=== PATIENT | female | born 1970 | race Caucasian/White ===

== ENCOUNTER 2024-12-18 00:50 | Emergency (ER) | payer OTHER, SELFPAY ==
[2024-12-18 00:52] VITALS: BP 160/82; PULSE 92; RESP 19; TEMP 36.8; O2SAT 99; BMI 41.1
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
[2024-12-18 02:13] VITALS: BP 142/74; PULSE 93; RESP 20; TEMP 36.8; O2SAT 98
== END 2024-12-18 02:17 | disposition home or self-care (01) ==
PROVIDERS: Emergency Provider Emergency Medicine; PCP Internal Medicine; Visit Provider Emergency Medicine
DX: S20.211A Contusion of right front wall of thorax, initial encounter (principal); V47.5XXA Car driver injured in collision with fixed or stationary object in traffic accident, initial encounter
CPT/HCPCS: 71250; 93005; 99282

== ENCOUNTER → 2025-04-24 | Outpatient (CLI) | payer OTHER, SELFPAY ==
--- NOTE | 2025-04-24 | CYSPIN_PTH ---
PATIENT: GARY MELCHOR [facility] U#:[id number] AGE/SX: 54/F ROOM: RE04/24/[address]: Dr. Amy Moscoso MD : 1970 BED: DIS: 04/24/2025 SPEC #: [id number] RECD: 04/24/25 16:22 STATUS: KATHLEEN REQ #: [id number] PEDRO: 04/24/25 00:[address]: Amy Moscoso DEPT: CYTOLOGY RECD BY: Juanito Vila ENTERED: 04/25/25 08:34 SP TYPE: CYSPIN FL OTHR DR: Dr. Keyana Esposito MD Tissues: A - Urine Procedures: Pap Stain (control) Special Stain Group II Cytospin Fluid HEADER OPERATION: Not noted PRE-OP DIAGNOSIS: Gross hematuria TISSUE SUBMITTED: A- Urine for cytology - voided DIAGNOSIS CYTOLOGY A. Urine, voided (cytospin): - No malignant cells identified. - Predominantly squamous cells present. CYTOLOGY STUDY Slides are reviewed. CYTOLOGY GROSS A. Received is 50 ml of itodus-fgnazm-dxusup fluid labeled with the patient's name and and designated per the requisition as urine. Submitted for cytology preparation. 04/25/2025 CPT: 09585
[2025-04-24 18:13] LABS: Cytology, Body Fluid / CSF SEE PATHOLOGY REPORT
== END | disposition home or self-care (01) ==
LOC: LABSPEC 18:11
PROVIDERS: PCP Internal Medicine; Referring Provider Urology; Visit Provider Urology
DX: R31.0 Gross hematuria (principal)
CPT/HCPCS: 88108; 88313

== ENCOUNTER → 2025-05-11 | Outpatient (CLI) | payer OTHER, SELFPAY ==
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
[2025-05-11 14:09] LABS: CREATININE FINGERSTICK < 1.0 mg/dL (0.55-1.02); EGFR FINGERSTICK > 60.0000 mL/min (>60)
--- OUTSIDE RECORDS SUMMARY | 2025-05-11 18:29 | XMS RPT_ITS | CCD ---
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 Negative [facility] Comment on above: Order Comment: Speci men Type: BLOOD SPECIMEN Ordering Facility: [facility] Address: [address] [place] [address] Result Comment: No e vidence of current or past infection with Hepatitis B virus. Should recent infection be suspected, repeat testing may be considered 3-4 weeks after this draw. Performed By: #### A CRISTOPHER, ANCA #### [facility] CLIA [id number] [address] [place] [address] STATES OF [facility] HBV surface Ab Ql (S)on 01-28 HBV surface Ab Qn (S) <8.00 Normal [facility] Comment on above: Order Comment: Speci men Type: BLOOD SPECIMEN Ordering Facility: [facility] Address: [address] [place] [address] Result Comment: <8 m IU/mL: No serological evidence of immunity to Hepatitis B Virus. >/= 8 to <12 mIU/mL: No serological evidence of immunity to Hepatitis B Virus. >/= 12 mIU/mL: Consistent with serological evidence of immunity to Hepatitis B Virus. Performed By: #### A CRISTOPHER, ANCA #### [facility] CLIA [id number] [address] [place] [address] HBV surface Ab Ser Qlon 01-28 HBV surface Ab Ql (S) Negative Normal [facility] Comment on above: Order Comment: Speci men Type: BLOOD SPECIMEN [facility]ing Facility: [facility] Address: [address] [place] [address] Result Comment: No s erological evidence of immunity to Hepatitis B Virus. Performed By: #### A CRISTOPHER, ANCA #### [facility] CLIA [id number] [address] [place] [address] OF [facility] HBV surface Ag Ser Qlon 01-28 HBV surface Ag Ql (S) Negative Normal Negative [facility] Comment on above: Order Comment: Speci men Type: BLOOD SPECIMEN [facility]ing Facility: [facility] Address: [address] [place] [address] Performed By: #### A CRISTOPHER, ANCA #### [facility] CLIA [id number] [address] [place] [address] OF [place] HCV Ab Ser Qlon 02-22-2025 HCV Ab Ql (S) Negative Normal Negative [facility] Comment on above: Order Comment: Speci men Type: BLOOD SPECIMEN [facility]ing Facility: [facility] Address: [address] [place] [address] Result Comment: The result suggests no evidence of infection with Hepatitis C virus. Should recent infection be suspected, repeat testing may be considered 4-6 weeks after this draw. Performed By: #### A CRISTOPHER, ANCA #### [facility] CLIA [id number] [address] [place] [address] OF [place] HIV 1+2 Ab IA Qlon HIV 1 and 2 Ab IA.rapid Nom (S/P/Bld) [facility] Comment on above: Test not indicated. HIV 1+2 Ab+HIV1 p24 Ag IA Ql Non-Reactive Nonreactive [facility] HIV immunoassay testing algorithm interpretation (S/P/Bld) [Interp] [facility] Comment on above: No evidence of HIV-1 or HIV-2 infection. Should recent infection be suspected, repeat testing may be considered 2-3 weeks after this draw. [place] Rev. Code 3701.243(E): This information has been disclosed to you from confidential records protected from disclosure by state law. You shall make no further disclosure of this information without the specific, written, and informed release of the individual to whom it pertains or as otherwise permitted by state law. A general authorization for the release of medical or other information is not sufficient for the purpose of the release of HIV test results or diagnoses. [facility] HIV 1 and 2 Ab IA.rapid Nom (S/P/Bld) [facility] Comment on above: Order Comment: Speci men Type: BLOOD SPECIMEN [facility]ing Facility: [facility] Address: [address] [place] [address] Result Comment: Test not indicated. Performed By: #### A NAIFR, ANCA #### [facility] CLIA [id number] [address] [place] [address] [place] HIV 1+2 Ab+HIV1 p24 Ag IA Ql Non-Reactive Normal Nonreactive [facility] Comment on above: Order Comment: Speci men Type: BLOOD SPECIMEN [facility]ing Facility: [facility] Address: [address] [place] [address] Performed By: #### A NAIFR, ANCA #### [facility] CLIA [id number] [address] [place] [address] [place] HIV immunoassay testing algorithm interpretation (S/P/Bld) [Interp] Normal [facility] Comment on above: Order Comment: Speci men Type: BLOOD SPECIMEN [facility]ing Facility: [facility] Address: [address] [place] [address] Result Comment: No e vidence of HIV-1 or HIV-2 infection. Should recent infection be suspected, repeat testing may be considered 2-3 weeks after this draw. [place] Rev. Code 3701.243(E): This information has been disclosed to you from confidential records protected from disclosure by state law. You shall make no further disclosure of this information without the specific, written, and informed release of the individual to whom it pertains or as otherwise permitted by state law. A general authorization for the release of medical or other information is not sufficient for the purpose of the release of HIV test results or diagnoses. Performed By: #### A NAIFR, ANCA #### [facility] CLIA [id number] [address] [place] [address] [place] IMMUNOFIXATION SCREEN, SERUM on 02-22-2025 MPA RESULT No M protein is identified. Normal No M protein is identified. [facility] Comment on above: Order Comment: Speci men Type: BLOOD SPECIMEN [facility]ing Facility: [facility] Address: [address] [place] [address] Performed By: #### I FESC #### [facility] CLIA [id number] [address] [place] [address] [place] STAFF REVIEW (MPA) Reviewed by Bev Cheema MD [facility] Comment on above: Order Comment: Speci men Type: BLOOD SPECIMEN [facility]ing Facility: [facility] Address: [address] [place] [address] Performed By: #### I FESC #### [facility] CLIA [id number] [address] [place] [address] [place] IMMUNOGLOBULINS,IGG,IGA,IGMo n 02-22-2025 IgA [Mass/Vol] 245 mg/dL Normal 70-400 [facility] Comment on above: Order Comment: Speci men Type: BLOOD SPECIMEN Ordering Facility: [facility] Address: [address] [place] [address] Performed By: #### A NAIFR, ANCA #### [facility] CLIA [id number] [address] [place] [address] [place] IgG [Mass/Vol] 1051 mg/dL Normal 700-1600 [facility] Comment on above: Order Comment: Speci men Type: BLOOD SPECIMEN Ordering Facility: [facility] Address: [address] [place] [address] Performed By: #### A NAIFR, ANCA #### [facility] CLIA [id number] [address] [place] [address] [place] IgM [Mass/Vol] 173 mg/dL Normal 40-230 [facility] Comment on above: Order Comment: Speci men Type: BLOOD SPECIMEN Ordering Facility: [facility] Address: [address] [place] [address] Performed By: #### A NAIFR, ANCA #### [facility] CLIA [id number] [address] [place] [address] [place] Gill-1 extractable nuclear Ab Qn (S)on 02-22-2025 GILL 1 ANTIBODY QUAL Negative Normal Negative [facility] Comment on above: Order Comment: Speci men Type: BLOOD SPECIMEN Ordering Facility: [facility] Address: [address] [place] [address] Result Comment: Anti -GILL-1 antibody is used as an aid in diagnosis of polymyositis and dermatomyositis especially with pulmonary involvement. A negative result cannot rule out polymyositis or dermatomyositis. Clinical correlation is required. Test Methodology: Multiplex flow immunoassay. Performed By: #### A NAIFR, ANCA #### [facility] CLIA [id number] [address] [place] [address] [place] KAPPA/OLIVARES,FREE,SERon 2024 Immunoglobulin light chains.kappa.free (S) [Mass/Vol] 17.6 mg/L Normal 3.3-19.4 [facility] Comment on above: Order Comment: Speci men Type: BLOOD SPECIMEN [facility]ing Facility: [facility] Address: [address] [place] [address] Result Comment: Rare ly, increased serum free light chains levels may not be detected or accurately quantified due to prozone phenomenon or in high viscosity samples using this immunoturbidimetric assay. Correlation with other laboratory results and clinical findings is recommended. The [place] Free Light Chain was performed using the Binding Site Optilite immunoturbidimetric method. Result obtained with different assay methods or kits cannot be used interchangeably. Performed By: #### A NAIFR, ANCA #### [facility] CLIA [id number] [address] [place] [address] [place] Immunoglobulin light chains.kappa/Immunogl obulin light chains.lambda (S) [Mass ratio] 1.25 Normal 0.26-1.65 [facility] Comment on above: Order Comment: Speci men Type: BLOOD SPECIMEN [facility]ing Facility: [facility] Address: [address] [place] [address] Performed By: #### A NAIFR, ANCA #### [facility] CLIA [id number] [address] [place] [address] [place] Immunoglobulin light chains.lambda.free [Mass/Vol] 14.1 mg/L Normal 5.7-26.3 [facility] Comment on above: Order Comment: Speci men Type: BLOOD SPECIMEN [facility]ing Facility: [facility] Address: [address] [place] [address] Result Comment: Rare ly, increased serum free light chains levels may not be detected or accurately quantified due to prozone phenomenon or in high viscosity samples using this immunoturbidimetric assay. Correlation with other laboratory results and clinical findings is recommended. The [place] Free Light Chain was performed using the Binding Site Optilite immunoturbidimetric method. Result obtained with different assay methods or kits cannot be used interchangeably. Performed By: #### A NAIFR, ANCA #### [facility] CLIA [id number] [address] [place] [address] [place] No Panel Informationon 02-22 Interpretation and review of laboratory results Normal [facility] RHEUMATOID FACTORon 02-23-20 Rheumatoid factor Qn 11 [IU]/mL NINF [facility] Renal function 2000 panelon 02-22-2025 Albumin [Mass/Vol] 4.5 g/dL 3.9 - 4.9 g/dL [facility] Anion gap [Moles/Vol] 10 mmol/L 8 - 15 mmol/L [facility] Calcium [Mass/Vol] 10.1 mg/dL 8.5 - 10. 2 mg/dL [facility] Chloride [Moles/Vol] 100 mmol/L 98 - 10 7 mmol/L [facility] CO2 [Moles/Vol] 28 mmol/L 22 - 30 mmol/L [facility] Creatinine [Mass/Vol] 0.75 mg/dL 0.58 - 0.96 mg/dL [facility] GFR/1.73 sq M.predicted among non-blacks MDRD (S/P/Bld) [Vol rate/Area] 94 mL/min/{1.73_m2} - PINF [facility] Comment on above: Estimated Glomerular Filtration Rate (eGFR) is calculated using the 202 CKD-EPI creatinine equation. This equation utilizes serum creatinine, sex, and age as parameters. The creatinine assay has traceable calibration to isotope dilution-mass spectrometry. Refer to KDIGO guidelines for clinical interpretation. In patients with unstable renal function, e.g. those with acute kidney injury, the eGFR may not accurately reflect actual GFR. Glucose [Mass/Vol] 95 mg/dL 74 - 99 mg/dL [facility] Comment on above: The [place] Diabete s Association (ADA) provides guidance for cutoff values for fasting glucose and random glucose. The ADA defines fasting as no caloric intake for at least 8 hours. Fasting plasma glucose results between 100 to 125 mg/dL indicate increased risk for diabetes (prediabetes). Fasting plasma glucose results greater than or equal to 126 mg/dL meet the criteria for diagnosis of diabetes. In the absence of unequivocal hyperglycemia, results should be confirmed by repeat testing. In a patient with classic symptoms of hyperglycemia or hyperglycemic crisis, random plasma glucose results greater than or equal to 200 mg/dL meet the criteria for diagnosis of diabetes. Reference: Standards of Medical Care in Diabetes 2016, [place] Diabetes Association. Diabetes Care. 2016.39(Suppl 1). Interpretation and review of laboratory results Normal [facility] Phosphate [Mass/Vol] 4.0 mg/dL 2.7 - 4 .8 mg/dL [facility] Potassium [Moles/Vol] 4.0 mmol/L 3.7 - 5.1 mmol/L [facility] Sodium [Moles/Vol] 138 mmol/L 136 - 144 mmol/L [facility] Urea nitrogen [Mass/Vol] 15 mg/dL 7 - 21 mg/dL [facility] Albumin [Mass/Vol] 4.5 g/dL Normal 3.9-4.9 [facility] Comment on above: Order Comment: Speci men Type: BLOOD SPECIMEN [facility]ing Facility: [facility] Address: [address] [place] [address] Performed By: #### A NAIFR, ANCA #### [facility] CLIA [id number] [address] [place] [address] [place] Anion gap [Moles/Vol] 10 mmol/L Normal 8-15 [facility] Comment on above: Order Comment: Speci men Type: BLOOD SPECIMEN [facility]ing Facility: [facility] Address: [address] [place] [address] Performed By: #### A NAIFR, ANCA #### [facility] CLIA [id number] [address] [place] [address] [place] Calcium [Mass/Vol] 10.1 mg/dL Normal 8.5-10.2 [facility] Comment on above: Order Comment: Speci men Type: BLOOD SPECIMEN [facility]ing Facility: [facility] Address: [address] [place] [address] Performed By: #### A NAIFR, ANCA #### [facility] CLIA [id number] [address] [place] [address] [place] Chloride [Moles/Vol] 100 mmol/L Normal 98-107 [facility] Comment on above: Order Comment: Speci men Type: BLOOD SPECIMEN [facility] Facility[facility] Address: [address] [place] [address] Performed By: #### A NAIFR, ANCA #### [facility] CLIA [id number] [address] [place] [address] [place] CO2 [Moles/Vol] 28 mmol/L Normal 22-30 [facility] Comment on above: Order Comment: Speci men Type: BLOOD SPECIMEN [facility]ing Facility: [facility] Address: [address] [place] [address] Performed By: #### A NAIFR, ANCA #### [facility] CLIA [id number] [address] [place] [address] [place] Creatinine [Mass/Vol] 0.75 mg/dL Normal 0.58-0.96 [facility] Comment on above: Order Comment: Speci men Type: BLOOD SPECIMEN [facility]ing Facility: [facility] Address: [address] [place] [address] Performed By: #### A NAIFR, ANCA #### [facility] CLIA [id number] [address] [place] [address] [place] eGFRcr SerPlBld CKD-EPI 2020 94 mL/min/1.73m??? Normal >=60 [facility] Comment on above: Order Comment: Speci men Type: BLOOD SPECIMEN [facility]ing Facility: [facility] Address: [address] [place] [address] Result Comment: Susie mated Glomerular Filtration Rate (eGFR) is calculated using the 2020 CKD-EPI creatinine equation. This equation utilizes serum creatinine, sex, and age as parameters. The creatinine assay has traceable calibration to isotope dilution-mass spectrometry. Refer to KDIGO guidelines for clinical interpretation. In patients with unstable renal function, e.g. those with acute kidney injury, the eGFR may not accurately reflect actual GFR. Performed By: #### A CRISTOPHER, ANCA #### [facility] CLIA [id number] [address] [place] [address] [place] Glucose [Mass/Vol] 95 mg/dL Normal 74-99 [facility] Comment on above: Order Comment: Trav stafford Type: BLOOD SPECIMEN [facility]ing Facility: [facility] Address: [address] [place] [address] Result Comment: The [place] Diabetes Association (ADA) provides guidance for cutoff values for fasting glucose and random glucose. The ADA defines fasting as no caloric intake for at least 8 hours. Fasting plasma glucose results between 100 to 125 mg/dL indicate increased risk for diabetes (prediabetes). Fasting plasma glucose results greater than or equal to 126 mg/dL meet the criteria for diagnosis of diabetes. In the absence of unequivocal hyperglycemia, results should be confirmed by repeat testing. In a patient with classic symptoms of hyperglycemia or hyperglycemic crisis, random plasma glucose results greater than or equal to 200 mg/dL meet the criteria for diagnosis of diabetes. Reference: Standards of Medical Care in Diabetes 2016, [place] Diabetes Association. Diabetes Care. 2016.39(Suppl 1). Performed By: #### A CRISTOPHER ANCA #### [facility] CLIA [id number] [address] [place] [address] [place] Phosphate [Mass/Vol] 4.0 mg/dL Normal 2.7-4.8 [facility] Comment on above: Order Comment: Trav stafford Type: BLOOD SPECIMEN [facility]ing Facility: [facility] Address: [address] [place] [address] Performed By: #### A CRISTOPHER, ANCA #### [facility] CLIA [id number] [address] [place] [address] [place] Potassium [Moles/Vol] 4.0 mmol/L Normal 3.7-5.1 [facility] Comment on above: Order Comment: Speci men Type: BLOOD SPECIMEN [facility]ing Facility: [facility] Address: [address] [place] [address] Performed By: #### A NAIFR, ANCA #### [facility] CLIA [id number] [address] [place] [address] [place] Sodium [Moles/Vol] 138 mmol/L Normal 136-144 [facility] Comment on above: Order Comment: Speci men Type: BLOOD SPECIMEN [facility] Facility[facility] Address: [address] [place] [address] Performed By: #### A NAIFR, ANCA #### [facility] CLIA [id number] [address] [place] [address] [place] Urea nitrogen [Mass/Vol] 15 mg/dL Normal 7-21 [facility] Comment on above: Order Comment: Speci men Type: BLOOD SPECIMEN [facility] Facility[facility] Address: [address] [place] [address] Performed By: #### A NAIFR, ANCA #### [facility] [facility] CLIA [id number] [address] [place] [address] [place] Rheumatoid fact SerPl-aCncon 02-22-2025 Rheumatoid factor Qn 11 [IU]/mL Normal <16 [facility] Comment on above: Order Comment: Speci men Type: BLOOD SPECIMEN Ordering Facility: [facility] Address: [address] [place] [address] Performed By: #### 1 1572-5, 4498-2, 4485-9 #### [facility] CLIA [id number] [address] [place] [address] [place] Ribonucleoprotein extractabl e nuclear Ab Qn (S)on 08-27-2025 ANTI-SHIPPING AND RECEIVING CLERK QUAL Negative Normal [facility] Comment on above: Order Comment: Specclaudia stafford Type: BLOOD SPECIMEN [facility] Facility: [facility] Address: [address] [place] [address] Performed By: #### A NAIFR, ANCA #### [facility] CLIA [id number] [address] [place] [address] [place] RIBOSOMAL SHIPPING AND RECEIVING CLERK QUAL Negative Normal Negative [facility] Comment on above: Order Comment: Dannii men Type: BLOOD SPECIMEN [facility] Facility: [facility] Address: [address] [place] [address] Result Comment: Anti -Ribosomal RNA (Ribosomal P) antibody is used as an aid in diagnosis of systemic autoimmune diseases especially systemic lupus erythematosus and mixed connective tissue disease. Cross-reactivity with Anti-benavides antibody is not uncommon. Clinical correlation is required. Test Methodology: Multiplex flow immunoassay. Performed By: #### A NAIFR, ANCA #### [facility] CLIA [id number] [address] [place] [address] [place] SCL-70 extractable nuclear I gG IA Qn (S)on 02-22-2025 SCLERODERMA AB QUAL Negative Normal Negative [facility] Comment on above: Order Comment: Trav nydia Type: BLOOD SPECIMEN [facility] Facility[facility] Address: [address] [place] [address] Performed By: #### A NAIFR, ANCA #### [facility] CLIA [id number] [address] [place] [address] [place] SCLERODERMA IGG AB <0.2 Normal <1.0 [facility] Comment on above: Order Comment: [facility] Type: BLOOD SPECIMEN [facility]ing Facility: [facility] Address: [address] [place] [address] Result Comment: Scl- 70/Scleroderma antibody test is used as an aid in diagnosis of systemic sclerosis especially the diffuse cutaneous form. A negative result cannot rule out systemic sclerosis. The final interpretation should consider clinical picture and other test results such as anti-centromere antibody. Test Methodology: Multiplex flow immunoassay. Performed By: #### A NAIFR, ANCA #### [facility] CLIA [id number] [address] [place] [address] [place] Sjogrens syndrome-A extracta ble nuclear Ab Qn (S)on 02-22-2025 SSA ANTIBODY QUAL Negative Normal Negative [facility] Comment on above: Order Comment: Speci men Type: BLOOD SPECIMEN [facility] Facility[facility] Address: [address] [place] [address] Performed By: #### A NAIFR, ANCA #### [facility] CLIA [id number] [address] [place] [address] [place] Sjogrens syndrome-B extracta ble nuclear Ab Qn (S)on 02-22-2025 SSB ANTIBODY QUAL Negative Normal Negative [facility] Comment on above: Order Comment: Speci men Type: BLOOD SPECIMEN [facility] Facility: [facility] Address: [address] [place] [address] Performed By: #### 5 1775-5, 21373-2, 35378-5, 00228-0, 23510-9, 16128-0, 53103-8, 28462-5 #### [facility] CLIA [id number] [address] [place] [address] [place] Benavides extractable nuclear Ig G Qn (S)on 02-22-2025 SM ANTIBODY QUAL Negative Normal Negative [facility] Comment on above: Order Comment: Speci men Type: BLOOD SPECIMEN [facility] Facility: [facility] Address: [address] [place] [address] Result Comment: Anti -Sm (Benavides) antibody is used as an aid in diagnosis of systemic lupus erythematosus and its presence is associated with renal disease. A negative result cannot rule out systemic lupus erythematosus. Clinical correlation is required. Test Methodology: Multiplex flow immunoassay. Performed By: #### A NAIFR, ANCA #### [facility] CLIA [id number] [address] [place] [address] [place] UA DIP, URINE (POC)on 2024 BILIRUBIN UA (POCT) Negative Negative [facility] CLARITY UA (POCT) Clear [facility] COLOR UA (POCT) Green [facility] GLUCOSE UA (POCT) Negative Negative mg/dL [facility] Hemoglobin Ql (U) Small Abnormal Negative [facility] Interpretation and review of laboratory results Abnormal [facility] KETONE UA (POCT) Negative Negative mg/dL [facility] LEUKOCYTES UA (POCT) Negative Negative [facility] NITRITE UA (POCT) Negative Negative [facility] PH UA (POCT) 5.5 4.5 - 8.0 [facility] Protein Ql (U) Negative Negative mg/dL [facility] SPECIFIC GRAVITY UA (POCT) <=1.005 Abnormal 1.005 - 1.030 [facility] UROBILINOGEN UA (POCT) 0.2 Normal E.U./dL [facility] Location:[facility], [address] [facility], [place], [place], [id number] [place] [address] POINT OF CARE [facility] Urinalysis complete panel (U )on 02-22-2025 Bilirubin Ql (U) Negative Negative [facility] Clarity (Unsp spec) Clear Clear [facility] Color (U) Light Yellow yellow [facility] Glucose Test strip (U) [Mass/Vol] Negative Trace, Negative [facility] Hemoglobin Ql (U) Trace Negative, Trace [facility] Interpretation and review of laboratory results Normal [facility] Ketones Ql (U) Negative Negative, Trace [facility] Leukocyte esterase Test strip Ql (U) Negative Negative, 25 Vincent/uL [facility] Nitrite Ql (U) Negative Negative [facility] pH (U) 6.0 [pH] 5.0 - 8.0 [facility] Protein (U) [Mass/Vol] Negative Trace, Negative [facility] RBC LM.HPF (Urine sed) [#/Area] 0-3 /HPF 0-3 /HPF [facility] Specific gravity (U) [Rel density] 1.005 1.005 - 1.030 [facility] Urobilinogen Ql (U) Normal Normal [facility] WBC LM.HPF (Urine sed) [#/Area] 0-5 /HPF 0-5 /HPF [facility] Bilirubin Ql (U) Negative Normal Negative [facility] Comment on above: Order Comment: Speci men Type: URINE SPECIMENOrdering Facility: [facility] Address: [address] [place] [address] Performed By: #### 2 4356-8 ####[facility] [id number] [place] [address] [place] Clarity (Unsp spec) Clear Normal Clear [facility] Comment on above: Order Comment: Speci men Type: URINE SPECIMENOrdering Facility: [facility] Address: [address] [place] [address] Performed By: #### 2 4356-8 ####[facility] [id number] [place] [address] [place] Color (U) Light Yellow Normal yellow [facility] Comment on above: Order Comment: Speci men Type: URINE SPECIMENOrdering Facility: [facility] Address: [address] [place] [address] Performed By: #### 2 4356-8 ####[facility] [id number] [place] [address] [place] Glucose Test strip (U) [Mass/Vol] Negative Normal Trace, Negative [facility] Comment on above: Order Comment: Speci men Type: URINE SPECIMENOrdering Facility: [facility] Address: [address] [place] [address] Performed By: #### 2 4356-8 ####[facility] [id number] [place] [address] [place] Hemoglobin Ql (U) Trace Normal Negative, Trace [facility] Comment on above: Order Comment: Speci men Type: URINE SPECIMENOrdering Facility: [facility] Address: [address] [place] [address] Performed By: #### 2 4356-8 ####[facility] [id number] [place] [address] [place] Ketones Ql (U) Negative Normal Negative, Trace [facility] Comment on above: Order Comment: Speci men Type: URINE SPECIMENOrdering Facility: [facility] Address: [address] [place] [address] Performed By: #### 2 4356-8 ####[facility] [id number] [place] [address] [place] Leukocyte esterase Test strip Ql (U) Negative Normal Negative, 25 Vincent/uL [facility] Comment on above: Order Comment: Speci men Type: URINE SPECIMENOrdering Facility: [facility] Address: [address] [place] [address] Performed By: #### 2 4356-8 ####[facility] [id number] [place] [id number] [place] Nitrite Ql (U) Negative Normal Negative [facility] Comment on above: Order Comment: Speci men Type: URINE SPECIMENOrdering Facility: [facility] Address: [address] [place] [address] Performed By: #### 2 4356-8 ####[facility] [id number] [place] [address] [place] pH (U) 6.0 [pH] Normal 5.0-8.0 [facility] Comment on above: Order Comment: Speci men Type: URINE SPECIMENOrdering Facility: [facility] Address: [address] [place] [address] Performed By: #### 2 4356-8 ####[facility] [id number] [place] [address] [place] Protein (U) [Mass/Vol] Negative Normal Trace, Negative [facility] Comment on above: Order Comment: Speci men Type: URINE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 As Of Date 10/19/2024 Noted Resolved Lung nodule [R91.1] 10/10/2024 KRISTIN (obstructive sleep apnea) [G47.33] 10/10/2024 Encounter Status:Closed by JOSE PERRY on 11/07/24 [facility] 10-11-2024 SRIRAMN Telephone (PULN) GARY MELCHOR ([id number]) 1970 F Date Time Provider Department 10/11/24 JAIMIE COOK During your visit today, we recorded the following information about you: Jaimie Cook MD 10/11/2024 8:51 AM Signed Called pt to update her that her PFT's and FENO were normal.No answer. No option to leave voicemail. Thank you, Jaimie Cook MD Staff, Pulmonary AND Critical Care Medicine [facility] Cell phone and Pager : [phone] Allergies As of Date: 10/11/2024 Noted Allergy Reaction CODEINE 07/15/2016 8 - GI Upset 11 - Vomiting Date Reviewed: 10/10/2024 Reviewed by: Medina Pickens, PNP - Fully Assessed Reason for Visit: Results [95] Prescriptions as of 10/11/2024 - ezetimibe (ZETIA) 10 mg tablet - oxyCODONE-acetaminophe n (PERCOCET) 7.5-325 mg tablet as needed. - topiramate (TOPAMAX) 100 mg tablet - albuterol HFA (PROVENTIL HFA, VENTOLIN HFA) 90 mcg/actuation inhaler as needed. - lisinopril (ZESTRIL, PRINIVIL) 10 mg tablet 40 mg. - metFORMIN ER (GLUCOPHAGE XR) 500 mg 24 hr tablet Take 500 mg by mouth once daily. Problem List As Of Date 10/11/2024 Noted Resolved Lung nodule [R91.1] 10/10/2024 KRISTIN (obstructive sleep apnea) [G47.33] 10/10/2024 Encounter Status:Closed by JAIMIE COOK on 10/11/24 Normal [facility] CNOVon 10-10-2024 CNOV Office Visit (PULMMN ) GARY MELCHOR ([id number]) 1970 F Date Time Provider Department 10/10/24 1:00 PM JAIMIE COOK During your visit today, we recorded the following information about you: Temperature Pulse Respiration Blood pressure 98.2 degrees 66/minute 18/minute 143/67 Weight 110.4 kg Jaimie Cook MD 10/10/2024 1:42 PM Signed . Respiratory [place] Note Ms. Melchor is a 54 year old female who presents to the [facility] [place]. Consultation requested by Dr. Posadas for an opinion regarding lung nodule. My final recommendations/evalua tion will be communicated back to the requesting physician by way of shared medical record or letter via [place] mail. The patient consented to the use of [employer] software for draft documentation of the visit consistent with [facility]?s Notice of Privacy Practices. HPI: Gary is a 54-year-old female, with a history of a pulmonary nodule and sleep apnea, presenting for evaluation of a pulmonary nodule. Gary reports a pulmonary nodule first identified in 2021, with a recent chest X-ray indicating an increase in size to 2.8 cm. She has been under the care of a orthopaedic physician assistant at [facility], who has recommended a biopsy. A PET scan was performed, which was negative for malignancy. She also underwent a pulmonary function test recently, but results are not available at this time. She reports a history of intermittent dyspnea, but denies current symptoms. She also reports a dry, non-productive cough and occasional chest pain, which she attributes to the pulmonary nodule. She denies orthopnea. Gary expresses concern about potential heavy metal poisoning, specifically arsenic, which she believes may be related to her pulmonary nodule. She reports a history of arsenic exposure, allegedly from her , and has a pending hair test for arsenic. She also reports finding "weird green stuff" in her CPAP machine, which she suspects may be related to her 's actions. She has discontinued use of her CPAP machine due to these concerns and is interested in a new sleep study. Gary has a history of smoking, but quit at age 23. She reports no significant weight changes, but is actively trying to lose 40 lbs due to a foot and ankle issue. She uses an inhaler intermittently, which she reports provides relief, and has an aerosol machine for use when she is ill. She is currently under the care of a new primary care physician and an planning specialist, Dr. Santana. She denies having a paratransit operator. Review of Systems: GEN: No fevers/chills, night sweats, or weight changes HENT: No rhinorrhea, pharyngitis, sinus drainage, congestion, or oral ulcers EYES: No sudden vision changes CV: No chest pain, palpitations RESP: As above GI: No nausea/vomiting/consti pation/diarrhea, no acid reflux : No dysuria, no hematuria MSK: No joint swelling NEURO: No sudden weakness or numbness SKIN: No rash PSYCH: No hallucinations Past Medical History: PAST MEDICAL HISTORY Diagnosis Date Arthritis Back pain Diabetes (HCC) Hypertension Migraines Past Surgical History: PAST SURGICAL HISTORY Procedure Laterality Date SECTION HX COLONOSCOPY SCREENING 03/08/2020 External hemorrhoids Work and Social Histories: Social History Tobacco Use Smoking status: Former Types: Cigarettes Smokeless tobacco: Never Substance Use Topics Alcohol use: Yes Drug use: Never Occupation/Exposures: Occupation: Asbestos: No significant exposure. Silica: No significant exposure. Banks: No significant exposure. Organic HP antigen: No significant exposure. Inorganic HP antigen: No significant exposure. Mold: No significant exposure. Tree pollen: No significant exposure. Radiation: No significant exposure. Fumes: No significant exposure. Metal dust: No significant exposure. Beryllium: No significant exposure. Dust: No significant exposure. No pets causing allergies Family History: No family history on file. Allergies: Codeine Outpatient Medications: ezetimibe (ZETIA) 10 mg tablet topiramate (TOPAMAX) 100 mg tablet lisinopril (ZESTRIL, PRINIVIL) 10 mg tablet 40 mg. metFORMIN ER (GLUCOPHAGE XR) 500 mg 24 hr tablet Take 500 mg by mouth once daily. oxyCODONE-acetaminophe n (PERCOCET) 7.5-325 mg tablet as needed. albuterol HFA (PROVENTIL HFA, VENTOLIN HFA) 90 mcg/actuation inhaler as needed. PHYSICAL EXAM: BP 143/67 Pulse 66 Temp (Src) 98.2 (Temporal) Resp 18 Wt 243 lb 4.8 oz (110.4kg) SpO2 98% GEN: Alert, comfortable, sitting up in chair, no distress EYES: Anicteric sclera, no conjunctival injection HENT: Normocephalic. no temporal wasting NECK: FROM CV: RRR no m/r/g, no peripheral edema PULM: clear to auscultation bilaterally ABD: Protuberant, NABS, S/NT/ND NEURO: AANDOx, No asterix (more content not included)... Normal [facility] CNPNon 10-10-2024 CNPN Telephone (PULMMN) GARY MELCHOR ([id number]) 1970 F Date Time Provider Department 10/10/24 JAIMIE COOK During your visit today, we recorded the following information about you: Sussy Agosto 10/10/2024 2:45 PM Signed Imported outside medical records There may be a delay before report appears in epic Allergies As of Date: 10/10/2024 Noted Allergy Reaction CODEINE 07/15/2016 8 - GI Upset 11 - Vomiting Date Reviewed: 10/10/2024 Reviewed by: Medina Pickens, PNP - Fully Assessed Reason for Visit: Received Outside Medical Records [[id number]] Prescriptions as of 10/11/2024 - ezetimibe (ZETIA) 10 mg tablet - oxyCODONE-acetaminophe n (PERCOCET) 7.5-325 mg tablet as needed. - topiramate (TOPAMAX) 100 mg tablet - albuterol HFA (PROVENTIL HFA, VENTOLIN HFA) 90 mcg/actuation inhaler as needed. - lisinopril (ZESTRIL, PRINIVIL) 10 mg tablet 40 mg. - metFORMIN ER (GLUCOPHAGE XR) 500 mg 24 hr tablet Take 500 mg by mouth once daily. 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 Start of test and EOFE criteria met. POST: The two largest FVCs and FEV1s were repeatable. Best effort reported. Lung volumes were repeatable. Current ATS/ERS acceptability and repeatability standards for DLCO met with 2 acceptable maneuvers. Medications and Allergies were reviewed for possible drug interactions per policy. No contraindications or sensitivities were noted. No respiratory meds taken before testing. 2 puffs Albuterol (180 mcg) delivered by MDI via holding chamber. HR pre = 71/min, HR post = 73/min. //KP IMPRESSION: Spirometry is normal. There is no significant bronchodilator response. Lung volumes are normal. The diffusing capacity is normal. Electronically Signed On 10-18-2024 16:42:46 EDT by Toro Montes MD ID: [id number] Name: GARY MELCHOR Race: White Ht: 64.76 in Wt: 238.10 lbs Age: 54 Gender: Female : 1970 Dx: Idiopathic interstitial pulmonary disease_ Smoking Hx: Non-smoker Doctor: JAIMIE COOK Test Date: 10/10/2024 Site: Tech: Medina Pickens PRE-BRONCH POST-BRONCH Lucinda LLN Pred ULN %Pred ZScore Lucinda %Pred %Chg ZScore SPIROMETRY FVC 3.42 2.36 3.20 4.07 106 0.41 3.52 110 3 0.62 FEV1 2.52 1.88 2.58 3.24 97 -0.13 2.60 100 2 0.05 FEV1/FVC 0.74 0.69 0.80 0.90 92 -0.95 0.74 91 0 -0.98 FEFMax 4.78 4.90 6.65 8.40 71 -1.76 5.10 76 6 -1.46 FEF50 2.64 1.91 3.52 5.13 74 -0.90 2.79 79 5 -0.75 FIF50 4.34 3.77 -13 FEF50/FIF50 0.61 90-100 0.74 21 FIVC 3.25 3.41 4 PQS15-43 1.98 1.36 2.53 4.07 77 -0.72 2.20 86 11 -0.42 ExpiredTime 7.91 7.72 -2 TimeToFEFMax 0.15 0.10 -37 JOANN 0.12 0.14 12 VolExtrap% 4 4 8 LUNG VOLUMES FRC(Pleth) 2.23 2.05 2.91 3.77 76 -1.30 ERV 0.46 1.07 43 RV(Pleth) 1.77 1.30 1.93 2.55 91 -0.43 SVC 3.17 2.36 3.20 4.07 98 -0.06 IC 2.58 2.13 120 TLC(Pleth) 4.81 4.29 5.17 6.05 93 -0.67 RV/TLC(Pleth) 37 28 37 46 98 -0.11 LUNG DIFFUSION DLCOunc 26.59 16.31 22.48 28.65 118 1.10 DLCOStdPB 26.11 16.31 22.48 28.65 116 0.97 VA 5.13 4.09 5.19 6.29 98 -0.09 Kco 5.09 3.29 4.23 5.30 120 1.35 Comments: PRE: Current ATS/ERS acceptability and repeatability standards for spirometry met. Start of test and EOFE criteria met. POST: The two largest FVCs and FEV1s were repeatable. Best effort reported. Lung volumes were repeatable. Current ATS/ERS acceptability and repeatability standards for DLCO met with 2 acceptable maneuvers. Medications and Allergies were reviewed for possible drug interactions per policy. No contraindications or sensitivities were noted. No respiratory meds taken before testing. 2 puffs Albuterol (180 mcg) delivered by MDI via holding chamber. HR pre = 71/min, HR post = 73/min. 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 Start of test and EOFE criteria met. POST: The two largest FVCs and FEV1s were repeatable. Best effort reported. Lung volumes were repeatable. Current ATS/ERS acceptability and repeatability standards for DLCO met with 2 acceptable maneuvers. Medications and Allergies were reviewed for possible drug interactions per policy. No contraindications or sensitivities were noted. No respiratory meds taken before testing. 2 puffs Albuterol (180 mcg) delivered by MDI via holding chamber. HR pre = 71/min, HR post = 73/min. //KP IMPRESSION: Spirometry is normal. There is no significant bronchodilator response. Lung volumes are normal. The diffusing capacity is normal. Electronically Signed On 10-18-2024 16:42:46 EDT by Toro Montes MD ID: [id number] Name: GARY MELCHOR Race: White Ht: 64.76 in Wt: 238.10 lbs Age: 54 Gender: Female : 1970 Dx: Idiopathic interstitial pulmonary disease_ Smoking Hx: Non-smoker Doctor: JAIMEI COOK Test Date: 10/10/2024 Site: Tech: Medina Pickens PRE-BRONCH POST-BRONCH Lucinda LLN Pred ULN %Pred ZScore Lucinda %Pred %Chg ZScore SPIROMETRY FVC 3.42 2.36 3.20 4.07 106 0.41 3.52 110 3 0.62 FEV1 2.52 1.88 2.58 3.24 97 -0.13 2.60 100 2 0.05 FEV1/FVC 0.74 0.69 0.80 0.90 92 -0.95 0.74 91 0 -0.98 FEFMax 4.78 4.90 6.65 8.40 71 -1.76 5.10 76 6 -1.46 FEF50 2.64 1.91 3.52 5.13 74 -0.90 2.79 79 5 -0.75 FIF50 4.34 3.77 -13 FEF50/FIF50 0.61 90-100 0.74 21 FIVC 3.25 3.41 4 ZVU59-21 1.98 1.36 2.53 4.07 77 -0.72 2.20 86 11 -0.42 ExpiredTime 7.91 7.72 -2 TimeToFEFMax 0.15 0.10 -37 JOANN 0.12 0.14 12 VolExtrap% 4 4 8 LUNG VOLUMES FRC(Pleth) 2.23 2.05 2.91 3.77 76 -1.30 ERV 0.46 1.07 43 RV(Pleth) 1.77 1.30 1.93 2.55 91 -0.43 SVC 3.17 2.36 3.20 4.07 98 -0.06 IC 2.58 2.13 120 TLC(Pleth) 4.81 4.29 5.17 6.05 93 -0.67 RV/TLC(Pleth) 37 28 37 46 98 -0.11 LUNG DIFFUSION DLCOunc 26.59 16.31 22.48 28.65 118 1.10 DLCOStdPB 26.11 16.31 22.48 28.65 116 0.97 VA 5.13 4.09 5.19 6.29 98 -0.09 Kco 5.09 3.29 4.23 5.30 120 1.35 Comments: PRE: Current ATS/ERS acceptability and repeatability standards for spirometry met. Start of test and EOFE criteria met. POST: The two largest FVCs and FEV1s were repeatable. Best effort reported. Lung volumes were repeatable. Current ATS/ERS acceptability and repeatability standards for DLCO met with 2 acceptable maneuvers. Medications and Allergies were reviewed for possible drug interactions per policy. No contraindications or sensitivities were noted. No respiratory meds taken before testing. 2 puffs Albuterol (180 mcg) delivered by MDI via holding chamber. HR pre = 71/min, HR post = 73/min. //KP Normal [facility] No Panel Informationon 10-10 Medina Pickens RRT 10/10/2024 3:20 PM RESPIRATORY THERAPY ORAL EXHALED NITRIC OXIDE SERVICE DATE: 10/10/2024 SERVICE TIME: 3:20 PM Oral Exhaled Nitric Oxide measurement: 5.0 (ppb) Normal: Adult <25 ppb, pediatric (<12 years) <20 ppb High Normal / Increased: Adult 25-50 ppb, pediatric (<12 years) 20-35 ppb Moderately raised exhaled Nitric Oxide may indicate underlying inflammation, but note that: Cold and influenza can raise exhaled Nitric Oxide and some patients have higher baseline exhaled Nitric Oxide levels than others. High: Adult >50 ppb, pediatric (<12 years) >35 ppb Indicative of ongoing eosinophilic inflammation. Symptomatic patient likely to respond to steroids. Possible causes (if already on steroids): Poor compliance, recent allergen exposure, steroid dose inadequate, and steroid resistance. Note that not all patients with high exhaled nitric oxide levels display symptoms. 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 Start of test and EOFE criteria met. POST: The two largest FVCs and FEV1s were repeatable. Best effort reported. Lung volumes were repeatable. Current ATS/ERS acceptability and repeatability standards for DLCO met with 2 acceptable maneuvers. Medications and Allergies were reviewed for possible drug interactions per policy. No contraindications or sensitivities were noted. No respiratory meds taken before testing. 2 puffs Albuterol (180 mcg) delivered by MDI via holding chamber. HR pre = 71/min, HR post = 73/min. //KP IMPRESSION: Spirometry is normal. There is no significant bronchodilator response. Lung volumes are normal. The diffusing capacity is normal. Electronically Signed On 10-18-2024 16:42:46 EDT by Toro Montes MD ID: [id number] Name: GARY MELCHOR Race: White Ht: 64.76 in Wt: 238.10 lbs Age: 54 Gender: Female : 1970 Dx: Idiopathic interstitial pulmonary disease_ Smoking Hx: Non-smoker Doctor: JAIMIE COOK Test Date: 10/10/2024 Site: Tech: Medina Pickens PRE-BRONCH POST-BRONCH Lucinda LLN Pred ULN %Pred ZScore Lucinda %Pred %Chg ZScore SPIROMETRY FVC 3.42 2.36 3.20 4.07 106 0.41 3.52 110 3 0.62 FEV1 2.52 1.88 2.58 3.24 97 -0.13 2.60 100 2 0.05 FEV1/FVC 0.74 0.69 0.80 0.90 92 -0.95 0.74 91 0 -0.98 FEFMax 4.78 4.90 6.65 8.40 71 -1.76 5.10 76 6 -1.46 FEF50 2.64 1.91 3.52 5.13 74 -0.90 2.79 79 5 -0.75 FIF50 4.34 3.77 -13 FEF50/FIF50 0.61 90-100 0.74 21 FIVC 3.25 3.41 4 ROX61-35 1.98 1.36 2.53 4.07 77 -0.72 2.20 86 11 -0.42 ExpiredTime 7.91 7.72 -2 TimeToFEFMax 0.15 0.10 -37 JOANN 0.12 0.14 12 VolExtrap% 4 4 8 LUNG VOLUMES FRC(Pleth) 2.23 2.05 2.91 3.77 76 -1.30 ERV 0.46 1.07 43 RV(Pleth) 1.77 1.30 1.93 2.55 91 -0.43 SVC 3.17 2.36 3.20 4.07 98 -0.06 IC 2.58 2.13 120 TLC(Pleth) 4.81 4.29 5.17 6.05 93 -0.67 RV/TLC(Pleth) 37 28 37 46 98 -0.11 LUNG DIFFUSION DLCOunc 26.59 16.31 22.48 28.65 118 1.10 DLCOStdPB 26.11 16.31 22.48 28.65 116 0.97 VA 5.13 4.09 5.19 6.29 98 -0.09 Kco 5.09 3.29 4.23 5.30 120 1.35 Comments: PRE: Current ATS/ERS acceptability and repeatability standards for spirometry met. Start of test and EOFE criteria met. POST: The two largest FVCs and FEV1s were repeatable. Best effort reported. Lung volumes were repeatable. Current ATS/ERS acceptability and repeatability standards for DLCO met with 2 acceptable maneuvers. Medications and Allergies were reviewed for possible drug interactions per policy. No contraindications or sensitivities were noted. No respiratory meds taken before testing. 2 puffs Albuterol (180 mcg) delivered by MDI via holding chamber. HR pre = 71/min, HR post = 73/min. //KP FVC_PRE (L) : 3.42 L FVC_POST (L) : 3.52 L FVC_PRED (L) : 3.20 L FVC_LLN (L) : 2.36 L FVC_ULN (L) : 4.07 L FEV1_PRE (L) : 2.52 L FEV1_POST (L) : 2.60 L FEV1_PRED (L) : 2.58 L FEV1_LLN (L) : 1.88 L FEV1_ULN (L) : 3.24 L FEV1/FVC_PRE (%) : 74 % FEV1/FVC_POST (%) : 74 % FEV1/FVC_PRED (%) : 80 % FEV1/FVC_LLN (%) : 69 % GRG82_QDZ (L/S) : 4.42 L/S RDU94_LFZG (L/S) : 4.23 L/S JEP06_DNZ (L/S) : 0.74 L/S QDF02_SJKD (L/S) : 0.90 L/S MRX10_OOZH (L/S) : 0.79 L/S DNM11_OEL (L/S) : 0.33 L/S SKB60_JDH (L/S) : 1.74 L/S RZJ88-24%_PRE (L/S) : 1.98 L/S MRI18-94%_POST (L/S) : 2.20 L/S TOV58-39%_PRED (L/S) : 2.53 L/S MRB12-07%_LLN (L/S) : 1.36 L/S PEF_PRE (L/S) : 4.78 L/S PEF_POST (L/S) : 5.10 L/S PEFMAX_LLN (L/S) : 4.90 L/S PEFMAX_ULN (L/S) : 8.40 L/S VC BOX (L) : 3.17 L SVC_PRED (L) : 3.20 L/S SVC_LLN (L) : 2.36 L/S SVC_ULN (L/S) : 4.07 L/S IC BOX (L) : 2.58 L IC_PRED (L) : 2.13 L/S ERV BOX (L) : 0.46 L ERV_PREDICTED (L) : 1.07 L/S DLCO (ML/MIN/MMHG) : 26.59 ml/min/mmHg DLCO_PRED (ML/MIN/MMHG) : 22.48 ml/min/mmHg DLCO_LLN(ML/MIN/MMHG) : 16.31 ml/min/mmHg DLCO_ULN (ML/MIN/MMHG) : 28.65 ml/min/mmHg FET_PRE (S) : 7.91 S FET_POST (S) : 7.72 S FRC BOX (L) : 2.23 L RV BOX (L) : 1.77 L RV_PLETH_PRED (L) : 1.93 L TLC BOX (L) : 4.81 L TLC_PLETH_PRED (L) : 5.17 L RV/TLC BOX (%) : 37 % RV_TLC_PLETH_PRED (%) : 37 % VA (L) : 5.13 L VA_PRD (L) : 5.19 L DLCO/VA (ML/MIN/MMHG/L) : 0.05 ml/min/mmHg/L DLCO_VA_PRED (L) : 0.04 ml/min/mmHg/L DLCOCOR (ML/MIN/MMHG) : 26.11 ml/min/mmHg DLCOCOR_PRED (ML/MIN/MMHG) : 22.48 ml/min/mmHg DLCO/VACOR (ML/MIN/MMHG/L) : 0.05 ml/min/mmHg/L Normal [facility] TRVAMPon 09-26-2024 Trich vag TOM Negative Normal Negative [facility] Comment on above: Result Comment: Perf ormed At: =[facility] [address] [place], [place] [id number] Segundo Vegas MD Ph:[phone] Performed By: #### L IPID, A1C, CBC, ADIFF, ANEU, B12, CMP, VIDH, GFR #### [address] [address] CTPCRon 09-22-2024 C. trachomatis Interp Normal See CT Interp N [facility] Comment on above: Result Comment: C. t rachomatis DNA not detected. Specimen is presumptive negative for C. trachomatis. A negative result does not preclude C. trachomatis infection because results depend on adequate specimen collection, absence of inhibitors, and sufficient DNA to be detected. See CT Interp N Performed By: #### L IPID, A1C, CBC, ADIFF, ANEU, B12, CMP, VIDH, GFR #### [address] [address] C.trachomatis PCR Negative Normal Negative [facility] Comment on above: Result Comment: Mole cular (PCR) assay performed on the [employer] [id number] system. Performed By: #### L IPID, A1C, CBC, ADIFF, ANEU, B12, CMP, VIDH, GFR #### [address] [address] Chlam Source Urine Normal [facility] Comment on above: Performed By: #### L IPID, A1C, CBC, ADIFF, ANEU, B12, CMP, VIDH, GFR #### [facility] [address] [place] [address] [id number] 09-22-2024 GC PCR Source Urine Normal [facility] Comment on above: Performed By: #### L IPID, A1C, CBC, ADIFF, ANEU, B12, CMP, VIDH, GFR #### [facility] [address] [place], [place] [id number] N. gonorrhoeae (PCR) Negative Normal Negative [facility] Comment on above: Result Comment: Mole cular (PCR) assay performed on the [employer] 4800 System. Performed By: #### L IPID, A1C, CBC, ADIFF, ANEU, B12, CMP, VIDH, GFR #### [facility] [address] [place] [address] N. gonorrhoeae Interp Normal See NG Interp N [facility] Comment on above: Result Comment: N. g onorrhoeae DNA not detected. Specimen is presumptive negative for N. gonorrhoeae. A negative result does not preclude Neisseria gonorrhoeae infection because results depend on adequate specimen collection, absence of inhibitors, and sufficient DNA to be detected. See Interp N Performed By: #### L IPID, A1C, CBC, ADIFF, ANEU, B12, CMP, VIDH, GFR #### [facility] [address] [place] [address] RPRon 09-21-2024 Reagin Ab RPR Ql (S) Non-Reactive Normal Non-Reactive [facility] Comment on above: Result Comment: The RPR test is a non-treponemal assay useful as an aid in the diagnosis of primary and secondary syphilis. It converts to positive generally within 2 weeks after the appearance of a lesion. This test is also useful for monitoring response to antibiotic therapy. A positive RPR screening test will be followed by the FTA ABS test. False positive RPR tests may occur in 1) patients with underlying autoimmune disorders, 2) elderly patients, 3) , and 4) other conditions with abnormal serum globulins. Performed By: #### L IPID, A1C, CBC, ADIFF, ANEU, B12, CMP, VIDH, GFR #### [place] [address] HBSAGon 09-20-2024 Hep B Surf Ag Non-Reactive Normal Non-Reactive [facility] Comment on above: Performed By: #### L IPID, A1C, CBC, ADIFF, ANEU, B12, CMP, VIDH, GFR #### [place] [address] HCVon 09-20-2024 Hep C Ab Non-Reactive Normal Non-Reactive [facility] Comment on above: Performed By: #### L IPID, A1C, CBC, ADIFF, ANEU, B12, CMP, VIDH, GFR #### [place] [address] Hep C Ab Int Normal [facility] Comment on above: Result Comment: Nonr eactive: Samples with a value < 0.80 are considered nonreactive (negative) for antibodies to HCV. A negative test result does not exclude the possibility of exposure to or infection with HCV. HCV antibodies may be undetectable in some stages of the infection and in some clinical conditions. See Interp Performed By: #### L IPID, A1C, CBC, ADIFF, ANEU, B12, CMP, VIDH, GFR #### [place] [address] HIVon 09-20-2024 HIV 1/2 Ab Non-Reactive Normal Non-Reactive [facility] Comment on above: Result Comment: Spec imen is negative for anti-HIV-1 and anti-HIV-2. Performed By: #### L IPID, A1C, CBC, ADIFF, ANEU, B12, CMP, VIDH, GFR #### [place] [address] TRVAMPon 09-20-2024 Trich Vag Source Urine Normal [facility] Comment on above: Performed By: #### L IPID, A1C, CBC, ADIFF, ANEU, B12, CMP, VIDH, GFR #### [place] [address] HMETBon 09-12-2024 Blood Lead Purpose Initial Normal [facility] Comment on above: Performed By: #### U WILLIAM RALPH #### [place] [id number] [place], [place] [address] Blood Lead Type Venous Normal [facility] Comment on above: Performed By: #### U WILLIAM RALPH #### [place] [id number] [place], [place] [address] HMETBon 09-11-2024 Arsenic Bld Lvl 14 UG/L High 0-9 [facility] Comment on above: Result Comment: This test was developed and its performance characteristics determined by [employer]. It has not been cleared or approved by the Food and Drug Administration. Detection Limit = 1 Physiologic arsenic concentrations in unexposed individuals are usually less than 10 ug/L; however, the total arsenic concentrations may be markedly increased after dietary consumption of seafood. It may be appropriate to follow up on elevated values with an arsenic test in urine, the preferred specimen type, in order to determine if the arsenic is a toxic inorganic species. Performed By: #### WILLIAM FOSTER #### [address] [address] Cadmium Bld Lvl 0.6 UG/L Normal 0.0-1.2 [facility] Comment on above: Result Comment: This test was developed and its performance characteristics determined by [employer] It has not been cleared or approved by the Food and Drug Administration. Environmental Exposure: Nonsmokers 0.3 - 1.2 Smokers 0.6 - 3.9 Occupational Exposure: OSHA Cadmium Std 5.0 YELITZA 5.0 Detection Limit = 0.5 Performed At: [address] [id number] Tomás Bailey MD Ph:[phone] Performed By: #### Lis RALPH UA #### [address] [address] Lead Bld Lvl <1.0 Normal 0.0-3.4 [facility] Comment on above: Result Comment: Test ing performed by Inductively coupled plasma/Mass Spectrometry. This test was developed and its performance characteristics determined by [employer]. It has not been cleared or approved by the Food and Drug Administration. Environmental Exposure: WHO Recommendation <5.0 Occupational Exposure: OSHA Lead Std 40.0 YELITZA 30.0 Detection Limit = 1.0 Performed By: #### Lis BERMANFredy WILLIAM #### [address] [place], [place] [address] Mercury Bld Lvl 1.9 UG/L Normal 0.0-14.9 [facility] Comment on above: Result Comment: This test was developed and its performance characteristics determined by [employer]. It has not been cleared or approved by the Food and Drug Administration. Detection Limit = 1.0 Performed By: #### Lis ENNISTHOMAS WILLIAM #### [address] [place], [place] [address] US PELVIS NON-OB W/TRANSVAGI NALon 09-08-2024 US PELVIS NON-OB W/TRANSVAGINAL ORIGINAL EXAMINATION: Ultrasound pelvis, 09/08/2024 9:26 am transabdominal and transvaginal COMPARISON: None TECHNIQUE: This report is based on interpretation of permanently recorded ultrasound images. HISTORY: ORDERING SYSTEM PROVIDED HISTORY: Reason for Exam: POST MENAPAUSUAL VAGINAL BLEEDING, FINDINGS: The suprapubic images are completely nondiagnostic due to empty bladder. The transvaginal images are also moderately compromised due to artifacts from body habitus and bowel gas. The uterine fundus is partially obscured and suboptimally visualized. The uterus is 8.4 x 4.9 x 4.6 cm. There is some heterogeneity of myometrium in the fundal region. 82.1 cm intramural hypoechoic lesion is suspected in the fundus that is statistically likely to be a fibroid but ultrasound cannot be histologically specific. There is suboptimal visualization of the endometrial stripe also. On some images this is measured 4 mm double wall thickness.. Both ovaries are not visualized due to limitations of this study and obscuration by bowel. No pelvic free fluid is seen. IMPRESSION: Moderately compromised suboptimal evaluation due to patient factors. The ovaries are not seen. Suboptimal visualization of the endometrium, measured thickness is within normal limits. Intramural fundal mass is statistically likely to be fibroid. Interpreted by: Afshin Petty MD Preliminary Report By: Afshin Petty MD Electronically signed By Afshin Petty MD Dictated Date: 09/08/2024 10:58:32 AM Prelim Date: 09/08/2024 11:01:14 AM Sign Date: 09/08/2024 11:01:14 AM Ordering Provider: KEYANA Christianson [place] CHRISTINA ArguelloAuto Diffon 09-06-2024 Basophil, Absolute 0.0 10 3/mcL Normal 0.0-0.2 [facility] Comment on above: Performed By: #### A DIFF, GFR, ANEU, MDW, CMP, CBC, [id number] #### [address] [address] Basophils/100 WBC (Bld) 0.4 % Normal 0.0-2.5 [facility] Comment on above: Performed By: #### A DIFF, GFR, ANEU, MDW, CMP, CBC, [id number] #### [address] [address] Eosinophil, Absolute 0.0 10 3/mcL Normal 0.0-0.7 [facility] Comment on above: Performed By: #### A DIFF, GFR, ANEU, MDW, CMP, CBC, [id number] #### [address] [address] Eosinophils/100 WBC (Bld) 0.4 % Normal 0.0-7.0 [facility] Comment on above: Performed By: #### A DIFF, GFR, ANEU, MDW, CMP, CBC, [id number] #### [address] [address] Lymphocyte, Absolute 2.3 10 3/mcL Normal 0.9-4.3 [facility] Comment on above: Performed By: #### A DIFF, GFR, ANEU, MDW, CMP, CBC, [id number] #### [address] [address] Lymphocytes/100 WBC (Bld) 27.7 % Normal 20.0-40.0 [facility] Comment on above: Performed By: #### A DIFF, GFR, ANEU, MDW, CMP, CBC, [id number] #### [address] [address] Monocyte, Absolute 0.5 10 3/mcL Normal 0.1-1.4 [facility] Comment on above: Performed By: #### A DIFF, GFR, ANEU, MDW, CMP, CBC, [id number] #### [address] [address] Monocytes/100 WBC (Bld) 6.4 % Normal 2.0-13.0 [facility] Comment on above: Performed By: #### A DIFF, GFR, ANEU, MDW, CMP, CBC, [id number] #### [address] [address] Neutrophils/100 WBC (Bld) 65.1 % Normal 50.0-75.0 [facility] Comment on above: Performed By: #### A DIFF, GFR, ANEU, MDW, CMP, CBC, [id number] #### [address] [address] .GFRon 09-06-2024 Estimated Glomerular Filtration Rate 67 ml/min/1.73sqm Normal [facility] Comment on above: Result Comment: Stages of Chronic Kidney Disease (CKD) Stage Description eGFR(ml/min/1.73 sq.m.) CKD 1 Normal kidney function or >=90 normal kindney function with possible kidney damage (ex. Proteinuria) CKD 2 Kidney damage with mild loss 60-89 of kidney function CKD 3a Mild to moderate loss of kidney 45-59 function CKD 3b Moderate to severe loss of 30-44 of kindey function CKD 4 Severe loss of kidney function 15-29 CKD 5 Kidney failure <15 Note: (go live 2024) the eGFR calculation was updated to the 2020 CKD-EPI creatinine equation without a race factor to calculate the eGFR results. Performed By: #### U RAMO UA #### [place] [address] [place], [place] [address] .MDWon 09-06-2024 Monocyte Distribution Width 14.45 Normal 0.00-20.00 [facility] Comment on above: Result Comment: For ED adult patients suspected of sepsis, MDW<=20.0 does not rule out sepsis or risk of sepsis Performed By: #### U RMAO UA #### [address] [address] .NEUABSon 09-06-2024 Neutrophil, Absolute 5.5 10 3/mcL Normal 2.3-8.1 [facility] Comment on above: Performed By: #### A DIFF, GFR, ANEU, MDW, CMP, CBC, [id number] #### [place] [address] .Urinalysis Microscopic (AO) on 09-06-2024 UA RBC 0-5 Abnormal None Seen [facility] Comment on above: Performed By: #### U AMICAO, UA #### [place] [address] UA Squam Epithelial 0-5 Abnormal None Seen [facility] Comment on above: Performed By: #### U AMICAO, UA #### [place] [address] UA WBC 5-10 Abnormal None Seen [facility] Comment on above: Performed By: #### U AMICAO, UA #### [place] [address] CBCon 09-06-2024 Erythrocyte distribution width (RBC) [Ratio] 15.7 % High 11.5-15.5 [facility] Comment on above: Performed By: #### A DIFF, GFR, ANEU, MDW, CMP, CBC, [id number] #### [place] [address] Hematocrit (Bld) [Volume fraction] 47.1 % High 34.0-46.0 [facility] Comment on above: Performed By: #### A DIFF, GFR, ANEU, MDW, CMP, CBC, [id number] #### [place] [address] Hgb 15.6 G/dL Normal 12.0-16.0 [facility] Comment on above: Performed By: #### A DIFF, GFR, ANEU, MDW, CMP, CBC, [id number] #### [place] [address] MCH (RBC) [Entitic mass] 29.4 pg Normal 27.0-33.0 [facility] Comment on above: Performed By: #### A DIFF, GFR, ANEU, MDW, CMP, CBC, [id number] #### [address] [address] MCHC 33.1 G/dL Normal 32.0-36.0 [facility] Comment on above: Performed By: #### A DIFF, GFR, ANEU, MDW, CMP, CBC, [id number] #### [address] [address] MCV (RBC) [Entitic vol] 88.7 fL Normal 80.0-99.0 [facility] Comment on above: Performed By: #### A DIFF, GFR, ANEU, MDW, CMP, CBC, [id number] #### [address] [address] Platelet 328 10 3/mcL Normal 150-450 [facility] Comment on above: Performed By: #### A DIFF, GFR, ANEU, MDW, CMP, CBC, [id number] #### [address] [address] Platelet mean volume (Bld) [Entitic vol] 7.1 fL Normal 6.6-10.5 [facility] Comment on above: Performed By: #### A DIFF, GFR, ANEU, MDW, CMP, CBC, [id number] #### [address] [address] RBC 5.31 10 6/mcL High 4.10-5.30 [facility] Comment on above: Performed By: #### A DIFF, GFR, ANEU, MDW, CMP, CBC, [id number] #### [address] [address] WBC 8.4 10 3/mcL Normal 4.5-10.8 [facility] Comment on above: Performed By: #### A DIFF, GFR, ANEU, MDW, CMP, CBC, [id number] #### [address] [address] CMPon 09-06-2024 Albumin Level 3.9 G/dL Normal 3.5-5.0 [facility] Comment on above: Performed By: #### Lis RALPH UA #### [address] [address] Albumin/Globulin [Mass ratio] 0.9 {ratio} Low 1.1-2.5 [facility] Comment on above: Performed By: #### Lis RALPH UA #### [address] [address] ALP [Catalytic activity/Vol] 109 U/L Normal 40-135 [facility] Comment on above: Performed By: #### Lis RALPH UA #### [address] [address] ALT [Catalytic activity/Vol] 29 U/L Normal 14-59 [facility] Comment on above: Performed By: #### Lis RALPH UA #### [address] [address] AST [Catalytic activity/Vol] 24 U/L Normal 10-40 [facility] Comment on above: Performed By: #### Lis RALPH UA #### [address] [address] Bili Total 0.3 mg/dL Normal 0.2-1.0 [facility] Comment on above: Result Comment: Use of this assay is not recommended for patients undergoing treatment with eltrombopag due to the potential for falsely elevated results. Performed By: #### Lis RALPH UA #### [address] [address] BUN/Creatinine Ratio 15 ratio Normal 7-27 [facility] Comment on above: Performed By: #### Lis RALPH UA #### [address] [address] Calcium [Mass/Vol] 10.1 mg/dL Normal 8.4-10.2 [facility] Comment on above: Performed By: #### U AMICAO, UA #### [address] [address] Chloride [Moles/Vol] 103 mmol/L Normal 98-107 [facility] Comment on above: Performed By: #### U AMICAO, UA #### [address] [address] CO2 [Moles/Vol] 22 mmol/L Normal 22-29 [facility] Comment on above: Performed By: #### U AMICAO, UA #### [address] [address] Creatinine [Mass/Vol] 0.99 mg/dL Normal 0.55-1.02 [facility] Comment on above: Result Comment: Test ing performed on Siemens Dimension EXL analyzer using a modified kinetic Meme technique. Performed By: #### U AMICAO UA #### [address] [address] Electrolyte Balance 13.0 mEq/L Normal 4.0-15.0 [facility] Comment on above: Performed By: #### U AMICAO UA #### [address] [address] Globulin 4.3 G/dL High 1.5-3.8 [facility] Comment on above: Performed By: #### U AMICAO, UA #### [address] [address] Glucose [Mass/Vol] 102 mg/dL Normal 70-105 [facility] Comment on above: Performed By: #### U AMICAO, UA #### [address] [address] Potassium [Moles/Vol] 3.5 mmol/L Normal 3.5-5.1 [facility] Comment on above: Performed By: #### U AMICAO, UA #### [address] [address] Sodium [Moles/Vol] 138 mmol/L Normal 136-145 [facility] Comment on above: Performed By: #### U AMICAO, UA #### [address] [address] Total Protein 8.2 G/dL Normal 6.4-8.2 [facility] Comment on above: Performed By: #### U AMICAO, UA #### [address] [address] Urea nitrogen [Mass/Vol] 15 mg/dL Normal 7-18 [facility] Comment on above: Performed By: #### U AMICAO, UA #### [address] [address] UAon 09-06-2024 Color (U) Yellow Normal [facility] Comment on above: Performed By: #### U AMICAO, UA #### [place] [id number] Glucose (U) [Mass/Vol] 500 mg/dL Abnormal Negative [facility] Comment on above: Performed By: #### U AMICAO, UA #### [address] [address] Ketones Ql (U) Negative Normal Negative [facility] Comment on above: Performed By: #### U AMICAO, UA #### [address] [address] UA Appear Clear Normal Clear [facility] Comment on above: Performed By: #### U AMICAO, UA #### [address] [address] UA Blood Moderate Abnormal Negative [facility] Comment on above: Performed By: #### U AMICAO, UA #### [address] [address] UA Leuk Est Negative Normal Negative [facility] Comment on above: Performed By: #### U AMICAO, UA #### [address] [address] UA Nitrite Negative Normal Negative [facility] Comment on above: Performed By: #### U AMICAO, UA #### [place] [address] UA pH 5.5 Normal 5.0 - 8.0 [facility] Comment on above: Performed By: #### U AMICAO, UA #### [place] [address] UA Protein 100 mg/dL Abnormal Negative [facility] Comment on above: Performed By: #### U AMICAO, UA #### [place] [address] UA Spec Grav 1.015 Normal 1.015-1.025 [facility] Comment on above: Performed By: #### U AMICAFredy UA #### [place] [address] UA Specimen Type Clean Catch Normal [facility] Comment on above: Performed By: #### U AMITHOMAS UA #### [place] [address] UA Urobilinogen 0.2 E.U./dL Normal 0.2-1.0 [facility] Comment on above: Performed By: #### U AMITHOMAS UA #### [place] [address] Urobilinogen (U) [Mass/Vol] Negative Normal Negative [facility] Comment on above: Performed By: #### U AMICAFreyd UA #### [place] [address] UDRUGon 09-06-2024 Amphetamine (u) Negative Normal Negative [facility] Comment on above: Performed By: #### U DRUG #### [place] [address] Barbiturate (u) Negative Normal Negative [facility] Comment on above: Performed By: #### U DRUG #### [place] [address] Benzodiazepine (u) Negative Normal Negative [facility] Comment on above: Performed By: #### U DRUG #### [address] [address] Cannabinoid (u) Negative Normal Negative [facility] Comment on above: Performed By: #### U DRUG #### [address] [address] Cocaine Ql (U) Negative Normal Negative [facility] Comment on above: Performed By: #### U DRUG #### [place] [id number] Methadone Ql (U) Negative Normal Negative [facility] Comment on above: Performed By: #### U DRUG #### [place] [address] Opiate (u) Negative Normal Negative [facility] Comment on above: Performed By: #### U DRUG #### [place] [id number] PCP (u) Negative Normal Negative [facility] Comment on above: Performed By: #### U DRUG #### [place] [id number] Urine Drugs screened: See Below Normal [facility] Comment on above: Result Comment: This drug screen is a presumptive screening only. No confirmation will be performed unless requested. Drugs screened include: Threshold Amphetamines/Methamphetamines 1,000 ng/mL Barbiturates 200 ng/mL Benzodiazepine metabolites 200 ng/mL Cannabinoids (THC metabolites) 50 ng/mL Cocaine 300 ng/mL Opiates 300 ng/mL Methadone 300 ng/mL Phencyclidine (PCP) 25 ng/mL Testing has been performed FOR MEDICAL PURPOSES ONLY. Performed By: #### U DRUG #### [address] [address] XR CHEST 2 VIEWSon XR CHEST 2 VIEWS ORIGINAL EXAMINATION: TWO XRAY VIEWS OF THE CHEST 09/05/2024 10:44 am COMPARISON: Chest x-ray on 02/09/2024. CT chest on 03/10/2024 HISTORY: ORDERING SYSTEM PROVIDED HISTORY: Reason for Exam: COUGH, SHORTNESS OF BREATH FINDINGS: The heart size and mediastinal contours are normal. There is no acute lung infiltrate or pulmonary edema. No pleural fluid or pneumothorax is present. 1.8 cm calcified nodule in the left upper lobe is stable. There is mild thoracic spondylosis with no fracture or subluxation. IMPRESSION: 1. No acute cardiopulmonary process. 2. Stable left upper lobe calcified granuloma or hamartoma. Interpreted by: Nadeem Chaudhari MD Preliminary Report By: Nadeem Chaudhari MD Electronically signed By Nadeem Chaudhari MD Dictated Date: 09/06/2024 3:25:38 AM Prelim Date: 09/06/2024 3:28:10 AM Sign Date: 09/06/2024 3:28:10 AM Ordering Provider: ALISON DAVIDSON Normal MOLLY MASSILLON XR HUMERUS MINIMUM [address] [facility] 08-18-2024 XR HUMERUS MINIMUM 2 VIEWS LEFT ORIGINAL EXAMINATION: TWO XRAY VIEWS OF THE LEFT HUMERUS08/17/2024 10:05 am COMPARISON: None HISTORY: ORDERING SYSTEM PROVIDED HISTORY: Reason for Exam: FALL FINDINGS: No acute fracture or dislocation is identified. There is no radiopaque foreign body. IMPRESSION: No acute fracture or dislocation. I have personally reviewed the images of this examination and agree with the resident's findings and interpretation. Interpreted by: Abiel Hillman MD Preliminary Report By: Vi Bedolla Electronically signed By Abiel Hillman MD Dictated Date: 08/18/2024 10:42:06 AM Prelim Date: 08/18/2024 10:47:10 AM Sign Date: 08/18/2024 10:47:10 AM Ordering Provider: KEYANA ESPOSITO Normal MOLLY MASSILLON MRI SPINE LUMBAR W/O CONTRAS Ton 07-18-2024 MRI SPINE LUMBAR W/O CONTRAST ORIGINAL HISTORY: Radiculopathy COMPARISON: No TECHNIQUE: 1. Sagittal T1-weighted images. 2. Sagittal T2-weighted images with and without fat saturation. 3. Axial T1-weighted images. 4. Axial T2-weighted images. FINDINGS: There are 5 lumbar type vertebral bodies for the purpose of this dictation. There is grade 1 anterolisthesis at L4-L5. The individual vertebral bodies are intact. There is disc desiccation and disc space narrowing in the lower lumbar spine, most prominently at L4-L5. The tip of the conus is at the L1-L2 level. There is no abnormal signal within the visualized spinal cord. There is no significant stenosis. Specific findings by level: L2-L3: Unremarkable. L3-L4: There is a mild posterior disc bulge. There is mild facet and ligamentum flavum hypertrophy. L4-L5: There is a mild posterior disc bulge/pseudo bulge. There is mild to moderate facet and ligamentum flavum hypertrophy. L5-S1: There is a mild posterior disc bulge. There is mild left facet hypertrophy. IMPRESSION: Mild lower lumbar degenerative changes; no stenosis. Interpreted by: Abiel Hillman MD Preliminary Report By: Abiel Hillman MD Electronically signed By Abiel Hillman MD Dictated Date: 07/18/2024 2:08:08 PM Prelim Date: 07/18/2024 2:10:32 PM Sign Date: 07/18/2024 2:10:32 PM Ordering Provider: [facility] [id number] 06-28-2024 HLA-B27 Negative Normal [facility] Comment on above: Result Comment: HLA- B*27 Negative B27 allele interpretation for all loci based on IMGT/HLA database version 3.51.0 This test was developed and its performance characteristics determined by [employer]. It has not been cleared or approved by the Food and Drug Administration. The FDA has determined that such clearance or approval is not necessary. [facility] CLIA ID Number [id number] This test was performed using Polymerase Chain Reaction (PCR) and Sequence Specific Oligonucleotide Probes (SSOP) technique. Sequence Based Typing (SBT) may be used as a supplemental method when necessary. If you have questions, please call [facility] customer service at or email at [email or web address]. Performed At: [facility] [id number] Abhi Limon PhD Ph:[phone] Performed By: #### 0 [id number] #### [address] [address] .Auto Diffon 05-10-2024 Basophil, Absolute 0.0 10 3/mcL Normal 0.0-0.3 [facility] Comment on above: Performed By: #### L IPID, A1C, CBC, ADIFF, ANEU, B12, CMP, VIDH, GFR #### [address] [address] Basophils/100 WBC (Bld) 0.4 % Normal 0.0-2.5 [facility] Comment on above: Performed By: #### L IPID, A1C, CBC, ADIFF, ANEU, B12, CMP, VIDH, GFR #### [address] [address] Eosinophil, Absolute 0.2 10 3/mcL Normal 0.0-0.7 [facility] Comment on above: Performed By: #### L IPID, A1C, CBC, ADIFF, ANEU, B12, CMP, VIDH, GFR #### [address] [address] Eosinophils/100 WBC (Bld) 2.4 % Normal 0.0-6.0 [facility] Comment on above: Performed By: #### L IPID, A1C, CBC, ADIFF, ANEU, B12, CMP, VIDH, GFR #### [address] [address] Lymphocyte, Absolute 1.8 10 3/mcL Normal 0.9-4.3 [facility] Comment on above: Performed By: #### L IPID, A1C, CBC, ADIFF, ANEU, B12, CMP, VIDH, GFR #### [address] [address] Lymphocytes/100 WBC (Bld) 27.6 % Normal 20.0-40.0 [facility] Comment on above: Performed By: #### L IPID, A1C, CBC, ADIFF, ANEU, B12, CMP, VIDH, GFR #### [address] [address] Monocyte, Absolute 0.6 10 3/mcL Normal 0.1-1.4 [facility] Comment on above: Performed By: #### L IPID, A1C, CBC, ADIFF, ANEU, B12, CMP, VIDH, GFR #### [address] [address] Monocytes/100 WBC (Bld) 8.9 % Normal 2.0-13.0 [facility] Comment on above: Performed By: #### L IPID, A1C, CBC, ADIFF, ANEU, B12, CMP, VIDH, GFR #### [address] [address] Neutrophils/100 WBC (Bld) 60.7 % Normal 50.0-75.0 [facility] Comment on above: Performed By: #### L IPID, A1C, CBC, ADIFF, ANEU, B12, CMP, VIDH, GFR #### [address] [address] .GFRon 05-10-2024 GFR Non- >60 Normal [facility] Comment on above: Result Comment: GFR Population mean for , Non- Americans Ages 20-29 = 116 mL/min/1.73 sq.m. Ages 30-39 = 107 mL/min/1.73 sq.m. Ages 40-49 = 99 mL/min/1.73 sq.m. Ages 50-59 = 93 mL/min/1.73 sq.m. Ages 60-69 = 85 mL/min/1.73 sq.m. Ages 70+ = 75 mL/min/1.73 sq.m. Chronic Kidney Disease: Less than 60 mL/min/1.73 square meters End Stage Renal Disease: Less than 15 mL/min/1.73 square meters Performed By: #### L IPID, A1C, CBC, ADIFF, ANEU, B12, CMP, VIDH, GFR #### [address] [address] GFR >60 Normal [facility] Comment on above: Result Comment: GFR Population mean for , Non- Americans Ages 20-29 = 116 mL/min/1.73 sq.m. Ages 30-39 = 107 mL/min/1.73 sq.m. Ages 40-49 = 99 mL/min/1.73 sq.m. Ages 50-59 = 93 mL/min/1.73 sq.m. Ages 60-69 = 85 mL/min/1.73 sq.m. Ages 70+ = 75 mL/min/1.73 sq.m. Chronic Kidney Disease: Less than 60 mL/min/1.73 square meters End Stage Renal Disease: Less than 15 mL/min/1.73 square meters Performed By: #### L IPID, A1C, CBC, ADIFF, ANEU, B12, CMP, VIDH, GFR #### [address] [address] .NEUABSon 05-10-2024 Neutrophil, Absolute 3.9 10 3/mcL Normal 2.3-8.1 [facility] Comment on above: Performed By: #### L IPID, A1C, CBC, ADIFF, ANEU, B12, CMP, VIDH, GFR #### [address] [address] A1Con 05-10-2024 Glucose [Mass/Vol] 117 mg/dL Normal [facility] Comment on above: Order Comment: - 6 m onth Result Comment: Susie mated Average Glucose calculated by equation ((28.7xA1C)-46.7) Estimated average glucose (eAG) is a calculated value from Hemoglobin A1C and is parts representative of the average blood glucose level in the last 2-3 month period. Normal range: less than 114 mg/dL Performed By: #### L IPID, A1C, CBC, ADIFF, ANEU, B12, CMP, VIDH, GFR #### [address] [address] HbA1c (Bld) [Mass fraction] 5.7 % Normal 4.0-6.0 [facility] Comment on above: Order Comment: - 6 m onth Performed By: #### L IPID, A1C, CBC, ADIFF, ANEU, B12, CMP, VIDH, GFR #### [address] [address] B12on 05-10-2024 Cobalamin (Vitamin B12) [Mass/Vol] 513 pg/mL Normal 211-911 [facility] Comment on above: Order Comment: - 6 m onth Performed By: #### L IPID, A1C, CBC, ADIFF, ANEU, B12, CMP, VIDH, GFR #### [address] [address] CBCon 05-10-2024 Erythrocyte distribution width (RBC) [Ratio] 16.5 % High 11.5-15.5 [facility] Comment on above: Order Comment: - 6 m onth Performed By: #### L IPID, A1C, CBC, ADIFF, ANEU, B12, CMP, VIDH, GFR #### [place] [id number] Hematocrit (Bld) [Volume fraction] 36.5 % Normal 34.0-46.0 [facility] Comment on above: Order Comment: - 6 m onth Performed By: #### L IPID, A1C, CBC, ADIFF, ANEU, B12, CMP, VIDH, GFR #### [address] [address] Hgb 12.0 G/dL Normal 12.0-16.0 [facility] Comment on above: Order Comment: - 6 m onth Performed By: #### L IPID, A1C, CBC, ADIFF, ANEU, B12, CMP, VIDH, GFR #### [place] [id number] MCH (RBC) [Entitic mass] 27.2 pg Normal 27.0-33.0 [facility] Comment on above: Order Comment: - 6 m onth Performed By: #### L IPID, A1C, CBC, ADIFF, ANEU, B12, CMP, VIDH, GFR #### [place] [id number] MCHC 32.9 G/dL Normal 32.0-36.0 [facility] Comment on above: Order Comment: - 6 m onth Performed By: #### L IPID, A1C, CBC, ADIFF, ANEU, B12, CMP, VIDH, GFR #### [place] [id number] MCV (RBC) [Entitic vol] 82.7 fL Normal 80.0-99.0 [facility] Comment on above: Order Comment: - 6 m onth Performed By: #### L IPID, A1C, CBC, ADIFF, ANEU, B12, CMP, VIDH, GFR #### [place] [id number] Platelet 289 10 3/mcL Normal 150-450 [facility] Comment on above: Order Comment: - 6 m onth Performed By: #### L IPID, A1C, CBC, ADIFF, ANEU, B12, CMP, VIDH, GFR #### [address] [address] Platelet mean volume (Bld) [Entitic vol] 8.0 fL Normal 6.6-10.5 [facility] Comment on above: Order Comment: - 6 m onth Performed By: #### L IPID, A1C, CBC, ADIFF, ANEU, B12, CMP, VIDH, GFR #### [place] [address] RBC 4.42 10 6/mcL Normal 4.10-5.30 [facility] Comment on above: Order Comment: - 6 m onth Performed By: #### L IPID, A1C, CBC, ADIFF, ANEU, B12, CMP, VIDH, GFR #### [place] [address] WBC 6.4 10 3/mcL Normal 4.5-10.8 [facility] Comment on above: Order Comment: - 6 m onth Performed By: #### L IPID, A1C, CBC, ADIFF, ANEU, B12, CMP, VIDH, GFR #### [place] [address] CMPon 05-10-2024 Albumin Level 3.6 G/dL Normal 3.2-4.8 [facility] Comment on above: Order Comment: - 6 m onth Performed By: #### L IPID, A1C, CBC, ADIFF, ANEU, B12, CMP, VIDH, GFR #### [place] [id number] Albumin/Globulin [Mass ratio] 1.1 {ratio} Normal 0.9-1.6 [facility] Comment on above: Order Comment: - 6 m onth Performed By: #### L IPID, A1C, CBC, ADIFF, ANEU, B12, CMP, VIDH, GFR #### [place] [id number] ALP [Catalytic activity/Vol] 96 U/L Normal 38-126 [facility] Comment on above: Order Comment: - 6 m onth Performed By: #### L IPID, A1C, CBC, ADIFF, ANEU, B12, CMP, VIDH, GFR #### [address] [address] ALT [Catalytic activity/Vol] 31 U/L Normal 10-49 [facility] Comment on above: Order Comment: - 6 m onth Performed By: #### L IPID, A1C, CBC, ADIFF, ANEU, B12, CMP, VIDH, GFR #### [address] [address] AST [Catalytic activity/Vol] 26 U/L Normal 8-34 [facility] Comment on above: Order Comment: - 6 m onth Performed By: #### L IPID, A1C, CBC, ADIFF, ANEU, B12, CMP, VIDH, GFR #### [address] [address] Bili Total 0.30 mg/dL Normal 0.20-1.20 [facility] Comment on above: Order Comment: - 6 m onth Result Comment: Use of this assay is not recommended for patients undergoing treatment with eltrombopag due to the potential for falsely elevated results. Performed By: #### L IPID, A1C, CBC, ADIFF, ANEU, B12, CMP, VIDH, GFR #### [address] [address] BUN/Creatinine Ratio 24.7 ratio High 10.0-22.0 [facility] Comment on above: Order Comment: - 6 m onth Performed By: #### L IPID, A1C, CBC, ADIFF, ANEU, B12, CMP, VIDH, GFR #### [address] [address] Calcium [Mass/Vol] 9.8 mg/dL Normal 8.7-10.4 [facility] Comment on above: Order Comment: - 6 m onth Performed By: #### L IPID, A1C, CBC, ADIFF, ANEU, B12, CMP, VIDH, GFR #### [address] [address] Chloride [Moles/Vol] 106 mmol/L Normal 98-110 [facility] Comment on above: Order Comment: - 6 m onth Performed By: #### L IPID, A1C, CBC, ADIFF, ANEU, B12, CMP, VIDH, GFR #### [address] [address] CO2 [Moles/Vol] 31 mmol/L Normal 22-32 [facility] Comment on above: Order Comment: - 6 m onth Performed By: #### L IPID, A1C, CBC, ADIFF, ANEU, B12, CMP, VIDH, GFR #### [address] [address] Creatinine [Mass/Vol] 0.77 mg/dL Normal 0.50-1.20 [facility] Comment on above: Order Comment: - 6 m onth Result Comment: Test ing performed on [employer] analyzer using enzymatic creatinine methodology. Performed By: #### L IPID, A1C, CBC, ADIFF, ANEU, B12, CMP, VIDH, GFR #### [address] [address] Electrolyte Balance 6.0 mEq/L Normal 4.0-15.0 [facility] Comment on above: Order Comment: - 6 m onth Performed By: #### L IPID, A1C, CBC, ADIFF, ANEU, B12, CMP, VIDH, GFR #### [address] [address] Globulin 3.4 G/dL Normal 1.5-3.8 [facility] Comment on above: Order Comment: - 6 m onth Performed By: #### L IPID, A1C, CBC, ADIFF, ANEU, B12, CMP, VIDH, GFR #### [address] [address] Glucose [Mass/Vol] 102 mg/dL Normal 70-110 [facility] Comment on above: Order Comment: - 6 m onth Performed By: #### L IPID, A1C, CBC, ADIFF, ANEU, B12, CMP, VIDH, GFR #### [address] [address] Potassium [Moles/Vol] 4.4 mmol/L Normal 3.5-5.0 [facility] Comment on above: Order Comment: - 6 m onth Performed By: #### L IPID, A1C, CBC, ADIFF, ANEU, B12, CMP, VIDH, GFR #### [address] [address] Sodium [Moles/Vol] 143 mmol/L Normal 136-145 [facility] Comment on above: Order Comment: - 6 m onth Performed By: #### L IPID, A1C, CBC, ADIFF, ANEU, B12, CMP, VIDH, GFR #### [address] [address] Total Protein 7.0 G/dL Normal 5.7-8.2 [facility] Comment on above: Order Comment: - 6 m onth Performed By: #### L IPID, A1C, CBC, ADIFF, ANEU, B12, CMP, VIDH, GFR #### [address] [address] Urea nitrogen [Mass/Vol] 19.0 mg/dL Normal 8.0-22.0 [facility] Comment on above: Order Comment: - 6 m onth Performed By: #### L IPID, A1C, CBC, ADIFF, ANEU, B12, CMP, VIDH, GFR #### [address] [address] LIPIDon 05-10-2024 Cholesterol [Mass/Vol] 203 mg/dL High 50-199 [facility] Comment on above: Order Comment: - 6 m onth Result Comment: Chol esterol Reference Interval: Less than 200 Desirable 200-239 Borderline high risk 240 and above High risk Performed By: #### L IPID, A1C, CBC, ADIFF, ANEU, B12, CMP, VIDH, GFR #### [address] [address] Cholesterol in HDL [Mass/Vol] 55 mg/dL Normal 40-59 [facility] Comment on above: Order Comment: - 6 m onth Performed By: #### L IPID, A1C, CBC, ADIFF, ANEU, B12, CMP, VIDH, GFR #### [address] [address] Cholesterol in LDL [Mass/Vol] 116 mg/dL Normal 0-129 [facility] Comment on above: Order Comment: - 6 m onth Performed By: #### L IPID, A1C, CBC, ADIFF, ANEU, B12, CMP, VIDH, GFR #### [place] [id number] [address] [place] [address] Triglyceride [Mass/Vol] 162 mg/dL High 3-149 [facility] Comment on above: Order Comment: - 6 m onth Performed By: #### L IPID, A1C, CBC, ADIFF, ANEU, B12, CMP, VIDH, GFR #### [facility] [address] [place] [address] VIDHon 05-10-2024 Vit. D 25-Hydroxy 31.6 ng/mL Normal [facility] Comment on above: Order Comment: - 6 m onth Result Comment: Inte rpretive Values Based on Total 25(OH)D: Severe Deficiency <20 ng/mL Mild to Moderate Deficiency 20-30 ng/mL Optimum Levels 30-100 ng/mL Toxicity Possible >100 ng/mL Performed By: #### L IPID, A1C, CBC, ADIFF, ANEU, B12, CMP, VIDH, GFR #### [address] [address] XR CHEST 2 VIEWSon 4 XR CHEST 2 VIEWS ORIGINAL EXAMINATION: TWO XRAY VIEWS OF THE CHEST 02/09/2024 3:15 pm COMPARISON: 10/02/2021 in 09/02/2019 HISTORY: ORDERING SYSTEM PROVIDED HISTORY: Reason for Exam: cough, shortness of breath FINDINGS: Normal cardiomediastinal silhouette. 2.8 cm left upper lobe nodular opacity appears slightly increased from prior measuring 2.1 cm on comparison 2019 exam. No other focal consolidation. No pleural effusion or pneumothorax. Eventration of the right hemidiaphragm. Degenerative changes of the spine. IMPRESSION: A left upper lobe nodular mass also seen previously measures larger than on the comparison study. This remains concerning for neoplasm. Suggest CT chest to better characterize and for more reliable comparison of interval change in size. The findings were sent to the Radiology Results Communication Center at 12:17 pm on 02/10/2024to be communicated to a licensed caregiver. I have personally reviewed the images of this examination and agree with the resident's findings and interpretations. Interpreted by: Afshin Petty MD Preliminary Report By: Agatha Rust Electronically signed By Afshin Petty MD Dictated Date: 02/10/2024 11:17:33 AM Prelim Date: 02/10/2024 12:18:07 PM Sign Date: 02/10/2024 12:18:07 PM Ordering Provider: NOLA WILSON [facility] ([place]) .GFRon 11-03-2023 GFR >60 [facility] ([place]) Comment on above: Result Comment: GFR Population mean for , Non- Americans Ages 20-29 = 116 mL/min/1.73 sq.m. Ages 30-39 = 107 mL/min/1.73 sq.m. Ages 40-49 = 99 mL/min/1.73 sq.m. Ages 50-59 = 93 mL/min/1.73 sq.m. Ages 60-69 = 85 mL/min/1.73 sq.m. Ages 70+ = 75 mL/min/1.73 sq.m. Chronic Kidney Disease: Less than 60 mL/min/1.73 square meters End Stage Renal Disease: Less than 15 mL/min/1.73 square meters Performed By: #### V IDH, LIPID, GFR, TSH, ANEU, ADIFF, FT4, CBC, CMP, HCV1, A1C #### [place] [address] GFR Non- >60 Normal [facility] ([place]) Comment on above: Result Comment: GFR Population mean for , Non- Americans Ages 20-29 = 116 mL/min/1.73 sq.m. Ages 30-39 = 107 mL/min/1.73 sq.m. Ages 40-49 = 99 mL/min/1.73 sq.m. Ages 50-59 = 93 mL/min/1.73 sq.m. Ages 60-69 = 85 mL/min/1.73 sq.m. Ages 70+ = 75 mL/min/1.73 sq.m. Chronic Kidney Disease: Less than 60 mL/min/1.73 square meters End Stage Renal Disease: Less than 15 mL/min/1.73 square meters Performed By: #### V IDH, LIPID, GFR, TSH, ANEU, ADIFF, FT4, CBC, CMP, HCV1, A1C #### [place] [id number] [place] [id number] A1Con 11-03-2023 HbA1c (Bld) [Mass fraction] 5.8 % Normal 4.0-6.0 [facility] ([place]) Comment on above: Order Comment: 4 mon ths Performed By: #### V IDH, LIPID, GFR, TSH, ANEU, ADIFF, FT4, CBC, CMP, HCV1, A1C #### [address] [address] BMPon 11-03-2023 BUN/Creatinine Ratio 23.5 ratio High 10.0-22.0 [facility] ([place]) Comment on above: Order Comment: 4 mon ths Performed By: #### V IDH, LIPID, GFR, TSH, ANEU, ADIFF, FT4, CBC, CMP, HCV1, A1C #### [address] [address] Calcium [Mass/Vol] 9.7 mg/dL Normal 8.7-10.4 [facility] ([place]) Comment on above: Order Comment: 4 mon ths Performed By: #### V IDH, LIPID, GFR, TSH, ANEU, ADIFF, FT4, CBC, CMP, HCV1, A1C #### [address] [address] Chloride [Moles/Vol] 106 mmol/L Normal 98-110 [facility] ([place]) Comment on above: Order Comment: 4 mon ths Performed By: #### V IDH, LIPID, GFR, TSH, ANEU, ADIFF, FT4, CBC, CMP, HCV1, A1C #### [address] [address] CO2 [Moles/Vol] 30 mmol/L Normal 22-32 [facility] ([place]) Comment on above: Order Comment: 4 mon ths Performed By: #### V IDH, LIPID, GFR, TSH, ANEU, ADIFF, FT4, CBC, CMP, HCV1, A1C #### [address] [address] Creatinine [Mass/Vol] 0.85 mg/dL Normal 0.50-1.20 [facility] ([place]) Comment on above: Order Comment: 4 mon ths Performed By: #### V IDH, LIPID, GFR, TSH, ANEU, ADIFF, FT4, CBC, CMP, HCV1, A1C #### [address] [address] Electrolyte Balance 7.0 mEq/L Normal 4.0-15.0 [facility] ([place]) Comment on above: Order Comment: 4 mon ths Performed By: #### V IDH, LIPID, GFR, TSH, ANEU, ADIFF, FT4, CBC, CMP, HCV1, A1C #### [address] [address] Glucose [Mass/Vol] 95 mg/dL Normal 70-110 [facility] ([place]) Comment on above: Order Comment: 4 mon ths Performed By: #### V IDH, LIPID, GFR, TSH, ANEU, ADIFF, FT4, CBC, CMP, HCV1, A1C #### [address] [address] Potassium [Moles/Vol] 4.2 mmol/L Normal 3.5-5.0 [facility] ([place]) Comment on above: Order Comment: 4 mon ths Performed By: #### V IDH, LIPID, GFR, TSH, ANEU, ADIFF, FT4, CBC, CMP, HCV1, A1C #### [address] [address] Sodium [Moles/Vol] 143 mmol/L Normal 136-145 [facility] ([place]) Comment on above: Order Comment: 4 mon ths Performed By: #### V IDH, LIPID, GFR, TSH, ANEU, ADIFF, FT4, CBC, CMP, HCV1, A1C #### [address] [address] Urea nitrogen [Mass/Vol] 20.0 mg/dL Normal 8.0-22.0 [facility] ([place]) Comment on above: Order Comment: 4 mon ths Performed By: #### V IDH, LIPID, GFR, TSH, ANEU, ADIFF, FT4, CBC, CMP, HCV1, A1C #### [address] [address] LIPIDon 11-03-2023 Cholesterol [Mass/Vol] 230 mg/dL High 50-199 [facility] ([place]) Comment on above: Order Comment: 4 mon ths Result Comment: Chol esterol Reference Interval: Less than 200 Desirable 200-239 Borderline high risk 240 and above High risk Performed By: #### V IDH, LIPID, GFR, TSH, ANEU, ADIFF, FT4, CBC, CMP, HCV1, A1C #### [address] [address] Cholesterol in HDL [Mass/Vol] 73 mg/dL High 40-59 [facility] ([place]) Comment on above: Order Comment: 4 mon ths Performed By: #### V IDH, LIPID, GFR, TSH, ANEU, ADIFF, FT4, CBC, CMP, HCV1, A1C #### [address] [address] Cholesterol in LDL [Mass/Vol] 134 mg/dL High 0-129 [facility] ([place]) Comment on above: Order Comment: 4 mon ths Performed By: #### V IDH, LIPID, GFR, TSH, ANEU, ADIFF, FT4, CBC, CMP, HCV1, A1C #### [address] [address] Triglyceride [Mass/Vol] 117 mg/dL Normal 3-149 [facility] ([place]) Comment on above: Order Comment: 4 mon ths Performed By: #### V IDH, LIPID, GFR, TSH, ANEU, ADIFF, FT4, CBC, CMP, HCV1, A1C #### [address] [address] TSHon 11-03-2023 TSH 0.666 mIU/mL Normal 0.550-4.780 [facility] ([place]) Comment on above: Order Comment: 4 mon ths Result Comment: No te - New Reference Range in effect 20 Performed By: #### V IDH, LIPID, GFR, TSH, ANEU, ADIFF, FT4, CBC, CMP, HCV1, A1C #### [address] [address] MA MAMMOGRAM DIAGNOSTIC RIGH T W/TOMOon 10-09-2023 MA MAMMOGRAM DIAGNOSTIC RIGHT W/TREE ORIGINAL FROM: [facility] [address] [place] [address] PROCEDURE FOR: GARY CruzSaundra MELCHOR [address] [place] [address] Home: PID#: [id number] Exam#: [id number] : 1970 Age: 53 TO: NOLA WILSON APRN-SRIRAM [facility] [address], [place] EXAMINATION: DIAGNOSTIC DIGITAL RIGHT BREAST MAMMOGRAM WITH TOMOSYNTHESIS, 10/07/2023 7:21 am TECHNIQUE: Diagnostic mammography of the right breast was performed with tomosynthesis. 2D standard and 3D tomosynthesis combination imaging performed through the right breast. Computer aided detection was utilized in the interpretation of this exam. Current study was also evaluated with a Computer Aided Detection (CAD) system. COMPARISON: 04/07/2023, 02/25/2023 HISTORY: ORDERING SYSTEM PROVIDED HISTORY: Reason for Exam: 6 month follow up per right breast US recommendations Six-month follow-up focal asymmetry with associated calcifications right breast 9 o'clock FINDINGS: BREAST DENSITY: Scattered fibroglandular tissue The 5 cm focal asymmetry with associated punctate calcifications in the right breast at 9 o'clock middle depth described on the previous mammogram has not significantly changed. This is confirmed on additional views. No other significant masses, calcifications, or other findings. No significant interval change. IMPRESSION: The 5 cm focal asymmetry with associated punctate calcifications in the right breast at 9 o'clock appears probably benign. A 6 month follow up diagnostic bilateral mammogram is recommended to demonstrate stability. Janie Saenz risk calculations, generated with the history provided, report this patient's 10 year risk and lifetime risk for developing breast cancer at 2.5% and 8.8%, respectively. Based on this assessment tool, if the patient's calculated lifetime risk is below 20%, then the patient is considered at average risk for developing breast cancer. If the patient's calculated lifetime risk is at or above 20%, then the patient is considered high risk for developing breast cancer and may be a candidate for supplemental breast MRI screening in addition to annual mammographic screening per the [place] [employer]. BIRADS: MAMMOGRAM BI-RADS: 3: Probably benign RECALL: 6 month follow-up RECALL TYPE: mammo LETTER SENT: Probably Benign BI-RADS 3 Interpreted by: Ronald Butcher MD Preliminary Report By: Ronald Butcher MD Electronically signed By Ronald Butcher MD Dictated Date: 10/09/2023 12:39:43 PM Prelim Date: 10/09/2023 12:42:41 PM Sign Date: 10/09/2023 12:42:41 PM Ordering Provider: NOLA WILSON CLINICAL: RIGHT BREAST ASYMMETRY WITH CALCIFICATIONS 9 OCLOCK/ 6 MONTHS FOLLOW-UP. Horse Show Judge: MISTI CHAPIN RT(R)(M) letter sent: Probably Benign BI-RADS 3 Mammogram BI-RADS: 3 Probably benign Normal [facility] ([place]) NM MYOCARDIAL SPECT STRESS/R ESTon 07-13-2023 NM MYOCARDIAL SPECT STRESS/REST ORIGINAL NM MYOCARDIAL SPECT STRESS/REST CLINICAL STATEMENT: chest pain at rest and with exertion TECHNIQUE: Lexiscan dose:0.4 mg Radiopharmaceutical (stress): Tc-99m Sestamibi Dose:27 mCi Radiopharmaceutical (rest): Tc-99m Sestamibi Dose:8.4 mCi SPECT acquisition and processing Reconstruction and reorientation of SPECT images into short axis, vertical and horizontal long axis planes Quantitative LVEF assessment COMPARISON:None REPORT:Low-dose CT images there is no coronary calcium noted. Stress images there is a decrease in the uptake of activity in the mid to distal anteroseptal wall extending to the apex. There is no improvement in this region on rest images. There otherwise is relatively homogenous uptake of activity in other areas of the myocardium. On gated imaging the ejection fraction is normal at 61% with normal wall motion. IMPRESSION: 1. No evidence of significant inducible ischemia or prior myocardial infarction. 2. Normal ejection fraction of 61% with normal wall motion. 3. Breast tissue attenuation artifact. Interpreted By: Fernando Crews MD Preliminary Report By: Fernando Crews MD Electronically Signed By: Fernando Crews MD Dictated Date: 07/13/2023 3:14:44 PM Prelim Date: 07/13/2023 3:14:44 PM Sign Date: 07/13/2023 3:21:24 PM Ordering Provider:Nola Christianson [facility] ([place]) .Auto Diffon 06-24-2023 Basophil, Absolute 0.0 10 3/mcL Normal 0.0-0.3 [facility] ([place]) Comment on above: Performed By: #### V IDH, LIPID, GFR, TSH, ANEU, ADIFF, FT4, CBC, CMP, HCV1, A1C #### [address] [address] Basophils/100 WBC (Bld) 0.5 % Normal 0.0-2.5 [facility] ([place]) Comment on above: Performed By: #### V IDH, LIPID, GFR, TSH, ANEU, ADIFF, FT4, CBC, CMP, HCV1, A1C #### [address] [address] Eosinophil, Absolute 0.2 10 3/mcL Normal 0.0-0.7 [facility] ([place]) Comment on above: Performed By: #### V IDH, LIPID, GFR, TSH, ANEU, ADIFF, FT4, CBC, CMP, HCV1, A1C #### [address] [address] Eosinophils/100 WBC (Bld) 3.2 % Normal 0.0-6.0 [facility] ([place]) Comment on above: Performed By: #### V IDH, LIPID, GFR, TSH, ANEU, ADIFF, FT4, CBC, CMP, HCV1, A1C #### [address] [address] Lymphocyte, Absolute 1.8 10 3/mcL Normal 0.9-4.3 [facility] ([place]) Comment on above: Performed By: #### V IDH, LIPID, GFR, TSH, ANEU, ADIFF, FT4, CBC, CMP, HCV1, A1C #### [address] [address] Lymphocytes/100 WBC (Bld) 37.6 % Normal 20.0-40.0 [facility] ([place]) Comment on above: Performed By: #### V IDH, LIPID, GFR, TSH, ANEU, ADIFF, FT4, CBC, CMP, HCV1, A1C #### [address] [address] Monocyte, Absolute 0.4 10 3/mcL Normal 0.1-1.4 [facility] ([place]) Comment on above: Performed By: #### V IDH, LIPID, GFR, TSH, ANEU, ADIFF, FT4, CBC, CMP, HCV1, A1C #### [address] [address] Monocytes/100 WBC (Bld) 8.0 % Normal 2.0-13.0 [facility] ([place]) Comment on above: Performed By: #### V IDH, LIPID, GFR, TSH, ANEU, ADIFF, FT4, CBC, CMP, HCV1, A1C #### [address] [address] Neutrophils/100 WBC (Bld) 50.7 % Normal 50.0-75.0 [facility] ([place]) Comment on above: Performed By: #### V IDH, LIPID, GFR, TSH, ANEU, ADIFF, FT4, CBC, CMP, HCV1, A1C #### [address] [address] .GFRon 06-24-2023 GFR >60 Normal [facility] ([place]) Comment on above: Result Comment: GFR Population mean for , Non- Americans Ages 20-29 = 116 mL/min/1.73 sq.m. Ages 30-39 = 107 mL/min/1.73 sq.m. Ages 40-49 = 99 mL/min/1.73 sq.m. Ages 50-59 = 93 mL/min/1.73 sq.m. Ages 60-69 = 85 mL/min/1.73 sq.m. Ages 70+ = 75 mL/min/1.73 sq.m. Chronic Kidney Disease: Less than 60 mL/min/1.73 square meters End Stage Renal Disease: Less than 15 mL/min/1.73 square meters Performed By: #### V IDH, LIPID, GFR, TSH, ANEU, ADIFF, FT4, CBC, CMP, HCV1, A1C #### [address] [address] GFR Non- >60 Normal [facility] ([place]) Comment on above: Result Comment: GFR Population mean for , Non- Americans Ages 20-29 = 116 mL/min/1.73 sq.m. Ages 30-39 = 107 mL/min/1.73 sq.m. Ages 40-49 = 99 mL/min/1.73 sq.m. Ages 50-59 = 93 mL/min/1.73 sq.m. Ages 60-69 = 85 mL/min/1.73 sq.m. Ages 70+ = 75 mL/min/1.73 sq.m. Chronic Kidney Disease: Less than 60 mL/min/1.73 square meters End Stage Renal Disease: Less than 15 mL/min/1.73 square meters Performed By: #### V IDH, LIPID, GFR, TSH, ANEU, ADIFF, FT4, CBC, CMP, HCV1, A1C #### [address] [address] .NEUABSon 06-24-2023 Neutrophil, Absolute 2.4 10 3/mcL Normal 2.3-8.1 [facility] ([place]) Comment on above: Performed By: #### V IDH, LIPID, GFR, TSH, ANEU, ADIFF, FT4, CBC, CMP, HCV1, A1C #### [address] [address] A1Con 06-24-2023 HbA1c (Bld) [Mass fraction] 5.5 % Normal 4.0-6.0 [facility] ([place]) Comment on above: Performed By: #### V IDH, LIPID, GFR, TSH, ANEU, ADIFF, FT4, CBC, CMP, HCV1, A1C #### [address] [address] CBCon 06-24-2023 Erythrocyte distribution width (RBC) [Ratio] 12.6 % Normal 11.5-15.5 [facility] ([place]) Comment on above: Performed By: #### V IDH, LIPID, GFR, TSH, ANEU, ADIFF, FT4, CBC, CMP, HCV1, A1C #### [address] [address] Hematocrit (Bld) [Volume fraction] 37.3 % Normal 34.0-46.0 [facility] ([place]) Comment on above: Performed By: #### V IDH, LIPID, GFR, TSH, ANEU, ADIFF, FT4, CBC, CMP, HCV1, A1C #### [address] [address] Hgb 12.6 G/dL Normal 12.0-16.0 [facility] ([place]) Comment on above: Performed By: #### V IDH, LIPID, GFR, TSH, ANEU, ADIFF, FT4, CBC, CMP, HCV1, A1C #### [place] [id number] MCH (RBC) [Entitic mass] 30.2 pg Normal 27.0-33.0 [facility] ([place]) Comment on above: Performed By: #### V IDH, LIPID, GFR, TSH, ANEU, ADIFF, FT4, CBC, CMP, HCV1, A1C #### [place] [id number] MCHC 33.9 G/dL Normal 32.0-36.0 [facility] ([place]) Comment on above: Performed By: #### V IDH, LIPID, GFR, TSH, ANEU, ADIFF, FT4, CBC, CMP, HCV1, A1C #### [place] [id number] MCV (RBC) [Entitic vol] 89.0 fL Normal 80.0-99.0 [facility] ([place]) Comment on above: Performed By: #### V IDH, LIPID, GFR, TSH, ANEU, ADIFF, FT4, CBC, CMP, HCV1, A1C #### [place] [id number] Platelet 300 10 3/mcL Normal 150-450 [facility] ([place]) Comment on above: Performed By: #### V IDH, LIPID, GFR, TSH, ANEU, ADIFF, FT4, CBC, CMP, HCV1, A1C #### [place] [id number] Platelet mean volume (Bld) [Entitic vol] 8.2 fL Normal 6.6-10.5 [facility] ([place]) Comment on above: Performed By: #### V IDH, LIPID, GFR, TSH, ANEU, ADIFF, FT4, CBC, CMP, HCV1, A1C #### [address] [address] RBC 4.19 10 6/mcL Normal 4.10-5.30 [facility] ([place]) Comment on above: Performed By: #### V IDH, LIPID, GFR, TSH, ANEU, ADIFF, FT4, CBC, CMP, HCV1, A1C #### [address] [address] WBC 4.8 10 3/mcL Normal 4.5-10.8 [facility] ([place]) Comment on above: Performed By: #### V IDH, LIPID, GFR, TSH, ANEU, ADIFF, FT4, CBC, CMP, HCV1, A1C #### [place] [id number] CMPon 06-24-2023 Albumin Level 3.8 G/dL Normal 3.2-4.8 [facility] ([place]) Comment on above: Performed By: #### V IDH, LIPID, GFR, TSH, ANEU, ADIFF, FT4, CBC, CMP, HCV1, A1C #### [place] [address] Albumin/Globulin [Mass ratio] 1.1 {ratio} Normal 0.9-1.6 [facility] ([place]) Comment on above: Performed By: #### V IDH, LIPID, GFR, TSH, ANEU, ADIFF, FT4, CBC, CMP, HCV1, A1C #### [address] [address] ALP [Catalytic activity/Vol] 95 U/L Normal 38-126 [facility] ([place]) Comment on above: Performed By: #### V IDH, LIPID, GFR, TSH, ANEU, ADIFF, FT4, CBC, CMP, HCV1, A1C #### [address] [address] ALT [Catalytic activity/Vol] 34 U/L Normal 10-49 [facility] ([place]) Comment on above: Performed By: #### V IDH, LIPID, GFR, TSH, ANEU, ADIFF, FT4, CBC, CMP, HCV1, A1C #### [address] [address] AST [Catalytic activity/Vol] 29 U/L Normal 8-34 [facility] ([place]) Comment on above: Performed By: #### V IDH, LIPID, GFR, TSH, ANEU, ADIFF, FT4, CBC, CMP, HCV1, A1C #### [address] [address] Bili Total 0.50 mg/dL Normal 0.20-1.20 [facility] ([place]) Comment on above: Result Comment: Use of this assay is not recommended for patients undergoing treatment with eltrombopag due to the potential for falsely elevated results. Performed By: #### V IDH, LIPID, GFR, TSH, ANEU, ADIFF, FT4, CBC, CMP, HCV1, A1C #### [place] [id number] BUN/Creatinine Ratio 21.8 ratio Normal 10.0-22.0 [facility] ([place]) Comment on above: Performed By: #### V IDH, LIPID, GFR, TSH, ANEU, ADIFF, FT4, CBC, CMP, HCV1, A1C #### [address] [address] Calcium [Mass/Vol] 9.7 mg/dL Normal 8.7-10.4 [facility] ([place]) Comment on above: Performed By: #### V IDH, LIPID, GFR, TSH, ANEU, ADIFF, FT4, CBC, CMP, HCV1, A1C #### [address] [address] Chloride [Moles/Vol] 108 mmol/L Normal 98-110 [facility] ([place]) Comment on above: Performed By: #### V IDH, LIPID, GFR, TSH, ANEU, ADIFF, FT4, CBC, CMP, HCV1, A1C #### [address] [address] CO2 [Moles/Vol] 30 mmol/L Normal 22-32 [facility] ([place]) Comment on above: Performed By: #### V IDH, LIPID, GFR, TSH, ANEU, ADIFF, FT4, CBC, CMP, HCV1, A1C #### [address] [address] Creatinine [Mass/Vol] 0.78 mg/dL Normal 0.50-1.20 [facility] ([place]) Comment on above: Performed By: #### V IDH, LIPID, GFR, TSH, ANEU, ADIFF, FT4, CBC, CMP, HCV1, A1C #### [address] [address] Electrolyte Balance 4.0 mEq/L Normal 4.0-15.0 [facility] ([place]) Comment on above: Performed By: #### V IDH, LIPID, GFR, TSH, ANEU, ADIFF, FT4, CBC, CMP, HCV1, A1C #### [place] [id number] Globulin 3.4 G/dL Normal 1.5-3.8 [facility] ([place]) Comment on above: Performed By: #### V IDH, LIPID, GFR, TSH, ANEU, ADIFF, FT4, CBC, CMP, HCV1, A1C #### [address] [address] Glucose [Mass/Vol] 100 mg/dL Normal 70-110 [facility] ([place]) Comment on above: Performed By: #### V IDH, LIPID, GFR, TSH, ANEU, ADIFF, FT4, CBC, CMP, HCV1, A1C #### [address] [address] Potassium [Moles/Vol] 4.0 mmol/L Normal 3.5-5.0 [facility] ([place]) Comment on above: Performed By: #### V IDH, LIPID, GFR, TSH, ANEU, ADIFF, FT4, CBC, CMP, HCV1, A1C #### [address] [address] Sodium [Moles/Vol] 142 mmol/L Normal 136-145 [facility] ([place]) Comment on above: Performed By: #### V IDH, LIPID, GFR, TSH, ANEU, ADIFF, FT4, CBC, CMP, HCV1, A1C #### [place] [address] Total Protein 7.2 G/dL Normal 5.7-8.2 [facility] ([place]) Comment on above: Result Comment: No te - New Reference Range in effect 20 Performed By: #### V IDH, LIPID, GFR, TSH, ANEU, ADIFF, FT4, CBC, CMP, HCV1, A1C #### [place] [address] Urea nitrogen [Mass/Vol] 17.0 mg/dL Normal 8.0-22.0 [facility] ([place]) Comment on above: Performed By: #### V IDH, LIPID, GFR, TSH, ANEU, ADIFF, FT4, CBC, CMP, HCV1, A1C #### [place] [address] FT4on 06-24-2023 Free T4 [Mass/Vol] 0.95 ng/dL Normal 0.89-1.76 [facility] ([place]) Comment on above: Result Comment: No te - New Reference Range in effect 20 Performed By: #### V IDH, LIPID, GFR, TSH, ANEU, ADIFF, FT4, CBC, CMP, HCV1, A1C #### [place] [address] HCVon 06-24-2023 Hep C Ab Non-Reactive Normal Non-Reactive [facility] ([place]) Comment on above: Performed By: #### V IDH, LIPID, GFR, TSH, ANEU, ADIFF, FT4, CBC, CMP, HCV1, A1C #### [place] [address] Hep C Ab Int Normal [facility] ([place]) Comment on above: Result Comment: Nonr eactive: Samples with a value < 0.80 are considered nonreactive (negative) for antibodies to HCV. A negative test result does not exclude the possibility of exposure to or infection with HCV. HCV antibodies may be undetectable in some stages of the infection and in some clinical conditions. See Interp Performed By: #### V IDH, LIPID, GFR, TSH, ANEU, ADIFF, FT4, CBC, CMP, HCV1, A1C #### [address] [address] LIPIDon 06-24-2023 Cholesterol [Mass/Vol] 250 mg/dL High 50-199 [facility] ([place]) Comment on above: Result Comment: Chol esterol Reference Interval: Less than 200 Desirable 200-239 Borderline high risk 240 and above High risk Performed By: #### V IDH, LIPID, GFR, TSH, ANEU, ADIFF, FT4, CBC, CMP, HCV1, A1C #### [address] [address] Cholesterol in HDL [Mass/Vol] 51 mg/dL Normal 40-59 [facility] ([place]) Comment on above: Performed By: #### V IDH, LIPID, GFR, TSH, ANEU, ADIFF, FT4, CBC, CMP, HCV1, A1C #### [place] [address] Cholesterol in LDL [Mass/Vol] 156 mg/dL High 0-129 [facility] ([place]) Comment on above: Performed By: #### V IDH, LIPID, GFR, TSH, ANEU, ADIFF, FT4, CBC, CMP, HCV1, A1C #### [address] [address] Triglyceride [Mass/Vol] 215 mg/dL High 3-149 [facility] ([place]) Comment on above: Performed By: #### V IDH, LIPID, GFR, TSH, ANEU, ADIFF, FT4, CBC, CMP, HCV1, A1C #### [address] [address] MALBRon 06-24-2023 U Creatinine 139.3 mg/dL Normal [facility] ([place]) Comment on above: Performed By: #### V IDH, LIPID, GFR, TSH, ANEU, ADIFF, FT4, CBC, CMP, HCV1, A1C #### [place] [id number] U Microalb 5097 mcg/dL Normal [facility] ([place]) Comment on above: Performed By: #### V IDH, LIPID, GFR, TSH, ANEU, ADIFF, FT4, CBC, CMP, HCV1, A1C #### [place] [id number] U Ratio Alb/Cre 36.6 mcg/mg High 0.0-24.9 [facility] ([place]) Comment on above: Performed By: #### V IDH, LIPID, GFR, TSH, ANEU, ADIFF, FT4, CBC, CMP, HCV1, A1C #### [place] [id number] TSHon 06-24-2023 TSH 0.525 mIU/mL Low 0.550-4.780 [facility] ([place]) Comment on above: Result Comment: No te - New Reference Range in effect 20 Performed By: #### V IDH, LIPID, GFR, TSH, ANEU, ADIFF, FT4, CBC, CMP, HCV1, A1C #### [place] [id number] VIDHon 06-24-2023 Vit. D 25-Hydroxy 32.9 ng/mL Normal [facility] ([place]) Comment on above: Result Comment: Inte rpretive Values Based on Total 25(OH)D: Severe Deficiency <20 ng/mL Mild to Moderate Deficiency 20-30 ng/mL Optimum Levels 30-100 ng/mL Toxicity Possible >100 ng/mL Performed By: #### V IDH, LIPID, GFR, TSH, ANEU, ADIFF, FT4, CBC, CMP, HCV1, A1C #### [place] [id number] MA MAMMOGRAM PROLONGED RIGHT on 04-07-2023 MA MAMMOGRAM PROLONGED RIGHT ORIGINAL FROM: [address] [address] PROCEDURE FOR: GARY MELCHOR [address] [place] [address] Home: PID#: [id number] Exam#: [id number] : 1970 Age: 52 TO: BEV POSADAS DO [address] [place], [place] [address] EXAMINATION: DIAGNOSTIC DIGITAL RIGHT BREAST MAMMOGRAM, 04/07/2023 8:19 am TECHNIQUE: Diagnostic mammography of the right breast was performed. Computer aided detection was utilized in the interpretation of this exam. Current study was also evaluated with a Computer Aided Detection (CAD) system. COMPARISON: 02/25/2023 HISTORY: ORDERING SYSTEM PROVIDED HISTORY: Reason for Exam: RT BREAST ASYMMETRY WITH CALCIFICATIONS Right breast asymmetry with associated calcifications at 9 o'clock FINDINGS: BREAST DENSITY: Scattered fibroglandular tissue There is a 4.5 cm region of punctate calcifications in the right breast at 9 o'clock middle depth. This is confirmed on additional views. There is also an associated 5.4 cm focal asymmetry, which is redemonstrated. No other significant masses, calcifications, or other findings. IMPRESSION: The 4.5 cm region of punctate calcifications in the right breast at 9 o'clock appear probably benign. A six-month follow-up diagnostic right mammogram is recommended to demonstrate stability. An ultrasound will be performed and reported separately for the associated focal asymmetry in the right breast at 9 o'clock. BIRADS: MAMMOGRAM BI-RADS: 0: Needs addl evaluation RECALL: immediate RECALL TYPE: Right US LETTER SENT: Abnormal-Needs additional work up BI-RADS 0 Interpreted by: Ronald Butcher MD Preliminary Report By: Ronald Butcher MD Electronically signed By Ronald Butcher MD Dictated Date: 04/07/2023 8:56:08 AM Prelim Date: 04/07/2023 9:00:17 AM Sign Date: 04/07/2023 9:00:17 AM Ordering Provider: BEV POSADAS CLINICAL: CALCIFICATIONS RIGHT BREAST. Horse Show Judge: CAM CAMPBELL RT(R)(M) letter sent: Abnormal-Needs additional work up BI-RADS 0 Mammogram BI-RADS: 0 Indeterminate Normal [facility] ([place]) US BREAST RIGHT LIMITEDon US BREAST RIGHT LIMITED ORIGINAL FROM: [facility] [address] [place] [address] PROCEDURE FOR: GARY MELCHOR [address] [place] [address] Home: PID#: [id number] Exam#: [id number] : 1970 Age: 52 TO: BEV POSADAS DO [address] [place], [place] [address] EXAMINATION: ULTRASOUND OF THE RIGHT BREAST 04/07/2023 8:19 am TECHNIQUE: Color flow and real-time targeted ultrasound of the right breast upper outer quadrant were performed. COMPARISON: 02/25/2023 HISTORY: ORDERING SYSTEM PROVIDED HISTORY: Reason for Exam: RT BREAST ASYMMETRY WITH CALCIFICATIONS Right breast focal asymmetry 9 o'clock FINDINGS: There are no significant sonographic findings to correlate with the mammographic findings. IMPRESSION: There are no significant sonographic findings to correlate with the mammographic findings. Since the mammographic lesion is probably benign, a 6 month follow up diagnostic right mammogram is recommended to demonstrate stability. There is no sonographic evidence of malignancy. BIRADS: MAMMOGRAM BI-RADS: 3: Probably benign RECALL: 6 month follow-up RECALL TYPE: mammo LETTER SENT: Probably Benign BI-RADS 3 Interpreted by: Ronald Butcher MD Preliminary Report By: Ronald Butcher MD Electronically signed By Ronald Butcher MD Dictated Date: 04/07/2023 8:53:06 AM Prelim Date: 04/07/2023 8:55:42 AM Sign Date: 04/07/2023 8:55:42 AM Ordering Provider: BEV POSADAS CLINICAL: ASYMMETRIC DENSITY RIGHT BREAST LATERAL 9 O'CLOCK. Horse Show Judge: PIYUSH ONEILL RT(R)(M), [facility] letter sent: Probably Benign BI-RADS 3 Ultrasound BI-RADS: 3 Probably benign Normal [facility] ([place]) LABORATORYOrdered By: Odessa Wall on 10-02-2021 FLUAV RNA TOM+probe Ql (Upper resp) Positive *ABN* (10/02/21 6:18 AM) Invalid Interpretation Code Negative AO Auto Urine SS FLUBV RNA TOM+probe Ql (Upper resp) Negative (10/02/21 6:18 AM) Invalid Interpretation Code Negative AO Auto Urine SS RSV RNA TOM+probe Ql (Upper resp) Negative (10/02/21 6:18 AM) Invalid Interpretation Code Negative AO Auto Urine SS CT THORAX WITH CONon 022 CT THORAX WITH CON CT THORAX WITH CON Ordering Physician: Bev Posadas DO 08/05/2021 COMPUTED TOMOGRAPHY THORAX WITH CONTRAST Clinical Statement: Pulmonary nodule TECHNIQUE: 2.5 mm thick axial images of the thorax were obtained following the administration of 100 cc of Isovue-300 intravenous contrast. The study was compared to previous examinations from an outside institution, the latest dated 07/27/2020. FINDINGS: The images of the upper abdomen show no acute abnormalities. There is fatty infiltration of the liver. There are no pleural or pericardial effusions. The heart is normal in size. The aorta shows no acute abnormalities. The airways are patent. There are no acute infiltrates. No hilar or mediastinal lymphadenopathy is identified. There are small unchanged lymph nodes most likely reactive. An oval nodule with internal increased attenuation most likely due to calcification is again identified in the left upper lobe posteriorly and laterally. This measures 16 x 22 cm similar to the previous study of 16 x 23 cm there are small adjacent nodular densities more prominent inferiorly which are also unchanged. There is associated mild nodularity along the adjacent major fissure. The findings are most likely related to a remote infectious/inflammator y process. Small unchanged nodule in the left upper lobe posteriorly on image #46 measuring approximately 3 mm in diameter. There is an unchanged 3 mm nodule in the left upper lobe posteriorly adjacent to the major fissure on image #50. There is a linear density along the left major fissure laterally on image #45 compatible with scarring or perhaps a small lymph node. No other pulmonary nodules or lesions are identified. The thyroid gland is unremarkable. There are no acute osseous abnormalities. There are degenerative changes in the spine. IMPRESSION: 1. Unchanged oval nodule in the left upper lobe with internal increased attenuation compatible with calcification. There are adjacent nodular densities in the left upper lobe and along the major fissure which are unchanged. The findings are most likely related to a remote infectious/inflammator y process. 2. Small left upper lobe nodules and nodularity along the left major fissure showing no change. 3. Small mediastinal lymph nodes which are unchanged and most likely reactive. This report was electronically signed by Lenny Lund MD 08/08/2021 10:19 AM Reported By: LENNY LUND M.D. Signed By: LENNY LUND M.D. [facility] CT Chest w/o Contraston 06-30 CT Chest w/o Contrast [facility]: [id number] Tomography ACCESSION EXAM DATE/TIME PROCEDURE ORDERING PROVIDER [id number] 07/27/2020 11:[address] Thorax w/o Contrast SAUNDRA ARAUJODEJUAN CPT code 62313 Reason For Exam (CT Thorax w/o Contrast) f/u Report CT CHEST WITHOUT CONTRAST CLINICAL INDICATION: Follow-up for mass/nodule left upper lobe. Serial axial CT images of the chest were acquired without administration of intravenous contrast. Coronal and sagittal reformatted images were also made available for interpretation. COMPARISON: CT chest 03/14/2020. FINDINGS: Examination slightly limited without intravenous contrast. Heart size is within normal limits. Thoracic aorta and pulmonary trunk are normal in caliber. Several prominent borderline enlarged mediastinal and perihilar lymph nodes are without significant change. At least one of these lymph nodes demonstrates some hyperattenuation likely reflecting calcification. 2.3 x 1.6 cm fairly circumscribed ovoid nodule involving the subpleural left upper lobe is again demonstrated on axial series 8 image 126 on prior study this is remeasured by myself at 2.4 x 1.7 cm. This again demonstrates areas of internal hyperattenuation. A few tiny branching nodular opacities are again seen in close vicinity. 3 mm fissural nodule in the left major fissure on image 142 is unchanged. No consolidation, pleural effusions, or pneumothorax. Central tracheobronchial tree is patent. Tiny hiatal hernia. There is likely some degree of hepatic steatosis. Status post cholecystectomy. No adrenal mass or nodules. Pancreas and spleen appear within normal limits. Mild degenerative spondylosis in the visualized spine a few prominent axillary lymph nodes are nonspecific. IMPRESSION: 1. Unchanged circumscribed 2.3 cm nodule, subpleural left upper lobe, likely with internal calcification. Additional surrounding tiny nodules/nodular opacities are unchanged as well. These findings are favored to reflect infectious/inflammator y etiology. Recommend follow-up CT chest in 6-12 months. 2. Additional findings as above. 3. 2. Computed Tomography Report Report Dictated on Final Dictating Physician: MD OLIVO VLADIMIR Signed Date and Time: 07/27/2020 11:52 am Signed by: MD OLIVO VLADIMIR Transcribed Date and Time: 07/27/2020 11:53 Normal [facility] NM Myocardial Perf Imaging M ulti Specton 07-27-2020 NM Myocardial Perf Imaging Multi Spect Patient Name: GARY MELCHOR Nuclear Medicine ACCESSION EXAM DATE/TIME PROCEDURE ORDERING PROVIDER [id number] 07/27/2020 09:15 EST NM Myocardial Perf DO POSADAS LISA Imaging Multi Spect CPT code 84155 46730 A9500 Reason For Exam (NM Myocardial Perf Imaging Multi Spect) cp Report Nuclear Stress Myocardial Perfusion Study Regadenoson Protocol Gated SPECT Patient: Gary Melchor Height: Weight: : 1970 Age: 49 Gender: F Study Date: 07/27/2020 Accession#: Patient Room #: *ORDERING PHYSICIAN: * Bev Posadas *FELLOW: * Courtney Watkins *SUPERVISING PHYSICIAN: * Leigh Tanner *RN: * Ciera Foster RN *RADIOLOGIST: * Maximus Bajwa DO *NUCLEAR TECH: * Nataly Cabrales *READING PHYSICIAN: * Yannick Marcelo MD ----- Indications: Chest pain. ----- Summary: 1. No evidence of ischemia. 2. Normal LVEF of 59%. Radiologist Confirmation: This is a combined report. The ECG portion of the study was interpreted and reported by the paratransit operator and the perfusion imaging portion of the study was interpreted and reported by Maximus Bajwa DO on 07/27/2020 09:59 AM. ----- History: Intermittent cp at rest Hypertension treated. Tobacco use former. Insulin resistant. Medications: Lisinopril (Zestril). Metformin (Glucophage). Albuterol. Allergies: Codeine allergy. Family history of cardiovascular disease. Patient is NPO per policy. No caffeine per policy. Medication list reviewed with patient and no contraindicated medications have been taken. ----- Nuclear Medicine Report Study data: Bra or chest circumference is 42 in. The patient states she is not . The patient's lungs are clear to auscultation. Heart auscultation by RN revealed a regular rate and rhythm. Pre pain assessment is 0 out of 10. Post pain assessment is 0 out of 10. Patient status: Outpatient. Gated SPECT; rest/stress. One-day Sestamibi. Consent: The procedure was reviewed with the patient and the patient voices understanding. Study completion: The patient tolerated the procedure well. There were no complications. Administered medications: Regadenoson. Discharge: Discharge instruction given. The patient was discharged to home while ambulatory. ----- Procedure data: Initial setup. The patient was brought to the laboratory. A baseline ECG was recorded. Surface ECG leads and blood pressure measurements were monitored. IV patent, site benign. IV discontinued, site benign. Regadenoson stress test. Stress testing was performed, with regadenoson by intravenous bolus at one minute into the protocol, for a total dose of 0.4mgover 10.00 sec, followed by a 5 ml saline flush. Exercise for 4 minutes completed by hand logistics and planning manager. The infusion was terminated due to end of protocol. A pharmacologic approach was used because the patient was physically unable to exercise. ----- Baseline ECG: Normal sinus rhythm. Stress protocol: + +--+---- --------+ + +Stage +HR+BP +Symptoms + + +--+---- --------+ + +Rest +60+140/92 (108)+No symptoms.+ + +--+---- --------+ + +Peak stress +79+122/90 (101)+No symptoms.+ + +--+---- --------+ + +Recovery +69+122/94 (103)+ + + +--+---- --------+ + +Late recovery+69+138/94 (109)+No symptoms.+ + +--+---- --------+ + Stress results: Peak heart rate during stress was 79 bpm. (46% of maximal predicted heart rate). The maximal predicted heart rate was 170 bpm.The heart rate response to stress is normal. There is resting hypertension with an appropriate response to stress. Peak blood pressure achieved during test: 122/90 The rate-pressure product for the peak heart rate and blood pressure was 9638 mm Hg/min. Stress testing did not produce any symptoms suggestive of coronary artery disease. Stress ECG: No stress induced ECG changes suggestive of ischemia. Isotope administration: + +------ + + +Stage +Rest +Stress + + +------ + + +Agent +Tc-99m sestamibi+Tc-99m sestamibi + + +------ + + +Injected dose +10.3 mCi +34.5 mCi + + +------ + + +Date +07/27/2020 +07/27/2020 + + +------ + + +Injection time+07:30 AM +08:20 AM + + +------ + + +Injection at + +Peak pharmacologic stress+ + +------ + + +Injected by +J CABRALES SCIENTIFIC DIVER +J CABRALES SCIENTIFIC DIVER + + +------ + + Nuclear Medicine Report Image properties: Imaging information: The study was gated. The patient was imaged in the supine position.The image quality was fair. Myocardial perfusion imaging: No significant perfusion abnormalities. Gated SPECT: The calculated left ventricular ejection fraction post stress is 59%. Electronically signed by Yannick Marcelo MD 07/27/2020 10:44 Final Dictated: 07/27/2020 10:44 am Dictating Physician: YANNICK MARCELO Signed Date and Time: 07/27/2020 10:44 am Signed by: YANNICK MARCELO [facility] NM Rad Signatureon NM Rad Signature Patient Name: GARY MELCHOR Nuclear Medicine ACCESSION EXAM DATE/TIME PROCEDURE ORDERING PROVIDER [id number] 07/27/2020 09:48 EST NM Rad Signature SIGNATURE, RAD NM Reason For Exam (NM Rad Signature) rad signature Report _ Indications: Chest pain. ----- Summary: 1. No evidence of ischemia. 2. Normal LVEF of 59%. Radiologist Confirmation: This is a combined report. The ECG portion of the study was interpreted and reported by the paratransit operator and the perfusion imaging portion of the study was interpreted and reported by Maximus Bajwa DO on 07/27/2020 09:59 AM. ----- History: Intermittent cp at rest Hypertension treated. Tobacco use former. Insulin resistant. Medications: Lisinopril (Zestril). Metformin (Glucophage). Albuterol. Allergies: Codeine allergy. Family history of cardiovascular disease. Patient is NPO per policy. No caffeine per policy. Medication list reviewed with patient and no contraindicated medications have been taken. ----- Study data: Bra or chest circumference is 42 in. The patient states she is not . The patient's lungs are clear to auscultation. Heart auscultation by RN revealed a regular rate and rhythm. Pre pain assessment is 0 out of 10. Post pain assessment is 0 out of 10. Patient status: Outpatient. Gated SPECT; rest/stress. One-day Sestamibi. Consent: The procedure was reviewed with the patient and the patient voices understanding. Study completion: The patient tolerated the procedure well. There were no complications. Administered medications: Regadenoson. Discharge: Discharge instruction given. The patient was discharged to home while ambulatory. ----- Procedure data: Initial setup. The patient was brought to the laboratory. A baseline ECG was recorded. Surface ECG leads and blood pressure measurements were monitored. IV patent, site benign. IV discontinued, site benign. Regadenoson stress test. Stress testing was performed, with regadenoson by intravenous bolus at one minute into the protocol, for a total dose of 0.4mgover 10.00 sec, followed by a 5 ml saline flush. Exercise for 4 minutes completed by hand logistics and planning manager. The infusion was terminated due to end of protocol. A pharmacologic approach was used because the patient was physically unable to exercise. ----- Baseline ECG: Normal sinus rhythm. Stress protocol: Nuclear Medicine Report + +--+---- --------+ + +Stage +HR+BP +Symptoms + + +--+---- --------+ + +Rest +60+140/92 (108)+No symptoms.+ + +--+---- --------+ + +Peak stress +79+122/90 (101)+No symptoms.+ + +--+---- --------+ + +Recovery +69+122/94 (103)+ + + +--+---- --------+ + +Late recovery+69+138/94 (109)+No symptoms.+ + +--+---- --------+ + Stress results: Peak heart rate during stress was 79 bpm. (46% of maximal predicted heart rate). The maximal predicted heart rate was 170 bpm.The heart rate response to stress is normal. There is resting hypertension with an appropriate response to stress. Peak blood pressure achieved during test: 122/90 The rate-pressure product for the peak heart rate and blood pressure was 9638 mm Hg/min. Stress testing did not produce any symptoms suggestive of coronary artery disease. Stress ECG: No stress induced ECG changes suggestive of ischemia. Isotope administration: + +------ + + +Stage +Rest +Stress + + +------ + + +Agent +Tc-99m sestamibi+Tc-99m sestamibi + + +------ + + +Injected dose +10.3 mCi +34.5 mCi + + +------ + + +Date +07/27/2020 +07/27/2020 + + +------ + + +Injection time+07:30 AM +08:20 AM + + +------ + + +Injection at + +Peak pharmacologic stress+ + +------ + + +Injected by +J CABRALES SCIENTIFIC DIVER +J CABRALES SCIENTIFIC DIVER + + +------ + + Image properties: Imaging information: The study was gated. The patient was imaged in the supine position.The image quality was fair. Myocardial perfusion imaging: No significant perfusion abnormalities. Gated SPECT: The calculated left ventricular ejection fraction post stress is 59%. Final Signed Date and Time: 08/08/2020 1:21 pm Signed by: DO BAJWA ANTHONY Transcribed Date and Time: 08/08/2020 12:38 Transcribed By: Sammy [facility] COVID-19on 06-01-2020 SARS-CoV-2 Not Detected Not Detected Tatiana Person - [place] Comment on above: Not Detected Expected Result: Not Detected _ Real-time, RT-PCR performed on the Netrounds System by the [facility] Negative results do not preclude SARS-CoV-2 infection and should not be used as the sole basis for treatment or other patient management decisions. This assay was developed and its performance characteristics determined by the [facility]. This test has been developed under an Emergency Use Authorization (EUA) granted by the FDA for the qualitative detection of SARS-CoV-2 nucleic acid (validation review pending). [facility], [address] [place] [id number] 06-01-2020 SARS-CoV-2 SARS-CoV-2 --> Statu s: F Not Detected Expected Result: Not Detected _ Real-time, RT-PCR performed on the Qiagen QIAquant System by the [facility] Altimet Service Negative results do not preclude SARS-CoV-2 infection and should not be used as the sole basis for treatment or other patient management decisions. This assay was developed and its performance characteristics determined by the [facility] UEIS Service. This test has been developed under an Emergency Use Authorization (EUA) granted by the FDA for the qualitative detection of SARS-CoV-2 nucleic acid (validation review pending). Expected Result: Not Detected _ Real-time, RT-PCR performed on the Qiagen QIAquant System by the [facility] Negative results do not preclude SARS-CoV-2 infection and should not be used as the sole basis for treatment or other patient management decisions. This assay was developed and its performance characteristics determined by the [facility] UEIS Service. This test has been developed under an Emergency Use Authorization (EUA) granted by the FDA for the qualitative detection of SARS-CoV-2 nucleic acid (validation review pending). Normal [facility] Comment on above: Performed By: #### C OVID #### [address] [address] [address] Chest w/o Contraston 02-27 CT Chest w/o Contrast Patient Name: GARY MELCHOR CT Exam Date/Time 03/14/2020 10:52:[address] Chest w/o Contrast Ordering Physician LUZ ARAUJO Accession Number [id number] CPT4 Codes 41143 (CT Chest w/o Contrast) Reason For Exam f/u Report CLINICAL HISTORY: Pulmonary mass COMPARISON: PET/CT dated 12/01/2019 Technique: [address] images were obtained of the chest without the use of intravenous contrast. Images were reformatted in coronal and sagittal projections. FINDINGS: Lungs: There is a round mass within the right upper lobe. This measures 2.1 x 1.6 x 1.7 cm in size remeasured on the prior 12/01/2019 examination at 2.4 x 1.5 x 1.3 cm. On the bone windows, this nodule shows areas of internal calcification. 3 mm nodule along the left major fissure (7:188) is UNCHANGED. There is additional mild nodularity along the left major fissure which is also unchanged. No new areas of consolidation. The tracheobronchial tree remains patent. Pleura: No pleural effusion Heart/Great vessels: Normal heart size with no pericardial effusion. The aorta and pulmonary arteries are normal in caliber. Mediastinum/Yaz: There are multiple prominent but nonenlarged mediastinal lymph nodes. No hilar or axillary lymphadenopathy is present. Thyroid and Esophagus: Normal Visualized Upper Abdomen: Normal Chest wall/Lower neck: Normal Bones: Normal IMPRESSION: Round mass within the right upper lobe. This mass is not statistically changed in size compared to the prior 12/01/2019 examination. Prior PET showed minimal FDG uptake. On bone windows, this nodule shows areas of internal calcification suggestive of a granuloma. Nodularity along the left major fissure is also unchanged. No new pulmonary nodules or masses. Report Dictated on Final Dictating Physician: MD RAMESH YUN ROBERT Signed Date and Time: 03/15/2020 10:33 am Signed by: MD RAMESH YUN ROBERT Transcribed Date and Time: 03/15/2020 10:34 Normal [facility] Full PFT Study With Bronchod ilatoron 12-12-2019 Name: GARY MELCHOR PatientID: [id number] Gender: Female Birthdate: 1970 Study Date: 12/12/2019 7:32:40 A Age: 49 Race: White or Height: 66.0 in, 167.6 cm Weight: 270.0 lbs, 122.7 kg Smoke Status: Quit Pack Years: 10 Tbco Prod: Cigarettes Ordering Physician: [id number] Interpreting Physician: [id number] Polishing Wheel Repairer: JESSICA [place] Location: [facility] Diagnosis: SOB Spirometry Units Pred PreDrug Pre%Pred Post Post%Pred %Change FVC L,btps 3.79 3.39 90. 3.57 94. 5. FEV1 L,btps 3.00 2.60 87. 2.71 90. 4. FEV1/FVC (%) % 80. 76. 95. 76. 95. -1. DFR67-85% L/s 2.88 2.21 77. 2.29 80. 4. FEFmax L/s 7.05 4.68 66. 4.64 66. -1. MVV in,btps 102.02 83.69 82. Lung Volumes (Body Box) Units Pred PreDrug Pre%Pred TLC L,btps 5.62 VC L,btps 3.79 IC L,btps 2.82 FRC L,btps 2.81 ERV L,btps 0.97 RV L,btps 1.83 RV/TLC (%) % 33. VTG L,btps RAW H2O/L/s 1.36 SGaw cmH2O/L 0.26 Diffusion (DLCO) Units Pred PreDrug Pre%Pred DLCO ml/min/mmHg,stpd 25.50 22.33 88. DLCOHb ml/min/mmHg,stpd 25.50 22.33 88. VAsb L,btps 5.49 4.79 87. D/VAsb ml/min/mmHg/L,stpd 4.65 4.66 100. D/VAsbHb ml/min/mmHg/L,stpd 4.65 4.66 100. VInsp L 3.47 Hgb g/dl 13.40 COHb % Nitrogen Washout Units Pred PreDrug Pre%Pred TLC L,btps 5.62 6.30 112. VC L,btps 3.79 4.01 106. FRC L,btps 2.81 2.68 96. IC L,btps 2.82 3.62 128. ERV L,btps 0.97 0.39 41. RV L,btps 1.83 2.29 125. RV/TLC (%) % 33. 36. 111. Lung Mechanics Units Pred PreDrug Pre%Pred PImax /MIP cmH2O -76.02 PEmax /MEP cmH2O 95.70 CERAMIC ARTIST NOTES Tests to perform: [id number] - FULL PFT STUDY WITH BRONCHODILATOR. HOME MEDS: ALBUTEROL--PRN. RETESTED AFTER 4PUFFS ALBUTEROL; SPACER AND INSTRUCTIONS GIVEN. DRY COUGH NOTED. 55613- PRE/[place] [address]- DLCO 03097- FRC GAS PHYSICIAN INTERPRETATION No apparent airway obstruction or restriction was observed. The FEV1, FVC, and FEV1/FVC did not change with administration of a bronchodilator. The patient's obstruction does not appear to be Asthma related. The diffusion capacity of the patient is normal, with and without adjustment for alveolar volume. Lung volumes were demonstrated to be normal by the Nitrogen Washout test. An Severe degree of air trapping was demonstrated with the Nitrogen Washout test, which corroborates the obstructive pattern observed with spirometry. TLC, RV, and the RV/TLC levels were all significantly elevated. Forced expiratory spirograms are normal. Spirograms are good quality and plateau normally. The respiratory flow volume loop is normal. Spirometry testing is within normal limits. Objective evidence of bronchodilator response is not noted. Diffusion capacity for single breath carbon monoxide is normal. Lung volumes were measured by determining the Functional Residual Capacity (FRC) and determining the lung divisions by a Vital Capacity (VC) manuever. The Total Lung Capacity (TLC) is normal. The Residual Volume (RV) and RV/TLC ratio is normal. Lung volumes were measured by determining the Functional Residual Capacity (FRC) and determining the lung divisions by a Vital Capacity (VC) maneuver. The Total Lung Capacity (TLC) is normal. The Residual Volume (RV) and RV/TLC ratio are elevated suggesting early airway closure and gas trapping. [facility] Incoming Cardiology Results From [facility] - 12/12/2019 9:43 AM EDT Name: GARY MELCHOR PatientID: [id number] Gender: Female Birthdate: 1970 Study Date: 12/12/2019 7:32:40 A Age: 49 Race: White or Height: 66.0 in, 167.6 cm Weight: 270.0 lbs, 122.7 kg Smoke Status: Quit Pack Years: 10 Tbco Prod: Cigarettes Ordering Physician: [id number] Interpreting Physician: [id number] Polishing Wheel Repairer: JESSICA Testing Location: [facility] Diagnosis: SOB Spirometry Units Pred PreDrug Pre%Pred Post Post%Pred %Change FVC L,btps 3.79 3.39 90. 3.57 94. 5. FEV1 L,btps 3.00 2.60 87. 2.71 90. 4. FEV1/FVC (%) % 80. 76. 95. 76. 95. -1. DXS29-16% L/s 2.88 2.21 77. 2.29 80. 4. FEFmax L/s 7.05 4.68 66. 4.64 66. -1. MVV in,btps 102.02 83.69 82. Lung Volumes (Body Box) Units Pred PreDrug Pre%Pred TLC L,btps 5.62 VC L,btps 3.79 IC L,btps 2.82 FRC L,btps 2.81 ERV L,btps 0.97 RV L,btps 1.83 RV/TLC (%) % 33. VTG L,btps RAW H2O/L/s 1.36 SGaw cmH2O/L 0.26 Diffusion (DLCO) Units Pred PreDrug Pre%Pred DLCO ml/min/mmHg,stpd 25.50 22.33 88. DLCOHb ml/min/mmHg,stpd 25.50 22.33 88. VAsb L,btps 5.49 4.79 87. D/VAsb ml/min/mmHg/L,stpd 4.65 4.66 100. D/VAsbHb ml/min/mmHg/L,stpd 4.65 4.66 100. VInsp L 3.47 Hgb g/dl 13.40 COHb % Nitrogen Washout Units Pred PreDrug Pre%Pred TLC L,btps 5.62 6.30 112. VC L,btps 3.79 4.01 106. FRC L,btps 2.81 2.68 96. IC L,btps 2.82 3.62 128. ERV L,btps 0.97 0.39 41. RV L,btps 1.83 2.29 125. RV/TLC (%) % 33. 36. 111. Lung Mechanics Units Pred PreDrug Pre%Pred PImax /MIP cmH2O -76.02 PEmax /MEP cmH2O 95.70 CERAMIC ARTIST NOTES Tests to perform: [id number] - FULL PFT STUDY WITH BRONCHODILATOR. HOME MEDS: ALBUTEROL--PRN. RETESTED AFTER 4PUFFS ALBUTEROL; SPACER AND INSTRUCTIONS GIVEN. DRY COUGH NOTED. [address]119[address]- PRE/[place] [address]- DLCO 93081- FRC GAS PHYSICIAN INTERPRETATION No apparent airway obstruction or restriction was observed. The FEV1, FVC, and FEV1/FVC did not change with administration of a bronchodilator. The patient's obstruction does not appear to be Asthma related. The diffusion capacity of the patient is normal, with and without adjustment for alveolar volume. Lung volumes were demonstrated to be normal by the Nitrogen Washout test. An Severe degree of air trapping was demonstrated with the Nitrogen Washout test, which corroborates the obstructive pattern observed with spirometry. TLC, RV, and the RV/TLC levels were all significantly elevated. Forced expiratory spirograms are normal. Spirograms are good quality and plateau normally. The respiratory flow volume loop is normal. Spirometry testing is within normal limits. Objective evidence of bronchodilator response is not noted. Diffusion capacity for single breath carbon monoxide is normal. Lung volumes were measured by determining the Functional Residual Capacity (FRC) and determining the lung divisions by a Vital Capacity (VC) manuever. The Total Lung Capacity (TLC) is normal. The Residual Volume (RV) and RV/TLC ratio is normal. Lung volumes were measured by determining the Functional Residual Capacity (FRC) and determining the lung divisions by a Vital Capacity (VC) maneuver. The Total Lung Capacity (TLC) is normal. The Residual Volume (RV) and RV/TLC ratio are elevated suggesting early airway closure and gas trapping. [place], [place] PET CT SKULL BASE TO [facility] 12-01-2019 Patient Name: GARY MELCHOR ---PET--- Exam Date/Time 12/01/2019 09:35:00 EDT Exam PT w/ CT Scan Skull Base to [facility] Ordering Physician LUZ ARAUJO Accession Number [id number] CPT4 Codes 72899 (), A9552 () Reason For Exam as above Report History: Pulmonary nodule initial staging Following the intravenous administration of 12.6 mCi of F-18 FDG a PET scan of the torso was acquired after an approximately one hour delay. Contemporaneously, noncontrast axial CT images were obtained using low dose technique. The images were reconstructed in three orthogonal planes and digitally coregistered. 3-D imaging created and reviewed on independent 3-D workstation. The CT data was used for attenuation correction as well. Comparisons available: None available. Brain: Poorly evaluated limited sections with this technique. Neck and chest: A left upper lobe mass is present. It has smooth margins. Measurement approximately 1.9 cm. Minimal associated uptake with SUV maximum 1.2. Contralateral lung tissue SUV maximum 0.6. No hypermetabolic mediastinal lymph nodes. Abdomen and pelvis: No abnormal FDG accumulation is seen in a pattern to suggest high likelihood of malignancy within the abdomen or pelvis. Cholecystectomy clips noted. Musculoskeletal: No foci of moderate or marked abnormal uptake on a pattern to suggest high likelihood of malignancy. Impression: Left upper lobe mass with minimal hypermetabolism. The etiology is uncertain. The degree of uptake is less than typically seen with untreated primary or metastatic malignancy; however, slow-growing tumor is a possibility. Consider follow-up or further evaluation with aspiration. Report Dictated on --- Final --- Dictating Physician: MD MOREAU JOHN Signed Date and Time: 12/01/2019 2:18 pm Signed by: MD MOREAU JOHN Transcribed Date and Time: 12/01/2019 2:19 [place], [place], [facility] Incoming Radiology Results From [facility] - 12/01/2019 2:20 PM EDT Patient Name: GARY MELCHOR ---PET--- Exam Date/Time 12/01/2019 09:35:00 EDT Exam PT w/ CT Scan Skull Base to [facility] Ordering Physician LUZ ARAUJO Accession Number [id number] CPT4 Codes 53980 (), A9552 () Reason For Exam as above Report History: Pulmonary nodule initial staging Following the intravenous administration of 12.6 mCi of F-18 FDG a PET scan of the torso was acquired after an approximately one hour delay. Contemporaneously, noncontrast axial CT images were obtained using low dose technique. The images were reconstructed in three orthogonal planes and digitally coregistered. 3-D imaging created and reviewed on independent 3-D workstation. The CT data was used for attenuation correction as well. Comparisons available: None available. Brain: Poorly evaluated limited sections with this technique. Neck and chest: A left upper lobe mass is present. It has smooth margins. Measurement approximately 1.9 cm. Minimal associated uptake with SUV maximum 1.2. Contralateral lung tissue SUV maximum 0.6. No hypermetabolic mediastinal lymph nodes. Abdomen and pelvis: No abnormal FDG accumulation is seen in a pattern to suggest high likelihood of malignancy within the abdomen or pelvis. Cholecystectomy clips noted. Musculoskeletal: No foci of moderate or marked abnormal uptake on a pattern to suggest high likelihood of malignancy. Impression: Left upper lobe mass with minimal hypermetabolism. The etiology is uncertain. The degree of uptake is less than typically seen with untreated primary or metastatic malignancy; however, slow-growing tumor is a possibility. Consider follow-up or further evaluation with aspiration. Report Dictated on --- Final --- Dictating Physician: MD MOREAU JOHN Signed Date and Time: 12/01/2019 2:18 pm Signed by: MD MOREAU JOHN Transcribed Date and Time: 12/01/2019 2:19 [place], [place] PT w/ CT Scan Skull Base to [facility] 12-01-2019 PT w/ CT Scan Skull Base to [place] Patient Name: GARY MELCHOR PET Exam Date/Time 12/01/2019 09:35:00 EDT Exam PT w/ CT Scan Skull Base to [place]idth[facility] Ordering Physician LUZ ARAUJO Accession Number [id number] CPT4 Codes 71003 (), A9552 () Reason For Exam as above Report History: Pulmonary nodule initial staging Following the intravenous administration of 12.6 mCi of F-18 FDG a PET scan of the torso was acquired after an approximately one hour delay. Contemporaneously, noncontrast axial CT images were obtained using low dose technique. The images were reconstructed in three orthogonal planes and digitally coregistered. 3-D imaging created and reviewed on independent 3-D workstation. The CT data was used for attenuation correction as well. Comparisons available: None available. Brain: Poorly evaluated limited sections with this technique. Neck and chest: A left upper lobe mass is present. It has smooth margins. Measurement approximately 1.9 cm. Minimal associated uptake with SUV maximum 1.2. Contralateral lung tissue SUV maximum 0.6. No hypermetabolic mediastinal lymph nodes. Abdomen and pelvis: No abnormal FDG accumulation is seen in a pattern to suggest high likelihood of malignancy within the abdomen or pelvis. Cholecystectomy clips noted. Musculoskeletal: No foci of moderate or marked abnormal uptake on a pattern to suggest high likelihood of malignancy. Impression: Left upper lobe mass with minimal hypermetabolism. The etiology is uncertain. The degree of uptake is less than typically seen with untreated primary or metastatic malignancy; however, slow-growing tumor is a possibility. Consider follow-up or further evaluation with aspiration. Report Dictated on Final Dictating Physician: MD MOREAU JOHN Signed Date and Time: 12/01/2019 2:18 pm Signed by: MD MOREAU JOHN Transcribed Date and Time: 12/01/2019 2:19 Normal [facility] COMPLETE BLOOD COUNTon 03-31 Erythrocyte distribution width Auto Ratio (RBC) 12.2 % Normal 11.5-14.5 [facility] Comment on above: Performed By: #### C BC ####[facility] PATHOLOGY [id number] [place], [place], Hematocrit Auto Volume Fraction (Bld) 35.2 % Low 36.0-46.0 [facility] Comment on above: Performed By: #### C BC ####S PATHOLOGY [id number] [place], [place], Hemoglobin mass conc (Bld) 12.1 g/dL Normal 12.0-15.0 [facility] Comment on above: Performed By: #### C BC ####S PATHOLOGY [id number] [place], [place], MCH Auto Entitic mass (RBC) 29.8 pg Normal 26.0-34.0 [facility] Comment on above: Performed By: #### C BC ####S PATHOLOGY [id number] [place], [place], MCHC Auto mass conc (RBC) 34.4 g/dL Normal 32.0-35.9 [facility] Comment on above: Performed By: #### C BC ####S PATHOLOGY [id number] [place], [place], MCV Auto Entitic volume (RBC) 87 fL Normal 80-100 The [facility] Comment on above: Performed By: #### C BC ####[facility] PATHOLOGY [id number] [place], [place], Platelet mean volume Auto Entitic volume (Bld) 9.3 fL Normal 8.5-11.5 The [facility] Comment on above: Performed By: #### C BC ####[facility] PATHOLOGY [id number] [place], [place], Platelets Auto #/vol (Bld) 237 10*3/uL Normal 150-400 The [facility] Comment on above: Performed By: #### C BC ####[facility] PATHOLOGY [id number] [place], [place], RBC Auto #/vol (Bld) 4.06 10*6/uL Normal 4.00-5.20 Th e [facility] Comment on above: Performed By: #### C BC ####[facility] PATHOLOGY [id number] [place], [place], WBC Auto #/vol (Bld) 5.5 10*3/uL Normal 4.5-11.5 The [facility] Comment on above: Performed By: #### C BC ####[facility] PATHOLOGY [id number] [place], [place], GLUCOSE, FINGERSTICK-IN OFFI CEon 03-31-2018 Glucose mass conc 114 mg/dL High 68-110 The [facility] Comment on above: Result Comment: No A ction Performed By: #### 8 [id number] ####NURSING GLUCOSE [id number] [place], [place], PARTIAL THROMBOPLASTIN TIMEo n 03-31-2018 aPTT Coag time (Bld) 24 s Normal 24-37 The [facility] Comment on above: Performed By: #### P T, APTT ####[facility]Y [id number] [place], [place], PROTHROMBIN TIME AND INRon 1 INR Coag RelTime (PPP) 1.03 {INR} Normal 0.90-1.10 The [facility] Comment on above: Performed By: #### P T, APTT ####[facility]Y [id number] [place], [place], Prothrombin time (PT) Coag time (PPP) 11.7 s Normal 10.0-12.6 [facility] Comment on above: Performed By: #### P T, APTT ####[facility] PATH[facility]Y [id number] [place], [place], CT ABDOMEN/PELVIS W/O CONTRA STon 10-23-2017 CT ABDOMEN/PELVIS W/O CONTRAST EXAMINATIONCT ABDOMEN/PELVIS W/O CLINICAL HISTORYevaluate for abdominal wal hernia Technologist Notes COMPARISONNone TECHNIQUEAxial images were obtained through the abdomen and pelvis from the diaphragmatic domes to the pubic symphysis. The patient drank oral contrast. No IV contrast was given. MPR sagittal and coronal reconstructions were obtained from the axial data. Comments: None FINDINGSLack of intravenous contrast is significantly suboptimal for evaluation of the solid viscera. Included images of the lower thorax: No focal lung consolidation or pleural effusion. Hepatobiliary: Unremarkable liver without biliary dilation evident. There are cholecystectomy clips in the gallbladder fossa. Pancreas: Unremarkable. Spleen: Unremarkable. Adrenal glands: Unremarkable. Kidneys: Unremarkable. Ureters and bladder: No calculi are noted. Abdominal aorta and proximal major branches: Unremarkable. Bowel: There is a small hiatal hernia No evidence of obstruction. The appendix is within normal limits. Peritoneum and retroperitoneum: No free fluid or free air is noted. Lymph nodes: No abdominal or pelvic lymphadenopathy is evident. Solid pelvic viscera: CT is suboptimal for evaluation without mass identified. Visualized musculoskeletal structures: There are degenerative changes of the spine, most severe at the L4-5 level. No bony destructive lesion is identified. There is remote fracture deformity of the right inferior pubic ramus. There is a 1.8 cm defect within the medial aspect of the right rectus sheath in the upper abdomen (image 40 of series 3), which contains herniation of mesenteric fat. An additional similar-appearing ventral hernia is seen on image 73 of series 3 with a defect measuring 2 cm, this is at the level of the umbilicus. Additionally, there is a small fat containing umbilical hernia. A couple of additional similar-appearing ventral defects is seen lower in the anterior abdominal wall (image 94 -97 series 3). IMPRESSION1. Multiple fat containing ventral hernias involving the medial aspect of the right rectus sheath, as detailed above. There is also a small fat containing umbilical hernia. 2. Status post cholecystectomy. 3. Small hiatal hernia. MACRONONE Normal The [employer] [facility] Vital Signs Date Time Vital Sign Value Performing Clinician Cali wilson 02-22-2025 09:34-0400 Body height 167.6 cm Abbey Jimenez MD Work Phone: [facility] 02-22-2025 09:34-0400 Body mass index (BMI) [Ratio] 40.99 kg/m2 Abbey Jimenez MD Work Phone: [facility] 02-22-2025 09:34-0400 Body weight 115.2 kg Abbey Jimenez MD Work Phone: [facility] 02-22-2025 09:34-0400 Diastolic blood pressure 79 mm[Hg] Abbey Jimenze MD Work Phone: [facility] 02-22-2025 09:34-0400 Heart rate 77 /min Abbey Jimenez MD Work Phone: [facility] 02-22-2025 09:34-0400 Systolic blood pressure 137 mm[Hg] Abbey Jimenez MD Work Phone: [facility] 12-18-2024 02:13-0400 Body temperature 98.3 [degF] Dr. Keyana Esposito MD Work Phone: [facility] 12-18-2024 02:13-0400 Diastolic blood pressure 74 mm[Hg] Dr. Keyana Esposito MD Work Phone: [facility] 12-18-2024 02:13-0400 Heart rate 93 /min Dr. Keyana Esposito MD Work Phone: [facility] 12-18-2024 02:13-0400 Respiratory rate 20 /min Dr. Keyana Esposito MD Work Phone: [facility] 12-18-2024 02:13-0400 SaO2% (BldA) [Mass fraction] 98 % Dr. Keyana Esposito MD Work Phone: [facility] 12-18-2024 02:13-0400 Systolic blood pressure 142 mm[Hg] Dr. Keyana Esposito MD Work Phone: [facility] 12-18-2024 00:52-0400 Body height 165.[address] Keyana Esposito MD Work Phone: [facility] 12-18-2024 00:52-0400 Body mass index (BMI) [Ratio] 41.1 kg/m2 Dr. Keyana Esposito MD Work Phone: [facility] 12-18-2024 00:52-0400 Body weight 112.[address] Keyana Esposito MD Work Phone: [facility] 10-28-2024 11:34-0400 Diastolic Blood Pressure Non-Invasive 70 mm[Hg] TOYA HODGES MD [facility] 10-28-2024 11:34-0400 Heart rate 73 /min TOYA HODGES MD [facility] 10-28-2024 11:34-0400 Respiratory rate 16 /min TOYA HODGES MD [facility] 10-28-2024 11:34-0400 Systolic Blood Pressure Non-Invasive 141 mm[Hg] TOYA HODGES MD [facility] 10-28-2024 11:18-0400 Diastolic Blood Pressure Non-Invasive 71 mm[Hg] TOYA HODGES MD [facility] 10-28-2024 11:18-0400 Heart rate 64 /min TOYA HODGES MD [facility] 10-28-2024 11:18-0400 Respiratory rate 15 /min TOYA HODGES MD [facility] 10-28-2024 11:18-0400 Systolic Blood Pressure Non-Invasive 156 mm[Hg] TOYA HODGES MD [facility] 10-28-2024 11:10-0400 Diastolic Blood Pressure Non-Invasive 82 mm[Hg] TOYA HODGES MD [facility] 10-28-2024 11:10-0400 Respiratory rate 16 /min TOYA HODGES MD [facility] 10-28-2024 11:10-0400 Systolic Blood Pressure Non-Invasive 159 mm[Hg] TOYA HODGES MD [facility] 10-28-2024 10:59-0400 Heart rate 67 /min TOYA HODGES MD [facility] 10-28-2024 10:52-0400 Heart rate 68 /min TOYA HODGES MD [facility] 10-28-2024 10:29-0400 Blood Pressure Cuff Size TOYA HODGES MD [facility] 10-28-2024 10:29-0400 Blood Pressure Location TOYA HODGES MD [facility] 10-28-2024 10:29-0400 Blood Pressure Method TOYA HODGES MD [facility] 10-28-2024 10:29-0400 Body height 162.6 cm TOYA HODGES MD [facility] 10-28-2024 10:29-0400 Body weight 113.2 kg TOYA HODGES MD [facility] 10-28-2024 10:29-0400 Body weight 42.82 kg/m2 TOYA HODGES MD [facility] 10-28-2024 10:29-0400 Heart rate 63 /min TOYA HODGES MD [facility] 10-10-2024 12:49-0400 Body mass index (BMI) [Ratio] 39.27 kg/m2 Jaimie Cook MD Work Phone: [facility] 10-10-2024 12:49-0400 Body temperature 98.2 [degF] Jaimie Cook MD Work Phone: [facility] 10-10-2024 12:49-0400 Body weight 110.36 kg Jaimie Cook MD Work Phone: [facility] 10-10-2024 12:49-0400 Diastolic blood pressure 67 mm[Hg] Jaimie Cook MD Work Phone: [facility] 10-10-2024 12:49-0400 Heart rate 66 /min Jaimie Cook MD Work Phone: [facility] 10-10-2024 12:49-0400 Respiratory rate 18 /min Jaimie Cook MD Work Phone: [facility] 10-10-2024 12:49-0400 SaO2% (BldA) [Mass fraction] 98 % Jaimie Cook MD Work Phone: [facility] 10-10-2024 12:49-0400 Systolic blood pressure 143 mm[Hg] Jaimie Cook MD Work Phone: [facility] 07-27-2024 12:37-0500 Diastolic Blood Pressure Non-Invasive 87 mm[Hg] TOYA HODGES MD [facility] 07-27-2024 12:37-0500 Heart rate 52 /min TOYA HODGES MD [facility] 07-27-2024 12:37-0500 Respiratory rate 15 /min TOYA HODGES MD [facility] 07-27-2024 12:37-0500 Systolic Blood Pressure Non-Invasive 140 mm[Hg] TOYA HODGES MD [facility] 07-27-2024 12:25-0500 Heart rate 66 /min TOYA HODGES MD [facility] 07-27-2024 12:25-0500 Respiratory rate 18 /min TOYA HODGES MD [facility] 07-27-2024 12:20-0500 Heart rate 64 /min TOYA HODGES MD [facility] 07-27-2024 12:20-0500 Respiratory rate 20 /min TOYA HODGES MD [facility] 07-27-2024 11:48-0500 Blood Pressure Cuff Size TOYA HODGES MD [facility] 07-27-2024 11:48-0500 Blood Pressure Location TOYA HODGES MD [facility] 07-27-2024 11:48-0500 Blood Pressure Method TOYA HODGES MD [facility] 07-27-2024 11:48-0500 Body height 162.6 cm TOYA HODGES MD [facility] 07-27-2024 11:48-0500 Body weight 120.6 kg TOYA HODGES MD [facility] 07-27-2024 11:48-0500 Body weight 45.61 kg/m2 TOYA HODGES MD [facility] 07-27-2024 11:48-0500 Diastolic Blood Pressure Non-Invasive 78 mm[Hg] TOYA HODGES MD [facility] 07-27-2024 11:48-0500 Heart rate 73 /min TOYA HODGES MD [facility] 07-27-2024 11:48-0500 Systolic Blood Pressure Non-Invasive 144 mm[Hg] TOYA HODGES MD [facility] 10-02-2021 06:28-0400 Heart rate 102 /min RENETTA REICHFIELD DO [facility] 10-02-2021 06:28-0400 Respiratory rate 20 /min RENETTA REICHFIELD DO [facility] 10-02-2021 06:02-0400 Body temperature 99.32 [degF] RENETTA REICHFIELD DO [facility] 10-02-2021 06:02-0400 Body weight 128.3 kg RENETTA REICHFIELD DO [facility] 10-02-2021 06:02-0400 Diastolic blood pressure 82 mm[Hg] RENETTA REICHFIELD DO [facility] 10-02-2021 06:02-0400 Heart rate 108 /min RENETTA REICHFIELD DO [facility] 10-02-2021 06:02-0400 Respiratory rate 22 /min RENETTA REICHFIELD DO [facility] 10-02-2021 06:02-0400 Systolic blood pressure 151 mm[Hg] RENETTA REICHFIELD DO [facility] 12-12-2019 07:32-0400 BMI (Body Mass Index) 43.58 kg/m2 [facility] [place] 12-12-2019 07:32-0400 Body weight 122.47 kg [place] 12-12-2019 07:32-0400 Height 167.6 cm [facility] [place] Encounters Encounter Date Encounter Type Care Provider Facility Start: 05-02-2025 End: 05-02-2025 ambulatory BRANDON ROSI PERSONNEL QUALITY ASSURANCE AUDITOR-VASCULAR PHYSICIAN Facility:A Start: 05-02-2025 End: 05-02-2025 Patient encounter procedure BRANDON ROSI PERSONNEL QUALITY ASSURANCE AUDITOR-VASCULAR PHYSICIAN [facility] Start: 04-24-2025 End: 04-24-2025 ambulatory Uneeza K Cate Facility:[facility] Start: 04-24-2025 End: 04-24-2025 ambulatory Uneeza K Cate Facility:[facility] Start: 04-13-2025 ambulatory ABBEY tabaresty:[facility] Start: 04-13-2025 End: 04-13-2025 ambulatory BEV M ESTERLE Facility:[facility] Start: 03-17-2025 End: 03-17-2025 Emergency department patient visit ESCOBAR TAVAREZ MD [facility] Start: 03-16-2025 End: 03-20-2025 ambulatory BRANDON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 Coronal and Sagittal reconstruction series were provided. One or more dose reduction techniques were used (e.g., Automated exposure control, adjustment of the mA and/or kV according to patient size, use of iterative reconstruction technique RADIATION DOSE SUMMARY: CTDlvol: 18.95 mGy DLP: 762 mGycm COMPARISON: None. FINDINGS: Soft tissue contusions of the right chest wall. Well-defined 1.6 cm nodule in the left upper lobe containing benign chronic calcifications, probably benign and chronic. Minimal adjacent subsegmental atelectasis, chronic. Mild diffuse spondylosis. Normal unenhanced main pulmonary artery and right and left pulmonary arteries. Normal bilateral peripheral pulmonary arteries. Normal thoracic aorta and visualized great vessels. There is no demonstrated aortic aneurysm. Normal heart and pericardium. Normal mediastinum. Normal hilar regions. Normal visualized trachea and bronchi. The lungs are well expanded. Normal remaining pulmonary parenchyma. Normal pleura. Prior cholecystectomy. Normal remaining visualized upper abdomen. CT/Chest without Contrast IMPRESSION: Coronary artery calcification (CAC) is is absent Soft tissue contusions of the right chest wall. Well-defined 1.6 cm nodule in the left upper lobe containing benign chronic calcifications, probably benign and chronic. Minimal adjacent subsegmental atelectasis, chronic. Mild diffuse spondylosis. [facility] CC: Dr. Ezequiel Manuel MD; Dr. Keyana Esposito MD ~ Movie Critic: Signed [facility] 11-18-2024 Evaluation + Plan note Future Scheduled TestsCT Thorax w/o Contrast 11/18/24 [facility] 11-01-2024 Telephone encounter Note Images from the original note were not included. CD images uploaded via [employer] . Please allow time in [employer] to import. [facility] 11-01-2024 Miscellaneous Notes Images from the original note were not included. CD images uploaded via [employer] . Please allow time in [employer] to import. documented in this encounter [facility] 10-28-2024 Summary of episode note What to do next Scheduled Follow-Up Appointments Appointment Type When With Where Contact Information StatusPM OV 01/24/2025 08:20 AM EDT TOYA HODGES MD [place] [facility] Confirmed Medications Please ask your primary doctor or pharmacist before taking any other medication not listed, including over the counter drugs, herbal medications, vitamins and or supplements as they may interact with your home medications. What How Much When Why Instructions Last Dose Unchanged acetaminophen-oxyCODONE (acetaminophen-oxycodone 325 mg-7.5 mg oral tablet) 1 tab(s) by mouth Every 8 hours as needed for as needed for pain Chronic pain Lumbar facet arthropathy Duration: 30 Days to fill 3/ 19/ 2025 Unchanged albuterol (albuterol MDI (90 mcg/ inh) CFC free inhalation aerosol) 1 puff(s) by inhalation Every 4 hours as needed for as needed for wheezing URI - Upper respiratory infection Unchanged albuterol-ipratropium (albuterol-ipratropium 2.5 mg-0.5 mg/ 3 mL inhalation solution) 3 Milliliter by inhalation Every 4 hours as needed for Shortness of breath or wheezing Bronchitis Flu-like illness Unchanged DME (DME MISCellaneous) See instructions Hypertension automatic BP cuff. Unchanged ezetimibe (ezetimibe 10 mg oral tablet) 1 tab(s) by mouth Once a day Unchanged herbal/ nutritional product (garlic oral capsule) 1 cap by mouth Every day Unchanged lisinopril (lisinopril 20 mg oral tablet) 1 tab(s) by mouth Every day Unchanged multivitamin (Multivitamin) 1 tab(s) by mouth Every day Unchanged topiramate (Topamax 100 mg oral tablet) 1 tab(s) by mouth Two (2) times a day Duration: 30 Days Please take this list to your next doctor s visit. Bring all medications you take, including over the counter medications, herbals and other supplements with you to your doctor s visit. Patients and families are reminded to discard old lists and to update any records with all medication providers or retail pharmacies. Education [facility] Dr. TRACIE GUADALUPE, Sedation After the procedure Do NOT sit in water that covers your injection site for 24 hours. Showers are ok only after complete return of normal sensation and strength. Any band aids can be removed the day after your procedure. Be careful ambulating until normal muscle strength and balance returns. Do not drive after your procedure. You may resume normal activities the next day. The effects of the injected local anesthesia may wear off in about 2-6 hours but could last for several days; pain may then return to its previous or an increased level. Transforaminal or Epidural injections may take up to 14 days to take full effect. You may experience soreness at the injection site for the next few days. Heat and/or Ice may be used as needed (20 minutes on/20 minutes off). Call your doctor immediately if you experience any signs or symptoms of infection including fevers, night sweats, chills, and/or drainage at the injection site. If you have any questions, please call our office at [phone]. Moderate Conscious Sedation, Adult, Care After These instructions provide you with information about caring for yourself after your procedure. Your health care provider may also give you more specific instructions. Your treatment has been planned according to current medical practices, but problems sometimes occur. Call your health care provider if you have any problems or questions after your procedure. What can I expect after the procedure? After your procedure, it is common: To feel sleepy for several hours. To feel clumsy and have poor balance for several hours. To have poor judgment for several hours. To vomit if you eat too soon. Follow these instructions at home: For at least 24 hours after the procedure: Do not: ? Participate in activities where you could fall or become injured. ? Drive. ? Use heavy machinery. ? Drink alcohol. ? Take sleeping pills or medicines that cause drowsiness. ? Make important decisions or sign legal documents. ? Take care of children on your own. Rest. Eating and drinking Follow the diet recommended by your health care provider. If you vomit: ? Drink water, juice, or soup when you can drink without vomiting. ? Make sure you have little or no nausea before eating solid foods. General instructions Have a responsible adult stay with you until you are awake and alert. Take hvld-yem-sovxxya and prescription medicines only as told by your health care provider. If you smoke, do not smoke without supervision. Keep all follow-up visits as told by your health care provider. This is important. Contact a health care provider if: You keep feeling nauseous or you keep vomiting. You feel light-headed. You develop a rash. You have a fever. Get help right away if: You have trouble breathing. This information is not intended to replace advice given to you by your health care provider. Make sure you discuss any questions you have with your health care provider. Document Released: 04/05/2014 Document Revised: 05/28/2018 Document Reviewed: 10/04/2016 [employer] Patient Education 2020 [employer] Additional Information VACCINATE! IT SAVES LIVES! Members of the community who have not yet received the COVID-19 vaccine and would like to receive it can visit one of [facility] vaccine clinics. There are many vaccine clinic locations within the [facility]. For locations and available times, please visit https://gettheshot.coronavirus.[place].gov/. It is important to note that some COVID mobile vaccine clinics are held outdoors and may be canceled in rainy or stormy conditions. To learn more about pediatric vaccinations (ages 5-11), we invite you to visit the [facility] [facility] webpage. [email or web address] To learn more about the COVID-19 vaccine, we invite you to visit the CDC website for a list of frequently asked questions.https://www.cdc.gov/cor onavirus/2019-ncov/vaccines/faq.h tml [employer] Patient Portal Access Instructions: Stay connected with your healthcare team and access your personal medical information anytime with the [employer] Patient Portal. Please follow the directions below to create your [employer] account: 1.Access the email account you provided upon registration to the hospital/physician office.2.Look for an invitation email from [facility].3.Open the email and access the invitation link: Accept Invitation to [facility].4.Fill in the required maki to create your account. To access your account, visit [email or web address]. Click the blue button labeled "Access Patient Portal" and then log in with the username and password that you created in the steps above. You will be able to view your test results, lab results, a summary of your visits, upcoming appointments and more. There is also a convenient messaging option where you can send secure messages to your provider. In addition, you will have the ability to download any documents or summaries to your computer and/or send the information securely to a physician. Remember that your healthcare information is confidential, so carefully consider who you will allow to register on the [facility] Patient Portal for access to your information. You can also access the [facility] Patient Portal on the [facility] saqib. Simply click on "Patient Portal" and then log into your account. If you would like to receive a full copy of your medical records, please contact the [facility] Medical Records Department by calling [phone], Thursday through Thursday between 8 a.m. and 4:30 p.m. HOW TO SAFELY DISPOSE OF PRESCRIPTION MEDICATIONS Please use one of the following methods to safely dispose of your unused medications. 1.Use a drug disposal kit: the drug disposal pouch allows you to safely discard your old and unused drugs. Ask your nurse to give you one when you are discharged.2.Visit a local take-back location: Many local pharmacies and police departments have programs that collect old and unwanted prescription drugs. Call your local pharmacy or go to http://SOAK ([employer] toolKit).Bridge/1F9Hu0n to find one close to you.3.Make use of household items: Use cat litter or old coffee grounds to dispose medications if other options are not available. Mix your drugs with these household products, seal them in an airtight container and throw it into the garbage. Call [facility]: [phone] to be sure your drugs can be disposed of in this way. Some medicines may require a different approach.4.Never flush your medications down the toilet. IF YOU HAVE BEEN PRESCRIBED AN OPIOID FOR PAIN If you have been prescribed an opioid (such as hydrocodone, oxycodone or morphine), it is critical to understand the possible side effects and risks of opioid pain medications. Even when taken as directed, opioids can have several side effects including: Tolerance, meaning you might need to take more of a medication for the same pain relief. Nausea, vomiting and/or constipation. Sleepiness, dizziness, dry mouth, confusion, depression or itching. Physical dependence, meaning you have withdrawal symptoms when a medication is stopped, can develop within a few days. KNOW YOUR RESPONSIBILITIES It is important to know exactly how much and how often to take the opioid pain medications you are prescribed. Never take opioids in higher amounts or more often than prescribed. Do not combine opioids with alcohol or other drugs that cause drowsiness, such as benzodiazepines, also known as benzos, including diazepam and alprazolam, muscle relaxants or sleep aids. Never sell or share prescription opioids. This is illegal. Store opioids in a secure place and out of reach of others (including children, family, friends and visitors). The last page of this document has been signed and retained as a CHART COPY. Signatures Patient Education Materials PM Dr. Trinidad Pre-Procedure Instructions (05/24/24)(CUSTOM) Moderate Conscious Sedation, Adult, Care After Medication Leaflets My discharge plan and instructions have been reviewed and explained to me and I,GARY MELCHOR understand my current condition and have read and understand these discharge instructions. I have received a written copy of the plan/instructions. If I have questions, I am aware that I should contact my doctor. 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 Digitally Signed by TOYA HODGES MD on 10/28/2024 10:43 AM [facility] 10-28-2024 Hospital Discharge instructions Patient Education 10/28/2024 07:25:[address] Trinidad Pre-Procedure Instructions (05/24/24)(CUSTOM) [place] [facility] Dr. HODGES RFA, Sedation After the procedure Do NOT sit in water that covers your injection site for 24 hours. Showers are ok only after complete return of normal sensation and strength. Any band aids can be removed the day after your procedure. Be careful ambulating until normal muscle strength and balance returns. Do not drive after your procedure. You may resume normal activities the next day. The effects of the injected local anesthesia may wear off in about 2-6 hours but could last for several days; pain may then return to its previous or an increased level. Transforaminal or Epidural injections may take up to 14 days to take full effect. You may experience soreness at the injection site for the next few days. Heat and/or Ice may be used as needed (20 minutes on/20 minutes off). Call your doctor immediately if you experience any signs or symptoms of infection including fevers, night sweats, chills, and/or drainage at the injection site. If you have any questions, please call our office at [phone]. 10/28/2024 07:25:09 Moderate Conscious Sedation, Adult, Care After Moderate Conscious Sedation, Adult, Care After These instructions provide you with information about caring for yourself after your procedure. Your health care provider may also give you more specific instructions. Your treatment has been planned according to current medical practices, but problems sometimes occur. Call your health care provider if you have any problems or questions after your procedure. What can I expect after the procedure? After your procedure, it is common: To feel sleepy for several hours. To feel clumsy and have poor balance for several hours. To have poor judgment for several hours. To vomit if you eat too soon. Follow these instructions at home: For at least 24 hours after the procedure: Do not: ?Participate in activities where you could fall or become injured. ?Drive. ?Use heavy machinery. ?Drink alcohol. ?Take sleeping pills or medicines that cause drowsiness. ?Make important decisions or sign legal documents. ?Take care of children on your own. Rest. Eating and drinking Follow the diet recommended by your health care provider. If you vomit: ?Drink water, juice, or soup when you can drink without vomiting. ?Make sure you have little or no nausea before eating solid foods. General instructions Have a responsible adult stay with you until you are awake and alert. Take ounw-mdq-oddtvgb and prescription medicines only as told by your health care provider. If you smoke, do not smoke without supervision. Keep all follow-up visits as told by your health care provider. This is important. Contact a health care provider if: You keep feeling nauseous or you keep vomiting. You feel light-headed. You develop a rash. You have a fever. Get help right away if: You have trouble breathing. This information is not intended to replace advice given to you by your health care provider. Make sure you discuss any questions you have with your health care provider. Document Released: 04/05/2014 Document Revised: 05/28/2018 Document Reviewed: 10/04/2016 [employer] Patient Education 2020 [employer] Follow Up Care 10/17/2024 09:28:42 With:TOYA HODGES MD Address:Unknown When: Unknown [facility] 10-27-2024 Note HNO ID: [id number] Author: GREGG XAVIER LPN Service: ? Author Type: LICENSED NURSE Type: Progress Notes Filed: 10/27/2024 13:00 Note Text: Out PT EKG preformed without problem, per order. Patient tolerated well. Patient voices no other concerns at this time. Gregg Xavier LPN [facility] 10-27-2024 History of Present illness Narrative Out PT EKG preformed without problem, per order. Patient tolerated well. Patient voices no other concerns at this time. Gregg Xavier LPN documented in this encounter [facility] 10-25-2024 Miscellaneous Notes pt called-relayed the message from the provider requested to cancel the CT scan & sleep study. will have these done at [place] CD will be send via mail- please return the CD back to the patient and all the paperwork . Called and spoke to patient. States she had imaging on 08/05/21 that showed a nodule. Having CT scan on 10/28/24. Jose Perry MA October 25, 2024 10:17 AM Images from the original note were not included. Jaimie Cook MD You19 minutes ago (11:36 AM) Can you pls ask her what she wants us to biopsy? Unless the ct chest shows a mass, theres nothing to biopsy Called and left message on voicemail to return call. Need to clarify what she is wanting biopsied. Jose Perry MA October 19, 2024 11:58 AM Called patient and notified of results. She has CT Scan on 10/28/2024 and Sleep Study 12/13/2024. Wants to get a biopsy scheduled before her sleep study. Advised I would route to provider to for review and then this would get routed to correct department to schedule for procedure. Jose Perry MA October 19, 2024 11:23 AM ----- Message from Jaimie Cook MD sent at 10/19/2024 10:51 AM EDT ----- Can you pls call her and let her know her breathing tests are all normal? jaimie Ibrahim documented in this encounter [facility] 10-25-2024 Telephone encounter Note pt called-relayed the message from the provider requested to cancel the CT scan & sleep study. will have these done at [place] CD will be send via mail- please return the CD back to the patient and all the paperwork . [facility] 10-25-2024 Telephone encounter Note Called and spoke to patient. States she had imaging on 08/05/21 that showed a nodule. Having CT scan on 10/28/24. Jose Perry MA October 25, 2024 10:17 AM [facility] 10-19-2024 Telephone encounter Note Images from the original note were not included. Jaimie Cook MD You19 minutes ago (11:36 AM) Can you pls ask her what she wants us to biopsy? Unless the ct chest shows a mass, theres nothing to biopsy Called and left message on voicemail to return call. Need to clarify what she is wanting biopsied. Jose Perry MA October 19, 2024 11:58 AM [facility] 10-19-2024 Telephone encounter Note Called patient and notified of results. She has CT Scan on 10/28/2024 and Sleep Study 12/13/2024. Wants to get a biopsy scheduled before her sleep study. Advised I would route to provider to for review and then this would get routed to correct department to schedule for procedure. Jose Perry MA October 19, 2024 11:23 AM [facility] 10-19-2024 Telephone encounter Note ----- Message from Jaimie Cook MD sent at 10/19/2024 10:51 AM EDT ----- Can you pls call her and let her know her breathing tests are all normal? jaimie Ibrahim T [facility] 10-11-2024 Telephone encounter Note Called pt to update her that her PFT's and FENO were normal.No answer. No option to leave voicemail. Thank you, Jaimie Cook MD Staff, Pulmonary & Critical Care Medicine [facility] Cell phone and Pager : [phone] [facility] 10-11-2024 Miscellaneous Notes Called pt to update her that her PFT's and FENO were normal.No answer. No option to leave voicemail. Thank you, Jaimie Cook MD Staff, Pulmonary & Critical Care Medicine [facility] Cell phone and Pager : [phone] documented in this encounter [facility] 10-10-2024 Note HNO ID: [id number] Author: MEDINA PICKENS RRT Service: ? Author Type: Registered Resp Therapist Type: Procedures Filed: 10/10/2024 15:20 Note Text: RESPIRATORY THERAPY ORAL EXHALED NITRIC OXIDE SERVICE DATE: 10/10/2024 SERVICE TIME: 3:20 PM Oral Exhaled Nitric Oxide measurement: 5.0 (ppb) Normal: Adult <25 ppb, pediatric (<12 years) <20 ppb High Normal / Increased: Adult 25-50 ppb, pediatric (<12 years) 20-35 ppb Moderately raised exhaled Nitric Oxide may indicate underlying inflammation, but note that: Cold and influenza can raise exhaled Nitric Oxide and some patients have higher baseline exhaled Nitric Oxide levels than others. High: Adult >50 ppb, pediatric (<12 years) >35 ppb Indicative of ongoing eosinophilic inflammation. Symptomatic patient likely to respond to steroids. Possible causes (if already on steroids): Poor compliance, recent allergen exposure, steroid dose inadequate, and steroid resistance. Note that not all patients with high exhaled nitric oxide levels display symptoms. Oral Exhaled Nitric Oxide measurement (Previous Encounters) Test Date Oral Exhaled Nitric Oxide (ppb) 10/10/2024 5.0 NAME: Medina Pickens RRT PATIENT NAME: Gary Melchor DATE: October 10, 2024 TIME: 3:20 PM [facility] 10-10-2024 Procedure note Associated Ord er(s): NITRIC OXIDE, EXHALED RESPIRATORY THERAPY ORAL EXHALED NITRIC OXIDE SERVICE DATE: 10/10/2024 SERVICE TIME: 3:20 PM Oral Exhaled Nitric Oxide measurement: 5.0 (ppb) Normal: Adult <25 ppb, pediatric (<12 years) <20 ppb High Normal / Increased: Adult 25-50 ppb, pediatric (<12 years) 20-35 ppb Moderately raised exhaled Nitric Oxide may indicate underlying inflammation, but note that: Cold and influenza can raise exhaled Nitric Oxide and some patients have higher baseline exhaled Nitric Oxide levels than others. High: Adult >50 ppb, pediatric (<12 years) >35 ppb Indicative of ongoing eosinophilic inflammation. Symptomatic patient likely to respond to steroids. Possible causes (if already on steroids): Poor compliance, recent allergen exposure, steroid dose inadequate, and steroid resistance. Note that not all patients with high exhaled nitric oxide levels display symptoms. Oral Exhaled Nitric Oxide measurement (Previous Encounters) Test Date Oral Exhaled Nitric Oxide (ppb) 10/10/2024 5.0 NAME: Medina Pickens RRT PATIENT NAME: Gary Melchor DATE: October 10, 2024 TIME: 3:20 PM [facility] 10-10-2024 Procedure note Associated Ord er(s): NITRIC OXIDE, EXHALED RESPIRATORY THERAPY ORAL EXHALED NITRIC OXIDE SERVICE DATE: 10/10/2024 SERVICE TIME: 3:20 PM Oral Exhaled Nitric Oxide measurement: 5.0 (ppb) Normal: Adult <25 ppb, pediatric (<12 years) <20 ppb High Normal / Increased: Adult 25-50 ppb, pediatric (<12 years) 20-35 ppb Moderately raised exhaled Nitric Oxide may indicate underlying inflammation, but note that: Cold and influenza can raise exhaled Nitric Oxide and some patients have higher baseline exhaled Nitric Oxide levels than others. High: Adult >50 ppb, pediatric (<12 years) >35 ppb Indicative of ongoing eosinophilic inflammation. Symptomatic patient likely to respond to steroids. Possible causes (if already on steroids): Poor compliance, recent allergen exposure, steroid dose inadequate, and steroid resistance. Note that not all patients with high exhaled nitric oxide levels display symptoms. Oral Exhaled Nitric Oxide measurement (Previous Encounters) Test Date Oral Exhaled Nitric Oxide (ppb) 10/10/2024 5.0 NAME: Medina Pickens RRT PATIENT NAME: Gary Melchor DATE: October 10, 2024 TIME: 3:20 PM documented in this encounter [facility] 10-10-2024 Telephone encounter Note Imported outside medical records There may be a delay before report appears in epic [facility] 10-10-2024 Miscellaneous Notes Imported outside medical records There may be a delay before report appears in epic documented in this encounter [facility] 10-10-2024 Instructions Jaimie Cook MD - 10/10/2024 1:33 PM EDT -pls schedule breathing tests -pls schedule ct chest -pls schedule sleep study -will call you with the results documented in this encounter [facility] 10-10-2024 Note HNO ID: [id number] Author: JAIMIE COOK MD Service: ? Author Type: Physician Type: Progress Notes Filed: 10/10/2024 13:42 Note Text: . [facility] [place] Note Ms. Melchor is a 54 year old female who presents to the [facility] [place]. Consultation requested by Dr. Posadas for an opinion regarding lung nodule. My final recommendations/evaluation will be communicated back to the requesting physician by way of shared medical record or letter via US mail. The patient consented to the use of [employer] software for draft documentation of the visit consistent with [facility]?s Notice of Privacy Practices. HPI: Gary is a 54-year-old female, with a history of a pulmonary nodule and sleep apnea, presenting for evaluation of a pulmonary nodule. Gary reports a pulmonary nodule first identified in 2021, with a recent chest X-ray indicating an increase in size to 2.8 cm. She has been under the care of a orthopaedic physician assistant at [facility], who has recommended a biopsy. A PET scan was performed, which was negative for malignancy. She also underwent a pulmonary function test recently, but results are not available at this time. She reports a history of intermittent dyspnea, but denies current symptoms. She also reports a dry, non-productive cough and occasional chest pain, which she attributes to the pulmonary nodule. She denies orthopnea. Gary expresses concern about potential heavy metal poisoning, specifically arsenic, which she believes may be related to her pulmonary nodule. She reports a history of arsenic exposure, allegedly from her , and has a pending hair test for arsenic. She also reports finding "weird green stuff" in her CPAP machine, which she suspects may be related to her 's actions. She has discontinued use of her CPAP machine due to these concerns and is interested in a new sleep study. Gary has a history of smoking, but quit at age 23. She reports no significant weight changes, but is actively trying to lose 40 lbs due to a foot and ankle issue. She uses an inhaler intermittently, which she reports provides relief, and has an aerosol machine for use when she is ill. She is currently under the care of a new primary care physician and an planning specialist, Dr. Santana. She denies having a paratransit operator. Review of Systems: GEN: No fevers/chills, night sweats, or weight changes HENT: No rhinorrhea, pharyngitis, sinus drainage, congestion, or oral ulcers EYES: No sudden vision changes CV: No chest pain, palpitations RESP: As above GI: No nausea/vomiting/constipation/diar yassine, no acid reflux : No dysuria, no hematuria MSK: No joint swelling NEURO: No sudden weakness or numbness SKIN: No rash PSYCH: No hallucinations Past Medical History: PAST MEDICAL HISTORY Diagnosis Date Arthritis Back pain Diabetes (HCC) Hypertension Migraines Past Surgical History: PAST SURGICAL HISTORY Procedure Laterality Date SECTION HX COLONOSCOPY SCREENING 03/08/2020 External hemorrhoids Work and Social Histories: Social History Tobacco Use Smoking status: Former Types: Cigarettes Smokeless tobacco: Never Substance Use Topics Alcohol use: Yes Drug use: Never Occupation/Exposures: Occupation: Asbestos: No significant exposure. Silica: No significant exposure. Banks: No significant exposure. Organic HP antigen: No significant exposure. Inorganic HP antigen: No significant exposure. Mold: No significant exposure. Tree pollen: No significant exposure. Radiation: No significant exposure. Fumes: No significant exposure. Metal dust: No significant exposure. Beryllium: No significant exposure. Dust: No significant exposure. No pets causing allergies Family History: No family history on file. Allergies: Codeine Outpatient Medications: ezetimibe (ZETIA) 10 mg tablet topiramate (TOPAMAX) 100 mg tablet lisinopril (ZESTRIL, PRINIVIL) 10 mg tablet 40 mg. metFORMIN ER (GLUCOPHAGE XR) 500 mg 24 hr tablet Take 500 mg by mouth once daily. oxyCODONE-acetaminophen (PERCOCET) 7.5-325 mg tablet as needed. albuterol HFA (PROVENTIL HFA, VENTOLIN HFA) 90 mcg/actuation inhaler as needed. PHYSICAL EXAM: BP 143/67 Pulse 66 Temp (Src) 98.2 (Temporal) Resp 18 Wt 243 lb 4.8 oz (110.4kg) SpO2 98% GEN: Alert, comfortable, sitting up in chair, no distress EYES: Anicteric sclera, no conjunctival injection HENT: Normocephalic. no temporal wasting NECK: FROM CV: RRR no m/r/g, no peripheral edema PULM: clear to auscultation bilaterally ABD: Protuberant, NABS, S/NT/ND NEURO: AANDOx, No asterixis SKIN: Normal turgor, No palmar plethora EXT: No cyanosis or clubbing LYMPH: No cervical, cephalic, or supraclavicular LAD Labs / Imaging / Diagnostic Studies: All radiography listed below personally reviewed by me Data Reviewed from [facility] (in addition to that noted in HPI, and Past h (more content not included)... [facility] 10-10-2024 History of Present illness Narrative Images from the original note were not included. . [facility] [place] Note Ms. Melchor is a 54 year old female who presents to the [facility] [place]. Consultation requested by Dr. Posadas for an opinion regarding lung nodule. My final recommendations/evaluation will be communicated back to the requesting physician by way of shared medical record or letter via [place] mail. The patient consented to the use of [employer] software for draft documentation of the visit consistent with [facility] s Notice of Privacy Practices. HPI: Gary is a 54-year-old female, with a history of a pulmonary nodule and sleep apnea, presenting for evaluation of a pulmonary nodule. Gary reports a pulmonary nodule first identified in 2021, with a recent chest X-ray indicating an increase in size to 2.8 cm. She has been under the care of a orthopaedic physician assistant at [facility], who has recommended a biopsy. A PET scan was performed, which was negative for malignancy. She also underwent a pulmonary function test recently, but results are not available at this time. She reports a history of intermittent dyspnea, but denies current symptoms. She also reports a dry, non-productive cough and occasional chest pain, which she attributes to the pulmonary nodule. She denies orthopnea. Gary expresses concern about potential heavy metal poisoning, specifically arsenic, which she believes may be related to her pulmonary nodule. She reports a history of arsenic exposure, allegedly from her , and has a pending hair test for arsenic. She also reports finding "weird green stuff" in her CPAP machine, which she suspects may be related to her 's actions. She has discontinued use of her CPAP machine due to these concerns and is interested in a new sleep study. Gary has a history of smoking, but quit at age 23. She reports no significant weight changes, but is actively trying to lose 40 lbs due to a foot and ankle issue. She uses an inhaler intermittently, which she reports provides relief, and has an aerosol machine for use when she is ill. She is currently under the care of a new primary care physician and an planning specialist, Dr. Santana. She denies having a paratransit operator. Review of Systems: GEN: No fevers/chills, night sweats, or weight changes HENT: No rhinorrhea, pharyngitis, sinus drainage, congestion, or oral ulcers EYES: No sudden vision changes CV: No chest pain, palpitations RESP: As above GI: No nausea/vomiting/constipation/diar yassine, no acid reflux : No dysuria, no hematuria MSK: No joint swelling NEURO: No sudden weakness or numbness SKIN: No rash PSYCH: No hallucinations Past Medical History: PAST MEDICAL HISTORY Diagnosis Date Arthritis Back pain Diabetes (HCC) Hypertension Migraines Past Surgical History: PAST SURGICAL HISTORY Procedure Laterality Date SECTION HX COLONOSCOPY SCREENING 03/08/2020 External hemorrhoids Work and Social Histories: Social History Tobacco Use Smoking status: Former Types: Cigarettes Smokeless tobacco: Never Substance Use Topics Alcohol use: Yes Drug use: Never Occupation/Exposures: Occupation: Asbestos: No significant exposure. Silica: No significant exposure. Banks: No significant exposure. Organic HP antigen: No significant exposure. Inorganic HP antigen: No significant exposure. Mold: No significant exposure. Tree pollen: No significant exposure. Radiation: No significant exposure. Fumes: No significant exposure. Metal dust: No significant exposure. Beryllium: No significant exposure. Dust: No significant exposure. No pets causing allergies Family History: No family history on file. Allergies: Codeine Outpatient Medications: ezetimibe (ZETIA) 10 mg tablet topiramate (TOPAMAX) 100 mg tablet lisinopril (ZESTRIL, PRINIVIL) 10 mg tablet 40 mg. metFORMIN ER (GLUCOPHAGE XR) 500 mg 24 hr tablet Take 500 mg by mouth once daily. oxyCODONE-acetaminophen (PERCOCET) 7.5-325 mg tablet as needed. albuterol HFA (PROVENTIL HFA, VENTOLIN HFA) 90 mcg/actuation inhaler as needed. PHYSICAL EXAM: BP 143/67 Pulse 66 Temp (Src) 98.2 (Temporal) Resp 18 Wt 243 lb 4.8 oz (110.4kg) SpO2 98% GEN: Alert, comfortable, sitting up in chair, no distress EYES: Anicteric sclera, no conjunctival injection HENT: Normocephalic. no temporal wasting NECK: FROM CV: RRR no m/r/g, no peripheral edema PULM: clear to auscultation bilaterally ABD: Protuberant, NABS, S/NT/ND NEURO: A&Ox, No asterixis SKIN: Normal turgor, No palmar plethora EXT: No cyanosis or clubbing LYMPH: No cervical, cephalic, or supraclavicular LAD Labs / Imaging / Diagnostic Studies: All radiography listed below personally reviewed by me Data Reviewed from [facility] (in addition to that noted in HPI, and Past histories above): CMP, CBC, etc Assessment: Ms. Melchor is a 54 year old female who presents to the [facility] [place] KRISTIN Lung nodule Provide history of?? Heavy metal poisoning by We discussed your lung nodule: - You have a lung nodule that has been present since at least 2021. Based on the information I have, it measured 2.3 cm in 2021. You mentioned a recent chest X-ray showing it at 2.8 cm, but chest X-rays are not very reliable for measuring nodules. A CT scan is needed for accurate assessment. - I will compare your 2021 CT scan with the most recent CT scan from 2023 (which is being sent to me) to determine if the nodule has grown. - I have ordered a new CT scan of your chest to get updated imaging. Please schedule this test. - If the breathing test results from your previous provider look abnormal, we may repeat them. Otherwise, we will rely on the results they send over. - Heavy metal poisoning is unlikely to appear in the lungs as a nodule. If the CT scan shows anything unusual, I will consult with other specialists to ensure we are thorough. We discussed your breathing and lung function: - You are not currently experiencing shortness of breath, but you have had episodes in the past. You also have a dry, non-productive cough. - I have ordered pulmonary function tests (breathing tests) to evaluate your lung function. Please schedule this test, ideally on the same day as your CT scan. We discussed your sleep apnea: - You are not currently using your CPAP machine due to concerns about contamination. You mentioned having access to another machine, but it would need recalibration, and insurance will not cover its use. - I have ordered a new sleep study to evaluate your sleep apnea and determine the appropriate settings for a new CPAP machine. This will be an overnight study at a [facility] facility. Please call the number provided to schedule this test. Next steps: - Schedule the following tests: - CT scan of your chest. - Pulmonary function tests (breathing tests). - Sleep study (call the number provided to schedule this test). - Once the tests are completed, I will call you with the results. If anything urgent arises, I will contact you sooner. - If you do not hear from me, it may mean the results are normal. However, feel free to call our office if you have any questions or concerns. Your lungs sounded normal during today s exam, and I do not see any immediate cause for concern. However, we will proceed with the above tests to ensure a thorough evaluation. Medical Decision Making: Problems: Moderate: 2+ stable chronic illnesses Risk: Moderate: Drug management Medical Decision Making Level: 4 - Moderate This note was partially created using [employer] Voice recognition software and is inherently subject to errors including those of syntax and sound-alike substitutions which may escape proofreading. In such instances, original meaning may be extrapolated by contextual derivation. Jaimie Cook MD Staff, Pulmonary & Critical Care Medicine [facility] Cell phone and Pager : [phone] documented in this encounter [facility] 07-27-2024 Hospital Discharge instructions Patient Education 07/27/2024 12:46:[address] Trinidad Pre-Procedure Instructions (05/24/24) (CUSTOM) [facility] Dr. Trinidad Epidural, RFA, SCS, MILD, and/or Sedation Procedure Instructions Sedation [facility] do not typically provide sedation, including oral or IV. If you receive oral or IV sedation, you may experience discomfort during and after your procedure. You must have a responsible adult accompany and drive you home. Uber and taxi are prohibited. Medications IMPORTANT: You must consult your prescribing physician before stopping any of the following medications: Anticoagulants (Blood Thinners) Eliquis (Apixaban)- HOLD for 5 days PRIOR your procedure. Xarelto (Rivaroxaban)- HOLD for 3 days PRIOR to your procedure. Coumadin (Warfarin)- HOLD for 5 days PRIOR to your procedure. Ticagrelor (Brilinta)- HOLD for 5 days PRIOR to your procedure. Pletal (Cilostazol)- HOLD for 7 days PRIOR to your procedure. Pradaxa (Dablgatran)- HOLD for 7 days PRIOR to your procedure. Plavix (Clopidogrel)- HOLD for 7 days PRIOR to your procedure. Effient (Prasugrel)- HOLD for 7 days PRIOR to your procedure. Ticlid (Ticlopidine)- HOLD for 10 days PRIOR to your procedure. Aspirin This includes epidural, MILD, and Spinal Cord Stimulator Trials ONLY. IMPORTANT: You must consult with your prescribing physician if you are on aspirin for any heart related conditions. Aspirin 325 mg- HOLD for 5 days PRIOR to your procedure. Other Medications Diuretics (Water Pill)- HOLD the morning for your procedure. You may resume afterwards. Vitamins/Supplements- HOLD for 7 days PRIOR to your procedure. Before the Procedure NO solid food after midnight the night before your procedure. Nothing by mouth 8 hours before your procedure. Sips of clear liquids up to 2 hours before your procedure arrival time are ok. Take your prescribed medications with a sip of water the day of your procedure (except the list provided). NO alcohol for 24 hours before your procedure. You must be healthy the day of your procedure. If you have any illness, please notify the office. If you are on antibiotics or steroids your procedure will need to be rescheduled. If you are prescribed oral Valium for sedation for your procedure, take it with a sip of water 30 minutes before your appointment time. You must have a flatbed company driver. If you are receiving an epidural injection, RFA, SCS trial, MILD, and/or sedation, you must have a responsible adult accompany you and drive you home. Bring your ID and insurance cards. Wear loose clothing. Do not wear eye contacts, wear your glasses instead. You should shower or bathe the evening before or the morning of your procedure. After the procedure Do NOT sit in water that covers your injection site for 24 hours. Showers are ok only after complete return of normal sensation and strength. Any band aids can be removed the day after your procedure. Be careful ambulating until normal muscle strength and balance returns. Do not drive after your procedure. You may resume normal activities the next day. The effects of the injected local anesthesia may wear off in about 2-6 hours but could last for several days; pain may then return to its previous or an increased level. Transforaminal or Epidural injections may take up to 14 days to take full effect. You may experience soreness at the injection site for the next few days. Heat and/or Ice may be used as needed (20 minutes on/20 minutes off). Call your doctor immediately if you experience any signs or symptoms of infection including fevers, night sweats, chills, and/or drainage at the injection site. If you have any questions, please call our office at [phone]. Follow Up Care 07/20/2024 09:12:03 With:TOYA HODGES MD Address:Unknown When: Unknown [facility] 07-27-2024 Evaluation + Plan note Extrac suad from: Title:Specialty Office Visit Note Author:Corona HODGES MD Date:07/27/24 Lumbar facet arthropathy elpidio ateral lumbar facet medial branch nerve blocks Future Appointments Appointment Date:08/09/2024 01:35:00 PM Scheduled Provider:TOYA HODGES MD Location:PM Office [facility] Summary of episode note Discharge Instructions Thank you for allowing [facility] to assist you with your healthcare needs. The following is importantdischarge information regarding your hospital visit. Your Care Team KEYANA ESPOSITO MD Your Diagnosis Lumbar facet arthropathy Chronic pain Allergies codeine Medications Please ask your primary doctor or pharmacist before taking any other medication not listed, including over the counter drugs, herbal medications, vitamins and or supplements as they may interact withyour home medications. What How Much When Why Instructions Last Dose Changed acetaminophen-oxyCODONE (acetaminophen-oxycodone 325 mg-7.5 mg oral tablet) 1 tab(s) by mouth Every 8 hours as needed for as needed for pain Chronic pain Lumbar facet arthropathy Duration: 30 Days to fill 2024 Pickup at [facility] Unchanged albuterol (albuterol MDI (90 mcg/ inh) CFC free inhalation aerosol) 1 puff(s) by inhalation Every 4 hours as needed for as needed for wheezing URI - Upper respiratory infection Unchanged albuterol-ipratropium (albuterol-ipratropium 2.5 mg-0.5 mg/ 3 mL inhalation solution) 3 Milliliter by inhalation Every 4 hours as needed for Shortness of breath or wheezing Bronchitis Flu-like illness Unchanged DME (DME MISCellaneous) See instructions Hypertension automatic BP cuff. Unchanged herbal/ nutritional product (garlic oral capsule) 1 cap by mouth Every day Unchanged topiramate (Topamax 50 mg oral tablet) 1 tab(s) by mouth Two (2) times a day Lumbar radiculopathy Lumbar facet arthropathy Duration: 30 Days Pharmacy Information [facility]: [address] [place], [place] [phone] Please take this list to your next doctor s visit. Bring all medications you take, including over the counter medications, herbals and other supplements with you to your doctor s visit. Patients and families are reminded to discard old lists and to update any records with all medication providers or retail pharmacies. Education Materials [facility]. Trinidad Epidural, RFA, SCS, MILD, and/or Sedation Procedure Instructions Sedation [place] [facility] do not typically provide sedation, including oral or IV. If you receive oral or IV sedation, you may experience discomfort during and after your procedure. You musthave a responsible adult accompany and drive you home. Uber and taxi are prohibited. Medications IMPORTANT: You must consult your prescribing physician before stopping any of the following medications: Anticoagulants (Blood Thinners) Eliquis (Apixaban)- HOLD for 5 days PRIOR your procedure. Xarelto (Rivaroxaban)- HOLD for 3 days PRIOR to your procedure. Coumadin (Warfarin)- HOLD for 5 days PRIOR to your procedure. Ticagrelor (Brilinta)- HOLD for 5 days PRIOR to your procedure. Pletal (Cilostazol)- HOLD for 7 days PRIOR to your procedure. Pradaxa (Dablgatran)- HOLD for 7 days PRIOR to your procedure. Plavix (Clopidogrel)- HOLD for 7 days PRIOR to your procedure. Effient (Prasugrel)- HOLD for 7 days PRIOR to your procedure. Ticlid (Ticlopidine)- HOLD for 10 days PRIOR to your procedure. Aspirin This includes epidural, MILD, and Spinal Cord Stimulator Trials ONLY. IMPORTANT: You must consult with your prescribing physician if you are on aspirin for any heart related conditions. Aspirin 325 mg- HOLD for 5 days PRIOR to your procedure. Other Medications Diuretics (Water Pill)- HOLD the morning for your procedure. You may resume afterwards. Vitamins/Supplements- HOLD for 7 days PRIOR to your procedure. Before the Procedure NO solid food after midnight the night before your procedure. Nothing by mouth 8 hours before your procedure. Sips of clear liquids up to 2 hours before your procedure arrival time are ok. Take your prescribed medications with a sip of water the day of your procedure (except the list provided). NO alcohol for 24 hours before your procedure. You must be healthy the day of your procedure. If you have any illness, please notify the office. If you are on antibiotics or steroids your procedure will need to be rescheduled. If you are prescribed oral Valium for sedation for your procedure, take it with a sip of water 30 minutes before your appointment time. You must have a flatbed company driver. If you are receiving an epidural injection, RFA, SCS trial, MILD, and/or sedation, you must have a responsible adult accompany you and drive you home. Bring your ID and insurance cards. Wear loose clothing. Do not wear eye contacts, wear your glasses instead. You should shower or bathe the evening before or the morning of your procedure. After the procedure Do NOT sit in water that covers your injection site for 24 hours. Showers are ok only after complete return of normal sensation and strength. Any band aids can be removed the day after your procedure. Be careful ambulating until normal muscle strength and balance returns. Do not drive after your procedure. You may resume normal activities the next day. The effects of the injected local anesthesia may wear off in about 2-6 hours but could last for several days; pain may then return to its previous or an increased level. Transforaminal or Epidural injections may take up to 14 days to take full effect. You may experience soreness at the injection site for the next few days. Heat and/or Ice may be used as needed (20 minutes on/20 minutes off). Call your doctor immediately if you experience any signs or symptoms of infection including fevers,night sweats, chills, and/or drainage at the injection site. If you have any questions, please call our office at [phone]. Additional Information VACCINATE! IT SAVES LIVES! Members of the community who have not yet received the COVID-19 vaccine and would like to receive it can visit one of [facility] vaccine clinics. There are many vaccine clinic locations within the [facility]. For locations and available times, please visit https://gettheshot.coronavirus.[place].gov/. It is important to note that some COVID mobile vaccine clinics are held outdoors and may be canceled in rainy or stormy conditions. To learn more about pediatric vaccinations (ages 5-11), we invite you to visit the [facility] webpage. [email or web address]/[email or web address] [email or web address] learn more about the COVID-19 vaccine, we invite you to visit the CDC website for a list of frequently asked questions.https://www.cdc.gov/coronavirus/2019-ncov/vaccines/faq.html [facility] Patient [facility] Access Instructions: Stay connected with your healthcare team and access your personal medical information anytime with the [facility] Patient Portal. Please follow the directions below to create your [facility] account: 1.Access the email account you provided upon registration to the hospital/physician office.2.Look for an invitation email from [facility].3.Open the email and access the invitation link: AcceptInvitation to [facility].4.Fill in the required maki to create your account. To access your account, visit [email or web address]. Click the blue button labeled "Access Patient Portal" and then log in with the username and password that you created in the steps above. You will be able to view your test results, lab results, a summary of your visits, upcoming appointments and more. There is also a convenient messaging option where you can send secure messages to your p rovider. In addition, you will have the ability to download any documents or summaries to your computer and/or send the information securely to a physician. Remember that your healthcare information is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 Other specified diabetes mellitus with other specified complication, unspecified whether mcfp insulin use (HCC) Essential hypertension, malignant Procedures ECG COMPLETE ECG ROUTINE ECG W/LEAST 12 LDS W/I&R Yannick Uriostegui Jr., MD [address] [place] [address] Phone: tel: fax: [facility] [address] [place] [id number] Referral ID Status Reason Start Date Expiration Date V isits Requested Visits Authorized [id number] Closed Auto-Generate d Referral 10/27/2024 10/27/2025 1 1 [facility] Summary Purpose Family History No Family History Records FoundNo Family History Records FoundNo Family History Records FoundNo Family History Records FoundNo Family History Records Found No data available for this section No data available for this section No Family History Records Found No data available for this section No data available for this section No data available for this section No data available for this section No data available for this section No Family History Records FoundNo Family History Records Found No data available for this section No data available for this section No Family History Records Found No data available for this section No data available for this section No Family History Records FoundNo Family History Records Found No data available for this section No Family History Records FoundNo Family History Records Found Advance Directives No Advanced Directives Records FoundDocuments on File Type Date Recorded 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 Advance Directives and Living Will Power of Tin Worker Latest Code Status on File Code Status Date Activated Date Inactivated Comments Full Code 03/16/2017 6:08 AM 03/16/2017 1:39 PM Full Code 08/07/2016 6:22 AM 08/07/2016 2:57 PM Documents on File Type Date Recorded 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 Yes December 18, 2024 12:54am Name of Medical Power of Tin Worker yoshi _--son December 18, 2024 12:54am Reason for Referral Status Reason Specialty Diagnoses / Procedures Referre d By Contact Referred To Contact [facility] Diagnoses Lung nodule Tobacco abuse Procedures PET CT SKULL BASE TO MID THIGH Luz Araujo MD [address] [place] [address] Status Reason Specialty Diagnoses / Procedures Re ferred By Contact Referred To Contact [facility] Diagnoses Tobacco abuse Shortness of breath Procedures Full PFT Study With Bronchodilator Luz Araujo MD [address] [place] [address] Status Reason Specialty Diagnoses / Procedures Referre d By Contact Referred To Contact Closed Radiology Diagnoses Lung mass Procedures CT CHEST WO CONTRAST Luz Araujo MD [address] [place] [address] Assessments Diagnosis Lung nodule Solitary pulmonary nodule Tobacco abuse Tobacco use disorder Diagnosis Tobacco abuse Tobacco use disorder Shortness of breath Diagnosis Lung mass Swelling, mass, or lump in chest Chief Complaint and Reason for Visit Chief Complaint Admit Date [facility] December 18, 2024 12:5 0am Additional Source Comments INFORMATION SOURCE (unrecogn ized section and content) DATE CREATED AUTHOR 01/22/2018 [facility] DATE CREATED AUTHOR AUTHOR'S ORGANIZ ATION 05/25/2018 [facility] [employer] DATE CREATED AUTHOR AUTHOR'S ORGANIZ ATION 06/02/2020 [facility] DATE CREATED AUTHOR AUTHOR'S ORGANIZ ATION [facility]/10[email or web address] DATE CREATED AUTHOR AUTHOR'S ORGANIZ ATION 08/09/2021 [facility] DATE CREATED AUTHOR AUTHOR'S ORGANIZ ATION 03/01/2024 [facility] DATE CREATED AUTHOR AUTHOR'S ORGANIZ ATION 09/12/2024 [facility] DATE CREATED AUTHOR AUTHOR'S ORGANIZ ATION 11/01/2024 [facility] DATE CREATED AUTHOR AUTHOR'S ORGANIZ ATION 03/01/2025 [facility] DATE CREATED AUTHOR AUTHOR'S ORGANIZ ATION 03/24/2025 [facility] DATE CREATED AUTHOR AUTHOR'S ORGANIZ ATION 04/14/2025 [facility] DATE CREATED AUTHOR AUTHOR'S ORGANIZ ATION 05/03/2025 [facility] DATE CREATED AUTHOR AUTHOR'S ORGANIZ ATION 05/06/2025 [facility] Care Team (unrecognized sect ion and content) Hand Silvering Supervisor Relationship Specialty Start Date End Date Bev Posadas MD [address] [address] [address] PCP - General Internal Medicine 02/20/20 Hand Silvering Supervisor Relationship Specialty Start Date End Date Bev Posadas MD [address] [place] [address] PCP - General Internal Medicine 02/20/20 Hand Silvering Supervisor Relationship Specialty Start Date End Date Bev Posadas MD [address] [place] [address] PCP - General Internal Medicine 02/20/20 Hand Silvering Supervisor Relationship Specialty Start Date End Date Bev Posadas MD [address] [place] [address] PCP - General Internal Medicine 02/20/20 Hand Silvering Supervisor Relationship Specialty Start Date End Date Bev Posadas MD [address] [place] [address] PCP - General Internal Medicine 02/20/20 Hand Silvering Supervisor Relationship Specialty Start Date End Date Bev Posadas MD [address] [place] [address] PCP - General Internal Medicine 02/20/20 Team Status: Active Member Role Status Dates Dr. Keyana Esposito MD Primary Care Provider Active Team Status: Inactive Member Role Status Dates Dr. Keyana Esposito MD Primary Care Provider Active Start: December 18, 2024 End: December 18, 2024 Ezequiel Manuel MD Emergency Provider Active Star t: December 18, 2024 End: December 18, 2024 Hand Silvering Supervisor Relationship Specialty Start Date End Date Bev Posadas MD [address] [place] [address] PCP - General Internal Medicine 02/20/20 Hand Silvering Supervisor Relationship Specialty Start Date End Date Bev Posadas MD [address] [place] [address] PCP - General Internal Medicine 02/20/20 Source Comments (unrecognize d section and content) In the event this informatio n is protected by the Federal Confidentiality of Alcohol and Drug Abuse Patient Records regulations: The Federal rules restrict any use of the information to criminally investigate or prosecute any alcohol or drug abuse patient.[facility] Center[facility] the event this information is protected by the Federal Confidentiality of Alcohol and Drug Abuse Patient Records regulations: The Federal rules restrict any use of the information to criminally investigate or prosecute any alcohol or drug abuse patient.[facility] CenterIn the event this information is protected by the Federal Confidentiality of Alcohol and Drug Abuse Patient Records regulations: The Federal rules restrict any use of the information to criminally investigate or prosecute any alcohol or drug abuse patient.[facility] CenterIn the event this information is protected by the Federal Confidentiality of Alcohol and Drug Abuse Patient Records regulations: The Federal rules restrict any use of the information to criminally investigate or prosecute any alcohol or drug abuse patient.[facility] CenterIn the event this information is protected by the Federal Confidentiality of Alcohol and Drug Abuse Patient Records regulations: The Federal rules restrict any use of the information to criminally investigate or prosecute any alcohol or drug abuse patient.[facility] CenterIn the event this information is protected by the Federal Confidentiality of Alcohol and Drug Abuse Patient Records regulations: The Federal rules restrict any use of the information to criminally investigate or prosecute any alcohol or drug abuse patient.[facility] CenterIn the event this information is protected by the Federal Confidentiality of Alcohol and Drug Abuse Patient Records regulations: The Federal rules restrict any use of the information to criminally investigate or prosecute any alcohol or drug abuse patient.[facility] CenterIn the event this information is protected by the Federal Confidentiality of Alcohol and Drug Abuse Patient Records regulations: The Federal rules restrict any use of the information to criminally investigate or prosecute any alcohol or drug abuse patient.[facility] Center[facility] the event this information is protected by the Federal Confidentiality of Alcohol and Drug Abuse Patient Records regulations: The Federal rules restrict any use of the information to criminally investigate or prosecute any alcohol or drug abuse patient.[facility] CenterIn the event this information is protected by the Federal Confidentiality of Alcohol and Drug Abuse Patient Records regulations: The Federal rules restrict any use of the information to criminally investigate or prosecute any alcohol or drug abuse patient.[facility] CenterIn the event this information is protected by the Federal Confidentiality of Alcohol and Drug Abuse Patient Records regulations: The Federal rules restrict any use of the information to criminally investigate or prosecute any alcohol or drug abuse patient.[facility] CenterIn the event this information is protected by the Federal Confidentiality of Alcohol and Drug Abuse Patient Records regulations: The Federal rules restrict any use of the information to criminally investigate or prosecute any alcohol or drug abuse patient.[facility] CenterIn the event this information is protected by the Federal Confidentiality of Alcohol and Drug Abuse Patient Records regulations: The Federal rules restrict any use of the information to criminally investigate or prosecute any alcohol or drug abuse patient.[facility] Reason for Visit (unrecogniz ed section and content) Reason Comments New Reason Comments Spirometry Specialty Diagnoses / Procedures Referred By Contac t Referred To Contact [facility] [place] Diagnoses Interstitial pulmonary disease (HCC) Procedures LUNG VOLUMES PLETHYSMOGRAPHY LUNG VOLUMES W/WO AIRWAY RESIST Jaimie Cook MD [address] [place] [address] Phone: tel: fax: [facility] [place] [phone] Referral ID Status Reason Start Date Expiration Date V isits Requested Visits Authorized [id number] Closed Auto-Generate d Referral 10/10/2024 06/28/2025 1 1 Specialty Diagnoses / Procedures Referred By Contac t Referred To Contact [facility] [place] Diagnoses Interstitial pulmonary disease (HCC) Procedures NITRIC OXIDE, EXHALED NITRIC OXIDE GAS DETERMINATION Jaimie Cook MD [address] [place] [address] Phone: tel: fax: [facility] [address] [address] Referral ID Status Reason Start Date Expiration Date V isits Requested Visits Authorized [id number] Closed Auto-Generate d Referral 10/10/2024 11/09/2025 1 1 Specialty Diagnoses / Procedures Referred By Contac t Referred To Contact [facility] [place] Diagnoses Interstitial pulmonary disease (HCC) Procedures SPIROMETRY - BASELINE AND POST DILATOR BRNCDILAT RSPSE SPMTRY PRE&POST-BRNCDILAT ADMN Jaimie Cook MD [address] [place] [address] Phone: tel: fax: [place] [address] Referral ID Status Reason Start Date Expiration Date V isits Requested Visits Authorized [id number] Closed Auto-Generate d Referral 10/10/2024 11/09/2025 1 1 Specialty Diagnoses / Procedures Referred By Contac t Referred To Contact [facility] [place] Diagnoses Interstitial pulmonary disease (HCC) Procedures LUNG DIFFUSION CAPACITY (DLCO) DIFFUSING CAPACITY Jaimie Cook MD [address] [place] [address] Phone: tel: fax: [place] [phone] Referral ID Status Reason Start Date Expiration Date V isits Requested Visits Authorized [id number] Closed Auto-Generate d Referral 10/10/2024 11/09/2025 1 1 Reason Comments Results Reason Comments Received Outside Medical Records Reason Comments cd images Reason Comments Patient Question Reason Comments Consult Goals (unrecognized section and content) Goals may be documented in a n alternate section FOR RECORDS PERTAINING TO PATIENTS WHO ARE OR HAVE BEEN ENROLLED IN A CHEMICAL DEPENDENCY/SUBSTANCEABUSE PROGRAM, SOME INFORMATION MAY BE OMITTED. This clinical summary was aggregated from multiple sources. Caution should be exercised in using it in the provision of clinical care. This summary normalizes information from multiple sources, and as a consequence, information in this document may materially change the coding, format and clinical context of patient data. In addition, data may be omitted in some cases. CLINICAL DECISIONS SHOULD BE BASED ON THE PRIMARY CLINICAL RECORDS. [email or web address] provides no warranty or guarantee of the accuracy or completeness of information in this document.
== END | disposition home or self-care (01) ==
PROVIDERS: PCP Internal Medicine; Referring Provider Urology; Visit Provider Urology
DX: Z01.812 Encounter for preprocedural laboratory examination (principal); R31.0 Gross hematuria
CPT/HCPCS: 74178; Q9967

== ENCOUNTER → 2025-05-31 | Outpatient (CLI) | payer OTHER, SELFPAY ==
[2025-05-31 10:17] LABS: Hematocrit 39.9 % (37-47); Hemoglobin 13.1 g/dL (12.0-15.0); Immature Granulocytes Count 0.030 X10^3/uL (0.0-0.0); Mean Corp Hgb Conc 32.8 g/dL (32-36); Mean Corpuscular Volume 90.9 fL (81-99); Mean Platelet Vol. 9.1 fl (6.2-12.0); NRBC Flagged by Analyzer 0 % (0-5); Platelet Count 307 K/mm3 (150-450); RBC Distribution Width CV 12.5 % (11.6-14.6); RBC Distribution Width SD 41.7 fl (35.1-43.9); Red Blood Count 4.39 M/mm3 (4.2-5.4); White Blood Count 7.2 K/mm3 (4.4-11.0)
[2025-05-31 10:37] LABS: Anion Gap 11 (5-15); BUN 19 mg/dL (4-19); BUN/Creat Ratio 22.8 RATIO (10-20); Calcium,Total 9.6 mg/dL (7.6-11.0); Carbon Dioxide 28.2 mmol/L (21.0-32.0); Chloride 102 mmol/L (98-108); Glucose 121 mg/dL (70-99); Potassium 5.1 mmol/L (3.3-5.1)
== END | disposition home or self-care (01) ==
LOC: MTLAB 09:24
PROVIDERS: PCP Internal Medicine; Referring Provider Urology; Visit Provider Urology
DX: R31.0 Gross hematuria (principal)
CPT/HCPCS: 36415; 80048; 85025

== ENCOUNTER 2025-06-08 06:41 | Day surgery (SDC) | payer OTHER, SELFPAY ==
[2025-06-08] VITALS (16 sets, daily range): BP systolic 132–185; BP diastolic 64–109; PULSE 65–90; RESP 16–18; TEMP 36.1–36.6; O2SAT 94–100; BMI 43.2
--- OUTSIDE RECORDS SUMMARY | 2025-06-08 06:49 | XMS RPT_ITS | CCD ---
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 CLIA [id number] [address] [place] [address] [place] Calcium [Mass/Vol] 9.8 mg/dL Normal 8.5-10.5 [facility] Comment on above: Order Comment: Speci nydia Type: BLOOD SPECIMEN Ordering Facility: [facility] [employer] [facility] Address: [address] [place] [address] Performed By: #### 2 4321-2 #### [facility] CLIA [id number] [address] [place] [address] [place] Chloride [Moles/Vol] 108 mmol/L High 98-107 [facility] Comment on above: Order Comment: Speci men Type: BLOOD SPECIMEN [facility] Address: [address] [place] [address] Performed By: #### 2 4321-2 #### [facility] CLIA [id number] [address] [place] [address] [place] CO2 [Moles/Vol] 24 mmol/L Normal 21-32 [facility] Comment on above: Order Comment: Speci men Type: BLOOD SPECIMEN Ordering Facility: [facility] Address: [address] [place] [address] Performed By: #### 2 4321-2 #### [facility] CLIA [id number] [address] [place] [address] [place] Creatinine [Mass/Vol] 0.82 mg/dL Normal 0.51-0.95 [facility] Comment on above: Order Comment: Speci men Type: BLOOD SPECIMEN Ordering Facility: [facility] Address: [address] [place] [address] Result Comment: Cathy ents receiving either N-Acetylcysteine (NAC) or Metamizole prior to venipuncture, may have falsely depressed results. Performed By: #### 2 4321-2 #### [facility] CLIA [id number] [address] [place] [address] [facility] Creatinine and Glomerular filtration rate.predicted panel (S/P/Bld) 85 mL/min/1.73m??? Normal >=60 [facility] Comment on above: Order Comment: Speci men Type: BLOOD SPECIMEN [facility] Address: [address] [place] [address] Result Comment: Susie mated Glomerular Filtration Rate [...] GFR. Performed By: #### 2 4321-2 #### [facility] CLIA [id number] [address] [place] [address] [place] Glucose [Mass/Vol] 114 mg/dL High 70-100 [facility] Comment on above: Order Comment: Trav stafford Type: BLOOD SPECIMEN Ordering Facility: [employer] [facility] [employer] Address: [address] [place] [address] Result Comment: The [place] Diabetes Association (ADA) provides guidance for cutoff [...] Standards of Medical Care in Diabetes 2016, Scottish Diabetes Association. Diabetes Care. 2016.39(Suppl 1). Results may be falsely elevated after the administration of Sulfapyridine. Results may be falsely depressed after the administration of Sulfasalazine. Performed By: #### 2 4321-2 #### [facility] CLIA [id number] [address] [place] [address] [place] Potassium [Moles/Vol] 3.6 mmol/L Normal 3.5-5.1 [facility] Comment on above: Order Comment: Trav stafford Type: BLOOD SPECIMEN Ordering Facility: [facility] Address: [address] [place] [address] Performed By: #### 2 4321-2 #### [facility] CLIA [id number] [address] [place], [place] [address] [place] Sodium [Moles/Vol] 142 mmol/L Normal 136-145 [facility] Comment on above: Order Comment: Specclaudia stafford Type: BLOOD SPECIMEN Ordering Facility: [facility] Address: [address] [place] [address] Performed By: #### 2 4321-2 #### [facility] CLIA [id number] [address] [place] [address] Urea nitrogen [Mass/Vol] 20 mg/dL Normal 7-26 [facility] Comment on above: Order Comment: Specclaudia stafford Type: BLOOD SPECIMEN Ordering Facility: [facility] Address: [address] [place] [address] Performed By: #### 2 4321-2 #### [facility] CLIA [id number] [address] [place] [address] CNOVon 10-27-2024 CNOV Office Visit (MMAS ) GARY MELCHOR ([id number]) 1970 F Date Time Provider Department 10/27/24 12:50 PM NURSE [facility] During your visit today, we recorded the following information about you: Gregg Xavier LPN 10/27/2024 1:00 PM Signed Out PT EKG preformed without problem, per order. Patient tolerated well. Patient voices no other concerns at this time. 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, sequela [S46.012S] Other Visit Diagnoses:Other specified diabetes mellitus with other specified complication, unspecified whether [facility] insulin use (HCC) [E13.69] Essential hypertension, malignant [I10] Order(s):ECG COMPLETE [ECG01] Order #: [id number] FUTURE ECG COMPLETE [ECG01] Order #: [id number] Prescriptions as of 10/27/2024 - ezetimibe (ZETIA) [...] Encounter Status:Closed by GREGG XAVIER on 10/27/24 [facility] ECG COMPLETEon 10-27-2024 ECG COMPLETE Ventricular Rate : 7 6 BPM Atrial Rate : 76 BPM P-R Interval : 126 ms QRS Duration : 90 ms Q-T Interval : 372 ms QTC Calculation(Bazett) : 418 ms Calculated P Baraga : 55 degrees Calculated R Baraga : 53 degrees Calculated T Baraga : 63 degrees Normal sinus rhythm Normal ECG No previous ECGs available Confirmed by ROXY CESPEDES MD ([id number]) on 10/27/2024 7:24:48 PM NAME : GARY MELCHOR PID : [id number] : 1970 Gender : Female Race : ORD : [id number] Procedure Date : Oct 27 2024 12:57:50 Edit Date : Oct 27 2024 19:24:52 Diagnosis: Normal sinus rhythm Normal ECG No previous ECGs available Confirmed by ROXY CESPEDES MD ([id number]) on 10/27/2024 7:24:48 PM Test Reason : Location : 152 : URGMAS Overread By : ROXY CESPEDES MD Edited By : ROXY CESPEDES MD Referred By : YANNICK URIOSTEGUI JR Acquired by : SAIRA, Normal [facility] HbA1c (Bld)on 10-27-2024 Average glucose Estimated from glycated hemoglobin (Bld) [Mass/Vol] 117 mg/dL [facility] Comment on above: Order Comment: Trav nydia Type: BLOOD SPECIMEN Ordering Facility: [facility] Address: [address] [place] [address] Result Comment: eAG: (Estimated average glucose) is a calculated value from HgbA1c and is sales representative sales manager of the average blood glucose level in the last 2-3 month period. Performed By: #### 5 5454-3 #### [facility] CLIA [id number] [address] [place] [address] [place] HbA1c (Bld) [Mass fraction] 5.7 % High 4.3-5.6 [facility] Comment on above: Order Comment: Trav stafford Type: BLOOD SPECIMEN [facility] Address: [address] [place] [address] Result Comment: Amer ican Diabetes Association guidelines indicate that patients with HgbA1c in the range 5.7-6.4% are at increased risk for development of diabetes, and intervention by lifestyle modification may be beneficial. HgbA1c greater or equal to 6.5% is considered diagnostic of diabetes. Performed By: #### 5 5454-3 #### [facility] CLIA [id number] [address] [place] [address] [place] Myra 10-19-2024 [facility] ([facility] GARY MELCHOR ([id number]) 1970 F Date Time Provider Department 10/19/24 JAIMIE COOK [facility] During your visit today, we recorded the [...] MA October 25, 2024 10:17 AM Yonny Open End Spinning Operator, Aida 10/25/2024 1:33 PM Addendum pt called-relayed the message from the provider requested to cancel the CT scan AND sleep study. will have these done at [facility] CD will be send via mail- please return the CD back to the patient and all the paperwork . Allergies As of Date: 10/19/2024 Noted Allergy Reaction CODEINE 07/15/2016 8 - GI Upset 11 - Vomiting Date Reviewed: 10/10/2024 Reviewed by: Medina Pickens, COMMISSARY STEWARD - Fully Assessed Prescriptions as of 11/07/2024 [...] Encounter Status:Closed by JOSE PERRY on 11/07/24 Normal [facility] Myra 10-11-2024 [facility] Telephone (PULMMN) GARY MELCHOR ([id number]) 1970 F Date Time Provider Department 10/11/24 JAIMIE COOK During your visit today, we recorded the following information about you: Jaimie Cook MD 10/11/2024 8:51 AM Signed Called pt to update her that her PFT's and FENO were normal.No answer. No option to leave voicemail. Thank you, Jaimie Cook MD Staff, Pulmonary AND Critical Care Medicine [facility] Cell phone and Pager : [phone] Allergies As of Date: 10/11/2024 Noted Allergy Reaction CODEINE 07/15/2016 8 - GI Upset 11 - Vomiting Date Reviewed: 10/10/2024 Reviewed by: Medina Pickens, COMMISSARY STEWARD - Fully Assessed Reason for Visit: Results [...] Status:Closed by JAIMIE COOK on 10/11/24 Normal [facility] CNOVon 10-10-2024 CNOV Office Visit (PULMMN ) GARY MELCHOR ([id number]) 1970 F Date Time Provider Department 10/10/24 1:00 PM JAIMIE COOK [facility]UL[facility] During your visit today, we recorded the following information about you: Temperature Pulse Respiration Blood pressure 98.2 degrees 66/minute 18/minute 143/67 Weight 110.4 kg Jaimie Cook MD 10/10/2024 1:42 PM Signed . [facility] [place] Note Ms. Melchor is a 54 year old female who presents to the [facility] [place]. Consultation requested by Dr. Posadas for an opinion regarding lung nodule. My final recommendations/evalua tion will be communicated back to the requesting physician by way of shared medical record or letter via [place] mail. The patient consented to the use of Q[employer]it software for draft documentation of the visit consistent with [facility]?s Notice of Privacy Practices. HPI: Gary is a 54-year-old female, with a history of a pulmonary nodule and sleep apnea, presenting for evaluation of a pulmonary nodule. Gary reports a pulmonary nodule first identified in 2021, with a recent chest X-ray indicating an increase in size to 2.8 cm. She has been under the care of a cyber security consultant at [facility], who has recommended a biopsy. A PET [...] test for arsenic. She also reports finding weird green stuff in her CPAP machine, which she suspects [...] a new primary care physician and an agriculture specialist, Dr. Santana. She denies having a mallet cutter. Review of Systems: GEN: No fevers/chills, night [...] No significant exposure. Silica: No significant exposure. Hall: No significant exposure. Organic HP antigen: No [...] No asterix (more content not included)... Normal [facility] Myra 10-10-2024 SRIRAMN Telephone (PULMMN) GARY MELCHOR ([id number]) 1970 F Date Time Provider Department 10/10/24 [...] RRT - Fully Assessed Reason for Visit: Received Outside Medical Records [3576] Prescriptions as of 10/11/2024 - ezetimibe (ZETIA) [...] apnea) [G47.33] 10/10/2024 Encounter Status:Closed by YONNY MACHINE STUFFER AUT[employer]AT[employer], SUSSY on 10/11/24 Normal [facility] LUNG DIFFUSION CAPACITY (ZAC O)on 10-10-2024 LUNG DIFFUSION CAPACITY (DLCO) [facility] [address] [place] [address] Test Date: 2024-10-10 Pat Name: GARY MELCHOR Department: Room: Gender: Female Linux Network Administrator: : 1970 Requested By: Order Number: [id number] Reading MD: Toro Montes MD Interpretive Statements [...] 16:42:46 EDT by Toro Montes MD ID: [id number] Name: GARY MELCHOR Race: White Ht: 64.76 [...] 90-100 0.74 21 FIVC 3.25 3.41 4 [id number] 1.98 1.36 2.53 4.07 77 -0.72 2.20 [...] 71/min, HR post = 73/min. //KP Normal [facility] LUNG VOLUMESon 10-10-2024 LUNG VOLUMES [facility] [address] [place] [address] Test Date: 2024-10-10 Pat Name: GARY MELCHOR Department: Room: Gender: Female Linux Network Administrator: : 1970 Requested By: Order Number: [id number] Reading MD: Toro Montes MD Interpretive Statements [...] 16:42:46 EDT by Toro Montes MD ID: [id number] Name: GARY MELCHOR Race: White Ht: 64.76 [...] 90-100 0.74 21 FIVC 3.25 3.41 4 [id number] 1.98 1.36 2.53 4.07 77 -0.72 2.20 [...] 71/min, HR post = 73/min. //KP Normal [facility] No Panel Informationon 10-10 Medina Pickens RRT [...] Nitric Oxide (ppb) 10/10/2024 5.0 NAME: Medina Pickens, GINA PATIENT NAME: Gary Melchor DATE: October 10, 2024 TIME: 3:20 PM [facility] No Panel InformationOrdered By: Medina Pickens on 10-10-2024 [facility] SPIROMETRY - BASELINE AND PO ST DILATORon 10-10-2024 SPIROMETRY - BASELINE AND POST DILATOR [facility] [address] [place] [address] Test Date: 2024-10-10 Pat Name: GARY MELCHOR Department: Room: Gender: Female Linux Network Administrator: : 1970 Requested By: Order Number: [id number] Reading MD: Toro Montes MD Interpretive Statements [...] 16:42:46 EDT by Toro Montes MD ID: [id number] Name: GARY MELCHOR Race: White Ht: 64.76 [...] 90-100 0.74 21 FIVC 3.25 3.41 4 [id number] 1.98 1.36 2.53 4.07 77 -0.72 2.20 [...] 80 % FEV1/FVC_LLN (%) : 69 % CXW24_OCN (L/S) : 4.42 L/S ZDF31_JXTT (L/S) : 4.23 L/S NXP30_XLD (L/S) : 0.74 L/S QJB70_ICHS (L/S) : 0.90 L/S BGD32_ZIDR (L/S) : 0.79 L/S OJK30_GAT (L/S) : 0.33 L/S KZM11_MNN (L/S) : 1.74 L/S FLN81-33%_PRE (L/S) : 1.98 L/S YYT39-69%_POST (L/S) : 2.20 L/S LIZ91-65%_PRED (L/S) : 2.53 L/S YLL10-30%_LLN (L/S) : 1.36 L/S PEF_PRE (L/S) : [...] ml/min/mmHg DLCO/VACOR (ML/MIN/MMHG/L) : 0.05 ml/min/mmHg/L Normal [facility] TRVAMPon 09-26-2024 Trich vag TOM Negative Normal Negative [facility] Comment on above: Result Comment: Perf ormed At: =G [facility] [address] [place] [id number] Segundo Vegas MD Ph:[phone] Performed By: #### L IPID, A1C, CBC, ADIFF, ANEU, B12, CMP, VIDH, GFR #### [place] [address] CTPCRon 09-22-2024 C. trachomatis Interp Normal See CT Interp N [facility] Comment on above: Result [...] ADIFF, ANEU, B12, CMP, VIDH, GFR #### [address] [address] C.trachomatis PCR Negative Normal Negative [facility] Comment on above: Result Comment: Mole cular (PCR) assay performed on the [employer] 4800 system. Performed By: #### L IPID, A1C, CBC, ADIFF, ANEU, B12, CMP, VIDH, GFR #### [address] [address] Chlam Source Urine Normal [facility] Comment on above: Performed By: #### L IPID, A1C, CBC, ADIFF, ANEU, B12, CMP, VIDH, GFR #### [address] [address] WUMTR7tz 09-22-2024 GC PCR Source Urine Normal [facility] Comment on above: Performed By: #### L IPID, A1C, CBC, ADIFF, ANEU, B12, CMP, VIDH, GFR #### [address] [address] N. gonorrhoeae (PCR) Negative Normal Negative [facility] Comment on above: Result Comment: Mole cular (PCR) assay performed on the [employer] Willie 4800 System. Performed By: #### L IPID, A1C, CBC, ADIFF, ANEU, B12, CMP, VIDH, GFR #### [address] [address] N. gonorrhoeae Interp Normal See NG Interp N [facility] Comment on above: Result Comment: N. g onorrhoeae DNA not detected. Specimen is presumptive negative for N. gonorrhoeae. A negative result does not preclude Neisseria gonorrhoeae infection because results depend on adequate specimen collection, absence of inhibitors, and sufficient DNA to be detected. See NG Interp N Performed By: #### L IPID, A1C, CBC, ADIFF, ANEU, B12, CMP, VIDH, GFR #### [place] [address] RPRon 09-21-2024 Reagin Ab RPR Ql (S) Non-Reactive Normal Non-Reactive [facility] Comment on above: Result [...] ADIFF, ANEU, B12, CMP, VIDH, GFR #### [place] [address] HBSAGon 09-20-2024 Hep B Surf Ag Non-Reactive Normal Non-Reactive [facility] Comment on above: Performed By: #### L IPID, A1C, CBC, ADIFF, ANEU, B12, CMP, VIDH, GFR #### [place] [address] HCVon 09-20-2024 Hep C Ab Non-Reactive Normal Non-Reactive [facility] Comment on above: Performed By: #### L IPID, A1C, CBC, ADIFF, ANEU, B12, CMP, VIDH, GFR #### [place] [address] Hep C Ab Int Normal [facility] Comment on above: Result [...] ADIFF, ANEU, B12, CMP, VIDH, GFR #### [place] [id number] [place] [address] HIVon 09-20-2024 HIV 1/2 Ab Non-Reactive Normal Non-Reactive [facility] Comment on above: Result Comment: Spec jaelyn is negative for anti-HIV-1 and anti-HIV-2. Performed By: #### L IPID, A1C, CBC, ADIFF, ANEU, B12, CMP, VIDH, GFR #### [place] [address] TRVAMPon 09-20-2024 Trich Vag Source Urine Normal [facility] Comment on above: Performed By: #### L IPID, A1C, CBC, ADIFF, ANEU, B12, CMP, VIDH, GFR #### [place] [address] HMETBon 09-12-2024 Blood Lead Purpose Initial Normal [facility] Comment on above: Performed By: #### U RAMO, UA #### [address] [address] Blood Lead Type Venous Normal [facility] Comment on above: Performed By: #### U AMICAO, UA #### [place] [address] [facility] 09-11-2024 Arsenic Bld Lvl 14 UG/L High 0-9 [facility] Comment on above: Result Comment: This test was developed and its performance characteristics determined by [facility]. It has not been cleared or approved [...] a toxic inorganic species. Performed By: #### U AMICAO, UA #### [address] [address] Cadmium Bld Lvl 0.6 UG/L Normal 0.0-1.2 [facility] Comment on above: Result Comment: This test was developed and its performance characteristics determined by [facility]. It has not been cleared or approved by the Food and Drug Administration. Environmental Exposure: Nonsmokers 0.3 - 1.2 Smokers 0.6 - 3.9 Occupational Exposure: OSHA Cadmium Std 5.0 YELITZA 5.0 Detection Limit = 0.5 Performed At: [facility] [address] [id number] Tomás Bailey MD Ph:[phone] Performed By: #### Lis RALPH, UA #### [place] [address] [place], [place] [address] Lead Bld Lvl <1.0 Normal 0.0-3.4 [facility] Comment on above: Result Comment: Test ing performed by Inductively coupled plasma/Mass Spectrometry. This test was developed and its performance characteristics determined by [facility]. It has not been cleared or approved by the Food and Drug Administration. Environmental Exposure: WHO Recommendation <5.0 Occupational Exposure: OSHA Lead Std 40.0 YELITZA 30.0 Detection Limit = 1.0 Performed By: #### Lis RALPH, UA #### [address] [address] Mercury Bld Lvl 1.9 UG/L Normal 0.0-14.9 [facility] Comment on above: Result Comment: This test was developed and its performance characteristics determined by [employer]. It has not been cleared or approved by the Food and Drug Administration. Detection Limit = 1.0 Performed By: #### Lis RALPH UA #### [address] [address] [place] PELVIS NON-OB W/TRANSVAGI NALon 09-08-2024 US [...] 09/08/2024 11:01:14 AM Ordering Provider: [facility] Diffon 09-06-2024 Basophil, Absolute 0.0 10 3/mcL Normal 0.0-0.2 [facility] Comment on above: Performed By: #### A DIFF, GFR, ANEU, MDW, CMP, CBC, [id number] #### [place] [address] [place], [place] [address] Basophils/100 WBC (Bld) 0.4 % Normal 0.0-2.5 [facility] Comment on above: Performed By: #### A DIFF, GFR, ANEU, MDW, CMP, CBC, 766351 #### [facility] [address] [place], [place] [address] Eosinophil, Absolute 0.0 10 3/mcL Normal 0.0-0.7 [facility] Comment on above: Performed By: #### A DIFF, GFR, ANEU, MDW, CMP, CBC, 837588 #### [place] [address] [place], [place] [address] Eosinophils/100 WBC (Bld) 0.4 % Normal 0.0-7.0 [facility] Comment on above: Performed By: #### A DIFF, GFR, ANEU, MDW, CMP, CBC, 376602 #### [address] [address] Lymphocyte, Absolute 2.3 10 3/mcL Normal 0.9-4.3 [facility] Comment on above: Performed By: #### A DIFF, GFR, ANEU, MDW, CMP, CBC, 266067 #### [address] [address] Lymphocytes/100 WBC (Bld) 27.7 % Normal 20.0-40.0 [facility] Comment on above: Performed By: #### A DIFF, GFR, ANEU, MDW, CMP, CBC, 661792 #### [address] [address] Monocyte, Absolute 0.5 10 3/mcL Normal 0.1-1.4 [facility] Comment on above: Performed By: #### A DIFF, GFR, ANEU, MDW, CMP, CBC, 757768 #### [address] [address] Monocytes/100 WBC (Bld) 6.4 % Normal 2.0-13.0 [facility] Comment on above: Performed By: #### A DIFF, GFR, ANEU, MDW, CMP, CBC, 766315 #### [address] [address] Neutrophils/100 WBC (Bld) 65.1 % Normal 50.0-75.0 [facility] Comment on above: Performed By: #### A DIFF, GFR, ANEU, MDW, CMP, CBC, 261059 #### [address] [address] .GFRon 09-06-2024 Estimated Glomerular Filtration Rate 67 ml/min/1.73sqm Normal [facility] Comment on above: Result Comment: Stages of [...] the eGFR results. Performed By: #### U AMICAO UA #### [place] [address] .MDWon 09-06-2024 Monocyte Distribution Width 14.45 Normal 0.00-20.00 [facility] Comment on above: Result Comment: For ED adult patients suspected of sepsis, MDW<=20.0 does not rule out sepsis or risk of sepsis Performed By: #### U AMITHOMAS UA #### [place] [address] .NEUABSon 09-06-2024 Neutrophil, Absolute 5.5 10 3/mcL Normal 2.3-8.1 [facility] Comment on above: Performed By: #### A DIFF, GFR, ANEU, MDW, CMP, CBC, 692189 #### [place] [address] .Urinalysis Microscopic (AO) on 09-06-2024 UA RBC 0-5 Abnormal None Seen [facility] Comment on above: Performed By: #### U AMICAO UA #### [place] [address] UA Squam Epithelial 0-5 Abnormal None Seen [facility] Comment on above: Performed By: #### U AMICAO UA #### [place] [address] UA WBC 5-10 Abnormal None Seen [facility] Comment on above: Performed By: #### U AMICAO UA #### [place] [id number] CBCon 09-06-2024 Erythrocyte distribution width (RBC) [Ratio] 15.7 % High 11.5-15.5 [facility] Comment on above: Performed By: #### A DIFF, GFR, ANEU, MDW, CMP, CBC, 186265 #### [address] [address] Hematocrit (Bld) [Volume fraction] 47.1 % High 34.0-46.0 [facility] Comment on above: Performed By: #### A DIFF, GFR, ANEU, MDW, CMP, CBC, 397825 #### [address] [address] Hgb 15.6 G/dL Normal 12.0-16.0 [facility] Comment on above: Performed By: #### A DIFF, GFR, ANEU, MDW, CMP, CBC, 149817 #### [address] [address] MCH (RBC) [Entitic mass] 29.4 pg Normal 27.0-33.0 [facility] Comment on above: Performed By: #### A DIFF, GFR, ANEU, MDW, CMP, CBC, 004548 #### [address] [address] MCHC 33.1 G/dL Normal 32.0-36.0 [facility] Comment on above: Performed By: #### A DIFF, GFR, ANEU, MDW, CMP, CBC, 103334 #### [address] [address] MCV (RBC) [Entitic vol] 88.7 fL Normal 80.0-99.0 [facility] Comment on above: Performed By: #### A DIFF, GFR, ANEU, MDW, CMP, CBC, 884142 #### [address] [address] Platelet 328 10 3/mcL Normal 150-450 [facility] Comment on above: Performed By: #### A DIFF, GFR, ANEU, MDW, CMP, CBC, 793413 #### [address] [address] Platelet mean volume (Bld) [Entitic vol] 7.1 fL Normal 6.6-10.5 [facility] Comment on above: Performed By: #### A DIFF, GFR, ANEU, MDW, CMP, CBC, 164678 #### [place] [address] [place], [place] [address] RBC 5.31 10 6/mcL High 4.10-5.30 [facility] Comment on above: Performed By: #### A DIFF, GFR, ANEU, MDW, CMP, CBC, 581443 #### [address] [address] WBC 8.4 10 3/mcL Normal 4.5-10.8 [facility] Comment on above: Performed By: #### A DIFF, GFR, ANEU, MDW, CMP, CBC, 843844 #### [address] [address] CMPon 09-06-2024 Albumin Level 3.9 G/dL Normal 3.5-5.0 [facility] Comment on above: Performed By: #### U AMICAFredy UA #### [address] [address] Albumin/Globulin [Mass ratio] 0.9 {ratio} Low 1.1-2.5 [facility] Comment on above: Performed By: #### U AMICAO UA #### [address] [address] ALP [Catalytic activity/Vol] 109 U/L Normal 40-135 [facility] Comment on above: Performed By: #### U AMICAO UA #### [address] [address] ALT [Catalytic activity/Vol] 29 U/L Normal 14-59 [facility] Comment on above: Performed By: #### U AMICAO UA #### [address] [address] AST [Catalytic activity/Vol] 24 U/L Normal 10-40 [facility] Comment on above: Performed By: #### U AMICAO, UA #### [address] [address] Bili Total 0.3 mg/dL Normal 0.2-1.0 [facility] Comment on above: Result Comment: Use of this assay is not recommended for patients undergoing treatment with eltrombopag due to the potential for falsely elevated results. Performed By: #### Lis RALPH UA #### [place] [address]77 BUN/Creatinine Ratio 15 ratio Normal 7-27 [facility] Comment on above: Performed By: #### Lis RALPH UA #### [place] [address]77 Calcium [Mass/Vol] 10.1 mg/dL Normal 8.4-10.2 [facility] Comment on above: Performed By: #### Lis RALPH UA #### [place] [address] Chloride [Moles/Vol] 103 mmol/L Normal 98-107 [facility] Comment on above: Performed By: #### Lis RALPH UA #### [place] [address] CO2 [Moles/Vol] 22 mmol/L Normal 22-29 [facility] Comment on above: Performed By: #### Lis RALPH UA #### [place] [address] Creatinine [Mass/Vol] 0.99 mg/dL Normal 0.55-1.02 [facility] Comment on above: Result Comment: Test ing performed on Siemens Dimension EXL analyzer using a modified kinetic Meme technique. Performed By: #### Lis RALPH UA #### [place] [address] Electrolyte Balance 13.0 mEq/L Normal 4.0-15.0 [facility] Comment on above: Performed By: #### Lis RALPH UA #### [place] [address] Globulin 4.3 G/dL High 1.5-3.8 [facility] Comment on above: Performed By: #### U AMICAFredy UA #### [address] [address] Glucose [Mass/Vol] 102 mg/dL Normal 70-105 [facility] Comment on above: Performed By: #### U AMICAFredy UA #### [address] [address] Potassium [Moles/Vol] 3.5 mmol/L Normal 3.5-5.1 [facility] Comment on above: Performed By: #### U RAMO UA #### [address] [address] Sodium [Moles/Vol] 138 mmol/L Normal 136-145 [facility] Comment on above: Performed By: #### Lis AMICAFredy UA #### [address] [address] Total Protein 8.2 G/dL Normal 6.4-8.2 [facility] Comment on above: Performed By: #### Lis RALPH UA #### [address] [address] Urea nitrogen [Mass/Vol] 15 mg/dL Normal 7-18 [facility] Comment on above: Performed By: #### U AMICAFredy UA #### [address] [address] UAon 09-06-2024 Color (U) Yellow Normal [facility] Comment on above: Performed By: #### U AMICAO, UA #### [address] [address] Glucose (U) [Mass/Vol] 500 mg/dL Abnormal Negative [facility] Comment on above: Performed By: #### U AMICAO, UA #### [address] [address] Ketones Ql (U) Negative Normal Negative [facility] Comment on above: Performed By: #### U AMICAO, UA #### [address] [address] UA Appear Clear Normal Clear [facility] Comment on above: Performed By: #### U AMICAO, UA #### [address] [address] UA Blood Moderate Abnormal Negative [facility] Comment on above: Performed By: #### U AMICAO, UA #### [address] [address] UA Leuk Est Negative Normal Negative [facility] Comment on above: Performed By: #### U AMICAO, UA #### [place] [address] UA Nitrite Negative Normal Negative [facility] Comment on above: Performed By: #### U AMICAO, UA #### [place] [address] UA pH 5.5 Normal 5.0 - 8.0 [facility] Comment on above: Performed By: #### U AMICAO, UA #### [place] [address] UA Protein 100 mg/dL Abnormal Negative [facility] Comment on above: Performed By: #### U AMICAO, UA #### [address] [address] UA Spec Grav 1.015 Normal 1.015-1.025 [facility] Comment on above: Performed By: #### U AMICAO, UA #### [address] [address] UA Specimen Type Clean Catch Normal [facility] Comment on above: Performed By: #### U AMICAO, UA #### [place] [address] UA Urobilinogen 0.2 E.U./dL Normal 0.2-1.0 [facility] Comment on above: Performed By: #### U AMICAO, UA #### [address] [address] Urobilinogen (U) [Mass/Vol] Negative Normal Negative [facility] Comment on above: Performed By: #### U AMICAO, UA #### [address] [address] UDRUGon 09-06-2024 Amphetamine (u) Negative Normal Negative [facility] Comment on above: Performed By: #### U DRUG #### [address] [address] Barbiturate (u) Negative Normal Negative [facility] Comment on above: Performed By: #### U DRUG #### [address] [address] Benzodiazepine (u) Negative Normal Negative [facility] Comment on above: Performed By: #### U DRUG #### [address] [address] Cannabinoid (u) Negative Normal Negative [facility] Comment on above: Performed By: #### U DRUG #### [address] [address] Cocaine Ql (U) Negative Normal Negative [facility] Comment on above: Performed By: #### U DRUG #### [address] [address] Methadone Ql (U) Negative Normal Negative [facility] Comment on above: Performed By: #### U DRUG #### [address] [address] Opiate (u) Negative Normal Negative [facility] Comment on above: Performed By: #### U DRUG #### [address] [address] PCP (u) Negative Normal Negative [facility] Comment on above: Performed By: #### U DRUG #### [address] [address] Urine Drugs screened: See Below Normal L [facility] Comment on above: Result Comment: This [...] ONLY. Performed By: #### U DRUG #### [place] [address] [place], [place] [address] XR CHEST 2 VIEWSon XR CHEST 2 [...] Date: 09/06/2024 3:28:10 AM Ordering Provider: ALISON VASQUEZ XR HUMERUS MINIMUM 2 VIEWS L [facility] 08-18-2024 XR HUMERUS MINIMUM 2 VIEWS LEFT [...] the resident's findings and interpretation. Interpreted by: Pedro Hillman MD Preliminary Report By: Vi Bedolla Electronically signed By Pedro Hillman MD Dictated Date: 08/18/2024 10:42:06 AM Prelim Date: 08/18/2024 10:47:10 AM Sign Date: 08/18/2024 10:47:10 AM Ordering Provider: KEYANA ESPOSITO Normal [facility] MRI SPINE LUMBAR W/O DAYNA Almanza 07-18-2024 MRI SPINE LUMBAR W/O CONTRAST ORIGINAL [...] lumbar degenerative changes; no stenosis. Interpreted by: Pedro Hillman MD Preliminary Report By: Pedro Hillman MD Electronically signed By Pedro Hillman MD Dictated Date: 07/18/2024 2:08:08 PM Prelim Date: 07/18/2024 2:10:32 PM Sign Date: 07/18/2024 2:10:32 PM Ordering Provider: TOYA HODGES Normal [facility] [id number] 06-28-2024 HLA-B27 Negative Normal [facility] Comment on above: Result Comment: HLA- B*27 Negative B27 allele interpretation for all loci based on IMGT/HLA database version 3.51.0 This test was developed and its performance characteristics determined by [facility]. It has not been cleared or approved by the Food and Drug Administration. The FDA has determined that such clearance or approval is not necessary. [facility] CLIA ID Number [id number] This test was performed using Polymerase Chain Reaction (PCR) and Sequence Specific Oligonucleotide Probes (SSOP) technique. Sequence Based Typing (SBT) may be used as a supplemental method when necessary. If you have questions, please call [facility] customer service at or email at [email or web address]. Performed At: [facility] [address] [place], [place] [id number] Abhi Limon PhD Ph:[phone] Performed By: #### 0 [id number] #### [address] [address] .Auto Diffon 05-10-2024 Basophil, Absolute 0.0 10 3/mcL Normal 0.0-0.3 [facility] Comment on above: Performed By: #### L IPID, A1C, CBC, ADIFF, ANEU, B12, CMP, VIDH, GFR #### [address] [address] Basophils/100 WBC (Bld) 0.4 % Normal 0.0-2.5 [facility] Comment on above: Performed By: #### L IPID, A1C, CBC, ADIFF, ANEU, B12, CMP, VIDH, GFR #### [address] [address] Eosinophil, Absolute 0.2 10 3/mcL Normal 0.0-0.7 [facility] Comment on above: Performed By: #### L IPID, A1C, CBC, ADIFF, ANEU, B12, CMP, VIDH, GFR #### [address] [address] Eosinophils/100 WBC (Bld) 2.4 % Normal 0.0-6.0 [facility] Comment on above: Performed By: #### L IPID, A1C, CBC, ADIFF, ANEU, B12, CMP, VIDH, GFR #### [address] [address] Lymphocyte, Absolute 1.8 10 3/mcL Normal 0.9-4.3 [facility] Comment on above: Performed By: #### L IPID, A1C, CBC, ADIFF, ANEU, B12, CMP, VIDH, GFR #### [address] [address] Lymphocytes/100 WBC (Bld) 27.6 % Normal 20.0-40.0 [facility] Comment on above: Performed By: #### L IPID, A1C, CBC, ADIFF, ANEU, B12, CMP, VIDH, GFR #### [facility] [address] [place] [address] Monocyte, Absolute 0.6 10 3/mcL Normal 0.1-1.4 [facility] Comment on above: Performed By: #### L IPID, A1C, CBC, ADIFF, ANEU, B12, CMP, VIDH, GFR #### [address] [address] Monocytes/100 WBC (Bld) 8.9 % Normal 2.0-13.0 [facility] Comment on above: Performed By: #### L IPID, A1C, CBC, ADIFF, ANEU, B12, CMP, VIDH, GFR #### [address] [address] Neutrophils/100 WBC (Bld) 60.7 % Normal 50.0-75.0 [facility] Comment on above: Performed By: #### L IPID, A1C, CBC, ADIFF, ANEU, B12, CMP, VIDH, GFR #### [address] [address] .GFRon 05-10-2024 GFR Non- >60 Normal [facility] Comment on above: Result [...] ADIFF, ANEU, B12, CMP, VIDH, GFR #### [address] [address] GFR >60 Normal [facility] Comment on above: Result Comment: GFR [...] ADIFF, ANEU, B12, CMP, VIDH, GFR #### [address] [address] .NEUABSon 05-10-2024 Neutrophil, Absolute 3.9 10 3/mcL Normal 2.3-8.1 [facility] Comment on above: Performed By: #### L IPID, A1C, CBC, ADIFF, ANEU, B12, CMP, VIDH, GFR #### [address] [address] A1Con 05-10-2024 Glucose [Mass/Vol] 117 mg/dL Normal [facility] Comment on above: Order Comment: - 6 m onth Result Comment: Susie mated Average Glucose calculated by equation ((28.7xA1C)-46.7) Estimated average glucose (eAG) is a calculated value from Hemoglobin A1C and is sales representative sales manager of the average blood glucose level in the last 2-3 month period. Normal range: less than 114 mg/dL Performed By: #### L IPID, A1C, CBC, ADIFF, ANEU, B12, CMP, VIDH, GFR #### [address] [address] HbA1c (Bld) [Mass fraction] 5.7 % Normal 4.0-6.0 [facility] Comment on above: Order Comment: - 6 m onth Performed By: #### L IPID, A1C, CBC, ADIFF, ANEU, B12, CMP, VIDH, GFR #### [address] [address] B12on 05-10-2024 Cobalamin (Vitamin B12) [Mass/Vol] 513 pg/mL Normal 211-911 [facility] Comment on above: Order Comment: - 6 m onth Performed By: #### L IPID, A1C, CBC, ADIFF, ANEU, B12, CMP, VIDH, GFR #### [address] [address] CBCon 05-10-2024 Erythrocyte distribution width (RBC) [Ratio] 16.5 % High 11.5-15.5 [facility] Comment on above: Order Comment: - 6 m onth Performed By: #### L IPID, A1C, CBC, ADIFF, ANEU, B12, CMP, VIDH, GFR #### [place] [address] Hematocrit (Bld) [Volume fraction] 36.5 % Normal 34.0-46.0 [facility] Comment on above: Order Comment: - 6 m onth Performed By: #### L IPID, A1C, CBC, ADIFF, ANEU, B12, CMP, VIDH, GFR #### [address] [address] Hgb 12.0 G/dL Normal 12.0-16.0 [facility] Comment on above: Order Comment: - 6 m onth Performed By: #### L IPID, A1C, CBC, ADIFF, ANEU, B12, CMP, VIDH, GFR #### [address] [address] MCH (RBC) [Entitic mass] 27.2 pg Normal 27.0-33.0 [facility] Comment on above: Order Comment: - 6 m onth Performed By: #### L IPID, A1C, CBC, ADIFF, ANEU, B12, CMP, VIDH, GFR #### [place] [id number] MCHC 32.9 G/dL Normal 32.0-36.0 [facility] Comment on above: Order Comment: - 6 m onth Performed By: #### L IPID, A1C, CBC, ADIFF, ANEU, B12, CMP, VIDH, GFR #### [place] [id number] MCV (RBC) [Entitic vol] 82.7 fL Normal 80.0-99.0 [facility] Comment on above: Order Comment: - 6 m onth Performed By: #### L IPID, A1C, CBC, ADIFF, ANEU, B12, CMP, VIDH, GFR #### [place] [id number] Platelet 289 10 3/mcL Normal 150-450 [facility] Comment on above: Order Comment: - 6 m onth Performed By: #### L IPID, A1C, CBC, ADIFF, ANEU, B12, CMP, VIDH, GFR #### [place] [id number] Platelet mean volume (Bld) [Entitic vol] 8.0 fL Normal 6.6-10.5 [facility] Comment on above: Order Comment: - 6 m onth Performed By: #### L IPID, A1C, CBC, ADIFF, ANEU, B12, CMP, VIDH, GFR #### [address] [address] RBC 4.42 10 6/mcL Normal 4.10-5.30 [facility] Comment on above: Order Comment: - 6 m onth Performed By: #### L IPID, A1C, CBC, ADIFF, ANEU, B12, CMP, VIDH, GFR #### [address] [address] WBC 6.4 10 3/mcL Normal 4.5-10.8 [facility] Comment on above: Order Comment: - 6 m onth Performed By: #### L IPID, A1C, CBC, ADIFF, ANEU, B12, CMP, VIDH, GFR #### [address] [address] CMPon 05-10-2024 Albumin Level 3.6 G/dL Normal 3.2-4.8 [facility] Comment on above: Order Comment: - 6 m onth Performed By: #### L IPID, A1C, CBC, ADIFF, ANEU, B12, CMP, VIDH, GFR #### [address] [address] Albumin/Globulin [Mass ratio] 1.1 {ratio} Normal 0.9-1.6 [facility] Comment on above: Order Comment: - 6 m onth Performed By: #### L IPID, A1C, CBC, ADIFF, ANEU, B12, CMP, VIDH, GFR #### [address] [address] ALP [Catalytic activity/Vol] 96 U/L Normal 38-126 [facility] Comment on above: Order Comment: - 6 m onth Performed By: #### L IPID, A1C, CBC, ADIFF, ANEU, B12, CMP, VIDH, GFR #### [address] [address] ALT [Catalytic activity/Vol] 31 U/L Normal 10-49 [facility] Comment on above: Order Comment: - 6 m onth Performed By: #### L IPID, A1C, CBC, ADIFF, ANEU, B12, CMP, VIDH, GFR #### [address] [address] AST [Catalytic activity/Vol] 26 U/L Normal 8-34 [facility] Comment on above: Order Comment: - 6 m onth Performed By: #### L IPID, A1C, CBC, ADIFF, ANEU, B12, CMP, VIDH, GFR #### [address] [address] Bili Total 0.30 mg/dL Normal 0.20-1.20 [facility] Comment on above: Order Comment: - 6 m onth Result Comment: Use of this assay is not recommended for patients undergoing treatment with eltrombopag due to the potential for falsely elevated results. Performed By: #### L IPID, A1C, CBC, ADIFF, ANEU, B12, CMP, VIDH, GFR #### [address] [address] BUN/Creatinine Ratio 24.7 ratio High 10.0-22.0 [facility] Comment on above: Order Comment: - 6 m onth Performed By: #### L IPID, A1C, CBC, ADIFF, ANEU, B12, CMP, VIDH, GFR #### [address] [address] Calcium [Mass/Vol] 9.8 mg/dL Normal 8.7-10.4 [facility] Comment on above: Order Comment: - 6 m onth Performed By: #### L IPID, A1C, CBC, ADIFF, ANEU, B12, CMP, VIDH, GFR #### [address] [address] Chloride [Moles/Vol] 106 mmol/L Normal 98-110 [facility] Comment on above: Order Comment: - 6 m onth Performed By: #### L IPID, A1C, CBC, ADIFF, ANEU, B12, CMP, VIDH, GFR #### [address] [address] CO2 [Moles/Vol] 31 mmol/L Normal 22-32 [facility] Comment on above: Order Comment: - 6 m onth Performed By: #### L IPID, A1C, CBC, ADIFF, ANEU, B12, CMP, VIDH, GFR #### [place] [address] Creatinine [Mass/Vol] 0.77 mg/dL Normal 0.50-1.20 [facility] Comment on above: Order Comment: - 6 m onth Result Comment: Test ing performed on MitoProd analyzer using enzymatic creatinine methodology. Performed By: #### L IPID, A1C, CBC, ADIFF, ANEU, B12, CMP, VIDH, GFR #### [place] [id number] Electrolyte Balance 6.0 mEq/L Normal 4.0-15.0 [facility] Comment on above: Order Comment: - 6 m onth Performed By: #### L IPID, A1C, CBC, ADIFF, ANEU, B12, CMP, VIDH, GFR #### [address] [address] Globulin 3.4 G/dL Normal 1.5-3.8 [facility] Comment on above: Order Comment: - 6 m onth Performed By: #### L IPID, A1C, CBC, ADIFF, ANEU, B12, CMP, VIDH, GFR #### [address] [address] Glucose [Mass/Vol] 102 mg/dL Normal 70-110 [facility] Comment on above: Order Comment: - 6 m onth Performed By: #### L IPID, A1C, CBC, ADIFF, ANEU, B12, CMP, VIDH, GFR #### [address] [address] Potassium [Moles/Vol] 4.4 mmol/L Normal 3.5-5.0 [facility] Comment on above: Order Comment: - 6 m onth Performed By: #### L IPID, A1C, CBC, ADIFF, ANEU, B12, CMP, VIDH, GFR #### [address] [address] Sodium [Moles/Vol] 143 mmol/L Normal 136-145 [facility] Comment on above: Order Comment: - 6 m onth Performed By: #### L IPID, A1C, CBC, ADIFF, ANEU, B12, CMP, VIDH, GFR #### [address] [address] Total Protein 7.0 G/dL Normal 5.7-8.2 [facility] Comment on above: Order Comment: - 6 m onth Performed By: #### L IPID, A1C, CBC, ADIFF, ANEU, B12, CMP, VIDH, GFR #### [address] [address] Urea nitrogen [Mass/Vol] 19.0 mg/dL Normal 8.0-22.0 [facility] Comment on above: Order Comment: - 6 m onth Performed By: #### L IPID, A1C, CBC, ADIFF, ANEU, B12, CMP, VIDH, GFR #### [address] [address] LIPIDon 05-10-2024 Cholesterol [Mass/Vol] 203 mg/dL High 50-199 [facility] Comment on above: Order Comment: - 6 m onth Result Comment: Chol esterol Reference Interval: Less than 200 Desirable 200-239 Borderline high risk 240 and above High risk Performed By: #### L IPID, A1C, CBC, ADIFF, ANEU, B12, CMP, VIDH, GFR #### [address] [address] Cholesterol in HDL [Mass/Vol] 55 mg/dL Normal 40-59 [facility] Comment on above: Order Comment: - 6 m onth Performed By: #### L IPID, A1C, CBC, ADIFF, ANEU, B12, CMP, VIDH, GFR #### [address] [address] Cholesterol in LDL [Mass/Vol] 116 mg/dL Normal 0-129 [facility] Comment on above: Order Comment: - 6 m onth Performed By: #### L IPID, A1C, CBC, ADIFF, ANEU, B12, CMP, VIDH, GFR #### [address] [address] Triglyceride [Mass/Vol] 162 mg/dL High 3-149 [facility] Comment on above: Order Comment: - 6 m onth Performed By: #### L IPID, A1C, CBC, ADIFF, ANEU, B12, CMP, VIDH, GFR #### [address] [address] VIDHon 05-10-2024 Vit. D 25-Hydroxy 31.6 ng/mL Normal [facility] Comment on above: Order Comment: - 6 m onth Result Comment: Inte rpretive Values Based on Total 25(OH)D: Severe Deficiency <20 ng/mL Mild to Moderate Deficiency 20-30 ng/mL Optimum Levels 30-100 ng/mL Toxicity Possible >100 ng/mL Performed By: #### L IPID, A1C, CBC, ADIFF, ANEU, B12, CMP, VIDH, GFR #### [address] [address] XR CHEST 2 VIEWSon 4 XR CHEST [...] 02/10/2024 12:18:07 PM Ordering Provider: NOLA WILSON Normal [facility] ([place]) .GFRon 11-03-2023 GFR >60 Normal [facility] ([place]) Comment on above: Result Comment: GFR Population [...] ADIFF, FT4, CBC, CMP, HCV1, A1C #### [address] [address] GFR Non- >60 Normal [facility] ([place]) Comment on above: Result Comment: GFR Population [...] ADIFF, FT4, CBC, CMP, HCV1, A1C #### [place] [id number] [facility] 11-03-2023 HbA1c (Bld) [Mass fraction] 5.8 % Normal 4.0-6.0 [facility] ([place]) Comment on above: Order Comment: 4 mon ths Performed By: #### V IDH, LIPID, GFR, TSH, ANEU, ADIFF, FT4, CBC, CMP, HCV1, A1C #### [address] [address] BMPon 11-03-2023 BUN/Creatinine Ratio 23.5 ratio High 10.0-22.0 [facility] ([place]) Comment on above: Order Comment: 4 mon ths Performed By: #### V IDH, LIPID, GFR, TSH, ANEU, ADIFF, FT4, CBC, CMP, HCV1, A1C #### [address] [address] Calcium [Mass/Vol] 9.7 mg/dL Normal 8.7-10.4 [facility] ([place]) Comment on above: Order Comment: 4 mon ths Performed By: #### V IDH, LIPID, GFR, TSH, ANEU, ADIFF, FT4, CBC, CMP, HCV1, A1C #### [address] [address] Chloride [Moles/Vol] 106 mmol/L Normal 98-110 [facility] ([place]) Comment on above: Order Comment: 4 mon ths Performed By: #### V IDH, LIPID, GFR, TSH, ANEU, ADIFF, FT4, CBC, CMP, HCV1, A1C #### [address] [address] CO2 [Moles/Vol] 30 mmol/L Normal 22-32 [facility] ([place]) Comment on above: Order Comment: 4 mon ths Performed By: #### V IDH, LIPID, GFR, TSH, ANEU, ADIFF, FT4, CBC, CMP, HCV1, A1C #### [address] [address] Creatinine [Mass/Vol] 0.85 mg/dL Normal 0.50-1.20 [facility] ([place]) Comment on above: Order Comment: 4 mon ths Performed By: #### V IDH, LIPID, GFR, TSH, ANEU, ADIFF, FT4, CBC, CMP, HCV1, A1C #### [address] [address] Electrolyte Balance 7.0 mEq/L Normal 4.0-15.0 [facility] ([place]) Comment on above: Order Comment: 4 mon ths Performed By: #### V IDH, LIPID, GFR, TSH, ANEU, ADIFF, FT4, CBC, CMP, HCV1, A1C #### [address] [address] Glucose [Mass/Vol] 95 mg/dL Normal 70-110 [facility] ([place]) Comment on above: Order Comment: 4 mon ths Performed By: #### V IDH, LIPID, GFR, TSH, ANEU, ADIFF, FT4, CBC, CMP, HCV1, A1C #### [address] [address] Potassium [Moles/Vol] 4.2 mmol/L Normal 3.5-5.0 [facility] ([place]) Comment on above: Order Comment: 4 mon ths Performed By: #### V IDH, LIPID, GFR, TSH, ANEU, ADIFF, FT4, CBC, CMP, HCV1, A1C #### [address] [address] Sodium [Moles/Vol] 143 mmol/L Normal 136-145 [facility] ([place]) Comment on above: Order Comment: 4 mon ths Performed By: #### V IDH, LIPID, GFR, TSH, ANEU, ADIFF, FT4, CBC, CMP, HCV1, A1C #### [address] [address] Urea nitrogen [Mass/Vol] 20.0 mg/dL Normal 8.0-22.0 [facility] ([place]) Comment on above: Order Comment: 4 mon ths Performed By: #### V IDH, LIPID, GFR, TSH, ANEU, ADIFF, FT4, CBC, CMP, HCV1, A1C #### [address] [address] LIPIDon 11-03-2023 Cholesterol [Mass/Vol] 230 mg/dL High 50-199 [facility] ([place]) Comment on above: Order Comment: 4 mon ths Result Comment: Chol esterol Reference Interval: Less than 200 Desirable 200-239 Borderline high risk 240 and above High risk Performed By: #### V IDH, LIPID, GFR, TSH, ANEU, ADIFF, FT4, CBC, CMP, HCV1, A1C #### [address] [address] Cholesterol in HDL [Mass/Vol] 73 mg/dL High 40-59 [facility] ([place]) Comment on above: Order Comment: 4 mon ths Performed By: #### V IDH, LIPID, GFR, TSH, ANEU, ADIFF, FT4, CBC, CMP, HCV1, A1C #### [address] [address] Cholesterol in LDL [Mass/Vol] 134 mg/dL High 0-129 [facility] ([place]) Comment on above: Order Comment: 4 mon ths Performed By: #### V IDH, LIPID, GFR, TSH, ANEU, ADIFF, FT4, CBC, CMP, HCV1, A1C #### [address] [address] Triglyceride [Mass/Vol] 117 mg/dL Normal 3-149 [facility] ([place]) Comment on above: Order Comment: 4 mon ths Performed By: #### V IDH, LIPID, GFR, TSH, ANEU, ADIFF, FT4, CBC, CMP, HCV1, A1C #### [address] [address] TSHon 11-03-2023 TSH 0.666 mIU/mL Normal 0.550-4.780 [facility] ([place]) Comment on above: Order Comment: 4 mon ths Result Comment: No te - New Reference Range in effect 20 Performed By: #### V IDH, LIPID, GFR, TSH, ANEU, ADIFF, FT4, CBC, CMP, HCV1, A1C #### [address] [address] [place] MAMMOGRAM DIAGNOSTIC RIGH T W/TOMOon 10-09-2023 [place] MAMMOGRAM DIAGNOSTIC RIGHT W/TREE ORIGINAL FROM: [address] [address] PROCEDURE FOR: GARY MELCHOR [address] [place] [address] Home: PID#: [id number] Exam#: [id number] : 1970 Age: 53 TO: NOLA RINALDI [address] EXAMINATION: DIAGNOSTIC DIGITAL RIGHT BREAST MAMMOGRAM WITH [...] bilateral mammogram is recommended to demonstrate stability. [facility] risk calculations, generated with the history provided, [...] addition to annual mammographic screening per the [employer]. BIRADS: MAMMOGRAM BI-RADS: 3: Probably benign RECALL: 6 month follow-up RECALL TYPE: mammo LETTER SENT: Probably Benign BI-RADS 3 Interpreted by: oRnald Butcher MD Preliminary Report By: Ronald Butcher MD Electronically signed By Ronald Butcher MD Dictated Date: 10/09/2023 12:39:43 PM Prelim Date: 10/09/2023 12:42:41 PM Sign Date: 10/09/2023 12:42:41 PM Ordering Provider: NOLA WILSON CLINICAL: RIGHT BREAST ASYMMETRY WITH CALCIFICATIONS 9 OCLOCK/ 6 MONTHS FOLLOW-UP. 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 Interpreted By: Fernando Crwes MD Preliminary Report By: Fernando Crews MD Electronically Signed By: Fernando Crews MD Dictated Date: 07/13/2023 3:14:44 PM Prelim Date: 07/13/2023 3:14:44 PM Sign Date: 07/13/2023 3:21:24 PM Ordering Provider:Nola Christianson [facility] ([place]) .Auto Diffon 06-24-2023 Basophil, Absolute 0.0 10 3/mcL Normal 0.0-0.3 [facility] ([place]) Comment on above: Performed By: #### V IDH, LIPID, GFR, TSH, ANEU, ADIFF, FT4, CBC, CMP, HCV1, A1C #### [address] [address] Basophils/100 WBC (Bld) 0.5 % Normal 0.0-2.5 [facility] ([place]) Comment on above: Performed By: #### V IDH, LIPID, GFR, TSH, ANEU, ADIFF, FT4, CBC, CMP, HCV1, A1C #### [address] [address] Eosinophil, Absolute 0.2 10 3/mcL Normal 0.0-0.7 [facility] ([place]) Comment on above: Performed By: #### V IDH, LIPID, GFR, TSH, ANEU, ADIFF, FT4, CBC, CMP, HCV1, A1C #### [address] [address] Eosinophils/100 WBC (Bld) 3.2 % Normal 0.0-6.0 [facility] ([place]) Comment on above: Performed By: #### V IDH, LIPID, GFR, TSH, ANEU, ADIFF, FT4, CBC, CMP, HCV1, A1C #### [address] [address] Lymphocyte, Absolute 1.8 10 3/mcL Normal 0.9-4.3 [facility] ([place]) Comment on above: Performed By: #### V IDH, LIPID, GFR, TSH, ANEU, ADIFF, FT4, CBC, CMP, HCV1, A1C #### [address] [address] Lymphocytes/100 WBC (Bld) 37.6 % Normal 20.0-40.0 [facility] ([place]) Comment on above: Performed By: #### V IDH, LIPID, GFR, TSH, ANEU, ADIFF, FT4, CBC, CMP, HCV1, A1C #### [address] [address] Monocyte, Absolute 0.4 10 3/mcL Normal 0.1-1.4 [facility] ([place]) Comment on above: Performed By: #### V IDH, LIPID, GFR, TSH, ANEU, ADIFF, FT4, CBC, CMP, HCV1, A1C #### [address] [address] Monocytes/100 WBC (Bld) 8.0 % Normal 2.0-13.0 [facility] ([place]) Comment on above: Performed By: #### V IDH, LIPID, GFR, TSH, ANEU, ADIFF, FT4, CBC, CMP, HCV1, A1C #### [address] [address] Neutrophils/100 WBC (Bld) 50.7 % Normal 50.0-75.0 [facility] ([place]) Comment on above: Performed By: #### V IDH, LIPID, GFR, TSH, ANEU, ADIFF, FT4, CBC, CMP, HCV1, A1C #### [address] [address] .GFRon 06-24-2023 GFR >60 Normal [facility] ([place]) Comment on above: Result Comment: GFR Population [...] ADIFF, FT4, CBC, CMP, HCV1, A1C #### [address] [address] GFR Non- >60 Normal [facility] ([place]) Comment on above: Result Comment: GFR Population [...] ADIFF, FT4, CBC, CMP, HCV1, A1C #### [address] [address] .NEUABSon 06-24-2023 Neutrophil, Absolute 2.4 10 3/mcL Normal 2.3-8.1 [facility] ([place]) Comment on above: Performed By: #### V IDH, LIPID, GFR, TSH, ANEU, ADIFF, FT4, CBC, CMP, HCV1, A1C #### [address] [address] A1Con 06-24-2023 HbA1c (Bld) [Mass fraction] 5.5 % Normal 4.0-6.0 [facility] ([place]) Comment on above: Performed By: #### V IDH, LIPID, GFR, TSH, ANEU, ADIFF, FT4, CBC, CMP, HCV1, A1C #### [address] [address] CBCon 06-24-2023 Erythrocyte distribution width (RBC) [Ratio] 12.6 % Normal 11.5-15.5 [facility] ([place]) Comment on above: Performed By: #### V IDH, LIPID, GFR, TSH, ANEU, ADIFF, FT4, CBC, CMP, HCV1, A1C #### [place] [address] Hematocrit (Bld) [Volume fraction] 37.3 % Normal 34.0-46.0 [facility] ([place]) Comment on above: Performed By: #### V IDH, LIPID, GFR, TSH, ANEU, ADIFF, FT4, CBC, CMP, HCV1, A1C #### [place] [address] Hgb 12.6 G/dL Normal 12.0-16.0 [facility] ([place]) Comment on above: Performed By: #### V IDH, LIPID, GFR, TSH, ANEU, ADIFF, FT4, CBC, CMP, HCV1, A1C #### [place] [address] MCH (RBC) [Entitic mass] 30.2 pg Normal 27.0-33.0 [facility] ([place]) Comment on above: Performed By: #### V IDH, LIPID, GFR, TSH, ANEU, ADIFF, FT4, CBC, CMP, HCV1, A1C #### [place] [id number] MCHC 33.9 G/dL Normal 32.0-36.0 [facility] ([place]) Comment on above: Performed By: #### V IDH, LIPID, GFR, TSH, ANEU, ADIFF, FT4, CBC, CMP, HCV1, A1C #### [place] [id number] MCV (RBC) [Entitic vol] 89.0 fL Normal 80.0-99.0 [facility] ([place]) Comment on above: Performed By: #### V IDH, LIPID, GFR, TSH, ANEU, ADIFF, FT4, CBC, CMP, HCV1, A1C #### [place] [id number] Platelet 300 10 3/mcL Normal 150-450 [facility] ([place]) Comment on above: Performed By: #### V IDH, LIPID, GFR, TSH, ANEU, ADIFF, FT4, CBC, CMP, HCV1, A1C #### [place] [address] Platelet mean volume (Bld) [Entitic vol] 8.2 fL Normal 6.6-10.5 [facility] ([place]) Comment on above: Performed By: #### V IDH, LIPID, GFR, TSH, ANEU, ADIFF, FT4, CBC, CMP, HCV1, A1C #### [place] [address] RBC 4.19 10 6/mcL Normal 4.10-5.30 [facility] ([place]) Comment on above: Performed By: #### V IDH, LIPID, GFR, TSH, ANEU, ADIFF, FT4, CBC, CMP, HCV1, A1C #### [place] [id number] WBC 4.8 10 3/mcL Normal 4.5-10.8 [facility] ([place]) Comment on above: Performed By: #### V IDH, LIPID, GFR, TSH, ANEU, ADIFF, FT4, CBC, CMP, HCV1, A1C #### [place] [id number] CMPon 06-24-2023 Albumin Level 3.8 G/dL Normal 3.2-4.8 [facility] ([place]) Comment on above: Performed By: #### V IDH, LIPID, GFR, TSH, ANEU, ADIFF, FT4, CBC, CMP, HCV1, A1C #### [address] [address] Albumin/Globulin [Mass ratio] 1.1 {ratio} Normal 0.9-1.6 [facility] ([place]) Comment on above: Performed By: #### V IDH, LIPID, GFR, TSH, ANEU, ADIFF, FT4, CBC, CMP, HCV1, A1C #### [address] [address] ALP [Catalytic activity/Vol] 95 U/L Normal 38-126 [facility] ([place]) Comment on above: Performed By: #### V IDH, LIPID, GFR, TSH, ANEU, ADIFF, FT4, CBC, CMP, HCV1, A1C #### [address] [address] ALT [Catalytic activity/Vol] 34 U/L Normal 10-49 [facility] ([place]) Comment on above: Performed By: #### V IDH, LIPID, GFR, TSH, ANEU, ADIFF, FT4, CBC, CMP, HCV1, A1C #### [address] [address] AST [Catalytic activity/Vol] 29 U/L Normal 8-34 [facility] ([place]) Comment on above: Performed By: #### V IDH, LIPID, GFR, TSH, ANEU, ADIFF, FT4, CBC, CMP, HCV1, A1C #### [address] [address] Bili Total 0.50 mg/dL Normal 0.20-1.20 [facility] ([place]) Comment on above: Result Comment: Use of this assay is not recommended for patients undergoing treatment with eltrombopag due to the potential for falsely elevated results. Performed By: #### V IDH, LIPID, GFR, TSH, ANEU, ADIFF, FT4, CBC, CMP, HCV1, A1C #### [address] [address] BUN/Creatinine Ratio 21.8 ratio Normal 10.0-22.0 [facility] ([place]) Comment on above: Performed By: #### V IDH, LIPID, GFR, TSH, ANEU, ADIFF, FT4, CBC, CMP, HCV1, A1C #### [address] [address] Calcium [Mass/Vol] 9.7 mg/dL Normal 8.7-10.4 [facility] ([place]) Comment on above: Performed By: #### V IDH, LIPID, GFR, TSH, ANEU, ADIFF, FT4, CBC, CMP, HCV1, A1C #### [address] [address] Chloride [Moles/Vol] 108 mmol/L Normal 98-110 [facility] ([place]) Comment on above: Performed By: #### V IDH, LIPID, GFR, TSH, ANEU, ADIFF, FT4, CBC, CMP, HCV1, A1C #### [place] [id number] CO2 [Moles/Vol] 30 mmol/L Normal 22-32 [facility] ([place]) Comment on above: Performed By: #### V IDH, LIPID, GFR, TSH, ANEU, ADIFF, FT4, CBC, CMP, HCV1, A1C #### [place] [id number] Creatinine [Mass/Vol] 0.78 mg/dL Normal 0.50-1.20 [facility] ([place]) Comment on above: Performed By: #### V IDH, LIPID, GFR, TSH, ANEU, ADIFF, FT4, CBC, CMP, HCV1, A1C #### [place] [address] Electrolyte Balance 4.0 mEq/L Normal 4.0-15.0 [facility] ([place]) Comment on above: Performed By: #### V IDH, LIPID, GFR, TSH, ANEU, ADIFF, FT4, CBC, CMP, HCV1, A1C #### [address] [id number] Globulin 3.4 G/dL Normal 1.5-3.8 [facility] ([place]) Comment on above: Performed By: #### V IDH, LIPID, GFR, TSH, ANEU, ADIFF, FT4, CBC, CMP, HCV1, A1C #### [address] [address] Glucose [Mass/Vol] 100 mg/dL Normal 70-110 [facility] ([place]) Comment on above: Performed By: #### V IDH, LIPID, GFR, TSH, ANEU, ADIFF, FT4, CBC, CMP, HCV1, A1C #### [address] [address] Potassium [Moles/Vol] 4.0 mmol/L Normal 3.5-5.0 [facility] ([place]) Comment on above: Performed By: #### V IDH, LIPID, GFR, TSH, ANEU, ADIFF, FT4, CBC, CMP, HCV1, A1C #### [address] [address] Sodium [Moles/Vol] 142 mmol/L Normal 136-145 [facility] ([place]) Comment on above: Performed By: #### V IDH, LIPID, GFR, TSH, ANEU, ADIFF, FT4, CBC, CMP, HCV1, A1C #### [address] [address] Total Protein 7.2 G/dL Normal 5.7-8.2 [facility] ([place]) Comment on above: Result Comment: No te - New Reference Range in effect 20 Performed By: #### V IDH, LIPID, GFR, TSH, ANEU, ADIFF, FT4, CBC, CMP, HCV1, A1C #### [address] [address] Urea nitrogen [Mass/Vol] 17.0 mg/dL Normal 8.0-22.0 [facility] ([place]) Comment on above: Performed By: #### V IDH, LIPID, GFR, TSH, ANEU, ADIFF, FT4, CBC, CMP, HCV1, A1C #### [address] [address] FT4on 06-24-2023 Free T4 [Mass/Vol] 0.95 ng/dL Normal 0.89-1.76 [facility] ([place]) Comment on above: Result Comment: No te - New Reference Range in effect 20 Performed By: #### V IDH, LIPID, GFR, TSH, ANEU, ADIFF, FT4, CBC, CMP, HCV1, A1C #### [address] [address] HCVon 06-24-2023 Hep C Ab Non-Reactive Normal Non-Reactive [facility] ([place]) Comment on above: Performed By: #### V IDH, LIPID, GFR, TSH, ANEU, ADIFF, FT4, CBC, CMP, HCV1, A1C #### [address] [address] Hep C Ab Int Normal [facility] ([place]) Comment on above: Result Comment: Nonr eactive: [...] ADIFF, FT4, CBC, CMP, HCV1, A1C #### [address] [address] LIPIDon 06-24-2023 Cholesterol [Mass/Vol] 250 mg/dL High 50-199 [facility] ([place]) Comment on above: Result Comment: Chol esterol Reference Interval: Less than 200 Desirable 200-239 Borderline high risk 240 and above High risk Performed By: #### V IDH, LIPID, GFR, TSH, ANEU, ADIFF, FT4, CBC, CMP, HCV1, A1C #### [address] [address] Cholesterol in HDL [Mass/Vol] 51 mg/dL Normal 40-59 [facility] ([place]) Comment on above: Performed By: #### V IDH, LIPID, GFR, TSH, ANEU, ADIFF, FT4, CBC, CMP, HCV1, A1C #### [address] [address] Cholesterol in LDL [Mass/Vol] 156 mg/dL High 0-129 [facility] ([place]) Comment on above: Performed By: #### V IDH, LIPID, GFR, TSH, ANEU, ADIFF, FT4, CBC, CMP, HCV1, A1C #### [address] [address] Triglyceride [Mass/Vol] 215 mg/dL High 3-149 [facility] ([place]) Comment on above: Performed By: #### V IDH, LIPID, GFR, TSH, ANEU, ADIFF, FT4, CBC, CMP, HCV1, A1C #### [place] [id number] MALBRon 06-24-2023 U Creatinine 139.3 mg/dL Normal [facility] ([place]) Comment on above: Performed By: #### V IDH, LIPID, GFR, TSH, ANEU, ADIFF, FT4, CBC, CMP, HCV1, A1C #### [place] [address] U Microalb 5097 mcg/dL Normal [facility] ([place]) Comment on above: Performed By: #### V IDH, LIPID, GFR, TSH, ANEU, ADIFF, FT4, CBC, CMP, HCV1, A1C #### [place] [address] U Ratio Alb/Cre 36.6 mcg/mg High 0.0-24.9 [facility] ([place]) Comment on above: Performed By: #### V IDH, LIPID, GFR, TSH, ANEU, ADIFF, FT4, CBC, CMP, HCV1, A1C #### [place] [address] TSHon 06-24-2023 TSH 0.525 mIU/mL Low 0.550-4.780 [facility] ([place]) Comment on above: Result Comment: No te - New Reference Range in effect 20 Performed By: #### V IDH, LIPID, GFR, TSH, ANEU, ADIFF, FT4, CBC, CMP, HCV1, A1C #### [place] [address] VIDHon 06-24-2023 Vit. D 25-Hydroxy 32.9 ng/mL Normal [facility] ([place]) Comment on above: Result Comment: Inte rpretive Values Based on Total 25(OH)D: Severe Deficiency <20 ng/mL Mild to Moderate Deficiency 20-30 ng/mL Optimum Levels 30-100 ng/mL Toxicity Possible >100 ng/mL Performed By: #### V IDH, LIPID, GFR, TSH, ANEU, ADIFF, FT4, CBC, CMP, HCV1, A1C #### [address] [address] [place] MAMMOGRAM PROLONGED RIGHT on 04-07-2023 [place] MAMMOGRAM PROLONGED RIGHT ORIGINAL FROM: [address] [address] PROCEDURE FOR: GARY MELCHOR [address] [place] [address] Home: PID#: [id number] Exam#: [id number] : 1970 Age: 52 TO: BEV POSADAS DO [address] [address] EXAMINATION: DIAGNOSTIC DIGITAL RIGHT BREAST MAMMOGRAM, 04/07/2023 [...] Provider: BEV POSADAS CLINICAL: CALCIFICATIONS RIGHT BREAST. 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 Pipe Coverer Helper: PIYUSH ONEILL RT(R)(M), RDMS letter sent: Probably Benign BI-RADS 3 Ultrasound BI-RADS: 3 Probably benign Normal [facility] ([place]) LABORATORYOrdered By: Odessa Wall on 10-02-2021 FLUAV [...] CT THORAX WITH CON Ordering Physician: Bev Posadas, 08/05/2021 COMPUTED TOMOGRAPHY THORAX WITH CONTRAST Clinical [...] LUND M.D. Signed By: LENNY LUND M.D. [facility] CT Chest w/o Contraston - CT Chest w/o Contrast Patient Name: GARY MELCHOR Computed Tomography ACCESSION EXAM DATE/TIME PROCEDURE ORDERING PROVIDER [id number] 07/27/2020 11:[address] Thorax w/o Contrast LUZ ARAUJO CPT code 98342 Reason For Exam (CT Thorax w/o Contrast) [...] 2. Computed Tomography Report Report Dictated on Workstation: Evo[employer] Final Dictating Physician: MD OLIVO VLADIMIR Signed Date and Time: 07/27/2020 11:52 am Signed by: MD OLIVO VLADIMIR Transcribed Date and Time: 07/27/2020 11:53 Normal [facility] [place] Myocardial Perf Imaging [facility] Specton 07-27-2020 NM Myocardial Perf Imaging Multi Spect Patient Name: GARY MELCHOR Nuclear Medicine ACCESSION EXAM DATE/TIME PROCEDURE ORDERING PROVIDER [id number] 07/27/2020 09:15 EST NM Myocardial Perf DO POSADAS LISA Imaging Multi Spect CPT code 93154 56637 A9500 Reason For Exam (NM Myocardial Perf Imaging Multi Spect) cp Report Nuclear Stress Myocardial Perfusion Study Regadenoson Protocol Gated SPECT Patient: Gary Melchor Height: Weight: : 1970 Age: 49 Gender: F Study Date: 07/27/2020 Accession#: Patient Room #: *ORDERING PHYSICIAN: * Bev Posadas *FELLOW: * Courtney Watkins *SUPERVISING PHYSICIAN: * Leigh Tanner *RN: * Gmerek, Ciera E.,RN *RADIOLOGIST: * Maximus Bajwa DO *NUCLEAR TECH: * Nataly Cabrales *READING PHYSICIAN: * Yannick Marcelo MD ----- Indications: Chest pain. ----- Summary: 1. No evidence of ischemia. 2. Normal LVEF of 59%. Radiologist Confirmation: This is a combined report. The ECG portion of the study was interpreted and reported by the mallet cutter and the perfusion imaging portion of the [...] Exercise for 4 minutes completed by hand surgery technician. The infusion was terminated due to end [...] stress+ + +------ + + +Injected by +Reanna CABRALES DEAN OF BOYS +Reanna CABRALES DEAN OF BOYS + + +------ + + Nuclear Medicine [...] 07/27/2020 10:44 am Signed by: YANNICK MARCELO [facility] NM Rad Signatureon NM Rad Signature Patient Name: GARY MELCHOR Nuclear Medicine ACCESSION EXAM DATE/TIME PROCEDURE ORDERING PROVIDER [id number] 07/27/2020 09:48 EST NM Rad Signature SIGNATURE, RAD NM Reason For Exam (NM Rad Signature) rad signature Report _ Indications: Chest pain. ----- Summary: 1. No evidence of ischemia. 2. Normal LVEF of 59%. Radiologist Confirmation: This is a combined report. The ECG portion of the study was interpreted and reported by the mallet cutter and the perfusion imaging portion of the [...] Exercise for 4 minutes completed by hand surgery technician. The infusion was terminated due to end [...] stress+ + +------ + + +Injected by +Reanna BARILLAS +Reanna BARILLAS + + +------ + + Image properties: [...] Transcribed Date and Time: 08/08/2020 12:38 Transcribed By:LOLITA Normal [facility] COVID-19on 06-01-2020 SARS-CoV-2 Not Detected Not Detected Tatiana Person - [place], [place] Comment on above: Not Detected Expected Result: Not Detected _ Real-time, RT-PCR performed on the Qiagen QIAquant System by the [facility] Negative results do not preclude SARS-CoV-2 infection and should not be used as the sole basis for treatment or other patient management decisions. This assay was developed and its performance characteristics determined by the [facility]. This test has been developed under an Emergency Use Authorization (EUA) granted by the FDA for the qualitative detection of SARS-CoV-2 nucleic acid (validation review pending). Test [facility] by [facility] [address] [id number] 06-01-2020 SARS-CoV-2 SARS-CoV-2 --> Statu s: F Not Detected Expected Result: Not Detected _ Real-time, RT-PCR performed on the Qiagen QIAquant System by the [facility] Negative results do not preclude SARS-CoV-2 infection and should not be used as the sole basis for treatment or other patient management decisions. This assay was developed and its performance characteristics determined by the [facility]. This test has been developed under an Emergency Use Authorization (EUA) granted by the FDA for the qualitative detection of SARS-CoV-2 nucleic acid (validation review pending). Expected Result: Not Detected _ Real-time, RT-PCR performed on the Qiagen QIAquant System by the [facility] Service Negative results do not preclude SARS-CoV-2 infection and should not be used as the sole basis for treatment or other patient management decisions. This assay was developed and its performance characteristics determined by the [facility]. This test has been developed under an Emergency Use Authorization (EUA) granted by the FDA for the qualitative detection of SARS-CoV-2 nucleic acid (validation review pending). Normal [facility] Comment on above: Performed By: #### C OVID #### [facility] [address] [place] [id number] [address] Chest w/o Contraston 02-27 CT Chest w/o Contrast Patient Name: GARY MELCHOR CT Exam Date/Time 03/14/2020 10:52:[address] Chest w/o Contrast Ordering Physician LUZ ARAUJO Accession Number [id number] CPT4 Codes 12764 (CT Chest w/o Contrast) Reason For Exam [...] masses. Report Dictated on Final Dictating Physician: SHEU, BABAK JHAVERI Signed Date and Time: 03/15/2020 10:33 am Signed by: MD RAMESH YUN ROBERT Transcribed Date and Time: 03/15/2020 10:34 Normal [facility] Full PFT Study With Bronchod ilatoron 12-12-2019 Name: GARY MELCHOR PatientID: [id number] Gender: Female Birthdate: 1970 Study Date: 12/12/2019 7:32:40 A Age: 49 Race: White or Height: 66.0 in, 167.6 cm Weight: 270.0 lbs, 122.7 kg Smoke Status: Quit Pack Years: 10 Tbco Prod: Cigarettes Ordering Physician: [id number] Interpreting Physician: [id number] Linux Network Administrator: JESSICA [place] Location: [facility] Diagnosis: SOB Spirometry Units Pred PreDrug Pre%Pred Post Post%Pred %Change FVC L,btps 3.79 3.39 90. 3.57 94. 5. FEV1 L,btps 3.00 2.60 87. 2.71 90. 4. FEV1/FVC (%) % 80. 76. 95. 76. 95. -1. JGQ52-27% L/s 2.88 2.21 77. 2.29 80. 4. 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 HOME MEDS: ALBUTEROL--PRN. RETESTED AFTER 4PUFFS ALBUTEROL; SPACER AND INSTRUCTIONS GIVEN. DRY COUGH NOTED. [address]- PRE/[place] [address]- DLCO 37727- FRC GAS PHYSICIAN INTERPRETATION No apparent airway [...] suggesting early airway closure and gas trapping. [facility], [place], [facility] Incoming Cardiology Results From [facility] - 12/12/2019 9:43 AM EDT Name: GARY MELCHOR PatientID: [id number] Gender: Female Birthdate: 1970 Study Date: 12/12/2019 7:32:40 A Age: 49 Race: White or Height: 66.0 in, 167.6 cm Weight: 270.0 lbs, 122.7 kg Smoke Status: Quit Pack Years: 10 Tbco Prod: Cigarettes Ordering Physician: [id number] Interpreting Physician: [id number] Linux Network Administrator: JESSICA Testing Location: [facility] Diagnosis: SOB Spirometry Units Pred PreDrug Pre%Pred Post Post%Pred %Change FVC L,btps 3.79 3.39 90. 3.57 94. 5. FEV1 L,btps 3.00 2.60 87. 2.71 90. 4. FEV1/FVC (%) % 80. 76. 95. 76. 95. -1. BIC84-49% L/s 2.88 2.21 77. 2.29 80. 4. 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 HOME MEDS: ALBUTEROL--PRN. RETESTED AFTER 4PUFFS ALBUTEROL; SPACER AND INSTRUCTIONS GIVEN. DRY COUGH NOTED. [address]- PRE/[place] [address]- DLCO 01314- FRC GAS PHYSICIAN INTERPRETATION No apparent airway [...] suggesting early airway closure and gas trapping. [facility], [place] PET CT SKULL BASE TO MID [facility] 12-01-2019 Patient Name: GARY MELCHOR ---PET--- Exam Date/Time 12/01/2019 09:35:00 EDT Exam PT w/ [facility] LUZ ARAUJO Accession Number [id number] CPT4 Codes 42969 (), A9552 () Reason For Exam as [...] JOHN Transcribed Date and Time: 12/01/2019 2:19 [facility] [place] [facility], [facility] Incoming Radiology Results From [facility] - 12/01/2019 2:20 PM EDT Patient Name: GARY MELCHOR ---PET--- Exam Date/Time 12/01/2019 09:35:00 EDT Exam PT w/ CT Scan Skull Base to Midthigh Ordering Physician LUZ ARAUJO Accession Number [id number] CPT4 Codes 45336 (), A9552 () Reason For Exam as [...] JOHN Transcribed Date and Time: 12/01/2019 2:19 [facility] [place] PT w/ CT Scan Skull Base to Midthighon 12-01-2019 PT w/ CT Scan Skull Base to Midthigh Patient Name: GARY MELCHOR PET Exam Date/Time 12/01/2019 09:35:00 EDT Exam PT w/ CT Scan Skull Base to Midthigh Ordering Physician LUZ ARAUJO Accession Number [id number] CPT4 Codes 77414 (), A9552 () Reason For Exam as [...] Transcribed Date and Time: 12/01/2019 2:19 Normal [facility] COMPLETE BLOOD COUNTon 03-31 Erythrocyte distribution width Auto Ratio (RBC) 12.2 % Normal 11.5-14.5 [facility] Comment on above: Performed By: #### C BC ####[facility] [id number] [place], [id number] Hematocrit Auto Volume Fraction (Bld) 35.2 % Low 36.0-46.0 [facility] Comment on above: Performed By: #### C BC ####[facility] [id number] [place], [place], Hemoglobin mass conc (Bld) 12.1 g/dL Normal 12.0-15.0 [facility] Comment on above: Performed By: #### C BC ####[facility] PATHOLOGY [id number] [place] [address], MCH Auto Entitic mass (RBC) 29.8 pg Normal 26.0-34.0 [facility] Comment on above: Performed By: #### C BC ####[facility] PATHOLOGY [id number] [place] [address], MCHC Auto mass conc (RBC) 34.4 g/dL Normal 32.0-35.9 [facility] Comment on above: Performed By: #### C BC ####[facility] PATHOLOGY [id number] [place] [address], MCV Auto Entitic volume (RBC) 87 fL Normal 80-100 [facility] Comment on above: Performed By: #### C BC ####[facility] PATHOLOGY [id number] [place] [address], Platelet mean volume Auto Entitic volume (Bld) 9.3 fL Normal 8.5-11.5 [facility] Comment on above: Performed By: #### C BC ####[facility] PATHOLOGY [id number] [place] [address], Platelets Auto #/vol (Bld) 237 10*3/uL Normal 150-400 [facility] Comment on above: Performed By: #### C BC ####[facility] PATHOLOGY [id number] [place] [address], RBC Auto #/vol (Bld) 4.06 10*6/uL Normal 4.00-5.20 Th e [facility] Comment on above: Performed By: #### C BC ####[facility] PATHOLOGY [id number] [place] [address], WBC Auto #/vol (Bld) 5.5 10*3/uL Normal 4.5-11.5 [facility] Comment on above: Performed By: #### C BC ####[facility] PATHOLOGY [id number] [place] [address], GLUCOSE, FINGERSTICK-IN OFFI CEon 03-31-2018 Glucose mass conc 114 mg/dL High 68-110 [facility] Comment on above: Result Comment: No A ction Performed By: #### 8 2948 ####NURSING GLUCOSE [id number] [place], [place], PARTIAL THROMBOPLASTIN TIMEo n 03-31-2018 aPTT Coag time (Bld) 24 s Normal 24-37 [facility] Comment on above: Performed By: #### P T, APTT ####[facility] [id number] [place], [place], PROTHROMBIN TIME AND INRon 1 INR Coag RelTime (PPP) 1.03 {INR} Normal 0.90-1.10 [facility] Comment on above: Performed By: #### P T, APTT ####[facility] [id number] [place], [place], Prothrombin time (PT) Coag time (PPP) 11.7 s Normal 10.0-12.6 [facility] Comment on above: Performed By: #### P T, APTT ####S PATHOLOGY [id number] [place], [place], CT ABDOMEN/PELVIS W/O CONTRA STon 10-23-2017 [...] 3. Small hiatal hernia. MACRONONE Normal [facility] [employer] [facility] Vital Signs Date Time Vital Sign Value Performing Clinician Cali wilson 02-22-2025 09:34-0400 Body height 167.6 cm Abbey Jimenez MD Work Phone: [facility] 02-22-2025 09:34-0400 Body mass index (BMI) [Ratio] 40.99 kg/m2 Abbey Jimenez MD Work Phone: [facility] 02-22-2025 09:34-0400 Body weight 115.2 kg Abbey Jimenez MD Work Phone: [facility] 02-22-2025 09:34-0400 Diastolic blood pressure 79 mm[Hg] Abbey Jimenez MD Work Phone: [facility] 02-22-2025 09:34-0400 Heart rate 77 /min Abbey Jimenez MD Work Phone: [facility] 02-22-2025 09:34-0400 Systolic blood pressure 137 mm[Hg] Abbey Jimenez MD Work Phone: [facility] 12-18-2024 02:13-0400 Body temperature 98.3 [degF] Dr. Keyana Esposito MD Work Phone: [facility] 12-18-2024 02:13-0400 Diastolic blood pressure 74 mm[Hg] Dr. Keyana Esposito MD Work Phone: [phone] [place] [address] 12-18-2024 02:13-0400 Heart rate 93 /min Dr. Keyana Esposito MD Work Phone: [facility] 12-18-2024 02:13-0400 Respiratory rate 20 /min Dr. Keyana Esposito MD Work Phone: [phone])[phone] [place] [address] 12-18-2024 02:13-0400 SaO2% (BldA) [Mass fraction] 98 % Dr. Keyana Esposito MD Work Phone: [phone] [place] [address] 12-18-2024 02:13-0400 Systolic blood pressure 142 mm[Hg] Dr. Keyana Esposito MD Work Phone: [facility] 12-18-2024 00:52-0400 Body height 165.[address] Keyana Esposito MD Work Phone: [facility] 12-18-2024 00:52-0400 Body mass index (BMI) [Ratio] 41.1 kg/m2 Dr. Keyana Esposito MD Work Phone: [facility] 12-18-2024 00:52-0400 Body weight 112.[address] Keyana Esposito MD Work Phone: [facility] 10-28-2024 11:34-0400 Diastolic Blood Pressure Non-Invasive 70 mm[Hg] TOYA HODGES MD [facility] 10-28-2024 11:34-0400 Heart rate 73 /min TOYA HODGES MD [facility] 10-28-2024 11:34-0400 Respiratory rate 16 /min TOYA HODGES MD [facility] 10-28-2024 11:34-0400 Systolic Blood Pressure Non-Invasive 141 mm[Hg] TOYA HODGES MD [facility] 10-28-2024 11:18-0400 Diastolic Blood Pressure Non-Invasive 71 mm[Hg] TOYA HODGES MD [facility] 10-28-2024 11:18-0400 Heart rate 64 /min TOYA HODGES MD [facility] 10-28-2024 11:18-0400 Respiratory rate 15 /min TOYA HODGES MD [facility] 10-28-2024 11:18-0400 Systolic Blood Pressure Non-Invasive 156 mm[Hg] TOYA HODGES MD [facility] 10-28-2024 11:10-0400 Diastolic Blood Pressure Non-Invasive 82 mm[Hg] TOYA HODGES MD [facility] 10-28-2024 11:10-0400 Respiratory rate 16 /min TOYA HODGES MD [facility] 10-28-2024 11:10-0400 Systolic Blood Pressure Non-Invasive 159 mm[Hg] TOYA HODGES MD [facility] 10-28-2024 10:59-0400 Heart rate 67 /min TOYA HODGES MD [facility] 10-28-2024 10:52-0400 Heart rate 68 /min TOYA HODGES MD [facility] 10-28-2024 10:29-0400 Blood Pressure Cuff Size TOYA HODGES MD [facility] 10-28-2024 10:29-0400 Blood Pressure Location TOYA HODGES MD [facility] 10-28-2024 10:29-0400 Blood Pressure Method TOYA HODGES MD [facility] 10-28-2024 10:29-0400 Body height 162.6 cm TOYA HODGES MD [facility] 10-28-2024 10:29-0400 Body weight 113.2 kg TOYA HODGES MD [facility] 10-28-2024 10:29-0400 Body weight 42.82 kg/m2 TOYA HODGES MD [facility] 10-28-2024 10:29-0400 Heart rate 63 /min TOYA HODGES MD [facility] 10-10-2024 12:49-0400 Body mass index (BMI) [Ratio] 39.27 kg/m2 Jaimie Cook MD Work Phone: [facility] 10-10-2024 12:49-0400 Body temperature 98.2 [degF] Jaimie Cook MD Work Phone: [facility] 10-10-2024 12:49-0400 Body weight 110.36 kg Jaimie Cook MD Work Phone: [facility] 10-10-2024 12:49-0400 Diastolic blood pressure 67 mm[Hg] Jaimie Cook MD Work Phone: [facility] 10-10-2024 12:49-0400 Heart rate 66 /min Jaimie Cook MD Work Phone: [facility] 10-10-2024 12:49-0400 Respiratory rate 18 /min Jaimie Cook MD Work Phone: [facility] 10-10-2024 12:49-0400 SaO2% (BldA) [Mass fraction] 98 % Jaimie Cook MD Work Phone: [facility] 10-10-2024 12:49-0400 Systolic blood pressure 143 mm[Hg] Jaimie Cook MD Work Phone: [facility] 07-27-2024 12:37-0500 Diastolic Blood Pressure Non-Invasive 87 mm[Hg] TOYA HODGES MD [facility] 07-27-2024 12:37-0500 Heart rate 52 /min TOYA HODGES MD [facility] 07-27-2024 12:37-0500 Respiratory rate 15 /min TOYA HODGES MD [facility] 07-27-2024 12:37-0500 Systolic Blood Pressure Non-Invasive 140 mm[Hg] TOYA HODGES MD [facility] 07-27-2024 12:25-0500 Heart rate 66 /min TOYA HODGES MD [facility] 07-27-2024 12:25-0500 Respiratory rate 18 /min TOYA HODGES MD [facility] 07-27-2024 12:20-0500 Heart rate 64 /min TOYA HODGES MD [facility] 07-27-2024 12:20-0500 Respiratory rate 20 /min TOYA HODGES MD [facility] 07-27-2024 11:48-0500 Blood Pressure Cuff Size TOYA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 Date:05/17/2024 10:00:00 AM Scheduled Provider:NOLA WILSON Location:[facility] Appointment Type:PC Wellness Annual w/Labs Future Scheduled Tests Laboratory* Vitamin B12 Level 05/12/24 * A1C Hemoglobin 05/12/24 * Complete Blood Count 05/12/24 * Lipid Profile 05/12/24 * Vitamin D Level 05/12/24 * Complete Metabolic Panel 05/12/24 Radiology* MA Mammo Diagnostic Bilateral w/Tree 04/15/24 * MA Mammo Screening Bilateral w/ Tree 03/29/24 [facility] Evaluation + Plan note Future Appointments Appointment Date:01/24/2025 08:20:00 AM Scheduled Provider:TOYA HODGES MD Location:PM Office Appointment Type:PM OV [facility] Evaluation + Plan note Future Appointments Appointment Date:01/26/2025 08:15:00 AM Scheduled Provider: Location:[facility] Appointment Type:OT Treatment Appointment Date:01/31/2025 09:00:00 AM Scheduled Provider: Location:[facility] Appointment Type:OT Treatment Appointment Date:02/02/2025 09:00:00 AM Scheduled Provider: Location:[facility] Appointment Type:OT Treatment Appointment Date:02/07/2025 09:00:00 AM Scheduled Provider: Location:[facility] Appointment Type:OT Treatment Appointment Date:02/09/2025 09:00:00 AM Scheduled Provider: Location:[facility] Appointment Type:OT Treatment Appointment Date:04/20/2025 07:20:00 AM Scheduled Provider:NYA SHARP Location:PM Office Appointment Type:PM OV SR Future Scheduled Tests Radiology* CT Thorax w/o Contrast 11/18/24 [facility] Evaluation + Plan note Future Appointments Appointment Date:03/23/2025 09:00:00 AM Scheduled Provider: Location:[facility] Appointment Type:OT Treatment Appointment Date:03/28/2025 09:00:00 AM Scheduled Provider: Location:[facility] Appointment Type:OT Treatment Appointment Date:04/04/2025 09:00:00 AM Scheduled Provider: Location:[facility] Appointment Type:OT Treatment Appointment Date:05/02/2025 08:20:00 AM Scheduled Provider:BRANDON ARANDA Location:PM Office Appointment Type:PM OV SR Future Scheduled Tests Radiology* CT Thorax w/o Contrast 11/18/24 [facility] Evaluation note* Diagnosis KRISTIN (obstructive sleep apnea)- Primary Obstructive sleep apnea (adult) (pediatric) Interstitial pulmonary disease (HCC) Postinflammatory pulmonary fibrosis Lung nodule Solitary pulmonary nodule Interstitial pulmonary disease (HCC)- Primary Postinflammatory pulmonary fibrosis [facility] Diagnosis Interstitial pulmonary disease (HCC)- Primary Postinflammatory pulmonary fibrosis documented in this encounter [facility] note* Diagnosis Interstitial pulmonary disease (HCC)- Primary Postinflammatory pulmonary fibrosis documented in this encounter [facility] note* Diagnosis Traumatic complete tear of left rotator cuff, sequela- Primary Other specified diabetes mellitus with other specified complication, unspecified whether [facility] insulin use (HCC) Essential hypertension, malignant documented in this encounter [facility] noteNo assessment information availableWMount St. 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 Use the incentive spirometer that you have at home 10 times hourly while awake. Return to the emergency department with fever, increased difficulty breathing, new or worsening symptoms.[facility] Work Phone: Progress note No data available for this section [facility] Reason for referral (narrative)No reason for referral information availableWMount St. 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) Essential hypertension, malignant Procedures ECG COMPLETE ECG ROUTINE ECG W/LEAST 12 LDS W/I&R Yannick Uriostegui Jr., MD [address] [place] [address] Phone: tel: fax: [facility] [place] [place] [address] [place] [id number] Referral ID Status Reason Start Date Expiration Date V isits Requested Visits Authorized [id number] Closed Auto-Generate d Referral 10/27/2024 10/27/2025 1 1 [facility] Summary Purpose Family History No Family History [...] FoundDocuments on File Type Date Recorded Patient Priming Powder Premix Blender Expl anation Advance Directives and Living Will Power of Dog And Cat Food Cook Latest Code Status on File Code Status Date Activated Date Inactivated Comments Full Code 03/16/2017 6:08 AM 03/16/2017 1:39 PM Full Code 08/07/2016 6:22 AM 08/07/2016 2:57 PM Documents on File Type Date Recorded Patient Priming Powder Premix Blender Expl anation ACP-Advance Directive ACP-Power of Dog And Cat Food Cook Documents on File Type Date Recorded Patient Priming Powder Premix Blender Expl anation ACP-Advance Directive ACP-Power of Dog And Cat Food Cook Latest Code Status on File Code Status Date Activated Date Inactivated Comments Full Code 03/16/2017 6:08 AM 03/16/2017 1:39 PM Full Code 08/07/2016 6:22 AM 08/07/2016 2:57 PM Advance Directive Response Recorded Date/ Time Do you have a Healthcare Power of Dog And Cat Food Cook? Yes December 18, 2024 12:54am Name of Medical Power of Dog And Cat Food Cook yoshi _--son December 18, 2024 12:54am Reason for Referral Status Reason Specialty Diagnoses / Procedures Referre d By Contact Referred To Contact [facility] Diagnoses Lung nodule Tobacco abuse Procedures PET CT SKULL BASE TO MID THIGH Luz Araujo MD [address] [place] [address] Status Reason Specialty Diagnoses / Procedures Re ferred By Contact Referred To Contact [facility] Diagnoses Tobacco abuse Shortness of breath Procedures Full PFT Study With Bronchodilator Luz Araujo MD [address] [place] [address] Status Reason Specialty Diagnoses / Procedures Referre d By Contact Referred To Contact Closed Radiology Diagnoses Lung mass Procedures CT CHEST WO CONTRAST Luz Araujo MD [address] [place] [address] Assessments Diagnosis Lung nodule Solitary pulmonary nodule Tobacco abuse Tobacco use disorder Diagnosis Tobacco abuse Tobacco use disorder Shortness of breath Diagnosis Lung mass Swelling, mass, or lump in chest Chief Complaint and Reason for Visit Chief Complaint Admit Date [facility] December 18, 2024 12:5 0am Additional Source Comments INFORMATION SOURCE (unrecogn ized section and content) DATE CREATED AUTHOR 01/22/2018 [facility] DATE CREATED AUTHOR AUTHOR'S ORGANIZ ATION 05/25/2018 [employer] DATE CREATED AUTHOR AUTHOR'S ORGANIZ ATION 06/02/2020 [facility] DATE CREATED AUTHOR AUTHOR'S ORGANIZ ATION 08/10/2020 [employer] [facility] DATE CREATED AUTHOR AUTHOR'S ORGANIZ ATION 08/09/2021 [facility] parvin Vargas DATE CREATED AUTHOR AUTHOR'S ORGANIZ ATION 03/01/2024 [facility] ([place] DATE CREATED AUTHOR AUTHOR'S ORGANIZ ATION 09/12/2024 MOLLY MASSILLO N DATE CREATED AUTHOR AUTHOR'S ORGANIZ ATION 11/01/2024 [facility] nt DATE CREATED AUTHOR AUTHOR'S ORGANIZ ATION 03/01/2025 [facility] DATE CREATED AUTHOR AUTHOR'S ORGANIZ ATION 03/24/2025 [facility] DATE CREATED AUTHOR AUTHOR'S ORGANIZ ATION 04/14/2025 [facility] DATE CREATED AUTHOR AUTHOR'S ORGANIZ ATION 05/03/2025 [facility] DATE CREATED AUTHOR AUTHOR'S ORGANIZ ATION 05/11/2025 [facility] Care Team (unrecognized sect ion and content) 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 Relationship Specialty Start Date End Date Bev Posadas MD [address] [place] [address] PCP - General Internal Medicine 02/20/20 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 Relationship Specialty Start Date End Date Bev Posadas MD [address] [place] [address] PCP - General Internal Medicine 02/20/20 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 Relationship Specialty Start Date End Date Bev Posadas MD [address] [place] [address] PCP - General Internal Medicine 02/20/20 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 Relationship Specialty Start Date End Date Bev Posadas MD [address] [place] [address] PCP - General Internal Medicine 02/20/20 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 Relationship Specialty Start Date End Date Bev Posadas MD [address] [place] [address] PCP - General Internal Medicine 02/20/20 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 Relationship Specialty Start Date End Date Bev Posadas MD [address] [facility] [address] [place] [address] PCP - General Internal Medicine 02/20/20 Team Status: Active Member Role Status Dates Dr. Keyana Esposito MD Primary Care Provider Active Team Status: Inactive Member Role Status Dates Dr. 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 Relationship Specialty Start Date End Date Bev Posadas MD [address] [facility] [address] [place], [place] [address] PCP - General Internal Medicine 02/20/20 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 Relationship Specialty Start Date End Date Bev Posadas MD [address] [facility] [address] [place], [place] [address] PCP - General Internal Medicine 02/20/20 Source Comments (unrecognize d section and content) In the event this informatio n is protected by the Federal Confidentiality of Alcohol and Drug Abuse Patient Records regulations: The Federal rules restrict any use of the information to criminally investigate or prosecute any alcohol or drug abuse patient.[facility] the event this information is protected by the Federal Confidentiality of Alcohol and Drug Abuse Patient Records regulations: The Federal rules restrict any use of the information to criminally investigate or prosecute any alcohol or drug abuse patient.[facility] Hospital[facility] the event this information is protected by the Federal Confidentiality of Alcohol and Drug Abuse Patient Records regulations: The Federal rules restrict any use of the information to criminally investigate or prosecute any alcohol or drug abuse patient.[facility] Hospital[facility] the event this information is protected by the Federal Confidentiality of Alcohol and Drug Abuse Patient Records regulations: The Federal rules restrict any use of the information to criminally investigate or prosecute any alcohol or drug abuse patient.[facility] Hospital[facility] the event this information is protected by the Federal Confidentiality of Alcohol and Drug Abuse Patient Records regulations: The Federal rules restrict any use of the information to criminally investigate or prosecute any alcohol or drug abuse patient.[facility] Hospital[facility] the event this information is protected by the Federal Confidentiality of Alcohol and Drug Abuse Patient Records regulations: The Federal rules restrict any use of the information to criminally investigate or prosecute any alcohol or drug abuse patient.[facility] Hospital[facility] the event this information is protected by the Federal Confidentiality of Alcohol and Drug Abuse Patient Records regulations: The Federal rules restrict any use of the information to criminally investigate or prosecute any alcohol or drug abuse patient.[facility] Hospital[facility] the event this information is protected by the Federal Confidentiality of Alcohol and Drug Abuse Patient Records regulations: The Federal rules restrict any use of the information to criminally investigate or prosecute any alcohol or drug abuse patient.[facility] Hospital[facility] the event this information is protected by the Federal Confidentiality of Alcohol and Drug Abuse Patient Records regulations: The Federal rules restrict any use of the information to criminally investigate or prosecute any alcohol or drug abuse patient.[facility] Hospital[facility] the event this information is protected by the Federal Confidentiality of Alcohol and Drug Abuse Patient Records regulations: The Federal rules restrict any use of the information to criminally investigate or prosecute any alcohol or drug abuse patient.[facility] HospitalIn the event this information is protected by the Federal Confidentiality of Alcohol and Drug Abuse Patient Records regulations: The Federal rules restrict any use of the information to criminally investigate or prosecute any alcohol or drug abuse patient.[facility] Hospital[facility] the event this information is protected by the Federal Confidentiality of Alcohol and Drug Abuse Patient Records regulations: The Federal rules restrict any use of the information to criminally investigate or prosecute any alcohol or drug abuse patient.[facility] Hospital[facility] the event this information is protected by the Federal Confidentiality of Alcohol and Drug Abuse Patient Records regulations: The Federal rules restrict any use of the information to criminally investigate or prosecute any alcohol or drug abuse patient.[facility] Reason for Visit (unrecogniz ed section and content) Reason Comments New Reason Comments Spirometry Specialty Diagnoses / Procedures Referred By Contac t Referred To Contact [facility] Diagnoses Interstitial pulmonary disease (HCC) Procedures LUNG VOLUMES PLETHYSMOGRAPHY LUNG VOLUMES W/WO AIRWAY RESIST Jaimie Cook MD [address] [place] [address] Phone: tel: fax: [place] [address] Referral ID Status Reason Start Date Expiration Date V isits Requested Visits Authorized [id number] Closed Auto-Generate d Referral 10/10/2024 06/28/2025 1 1 Specialty Diagnoses / Procedures Referred By Contac t Referred To [facility] Diagnoses Interstitial pulmonary disease (HCC) Procedures NITRIC OXIDE, EXHALED NITRIC OXIDE GAS DETERMINATION Jaimie Cook MD [address] [place] [address] Phone: tel: fax: [place] [address] Referral ID Status Reason Start Date Expiration Date V isits Requested Visits Authorized [id number] Closed Auto-Generate d Referral 10/10/2024 11/09/2025 1 1 Specialty Diagnoses / Procedures Referred By Contac t Referred To [facility] Diagnoses Interstitial pulmonary disease (HCC) Procedures SPIROMETRY - BASELINE AND POST DILATOR BRNCDILAT RSPSE SPMTRY PRE&POST-BRNCDILAT ADMN Jaimie Cook MD [address] [place] [address] Phone: tel: fax: [place] [address] Referral ID Status Reason Start Date Expiration Date V isits Requested Visits Authorized [id number] Closed Auto-Generate d Referral 10/10/2024 11/09/2025 1 1 Specialty Diagnoses / Procedures Referred By Contac t Referred To [facility] Diagnoses Interstitial pulmonary disease (HCC) Procedures LUNG DIFFUSION CAPACITY (DLCO) DIFFUSING CAPACITY Jaimie Cook MD [address] [place] [address] Phone: tel: fax: [address] [address] Referral ID Status Reason Start Date Expiration Date V isits Requested Visits Authorized [id number] Closed Auto-Generate d Referral 10/10/2024 11/09/2025 1 [...] BE BASED ON THE PRIMARY CLINICAL RECORDS. [employer] provides no warranty or guarantee of the accuracy or completeness of information in this document.
[2025-06-08] MEDS: Lactated Ringers 1,000 ML 15 ML IV ×2 (07:20→10:15)
--- NOTE | 2025-06-08 07:44 | PCM.HP.BLA ---
History and Physical Date of Admission: 06/08/25 Date of Service: 05/31/25 MR#: [id number] Acct: [id number] Name: GARY MELCHOR Rep #: [id number] : 1970 Provider: Dr. Amy Moscoso MD Age/Sex: 54/F [place] [facility] [place]: Signed Intake Vital Signs 05/10/2509:58 05/31/2508:35 Height 5 ft 5 in 5 ft 5 in Weight: 247 lb BMI 41.1 BP 119/74 Pulse 80 Intake Visit Reasons: ureterscopy pre-op Chief Complaint: urererscopy pre-op Pharmacy Affairs Assistant Required: No Accompanied by: Self Is patient in pain?: Yes Allergies acetaminophen (From Tylenol-Codeine #3) Adverse Reaction (Mild, Verified 05/31/25 08:39) vomits codeine (From Tylenol-Codeine #3) Adverse Reaction (Mild, Verified 05/31/25 08:39) vomits Medications ?Medication ?Instructions ?Recorded ?Confirmed ?Type ezetimibe 10 mg tablet (Zetia) 10 mg PO QDAY 04/24/25 05/31/25 History garlic 500 mg capsule 500 mg PO QDAY 04/24/25 05/31/25 History lisinopril 40 mg tablet 40 mg PO QDAY 04/24/25 05/31/25 History metformin 500 mg tablet,extended 500 mg PO QDAY 04/24/25 05/31/25 History release 24 hr multivitamin 1 tab PO QAM 04/24/25 05/31/25 History oxycodone-acetaminophen 7.5 mg-325 1 tab PO Q8H PRN 04/24/25 05/31/25 History mg tablet (Percocet) Have you fallen in the past year?: No Nurse's Note: patient having vagina pain and abdominal pain, about 10 days ago patient seen blood in pee and feeling dizzy and having nausea PFSH Medical History Ganglion cyst of hand tendon excised Deviated septum Diabetes Surgical History H/O toe surgery H/O foot surgery History of ankle surgery History of carpal tunnel release History of shoulder surgery Family History Other Diabetes Lung cancer Myocardial infarction Social History Smoking Status: Never smoker substance use type: does not use what type of physical activity do you participate in: none do you feel safe at home: Yes Questionnaire Social Determinants of Health* SDOH Screening Social determinants of health last assessed in clinic: 05/31/25 Will the patient participate in the screening?: Yes Do you worry about having a steady place to live?: No Problems where you live: no known problems In the past 12 months, have you had to go without electric, gas, oil or water in your home?: No Have you or anyone in your house had to go without enough food to eat?: No Has lack of reliable transportaion kept you from medical appts or from doing things needed for daily living?: No Has anyone in your support network made you feel unsafe for any reason?: No HPI HPI Urology Chief Complaint: urererscopy pre-op Details: GARY MELCHOR, is a 54 F. The patient is here for preoperative history and physical prior to cystoscopy with bilateral ureteroscopy, bilateral selective cytology, possible ureteral stent insertions. There are no new symptoms since the last visit. The procedure, recovery and expectations were explained. The risks, benefits and alternatives were discussed, including but not limited to, the risks of anesthesia, bleeding, infection, injury, pain and the need for further intervention. We have discussed the risk of exposure to and/or potential harm posed by the COVID-19 virus with having a surgery/procedure at this time. A joint decision was made at this time to proceed with the scheduled surgery/procedure as indicated on the consent form. She has been experiencing waves of nausea and mild dizziness. Her blood pressure medication has been increased and she thinks this is the source. She did have versed for a nerve ablation last month. We discussed the adipose tissue biopsy, this is a personal request of the patient, no protocol for this and we will not proceed at this time. ROS Const Constitutional: No chills, fatigue, fever(s), headache(s), night sweats, weakness, weight change, abnormal sleep pattern or change in appetite Eyes Eyes: No change in vision ENT ENT: No headache(s) or dry mouth Resp Respiratory: No cough, chest congestion, shortness of breath or wheezing Cardio Cardiology: Positive for other (No chest pain.); No shortness of breath, irregular heart rhythm or lightheadedness Gastro GI: Positive for nausea/dyspepsia; No abdominal pain, change in bowel habits, constipation, diarrhea or vomiting Musc Musculoskeletal: No abnormal gait Skin Skin: No yellowing of the eye, lesions, itchy eyes, rash or skin ulcer Neuro Neurology: Positive for dizziness; No abnormal gait, confusion, weakness, headache(s) or memory loss Psych Psychiatric: No abnormal sleep pattern, No change in appetite, No confusion and No memory loss Endo Endocrine: No fatigue, increased thirst/drinking or weight change Aller/Imm Allergy/Immunologic: No itchy eyes or wheezing Kevin/Lymp Hematologic/Lymphatic: No easy bleeding, easy bruising or enlarged lymph nodes Exam Const General: cooperative, healthy appearing, comfortable and no acute distress [facility] Head: normocephalic and atraumatic Ears: hearing grossly normal bilaterally and external ears normal Nose: external nose normal Eyes General: appearance normal, both eyes and all related structures Neck Neck: normal visual inspection and trachea midline Chest Chest palpation & inspection: normal inspection of the chest Resp Effort & Inspection: normal respiratory effort, able to speak in complete sentences and symmetric chest movement Cardio Rate: regular rate GI Inspection: normal to inspection Palpation: soft and nontender General: No CVA tenderness External Female Exam: normal external appearance Speculum Exam - Vagina: vagina atrophic (mild) and no masses Bimanual Exam- Adnexa, other: cystocele (stage 1) Recto-Vaginal: other (no stool palpable in rectal vault) Pelvic Support: no rectocele and cystocele (stage 1) mild Skin General: no rashes or lesions noted Neuro General: patient alert, patient awake, patient oriented x3 and CN's II-XI intact bilaterally Extrem General: normal to inspection Psych Appearance: grossly normal and well kempt Mental Status: mental status grossly normal Results POC Urinalysis w/Micro Office Urine Color ? Last Edit by Kaley Coffey on 05/31/25 08:50 Office Urine Clarity ? Last Edit by Kaley Coffey on 05/31/25 08:50 Office Urine Glucose Negative Last Edit by Kaley Coffey on 05/31/25 08:50 Office Urine Ketones Negative Last Edit by Kaley Alexx on 05/31/25 08:50 Office Urine Bilirubin Negative Last Edit by Avereyna Alexx on 05/31/25 08:50 Office Urine Urobilinogen 0.2 mg/dL Last Edit by Avereyna Alexx on 05/31/25 08:50 Off Ur Spec Niles 1.005 Last Edit by Avereyna Alexx on 05/31/25 08:50 Office Urine pH 6 Last Edit by Avereyna Alexx on 05/31/25 08:50 Office Urine Protein Negative Last Edit by Nathanielereyna Alexx on 05/31/25 08:50 Office Urine Blood Moderate Last Edit by Kaley Alexx on 05/31/25 08:50 Office Urine Blood Hemolyzed Negative Last Edit by Kaley Alexx on 05/31/25 08:50 Office Urine Nitrate Negative Last Edit by Kaley Alexx on 05/31/25 08:50 Off Ur Leukocytes Negatve Last Edit by Kaley Coffey on 05/31/25 08:50 Off Ur WBC Microscopic Small Last Edit by Amy Moscoso MD on 05/31/25 21:37 Off Ur RBC Microscopic None Seen Last Edit by Amy Moscoso MD on 05/31/25 21:37 Off Ur Bacteria Microscopic None Seen Last Edit by Amy Moscoso MD on 05/31/25 21:37 Coding Level of Care Code Off vis,est,level 4 Diagnoses Gross hematuria R31.0 Overactive bladder N32.81 Mixed incontinence N39.46 Vaginal atrophy N95.2 Additional Codes Intake - Is patient in pain?: Yes (1125F) Assessment and Plan Assessment and Plan (1) Gross hematuria: Status: Acute (2) Overactive bladder: Status: Acute (3) Mixed incontinence: Status: Acute (4) Vaginal atrophy: Status: Acute Orders: Orders POC UA Automated w/Microscopy Today R82.90 - Unspecified abnormal findings in urine CBC W/Diff, Automated Today R31.0 - Gross hematuria Plan urine culture today proceed with intervention as scheduled Clinical Quality Measures Falls Risk Screening/Assistive Devices Have you fallen in the past year?: No 05/31/25 2147 <Electronically signed by Amy Moscoso MD> Date Amy Moscoso MD
--- NOTE | 2025-06-08 07:46 | PCM.PRE.AN2 ---
ASA Classification* ASA Classification ASA Classification: 3 Assessment & Plan Anesthesia* Anesthesia Assessment Anesthesia Assessment: Discussed sedation and/or anesthesia options, risks, benefits, and alternatives with patient/parents/legal guardian/POA. Questions invited. The patient/parents/legal guardian/POA seems to understand and agrees to proceed with anesthesia plan. Reviewed the physical assessment, medical history, allergy history and patient home medications list prior to surgery/procedure/anesthetic and documented any changes. Performed airway and anesthesia risk assessments. Anesthesia Type Anesthesia Type: General History Source History Obtained from:: Patient and Chart Anesthesia Focused Assessment* Temperature: 97.0 F Pulse Rate: 65 Blood Pressure: 132/64 Respiratory Rate: 18 Pulse Ox: 98 Oxygen Delivery Method: Room Air Airway Assessment Mouth opens: >3 cm Mallampati Score: I Teeth Condition: Caps/Crowns (Patient has a couple crowns. They are tight.) Neck Range of motion (ROM): Limited ROM (Slight Decrease) Labs Anesthesia Preop lab: CBC WBC, (4.4-11.0) 7.2 K/mm3 05/31/25, : RBC, (4.2-5.4) 4.39 M/mm3 05/31/25, : Hgb, (12.0-15.0) 13.1 g/dL 05/31/25, : Hct, (37-47) 39.9 % 05/31/25, : Plt Count, (150-450) 307 K/mm3 05/31/25, : CHEMISTRY Potassium, (3.3-5.1) 5.1 mmol/L 05/31/25, : Sodium, (133-145) 141 mmol/L 05/31/25, : BUN, (4-19) 19 mg/dL 05/31/25, : Creatinine, (0.70-1.20) 0.84 mg/dL 05/31/25, : Glucose, (70-99) 121 mg/dL H 05/31/25, : POC Glucose, (74-106) 106 mg/dL Today, 07:15 COAG Pre-Assessment Diagnosis/Proposed Procedure Planned Operative Procedure(s): (B) CYSTOSCOPY, BILATERAL URETEROSCOPY DIAGNOSTIC, POSSIBLE BILATERAL URETERAL STENT INSERTION Anesthesia History 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 When Was Last Pacemaker Check QUESTION #4 FULL TEXT: You/Your Family Experience fever (hyperthermia) with Anesthesia Last Oral Intake Last Oral intake: Last Oral Intake NPO since 00:00 06/08/25 06:58 Meds taken in AM with sips of No 06/08/25 06:58 water? 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 Female Yes 06/01/25 11:37 HX of Motion Sickness No 06/01/25 11:37 HX of N/V After Surgery No 06/01/25 11:37 Non-Smoker Yes 06/01/25 11:37 Duration of Surgery greater No 06/01/25 11:37 than 60 minutes Number of Risk Factors 2 06/01/25 11:37 PONV Score Moderate Risk 06/01/25 11:37 Height & Weight Height & Weight: Anesthesia: Height & Weight Height 5 ft 5 in 06/08/25 06:58 Weight: 118 kg 06/08/25 06:58 Body Mass Index (BMI) 43.2 06/08/25 06:58 Respiratory Assessment Respiratory Assessment - tucking machine operator: Respiratory Tract Infection Hx - tucking machine operator Hx Respiratory Tract Infection No 06/01/25 11:37 Any additional information?: Yes Hx Respiratory Tract Infection: No History of Anesthesia Respiratory Infection details: Patient states her lungs have a patch of atelectasis. There is also a mass on the left lung. It has been shrinking on latest exam. STOP Sleep Apnea STOP Sleep Apnea - tucking machine operator: STOP Sleep Apnea - tucking machine operator Hx Hypertension Yes: ON MEDS 06/01/25 11:37 Hx Sleep Apnea Yes: USES AUTOPAP 06/01/25 11:37 CPAP No 06/01/25 11:37 BIPAP No 06/01/25 11:37 Do you snore loudly (louder than talking or can be heard Do you often feel tired/ fatigued/ sleepy during daytime? Has anyone observed you stop breathing during sleep? STOP Results Positive 06/01/25 11:37 QUESTION #5 FULL TEXT : Do you snore loudly (louder than talking or can be heard through closed doors)? 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 Specify any problems Hx of Preganancy in last 3 No 06/01/25 11:37 Months Nurse Filling Out Transfusion JZOLLINGE 06/01/25 11:37 & Questions: Date: 06/01/25 06/01/25 11:37 Time: 11:39 06/01/25 11:37 Patient unable to answer at this time (ie. confused, unrespo /Reproduction History /Reproductive History - tucking machine operator: /Reproductive Hx- tucking machine operator Hx Now No 06/01/25 11:37 Gestational Age (in weeks): EDC: Hx Hx Para Hx Section SAB No 06/01/25 11:37 Does the father of the baby or his family experience fever w Father of the baby Malignant Hypertension history comment Active Medications Active Medications: Current Medications Generic Name Dose Route Start Last Admin Trade Name Freq PRN Reason Stop Dose Admin Lactated Ringer's 1,000 mls @ 15 mls/hr 06/08/25 07:00 06/08/25 07:20 IV 15 mls/hr .Q48H MARTELL Administration PFSH Medical History Arthritis Bladder disease Dietary restriction Non-smoker Sleep apnea Anxiety Ganglion cyst of hand tendon excised Deviated septum Diabetes Home Medications ?Medication ?Instructions ?Recorded ?Last Taken ?Type ezetimibe 10 mg tablet (Zetia) 10 mg PO QDAY 04/24/25 Unknown History garlic 500 mg capsule 500 mg PO .3X A WEEK 04/24/25 Unknown History lisinopril 40 mg tablet 40 mg PO QDAY 04/24/25 Unknown History metformin 500 mg tablet,extended 500 mg PO QDAY 04/24/25 Unknown History release 24 hr multivitamin 1 tab PO QAM 04/24/25 Unknown History oxycodone-acetaminophen 7.5 mg-325 1 tab PO Q8H PRN pain 04/24/25 Unknown History mg tablet (Percocet) Allergy/AdvReac Type Severity Reaction Status Date / Time acetaminophen (From AdvReac Mild vomits Verified 06/08/25 06:57 Tylenol-Codeine #3) codeine (From AdvReac Mild vomits Verified 06/08/25 06:57 Tylenol-Codeine #3) Family History Other Diabetes Lung cancer Myocardial infarction Surgical History Hx of colonoscopy H/O toe surgery H/O foot surgery History of ankle surgery History of carpal tunnel release History of shoulder surgery Social History Smoking Status: Never smoker substance use type: does not use what type of physical activity do you participate in: none do you feel safe at home: Yes Review of Systems (Anesthesia) ROS Narrative System reviewed and no additional complaints, except as documented.
--- NOTE | 2025-06-08 08:15 | FLU_PTH ---
PATIENT: GARY MELCHOR [place] [facility] [place][id number] AGE/SX: 54/F ROOM: RE06/08/[address]: Dr. Amy Moscoso MD : 1970 BED: DIS: 06/08/2025 SPEC #: [id number] RECD: 06/08/25 09:40 STATUS: KATHLEEN REQ #: [id number] PEDRO: 06/08/25 08:[address]: Amy Moscoso DEPT: CYTOLOGY RECD BY: Juanito Vila ENTERED: 06/08/25 10:56 SP TYPE: Fluid OTHR DR: Dr. Keyana Esposito MD Tissues: A - Pelvis, NOS B - Pelvis, NOS Procedures: Special Stain Group II Surgery Specimen Level IV Cytospin Fluid HEADER OPERATION: Cystoscopy, bilateral ureteroscopy diagnostic PRE-OP DIAGNOSIS: Gross hematuria, overactive bladder, mixed incontinence, vaginal atrophy TISSUE SUBMITTED: A- Renal pelvic washings - left, B- Renal pelvic washings - right DIAGNOSIS CYTOLOGY A. Left renal pelvis, washings (cytospin, cellblock): - Negative for high grade urothelial carcinoma. B. Right renal pelvis, washings (cytospin, cellblock): - Negative for high grade urothelial carcinoma. CYTOLOGY STUDY Slides are reviewed. CYTOLOGY GROSS A. Received is 7 ml of hazy-colorless fluid labeled with the patient's name and and designated per the requisition as Renal pelvic washings - left. Submitted for cytology and cell block preparation. B. Received is 7 ml of hazy-colorless fluid labeled with the patient's name and and designated per the requisition as Renal pelvic washings - right. Submitted for cytology and cell block preparation. 06/08/2025 CPT: 19937h5,72670p4
[2025-06-08] MEDS: Lactated Ringers 500 ML IV (08:40)
[2025-06-08] MEDS: Lidocaine 1% (5 ml sdv) 5 ML Vial IV (08:48)
[2025-06-08] MEDS: fentaNYL 100 MCG/2 ML Ampul IV (08:48)
[2025-06-08] MEDS: Cefazolin 1 GM/5 ML Vial 2 GM IV (08:53)
--- NOTE | 2025-06-08 09:52 | DCINST_ITS ---
Discharge Instructions Diet Discharge Diet: No restrictions Activity Discharge Activity: Return to Normal Activity Dressing / Incision Call your doctor if you observe: Fever of 101 or Higher, Inability to urinate and Inability to have a bowel movement Follow Up Care Please Follow Up With: Amy Moscoso MD Test Results: Test results from this visit will be discussed in further detail at your follow- up appointment, if applicable. Discharge Plan Admission Attending Provider: Amy Moscoso Primary Care Provider: Keyana Esposito Instructions Print Language: Panamanian Discharge Orders/Prescriptions Prescriptions: New phenazopyridine 200 mg tablet 200 mg PO TID PRN (Reason: pain) Qty: 30 3RF ondansetron 8 mg tablet,disintegrating 8 mg PO Q8H PRN (Reason: nausea and vomiting) Qty: 10 0RF cephalexin 500 mg capsule 500 mg PO Q12 3 Days Qty: 6 0RF Continued oxycodone-acetaminophen [Percocet] 7.5-325 mg tablet 1 tab PO Q8H PRN (Reason: pain) lisinopril 40 mg tablet 40 mg PO QDAY metformin 500 mg tablet extended release 24 hr 500 mg PO QDAY ezetimibe [Zetia] 10 mg tablet 10 mg PO QDAY multivitamin Tablet 1 tab PO QAM garlic 500 mg capsule 500 mg PO .3X A WEEK Referrals / Follow Up: Keyana Esposito MD [Primary Care Provider, Internal Medicine] Disposition Disposition (needs filled in before D/C Order can be placed): Home, Self Care
--- NOTE | 2025-06-08 09:56 | PCM.OPRPT ---
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 Operative Report (Standard) Operative Information Date of Procedure: 06/08/25 Pre-Operative Diagnosis: Gross hematuria Post-Operative Diagnosis: Same Surgery/Procedure Performed: Cystoscopy, bilateral selective cytology, bilateral ureteroscopy left ureteral stent insertion tentering machine off bearer: No Type of Anesthesia: General RN Documented Start/Stop Times: Operation Date: 06/08/25 08:15 Case Time Into Pre-Op 06/08/25 06:51 Out of Pre-Op 06/08/25 08:36 Anesthesia Start 06/08/25 08:40 Into Room 06/08/25 08:40 Procedure Start 06/08/25 08:57 Procedure End 06/08/25 09:25 Anesthesia End 06/08/25 09:34 Out of Room 06/08/25 09:34 Into Recovery 06/08/25 09:35 Into Phase II Recovery Out of Recovery Procedure Start Time: 08:57 Procedure Stop Time: 09:25 Select all DRAINS/GRAFTS/IMPLANTS that apply: Drains Drain details: 6 [place] by 26 cm JJ stent Estimated Blood Loss: 5cc Specimen collected: Yes Description of specimen(s) removed: Bilateral renal pelvic washings for cytologic evaluation Description of surgery: The patient is a 54-year-old female with gross hematuria who presents for bilateral renal pelvic washings for cytology and bilateral ureteroscopy for further evaluation. Informed consent has been obtained. The patient was taken to the operating room and placed on the operating room table. Anesthesia monitored the head, neck, airway, IV access and vital signs throughout the case. Once anesthesia was appropriately ministered, the patient was placed into dorsolithotomy position was prepped and draped in usual sterile fashion. The cystoscope was inserted through the urethra under direct vision. The bladder mucosa was visualized and no abnormalities were identified. The left ureteral orifice was gently cannulated with a Pollick catheter. It was advanced to 22 cm and using sterile saline washings were obtained and sent for cytologic evaluation. This process was done on the patient's right side with a brand-new Pollick catheter. At this time a 0.035 Glidewire was inserted through the left ureteral orifice into the renal pelvis is seen on fluoroscopy. Several attempts were made at passage of the flexible ureteroscope over the Glidewire and also with a semirigid ureteroscope alongside the Glidewire. None of these attempts were successful at passage beyond the distal ureter. There was no evidence of stone, the ureter was narrow. Using the Glidewire, and the cystoscope, a 6 [place] 26 cm JJ stent was placed over the wire with good positioning in the renal pelvis and urinary bladder. The Glidewire was promptly inserted through the right ureteral orifice and seen in the renal pelvis on fluoroscopy. The flexible ureteroscope was placed over the wire and advanced with minimal maneuvering in the distal ureter maneuvering in the distal ureter. Access was obtained to the renal pelvis. All the calyces were directly visualized and there is no evidence of mass, stone, foreign body or other abnormality. The entire length of the ureter was visualized with no findings. At this time the bladder was emptied and the cystoscope was removed. The patient was awakened and taken to the recovery room in good condition. There were no complications during this procedure. Surgical Findings: Unable to pass the left distal ureter with a flexible or semirigid ureteroscope. Left ureteral stent was inserted. Complications Complications: No Admit VTE Documentation VTE Present on Admission: Yes VTE Mechan Device Prophylaxis: SCD's VTE Pharm Prophylaxis ordered?: No Reason prophylaxis not ordered: Treatment Not Indicated
--- NOTE | 2025-06-08 10:03 | PCM.POST.ANE ---
Anesthesia: Postop Eval I Current Vital Signs Temperature: 98 F Pulse Rate: 85 Blood Pressure: 169/79 Respiratory Rate: 16 Pulse Ox: 94 Oxygen Delivery Method: Room Air Assessment Airway patent: Yes Spontaneous unlabored respirations: Yes Mental status: Awake and Calm nausea: No Vomiting: No Anesthesia Complication: No Fluid Hydration Crystalloid volume administer (ml): 900 Total IV fluid infused: 900 Progress Note Anesthesia document: Postop Eval 1 completed: Yes
--- NOTE | 2025-06-08 11:17 | SUR.PHASEI ---
1115 pt sitting up on the side of bed. Patient's po meds oxycodone and lisinopril given to patient .
--- NOTE | 2025-06-08 12:51 | POSTOPAN2_ITS ---
Anesthesia Postop Eval I Sum Postop Eval Completion status Anesthesia document: Postop Eval 1 completed: Yes Anesthesia Postop Eval I Summary Anesthesia Postop Eval I Summary: Anesthesia Postop Eval I: Assessment Summary Airway patent Yes 06/08/25 10:04 PHARMACY TECH.MDOT Spontaneous unlabored Yes 06/08/25 10:04 PHARMACY TECH.MDOT respirations Mental status Awake,Calm 06/08/25 10:04 PHARMACY TECH.MDOT nausea No 06/08/25 10:04 PHARMACY TECH.MDOT Vomiting No 06/08/25 10:04 PHARMACY TECH.MDOT Anesthesia Postop Eval I: Fluid Summary Crystalloid volume administer 900 06/08/25 10:04 PHARMACY TECH.MDOT (ml) Colloids volume administered ( ml) Blood Product volume administered (ml) Total IV fluid infused 900 06/08/25 10:04 PHARMACY TECH.OT Anesthesia Postop Eval I: Summary Notes Anesthesia Complication No 06/08/25 10:04 PHARMACY TECH.MDOT Anesthesia Complication Comment: Post-operative progress note Anesthesia: Postop Eval II Evaluation Mental status: Awake Pain Level: 2 nausea: No Vomiting: No
--- NOTE | 2025-06-08 12:51 | PCM.POSTANE2 ---
Anesthesia Postop Eval I Sum Postop Eval Completion status Anesthesia document: Postop Eval 1 completed: Yes Anesthesia Postop Eval I Summary Anesthesia Postop Eval I Summary: Anesthesia Postop Eval I: Assessment Summary Airway patent Yes 06/08/25 10:04 EDGER [email or web address] Spontaneous unlabored Yes 06/08/25 10:04 EDGER [email or web address].MDOT respirations Mental status Awake,Calm 06/08/25 10:04 EDGER [email or web address].MDOT nausea No 06/08/25 10:04 EDGER [email or web address].MDOT Vomiting No 06/08/25 10:04 EDGER [email or web address].MDOT Anesthesia Postop Eval I: Fluid Summary Crystalloid volume administer 900 06/08/25 10:04 EDGER AUTOMATIC.MDOT (ml) Colloids volume administered ( ml) Blood Product volume administered (ml) Total IV fluid infused 900 06/08/25 10:04 EDGER [email or web address].OT Anesthesia Postop Eval I: Summary Notes Anesthesia Complication No 06/08/25 10:04 EDGER [email or web address].MDOT Anesthesia Complication Comment: Post-operative progress note Anesthesia: Postop Eval II Evaluation Mental status: Awake Pain Level: 2 nausea: No Vomiting: No
== END 2025-06-08 12:54 | disposition home or self-care (01) ==
LOC: SDC 06:44 → AC 06:48
PROVIDERS: PCP Internal Medicine; Referring Provider Urology; Visit Provider Urology
PROC: 0TJ98ZZ Inspection of Ureter, Via Natural or Artificial Opening Endoscopic (ICD-10-PCS; CPT 52352; principal; 2025-06-08 08:00)
DX: R31.0 Gross hematuria (principal); E11.9 Type 2 diabetes mellitus without complications; Z79.84 Long term (current) use of oral hypoglycemic drugs; R42 Dizziness and giddiness; R11.0 Nausea; N39.46 Mixed incontinence; N32.81 Overactive bladder; N95.2 Postmenopausal atrophic vaginitis
CPT/HCPCS: 52351; 52332; 00910; 76000; 82962; 88108; 88305; 88313; C1769; C2617; J2405

== ENCOUNTER 2025-06-09 02:37 | Inpatient (IN) | payer OTHER, SELFPAY ==
[2025-06-09] VITALS (22 sets, daily range): BP systolic 92–180; BP diastolic 59–111; PULSE 93–110; RESP 15–24; TEMP 36.6–37.1; O2SAT 93–100; BMI 43.1; BMI 43.4
--- NOTE | 2025-06-09 02:44 | CT_ITS ---
PROCEDURE: CTA CHEST W/WO CONTRAST 06/09/2025 REASON FOR EXAM: LUNG MASS HYPOXIA TECHNIQUE: Procedure Code: [id number] Modality: CT Procedure: CTA CHEST W/WO CONTRAST Multiplanar Sagittal and Coronal images were obtained. CONTRAST: isovue [id number] VOLUME: 100 mL One or more dose reduction techniques were used (e.g., Automated exposure control, adjustment of the mA and/or kV according to patient size, use of iterative reconstruction technique). RADIATION DOSE SUMMARY: CTDI Vol 8.61 mGy DLP :291.94 mGycm COMPARISON: 18-Dec-2024 FINDINGS: No evidence of any filling defect in the main pulmonary trunk, bilateral main pulmonary arteries, segmental arteries and subsegmental arteries to suggest acute or chronic pulmonary embolism. Patent thoracic aorta showing mild intimal irregularities and calcified atheromatous plaques. No intraluminal hypodense thrombi, dissecting intimal flaps or significant aneurysmal dilatation. Cardiomegaly. Minimal pericardial thickening/effusion. Bilateral lower lobes, lingula and right middle lobes atelectatic changes and with smooth interlobular septae thickening. Stable left upper lung lobe large calcified nodule with surrounding atelectatic changes. Newly developed mild bilateral pleural effusion, right more evident than left with underlying basal atelectatic changes. No pathologically enlarged lymph nodes are noted. Scanned osseous structures show no osseous destruction. Thoracic spondylosis. CT/CTA Chest W/WO Contrast IMPRESSION: No evidence of pulmonary arterial thromboembolism. Bilateral pulmonary atelectatic changes and with smooth interlobular septae thi ckening, possibly post infectious versus mild pulmonary edema. Advise clinical correlation. Stable left upper lung lobe large calcified nodule with surrounding atelectatic changes. Newly developed mild bilateral pleural effusion, right more evident than left w ith underlying basal atelectatic changes. Reading Location: [facility]
--- NOTE | 2025-06-09 02:44 | EKG12_ITS ---
Test Reason : CP Blood Pressure : */* mmHG Vent. Rate : 104 BPM Atrial Rate : 104 BPM P-R Int : 136 ms QRS Dur : 88 ms QT Int : 342 ms P-R-T Axes : 51 38 60 degrees QTcB Int : 449 ms Sinus tachycardia Low voltage QRS Septal infarct , age undetermined Abnormal ECG Confirmed by MIRELLA JHAVERI, TRACI ([id number]), editor map MAEVE GREEN ([id number]) on 06/12/2025 6:51:12 AM Referred By: BRYCE Confirmed By: TRACI VU MD
[2025-06-09] MEDS: 0.9% Normal Saline (1000mL) 1,000 ML 999 ML IV (02:53)
--- OUTSIDE RECORDS SUMMARY | 2025-06-09 03:05 | XMS RPT_ITS | CCD ---
Author Organization [facility] Care Team Providers Care Facility Administrator Name Role Phone Bev Posadas Unavailable Unavailable [...] DR BEV POSADAS DO Primary Care Physician AKTIE GRAYN-NOLA BHATIA Primary Care Physici an KATIE GRAYN-NOLA BHATIA Primary Care Unaeduarda GODFREY MD, JODY Consulting Unavailable KATIE STACK YIELD ENGINEER-PYROMETER TEMPERATURE REGULATOR, NOLA Gallardo Attending Unav ailable KATIE STACK YIELD ENGINEER-SRIRAM, NOLA Gallardo Primary Care Unav ailable KATIE STACK YIELD ENGINEER-PYROMETER TEMPERATURE REGULATORNOLA Attending Unav ailable KATIE STACK YIELD ENGINEER-PYROMETER TEMPERATURE REGULATOR, NOLA Gallardo Primary Care Unav ailable WILSON STACK YIELD ENGINEER-PYROMETER TEMPERATURE REGULATOR, NOLA D Attending Unav ailable WILSON STACK YIELD ENGINEER-PYROMETER TEMPERATURE REGULATOR, NOLA D Primary Care Unav ailable WILSON STACK YIELD ENGINEER-PYROMETER TEMPERATURE REGULATOR, NOLA D Attending Unav ailable WILSON STACK YIELD ENGINEER-PYROMETER TEMPERATURE REGULATOR, NOLA D Attending Unav ailable WILSON STACK YIELD ENGINEER-PYROMETER TEMPERATURE REGULATOR, NOLA D Primary Care Unav ailable ESTERLE DO, DR BEV Poole Primary Care Unavailabl e ESTERLE DO, DR BEV Poole Attending Unavailabl e WILSON STACK YIELD ENGINEER-PYROMETER TEMPERATURE REGULATOR, NOLA D Attending Unav ailable WILSON STACK YIELD ENGINEER-PYROMETER TEMPERATURE REGULATOR, NOLA D Primary Care Unav ailable WILSON STACK YIELD ENGINEER-PYROMETER TEMPERATURE REGULATOR, NOLA D Primary Care Unav ailable WILSON STACK YIELD ENGINEER-PYROMETER TEMPERATURE REGULATOR, NOLA D Attending Unav ailable CATE JHAVERI, KEYANA Wilkinson Primary Care Physician [phone] TRACEI JHAVERI, TOYA Baker Attending Unavailable WILSON STACK YIELD ENGINEER-PYROMETER TEMPERATURE REGULATOR, NOLA Paulina Primary Care Unav TOYA Bradford MD Attending Unavailable KEYANA ESPOSITO MD Primary Care Unavailable CATE JHAVERI, KEYANA Wilkinson Primary Care Unavailable CATE JHAVERI, KEYANA Wilkinson Attending Unavailable CATE JHAVERI, KEYANA Wilkinson Primary Care Unavailable KEYANA ESPOSITO MD Attending Unavailable CATE JHAVERI, KEYANA Wilkinson Primary Care Unavailable DAVIDSON PYROMETER TEMPERATURE REGULATOR, ALISON L Attending Unavailable Katharina JHAVERI, Bev Poole Primary Care Provider YANNICK URIOSTEGUI JR Referring Unav ailable ESTERLE, BEV M Primary Care Unavailable YANNICK URIOSTEGUI JR Referring Unav ailable ESTERLE, BEV M Primary Care Unavailable Dr. Keyana Esposito MD Primary Care Provider [phone] Ezequiel Manuel MD Emergency Provider ESTERLE, BEV [...] Unavailable ESTERLE, BEV M Primary Care Unavailable RANDOLPH HEALTHYANANDHAN, ABBEY Attending Unavailabl e ESTERLE, BEV M Primary Care Unavailable DHAYANANDHAN, ABBEY Attending Unavailabl e ESTERLE, BEV M Primary Care Unavailable SEN, JAIMIE Referring Unavailable ROSI STACK YIELD ENGINEER-PYROMETER TEMPERATURE REGULATOR, BRANDON Attending Unavailab ned ESPOSITO MD, LASHONA K Primary Care Unavailable WILSON STACK YIELD ENGINEER-PYROMETER TEMPERATURE REGULATOR, NOLA Gallardo Primary Care Unav ailable ARTURO JHAVERI, SANDOVAL Daniel Attending Unavailable CATE JHAVERI, KEYANA Wilkinson Primary Care Unavailable TOYA HODGES MD Attending Unavailable TOYA HODGES MD Attending Unavailable CATE JHAVERI, KEYANA Wilkinson Primary Care Unavailable ROSI STACK YIELD ENGINEER-PYROMETER TEMPERATURE REGULATOR, BRANDON Attending Unavailab ned ESPOSITO MD, KEYANA Wilkinson Primary Care Unavailable CATE JHAVERI, KEYANA Wilkinson Primary Care Unavailable TOYA HODGES MD Attending Unavailable TOYA HODGES MD Attending Unavailable CATE JHAVERI, KEYANA Wilkinson Primary Care Unavailable CATE JHAVERI, KEYANA Wilkinson Primary Care Unavailable TOYA HODGES MD Attending Unavailable ROSI STACK YIELD ENGINEER-PYROMETER TEMPERATURE REGULATOR, BRANDON Attending Unavailab ned ESPOSITO MD, KEYANA Wilkinson Primary Care Unavailable CATE JHAVERI, LASHONA K Primary Care Unavailable YANNICK URIOSTEGUI JR, MD Attending Unavailab ned ESPOSITO MD, KEYANA Wilkinson Primary Care Unavailable ALLEY PACK MD Attending Unavailable KRIS CUSTOMER SERVICE DRIVER, [place] Attending Unavail able CATE JHAVERI, KEYANA Wilkinson Primary Care Unavailable CATE JHAVERI, LASHONA K Primary Care Unavailable TOYA HODGES MD Attending Unavailable TOYA HODGES MD Attending Unavailable CATE JHAVERI, KEYANA Wilkinson Primary Care Unavailable CATE JHAVERI, LASHONA K Primary Care Unavailable YANNICK URIOSETGUI JR, MD Attending Unavailab Keyana Aguilar Primary [...] Nausea And Vomiting, GI Upset, Vomiting [facility] (1 source) Acetaminophen Drug Allergy 5 vomits [facility] (1 source) Acetaminophen Drug Allergy 5 [facility] Repository Medications Current Medications Medication Drug Class(es) [...] (PERCOCET) 7.5-325 mg tablet as needed. Active [id number] 200 actuat albuterol 0.09 mg/actuat metered dose inhaler (20 sources) beta2-Adrenergic Agonist Start: 02-02-2024 take 1 puff(s) by inhalation every six hours as needed for wheezing ProAir HFA MDI (90 mcg/inh) inhalation aerosol 1 puff(s), Inhalation, q6hr, PRN Shortness of breath or wheezing, # 8.5 gram(s), 0 Refill(s), Pharmacy: [place] [address], Bronchitis, 167, cm, 02/02/24 10:52:00 EDT, Height, [...] qDay, # 90 tab(s), 1 Refill(s), [facility] , Hyperlipidemia, 167.7, cm, 11/10/23 7:48:00 EDT, [...] cuff., # 1 EA, 0 Refill(s), [facility], Hypertension, 167, cm, 05/17/24 9:35:00 EST, Height, 122.5, kg, 05/17/24 9:35:00 EST, Dosing Weight Start Date: 05/17/24 Status: Ordered Medication Dispense Status: Completed Quantity: 1.0 Unit: EA Total Allowed Fills: 1 Fills Dispensed: 0 Indications: Essential (primary) hypertension; Start: 05-17-2024 DME MISCellane ous See Instructions, automatic BP cuff., # 1 EA, 0 Refill(s), [facility], Hypertension, 167, cm, 05/17/24 9:35:00 EST, Height, [...] qDay, # 90 tab(s), 3 Refill(s), [facility] , Hyperlipidemia, 167.7, cm, 11/10/23 7:48:00 EDT, [...] 0 Start: 11-10-2023 [facility] lisinopril 20 mg oral tablet Dose : 20 mg =, Oral, qDay, # 90 tab(s), 3 Refill(s), Pharmacy: [facility], 167.7, cm, 11/10/23 7:48:00 EDT, Height, kg, 11/10/23 7:48:00 EDT, Dosing Weight Start Date: 11/10/23 Status: Ordered Start: 11-16-2019 lisinopril (ZE STRIL, PRINIVIL) 10 mg tablet 40 mg. 11/16/2019 Active Start: 11-16-2019 lisinopril (CT INIVIL;ZESTRIL) 10 MG tablet Start: 09-02-2019 take [...] food/meal, # 30 tab(s), 0 Refill(s), [facility]: [facility], 167, cm, 02/02/24 10:52:00 EDT, Height, [...] 06-24-2023 Episodic Other aftercare (1 source) Other intermission coordinator (current) drug therapy; Translations: [Other nursing home (current) drug therapy] Onset: 09-27-2024 Episodic Other [...] FINGERSTICKon CREATININE WB < 1.0 Normal 0.55-1.02 [facility] Comment on above: Performed By: #### L 9100.0200 #### [facility] [address] [place], [place], [address] EGFR WB > 60.0000 Normal >60 [facility] Comment on above: Performed By: #### L 9100.0200 #### [facility] [address] [place], [place], [address] /Veena 05-10-2025 MR/[facility] [address], [address] [place], [place] [address] OFFICE VISIT Date of Service: 05/10/25 MR#: [id number] Acct: [id number] Name: GARY MELCHOR Rep #: [id number] : 1970 Provider: Dr. Amy Velasquez i, MD Age/Sex: 54/F [place] [facility] [place]: Signed Intake Vital Signs 04/24/25 10:27 05/10/25 09:58 Height 5 ft 5 in 5 ft 5 in Weight: 247 lb BMI 41.1 BP 130/78 H Pulse 68 Temp 98.1 F Intake Visit Reasons: CYSTO PEVLIC EXAM Chief Complaint: cystoscopy Territory Sales Manager Required: No Is patient in pain?: Yes [...] healthy appearing, comfortable and no acute distress [facility] Head: normocephalic and atraumatic Ears: hearing grossly [...] no mass (more content not included)... Normal [facility] Cytology, Body Fluid / CSFon 04-24-2025 CYTOLOGY,BF/CSF SEE PATHOLOGY REPORT Normal [facility] Comment on above: Order Comment: URINE Result Comment: Spec imen submitted to Anatomical Pathology Department for testing. Performed By: #### L 350.1000 #### [facility] [place], [address] /Veena 04-24-2025 /[facility] [address], [address] [place] [address] OFFICE VISIT Date of Service: 04/24/25 MR#: [id number] Acct: [id number] Name: GARY MELCHOR Rep #: [id number] : 1970 Provider: Dr. Amy Velasquez i, MD Age/Sex: 54/F Location[place] [facility] [place] Status: Signed Intake Vital Signs 12/18/24 00:52 04/24/25 10:27 Height 5 ft 5 in 5 ft 5 in Weight: 247 lb BMI 41.1 BP 115/87 H Pulse 72 Intake Visit Reasons: blood in urine Chief Complaint: new patient- hematuria Territory Sales Manager Required: No Accompanied by: self Is patient [...] surgery Social History Smoking Status: Never smoker [facility] Urology Chief Complaint: new patient- hematuria [...] issues as well. 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 She has had chills, nausea, [...] movement Car (more content not included)... Normal [facility] Pap Stain (control)on 2024 Pap Stain (control) -- ---- Patient Age/Sex Location Account Attending Physician ---- GARY MELCHOR 54/F LABSPEC [id number] Dr. Amy Moscoso MD ---- Specimen: [id number] Received: 04/24/25 Status: KATHLEEN Guadarrama Num: [id number] Spec Type: CYSMO Mendoza Dr: Dr. Amy Moscoso MD HEADER OPERATION: Not noted PRE-OP DIAGNOSIS: Gross hematuria TISSUE SUBMITTED: A- Urine for cytology - voided ---- DIAGNOSIS CYTOLOGY A. Urine, voided (cytospin): - No malignant cells identified. - Predominantly squamous cells present. CYTOLOGY STUDY Slides are reviewed. CYTOLOGY GROSS A. Received is 50 ml of ubqnbd-kgeuxe-smjltd fluid labeled with the patient's name and and designated per the requisition as urine. Submitted for cytology preparation. 04/25/2025 CPT: 76001 Signed (signature on file) Dr. Bekah Ashton MD 04/26/25 1616 ---- Normal [facility] Comment on above: Performed By: #### P SOFY #### [facility] [address] [place], [place], [id number] CNOVon 04-13-2025 CNOV Office Visit (KIDMLK ) GARY MELCHOR ([id number]) 1970 F Date Time Provider Department 04/13/25 8:00 AM ABBEY JIMENEZ During your visit today, we recorded the following information about you: Pulse Blood pressure Weight 69/minute 133/78 117.8 kg Abbey Jimenez MD 04/13/2025 9:14 AM Signed [facility] NEPHROLOGY AND HYPERTENSION [facility] SERVICE DATE [...] 2022. 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 Normal [facility] Prot/Creat Uron 04-13-2025 Protein/Creatinine (U) [Mass ratio] 0.16 mg/mg High <0.15 [facility] Comment on above: Order Comment: Speci men Type: URINE SPECIMENOrdering Facility: [facility] Address: [address] [place] [address] Result Comment: Adul t Proteinuria Categories: <0.15 mg/mg is considered normal to mildly increased 0.15 - 0.50 mg/mg is considered moderately increased >0.50 mg/mg is considered severely increased KDIGO. (2013). KDIGO 2012 Clinical Practice Guideline for the Evaluation and Management of Chronic Kidney Disease. Official Journal of the International Society of Nephrology, 3(1), 1-150. Performed By: #### 2 890-2 ####[facility] LABCLIA [id number] [place] [address] [place] Protein/Creatinine (U) [Mass ratio]on 04-13-2025 Creatinine (U) [Mass/Vol] 37.9 mg/dL Normal 20.0-300.0 [facility] Comment on above: Order Comment: Speci men Type: URINE SPECIMENOrdering Facility: [facility] Address: [address] [place] [id number] Performed By: #### 2 890-2 ####[facility] LABCLIA [id number] [place] [id number] [place] Protein (U) [Mass/Vol] 6 mg/dL Normal 0-20 [facility] Comment on above: Order Comment: Speci men Type: URINE SPECIMENOrdering Facility: [facility] Address: [address] [place] [address] Performed By: #### 2 890-2 ####[facility] LABCLIA [id number] [place] [address] [place] US KIDNEY/BLADDERon 04-13-20 [...] sonographic appearance of the kidneys and bladder. [employer]: [facility] Transcribe Date/Time: Apr 13 2025 2:39P Dictated by : TRIXIE RO MD This examination was interpreted and the report reviewed and electronically signed by: TRIXIE RO MD on Apr 13 2025 2:41PM EST [id number] Normal [facility] Urinalysis complete panel (U )on 04-13-2025 Bilirubin Ql (U) Negative Normal Negative [facility] Comment on above: Order Comment: Speci men Type: URINE SPECIMENOrdering Facility: [facility] Address: [address] [place] [address] Performed By: #### 2 4356-8 ####[facility] LWCLIA [id number] [address] [place] Clarity (Unsp spec) Clear Normal Clear [facility] Comment on above: Order Comment: Speci men Type: URINE SPECIMENOrdering Facility: [facility] Address: [address] [place] [address] Performed By: #### 2 4356-8 ####[facility] LWIA [id number] [address] Color (U) Light Yellow Normal yellow [facility] Comment on above: Order Comment: Speci men Type: URINE SPECIMENOrdering Facility: [facility] Address: [address] [place] [address] Performed By: #### 2 4356-8 ####[facility] LWCLIA [id number] [address] Epithelial cells LM.HPF (Urine sed) [#/Area] Few Normal [facility] Comment on above: Order Comment: Speci men Type: URINE SPECIMENOrdering Facility: [facility] Address: [address] [place] [address] Result Comment: Few Performed By: #### 2 4356-8 ####[facility] LWCLIA [id number] [address] [place] Glucose Test strip (U) [Mass/Vol] Negative Normal Trace, Negative [facility] Comment on above: Order Comment: Speci men Type: URINE SPECIMENOrdering Facility: [facility] Address: [address] [place] [address] Performed By: #### 2 4356-8 ####[facility] LWCLIA [id number] [address] [place] Hemoglobin Ql (U) 1+ Abnormal Negative, Trace [facility] Comment on above: Order Comment: Speci men Type: URINE SPECIMENOrdering Facility: [facility] Address: [address] [place] [address] Performed By: #### 2 4356-8 ####[facility] LWCLIA [id number] [place] [address] [place] Ketones Ql (U) Negative Normal Negative, Trace [facility] Comment on above: Order Comment: Speci men Type: URINE SPECIMENOrdering Facility: [facility] Address: [address] [place] [address] Performed By: #### 2 4356-8 ####[facility] LWCLIA [id number] [place] [address] [place] Leukocyte esterase Test strip Ql (U) 250 Vincent/uL Abnormal Negative, 25 Vincent/uL [facility] Comment on above: Order Comment: Speci men Type: URINE SPECIMENOrdering Facility: [facility] Address: [address] [place] [address] Performed By: #### 2 4356-8 ####[facility] LWCLIA [id number] [place] [address] [place] Nitrite Ql (U) Negative Normal Negative [facility] Comment on above: Order Comment: Speci men Type: URINE SPECIMENOrdering Facility: [facility] Address: [address] [place] [address] Performed By: #### 2 4356-8 ####[facility] LWCLIA [id number] [place] [address] [place] pH (U) 6.5 [pH] Normal 5.0-8.0 [facility] Comment on above: Order Comment: Speci men Type: URINE SPECIMENOrdering Facility: [facility] Address: [address] [place] [address] Performed By: #### 2 4356-8 ####[facility] LWCLIA [id number] [place] [address] [place] Protein (U) [Mass/Vol] Negative Normal Trace, Negative [facility] Comment on above: Order Comment: Speci men Type: URINE SPECIMENOrdering Facility: [facility] Address: [address] [place] [address] Performed By: #### 2 4356-8 ####[facility] LWCLIA [id number] [place] [address] [place] RBC LM.HPF (Urine sed) [#/Area] 0-3 /HPF Normal 0-3 /HPF [facility] Comment on above: Order Comment: Speci men Type: URINE SPECIMENOrdering Facility: [facility] Address: [address] [place] [address] Performed By: #### 2 4356-8 ####[facility] LWCLIA [id number] [address] Specific gravity (U) [Rel density] 1.011 Normal 1.005-1.030 [facility] Comment on above: Order Comment: Speci men Type: URINE SPECIMENOrdering Facility: [facility] Address: [address] [place] [address] Performed By: #### 2 4356-8 ####[facility] LWCLIA [id number] [address] Urobilinogen Ql (U) Normal Normal Normal [facility] Comment on above: Order Comment: Speci men Type: URINE SPECIMENOrdering Facility: [facility] Address: [address] [place] [address] Performed By: #### 2 4356-8 ####[facility] LWCLIA [id number] [place] [address] [facility] WBC LM.HPF (Urine sed) [#/Area] 6-10 /HPF Abnormal 0-5 /HPF [facility] Comment on above: Order Comment: Speci men Type: URINE SPECIMENOrdering Facility: [facility] Address: [address] [place] [address] Performed By: #### 2 4356-8 ####[facility] LWCLIA [id number] [address] [place] PMDSon 03-24-2025 ToxAssure 13 Summary FINAL Normal [facility] Comment on above: Result Comment: ==== [...] consultation, please call . ==== Performed At: [employer] [address] [place] [id number] Robbie Forte [facility] Ph:[phone] Performed By: #### 7 [address] #### [place] [address] .GFRon 03-17-2025 Estimated Glomerular Filtration Rate 92 ml/min/1.73sqm Normal [facility] Comment on above: Result Comment: Stages [...] Performed By: #### B MP, GFR #### [address] [address] BMPon 03-17-2025 BUN/Creatinine Ratio 26 ratio Normal 7-27 [facility] Comment on above: Performed By: #### B MP, GFR #### [address] [address] Calcium [Mass/Vol] 9.1 mg/dL Normal 8.4-10.2 [facility] Comment on above: Performed By: #### B MP, GFR #### [address] [address] Chloride [Moles/Vol] 105 mmol/L Normal 98-107 [facility] Comment on above: Performed By: #### B MP, GFR #### [address] [address] CO2 [Moles/Vol] 31 mmol/L High 22-29 [facility] Comment on above: Performed By: #### B MP, GFR #### [address] [address] Creatinine [Mass/Vol] 0.76 mg/dL Normal 0.51-0.95 [facility] Comment on above: Performed By: #### B MP, GFR #### [address] [address] Electrolyte Balance 6.0 mEq/L Normal 4.0-15.0 [facility] Comment on above: Performed By: #### B MP, GFR #### [address] [address] Glucose [Mass/Vol] 125 mg/dL High 70-105 [facility] Comment on above: Performed By: #### B MP, GFR #### [address] [address] Potassium [Moles/Vol] 3.9 mmol/L Normal 3.5-5.1 [facility] Comment on above: Performed By: #### B MP, GFR #### [address] [address] Sodium [Moles/Vol] 142 mmol/L Normal 136-145 [facility] Comment on above: Performed By: #### B MP, GFR #### [facility] [address] [place], [place] [address] Urea nitrogen [Mass/Vol] 20 mg/dL High 7-18 [facility] Comment on above: Performed By: #### B MP, GFR #### [facility] [address] [place], [place] [address] LABORATORYOrdered By: Jose Guadalupe goldman on 03-17-2025 [...] UAon 03-17-2025 Color (U) Yellow Normal Yellow [facility] Comment on above: Performed By: #### U A, UAMIC #### [address] [address] Glucose (U) [Mass/Vol] Negative Normal Negative [facility] Comment on above: Performed By: #### U A, UAMIC #### [place] [address] [place], [place] [address] Ketones Ql (U) Negative Normal Negative [facility] Comment on above: Performed By: #### U A, UAMIC #### [place] [address] UA Appear Clear Normal Clear [facility] Comment on above: Performed By: #### U A, UAMIC #### [place] [address] UA Blood Moderate Abnormal Negative [facility] Comment on above: Performed By: #### U A, UAMIC #### [place] [address] UA Leuk Est Negative Normal Negative [facility] Comment on above: Performed By: #### U A, UAMIC #### [place] [address] UA Nitrite Negative Normal Negative [facility] Comment on above: Performed By: #### U A, UAMIC #### [place] [address] UA pH 6.0 Normal 5.0 - 8.0 [facility] Comment on above: Performed By: #### U A, UAMIC #### [place] [address] UA Protein 30 mg/dL Normal Negative [facility] Comment on above: Performed By: #### U A, UAMIC #### [place] [address] UA Spec Grav >=1.030 Abnormal 1.015-1.025 [facility] Comment on above: Performed By: #### U A, UAMIC #### [place] [address] UA Specimen Type Clean Catch Normal [facility] Comment on above: Performed By: #### U A, UAMIC #### [place] [address] UA Urobilinogen 0.2 E.U./dL Normal 0.2-1.0 [facility] Comment on above: Performed By: #### U A, UAMIC #### [place] [address] Urobilinogen (U) [Mass/Vol] Negative Normal Negative [facility] Comment on above: Performed By: #### U A, UAMIC #### [place] [address] [place], [place] [address] UAMICon 03-17-2025 UA RBC 5-10 Abnormal 0-2 [facility] Comment on above: Performed By: #### U A, UAMIC #### [place] [address] [place], [place] [address] UA Squam Epithelial 3-5 Normal 0-20 [facility] Comment on above: Performed By: #### U A, UAMIC #### [place] [address] [place], [place] [address] UA WBC 0-2 Normal 0-5 [facility] Comment on above: Performed By: #### U A, UAMIC #### [address] [address] CNPNon 02-28-2025 CNPN Telephone (MIDMSV) GARY MELCHOR ([id number]) 1970 F Date Time Provider Department 02/28/25 [...] medical records have been altered by his certified legal investigator Protein in urine on and off States [...] she can have those results faxed to [phone] Allergies As of Date: 02/28/2025 Noted Allergy [...] Status:Closed by ABBEY JIMENEZ on 02/28/25 Normal [facility] 25([place])D3 [facility] 25-hydroxyvitamin D3 [Mass/Vol] 33.0 ng/mL Normal 31.0-80.0 [facility] Comment on above: Order Comment: Speci men Type: BLOOD SPECIMEN [facility] Address: [address] [place] [address] Result Comment: Clas sification of 25 [place] Vitamin D status: Deficiency/Insufficiency: < or = 30 ng/ml. Sufficiency/Optimal Levels: 31-80 ng/mL Toxicity: > 100 ng/mL. Test performed by chemiluminescent immunoassay. Performed By: #### A NAIFR, ANCA #### [facility] CLIA [id number] [address] [place] [address] [place] 25-hydroxyvitamin D3 [Mass/V ol]on 02-22-2025 Interpretation and review of laboratory results Normal [facility] The reference range interval was based on an analysis of samples from healthy adults and may not pertain to children from 0-18 years old. [facility] FAYE BY IFA WITH REFLEXon Nuclear Ab Ql (S) Negative Normal Negative [place] [facility] Comment on above: Order Comment: Speci nydia Type: BLOOD SPECIMEN [facility] Address: [address] [place] [address] Result Comment: Anti -nuclear antibody test is used as an aid in diagnosis of systemic autoimmune diseases. Where positive and clinically warranted, follow-up using disease-specific testing is recommended. Low positive titers are not uncommon with advanced age, certain chronic infections, and malignancies among others. Test methodology: Indirect fluorescence immunoassay (IFA) using HEp-2 cells. Performed By: #### A NAIFR, ANCA #### [facility] CLIA [id number] [address] [place] [address] [place] ANTI NEUTRO CYTO ABon 2024 INTERPRETATION (ANCA) Negative for C-ANC A and P-ANCA by indirect immunofluorescence. A negative result cannot reliably rule out ANCA-associated vaculitides especially when in remission. Clinical correlation is required. Normal [facility] Comment on above: Order Comment: Dannii nydia Type: BLOOD SPECIMEN [facility] Address: [address] [place] [address] Performed By: #### A NAIFR, ANCA #### [facility] CLIA [id number] [address] [place] [address] [place] Neutrophil cytoplasmic Ab.classic IF Ql (S) Negative Normal Negative [facility] Comment on above: Order Comment: [facility] Type: BLOOD SPECIMEN [facility] Address: [address], [place] [address] Performed By: #### A NAIFR, ANCA #### [facility] CLIA [id number] [address] [place] [address] [place] Neutrophil cytoplasmic Ab.perinuclear IF Ql (S) Negative Normal Negative [facility] Comment on above: Order Comment: Speci men Type: BLOOD SPECIMEN [facility] Address: [address] [place] [address] Performed By: #### A NAIFR, ANCA #### [facility] CLIA [id number] [address] [place] [address] [place] STAFF REVIEW (ANCA) No review performed. Normal [facility] Comment on above: Order Comment: Speci men Type: BLOOD SPECIMEN [facility] Address: [address] [place] [address] Performed By: #### A NAIFR, ANCA #### [facility] CLIA [id number] [address] [place] [address] [place] C3 COMPLEMENTon 02-22-2025 Complement C3 [Mass/Vol] 174 mg/dL High 86 - 166 mg/dL [facility] C3 SerPl-mCncon 02-22-2025 Complement C3 [Mass/Vol] 174 mg/dL High 86-166 [facility] Comment on above: Order Comment: Speci men Type: BLOOD SPECIMEN [facility] Address: [address] [place] [address] Performed By: #### 1 1572-5, 4498-2, 4485-9 #### [facility] CLIA [id number] [address] [place] [address] [place] C4 COMPLEMENTon 02-22-2025 Complement C4 [Mass/Vol] 20 mg/dL 13 - 46 mg/dL [facility] C4 SerPl-mCncon 02-22-2025 Complement C4 [Mass/Vol] 20 mg/dL Normal 13-46 [facility] Comment on above: Order Comment: Speci men Type: BLOOD SPECIMEN [facility] Address: [address] [place] [address] Performed By: #### 1 1572-5, 4498-2, 4485-9 #### [facility] CLIA [id number] [address] [place] [address] [place] CBC panel Auto (Bld)on 02-22 Erythrocyte distribution width (RBC) [Ratio] 11.9 % 11.5 - 15.0 % [facility] Hematocrit (Bld) [Volume fraction] 39.1 % 36.0 - 46.0 % [facility] Hemoglobin (Bld) [Mass/Vol] 13.0 g/dL 11.5 - 15.5 g/dL [facility] Interpretation and review of laboratory results Normal [facility] MCH (RBC) [Entitic mass] 30.2 pg 26.0 - 34.0 pg [facility] MCHC (RBC) [Mass/Vol] 33.2 g/dL 30.5 - 36.0 g/dL [facility] MCV (RBC) [Entitic vol] 90.7 fL 80.0 - 100.0 fL [facility] Nucleated RBC (Bld) [#/Vol] NINF [facility] Platelet mean volume (Bld) [Entitic vol] 9.0 fL 9.0 - 12.7 fL [facility] Platelets (Bld) [#/Vol] 263 10*3/uL [facility] RBC (Bld) [#/Vol] 4.31 10*6/uL 3.90 - 5.2 0 m/uL [facility] WBC (Bld) [#/Vol] 6.44 10*3/uL [facility] Erythrocyte distribution width (RBC) [Ratio] 11.9 % Normal 11.5-15.0 [facility] Comment on above: Order Comment: Speci men Type: BLOOD SPECIMEN [facility] Address: [address] [place] [address] Performed By: #### A SHELBIE NICHOLAS #### [facility] CLIA [id number] [address] [place] [address] Hematocrit (Bld) [Volume fraction] 39.1 % Normal 36.0-46.0 [facility] Comment on above: Order Comment: Speci men Type: BLOOD SPECIMEN [facility] Address: [address] [place] [address] Performed By: #### A NAIFR, ANCA #### [facility] CLIA [id number] [address] [place] [address] [place] Hemoglobin (Bld) [Mass/Vol] 13.0 g/dL Normal 11.5-15.5 [facility] Comment on above: Order Comment: Speci men Type: BLOOD SPECIMEN [facility] Address: [address] [place] [address] Performed By: #### A NAIFR, ANCA #### [facility] CLIA [id number] [address] [place] [address] [place] MCH (RBC) [Entitic mass] 30.2 pg Normal 26.0-34.0 [facility] Comment on above: Order Comment: Speci men Type: BLOOD SPECIMEN [facility] Address: [address] [place] [address] Performed By: #### A NAIFR, ANCA #### [facility] CLIA [id number] [address] [place] [address] [place] MCHC (RBC) [Mass/Vol] 33.2 g/dL Normal 30.5-36.0 [facility] Comment on above: Order Comment: Speci men Type: BLOOD SPECIMEN [facility] Address: [address] [place] [address] Performed By: #### A NAIFR, ANCA #### [facility] CLIA [id number] [address] [place] [address] [place] MCV (RBC) [Entitic vol] 90.7 fL Normal 80.0-100.0 [facility] Comment on above: Order Comment: Speci men Type: BLOOD SPECIMEN [facility] Address: [address] [place] [address] Performed By: #### A NAIFR, ANCA #### [facility] CLIA [id number] [address] [place] [address] [place] Nucleated RBC (Bld) [#/Vol] 10*3/uL Normal <0.01 [facility] Comment on above: Order Comment: Speci men Type: BLOOD SPECIMEN [facility] Address: [address] [place] [address] Performed By: #### A NAIFR, ANCA #### [facility] CLIA [id number] [address] [place] [address] [place] Platelet mean volume (Bld) [Entitic vol] 9.0 fL Normal 9.0-12.7 [facility] Comment on above: Order Comment: Speci men Type: BLOOD SPECIMEN [facility] Address: [address] [place] [address] Performed By: #### A NAIFR, ANCA #### [facility] CLIA [id number] [address] [place] [address] [place] Platelets (Bld) [#/Vol] 263 10*3/uL Normal 150-400 [facility] Comment on above: Order Comment: Speci men Type: BLOOD SPECIMEN [facility] Address: [address] [place] [address] Performed By: #### A NAIFR, ANCA #### [facility] CLIA [id number] [address] [place] [address] [place] RBC (Bld) [#/Vol] 4.31 10*6/uL Normal 3.90-5.20 [facility] Comment on above: Order Comment: Speci men Type: BLOOD SPECIMEN [facility] Address: [address] [place] [address] Performed By: #### A NAIFR, ANCA #### [facility] CLIA [id number] [address] [place] [address] [place] WBC (Bld) [#/Vol] 6.44 10*3/uL Normal 3.70-11.00 [facility] Comment on above: Order Comment: Speci men Type: BLOOD SPECIMEN [facility] Address: [address] [place] [address] Performed By: #### A SHELBIE NICHOLAS #### [facility] CLIA [id number] [address] [place] [address] OF [facility] CNOVon 02-22-2025 CNOV Office Visit (MIDMAV ) RUIZGARY ([id number]) 1970 F Date Time Provider Department 02/22/25 9:20 AM ABBEY JIMENEZ [facility] During your visit today, we recorded the following information about you: Pulse Blood pressure Weight Height 77/minute 137/79 115.2 kg 1.676 m Abbey Jimenez MD 02/22/2025 2:21 PM Signed [facility] NEPHROLOGY AND HYPERTENSION [facility] SERVICE DATE [...] 2022. 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 - Discovered 4 gallons of [employer] Torch fuel in shed, suspects hydrocarbon poisoning. [...] BMI 40.99 (more content not included)... Normal [facility] Centromere Ab IF Ql (S)on Centromere Ab Qn (S) <0.2 Normal <1.0 [facility] Comment on above: Order Comment: Speci men Type: BLOOD SPECIMEN [facility] Address: [address] [place] [address] Result Comment: Anti -centromere antibody is used as in aid in diagnosis of systemic sclerosis. Clinical correlation is required. Test Methodology: Multiplex flow immunoassay. Performed By: #### 5 1775-5, 12667-1, 71155-7, 22439-6, 58300-3, 61613-2, 56711-1, 48813-4 #### [facility] CLIA [id number] [address] [place] [address] [place] CENTROMERE AB QUAL Negative Normal Negative [facility] Comment on above: Order Comment: Speci men Type: BLOOD SPECIMEN [facility] Address: [address] [place] [address] Performed By: #### 5 1775-5, 85317-3, 61446-7, 78245-2, 08482-6, 08913-3, 80771-9, 53763-2 #### [facility] CLIA [id number] [address] [place] [address] [place] Chromatin Ab Qnon 02-22-2025 CHROMATIN AB QUAL Negative Normal Negative [facility] Comment on above: Order Comment: Speci men Type: BLOOD SPECIMEN [facility] Address: [address] [place] [address] Performed By: #### 5 1775-5, 83969-5, 15274-0, 83080-5, 81227-6, 44926-3, 38563-3, 23812-4 #### [facility] CLIA [id number] [address] [place] [address] [place] Chromatin Ab SerPl-aCncon Chromatin Ab Qn <0.2 Normal <1.0 [facility] Comment on above: Order Comment: Speci men Type: BLOOD SPECIMEN [facility] Address: [address] [place] [address] Result Comment: Test Methodology: Multiplex flow immunoassay. Performed By: #### 5 1775-5, 79137-8, 25924-5, 09168-2, 44299-3, 51690-4, 92190-4, 75625-8 #### [facility] CLIA [id number] [address] [place] [address] [place] Complement C3 [Mass/Vol]on 0 02-22-2025 Interpretation and review of laboratory results Abnormal [facility] JOSE L Jo1 Ab Ser-aCncon 2024 Gill-1 extractable nuclear Ab Qn (S) <0.2 Normal <1.0 [facility] Comment on above: Order Comment: Speci men Type: BLOOD SPECIMEN [facility] Address: [address] [place] [address] Performed By: #### A NAIFR, ANCA #### [facility] [place] [id number] [address] [place] [address] [place] JOSE L KIER DRIER Ab Ser-aCncon 2024 Ribonucleoprotein extractable nuclear Ab Qn (S) <0.2 Normal <1.0 [facility] Comment on above: Order Comment: Speci men Type: BLOOD SPECIMEN [facility] Address: [address] [place] [address] Performed By: #### A NAIFR, ANCA #### [facility] IA [id number] [address] [place] [address] [place] Ribonucleoprotein extractable nuclear Ab Qn (S) 0.2 AI Normal <1.0 [facility] Comment on above: Order Comment: Speci men Type: BLOOD SPECIMEN [facility] Address: [address] [place] [address] Performed By: #### A NAIFR, ANCA #### [facility] IA [id number] [address] [place] [address] [place] JOSE L SM IgG Ser-aCncon 2024 Benavides extractable nuclear IgG Qn (S) <0.2 Normal <1.0 [facility] Comment on above: Order Comment: Speci men Type: BLOOD SPECIMEN [facility] Address: [address] [place] [address] Performed By: #### A NAIFR, ANCA #### [facility] CLIA [id number] [address] [place] [address] [place] JOSE L SS-A Ab Ser-aCncon 02-22 Sjogrens syndrome-A extractable nuclear Ab Qn (S) <0.2 Normal <1.0 [facility] Comment on above: Order Comment: Speci men Type: BLOOD SPECIMEN [facility] Address: [address] [place] [address] Result Comment: Test Methodology: Multiplex flow immunoassay. Performed By: #### A NAIFR, ANCA #### [facility] CLIA [id number] [address] [place] [address] JOSE L SS-B Ab Ser-aCncon 02-22 Sjogrens syndrome-B extractable nuclear Ab Qn (S) <0.2 Normal <1.0 [facility] Comment on above: Order Comment: [facility]i [facility] Type: BLOOD SPECIMEN [facility] Address: [address] [place] [address] Result Comment: Anti -SSB (anti-La) antibody is used as an aid in diagnosis of a variety of systemic autoimmune diseases, especially for Sjogren's syndrome and systemic lupus erythematosus. Clinical correlation is required. Test Methodology: Multiplex flow immunoassay. Performed By: #### 5 1775-5, 93081-5, 20990-7, 30625-0, 66848-1, 48192-3, 85693-0, 34102-1 #### [facility] CLIA [id number] [address] [place] [address] [place] GBM IGG AUTOANTIBODYon 02-22 GBM IGG AB, (BEAD) 0 AU/mL Normal 0-19 [facility] Comment on above: Order Comment: Speci men Type: BLOOD SPECIMEN [facility] Address: [address] [place] [address] Result Comment: INTE RPRETIVE INFORMATION: GBM Ab, [...] and assessment of renal prognosis. Performed By: [facility] [address] [place] [address] Cake Winder: Anukr Figueredo MD, PhD CLIA Number: [id number] Performed By: #### [facility] [place] #### [facility] CLIA [id number] [address] [place] [address] HBV core Ab Ser Qlon 025 HBV core Ab Ql (S) Negative Normal Negative [facility] Comment on above: Order Comment: [facility] Type: BLOOD SPECIMEN [facility] Address: [address] [place] [address] Result Comment: No e vidence of current or past infection with Hepatitis B virus. Should recent infection be suspected, repeat testing may be considered 3-4 weeks after this draw. Performed By: #### A NAIFR, ANCA #### [facility] CLIA [id number] [address] [place] [address] [place] HBV surface Ab Ql (S)on 01-28 HBV surface Ab Qn (S) <8.00 Normal [facility] Comment on above: Order Comment: Speci [facility] Type: BLOOD SPECIMEN [facility] Address: [address] [place] [address] Result Comment: <8 m IU/mL: No serological evidence of immunity to Hepatitis B Virus. >/= 8 to <12 mIU/mL: No serological evidence of immunity to Hepatitis B Virus. >/= 12 mIU/mL: Consistent with serological evidence of immunity to Hepatitis B Virus. Performed By: #### A NAIFR, ANCA #### [facility] CLIA [id number] [address] [place] [address] [place] HBV surface Ab Ser Qlon 01-28 HBV surface Ab Ql (S) Negative Normal [facility] Comment on above: Order Comment: Speci men Type: BLOOD SPECIMEN [facility] Address: [address] [place] [address] Result Comment: No s erological evidence of immunity to Hepatitis B Virus. Performed By: #### A NAIFR, ANCA #### [facility] CLIA [id number] [address] [place] [address] [place] HBV surface Ag Ser Qlon 01-28 HBV surface Ag Ql (S) Negative Normal Negative [facility] Comment on above: Order Comment: Speci men Type: BLOOD SPECIMEN [facility] Address: [address] [place] [address] Performed By: #### A NAIFR, ANCA #### [facility] CLIA [id number] [address] [place] [address] [place] HCV Ab Ser Ql02-22-2025 HCV Ab Ql (S) Negative Normal Negative [facility] Comment on above: Order Comment: Speci men Type: BLOOD SPECIMEN [facility] Address: [address] [place] [address] Result Comment: The result suggests no evidence of infection with Hepatitis C virus. Should recent infection be suspected, repeat testing may be considered 4-6 weeks after this draw. Performed By: #### A NAIFR, ANCA #### [facility] CLIA [id number] [address] [place] [address] [place] HIV 1+2 Ab IA Qlon HIV 1 and 2 Ab IA.rapid Nom (S/P/Bld) [facility] Comment on above: Test not indicated. HIV 1+2 Ab+HIV1 p24 Ag IA Ql Non-Reactive Nonreactive [facility] HIV immunoassay testing algorithm interpretation (S/P/Bld) [Interp] [facility] Comment on above: No evidence of HIV-1 or HIV-2 infection. Should recent infection be suspected, repeat testing may be considered 2-3 weeks after this draw. [place] Rev. Code 3701.243(E): This information has been [...] release of HIV test results or diagnoses. [facility] HIV 1 and 2 Ab IA.rapid Nom (S/P/Bld) [facility] Comment on above: Order Comment: Speci men Type: BLOOD SPECIMEN [facility] Address: [address] [place] [address] Result Comment: Test not indicated. Performed By: #### A NAIFR, ANCA #### [facility] CLIA [id number] [address] [place] [address] [place] HIV 1+2 Ab+HIV1 p24 Ag IA Ql Non-Reactive Normal Nonreactive [facility] Comment on above: Order Comment: Speci men Type: BLOOD SPECIMEN [facility] Address: [address] [place] [address] Performed By: #### A NAIFR, ANCA #### [facility] CLIA [id number] [address] [place] [address] [place] HIV immunoassay testing algorithm interpretation (S/P/Bld) [Interp] [facility] Comment on above: Order Comment: Speci men Type: BLOOD SPECIMEN [facility] Address: [address] [place] [address] Result Comment: No e vidence of HIV-1 or HIV-2 infection. Should recent infection be suspected, repeat testing may be considered 2-3 weeks after this draw. [place] Rev. Code 3701.243(E): This information has been [...] Performed By: #### A NAIFR, ANCA #### [facility] CLIA [id number] [address] [place] [address] IMMUNOFIXATION SCREEN, SERUM on 02-22-2025 MPA RESULT No M protein is identified. Normal No M protein is identified. [facility] Comment on above: Order Comment: Speci men Type: BLOOD SPECIMEN [facility] Address: [address] [place] [address] Performed By: #### I FESC #### [facility] CLIA [id number] [address] [place] [address] STAFF REVIEW (MPA) Reviewed by Bev Cheema MD [facility] Comment on above: Order Comment: Speci men Type: BLOOD SPECIMEN [facility] Address: [address] [place] [address] Performed By: #### I FESC #### [facility] CLIA [id number] [address] [place] [address] [place] IMMUNOGLOBULINS,IGG,IGA,IGMo n 02-22-2025 IgA [Mass/Vol] 245 mg/dL Normal 70-400 [facility] Comment on above: Order Comment: Speci men Type: BLOOD SPECIMEN [facility] Address: [address] [place] [address] Performed By: #### A NAIFR, ANCA #### [facility] CLIA [id number] [address] [place] [address] [place] IgG [Mass/Vol] 1051 mg/dL Normal 700-1600 [facility] Comment on above: Order Comment: Speci men Type: BLOOD SPECIMEN [facility] Address: [address] [place] [address] Performed By: #### A NAIFR, ANCA #### [facility] CLIA [id number] [address] [place] [address] [place] IgM [Mass/Vol] 173 mg/dL Normal 40-230 [facility] Comment on above: Order Comment: [facility] Type: BLOOD SPECIMEN [facility] Address: [address] [place] [address] Performed By: #### A NAIFR, ANCA #### [facility] CLIA [id number] [address] [place] [address] [place] Gill-1 extractable nuclear Ab Qn (S)on 02-22-2025 GILL 1 ANTIBODY QUAL Negative Normal Negative [facility] Comment on above: Order Comment: [facility] Type: BLOOD SPECIMEN [facility] Address: [address] [place] [address] Result Comment: Anti -GILL-1 antibody is used as an aid in diagnosis of polymyositis and dermatomyositis especially with pulmonary involvement. A negative result cannot rule out polymyositis or dermatomyositis. Clinical correlation is required. Test Methodology: Multiplex flow immunoassay. Performed By: #### A NAIFR, ANCA #### [facility] CLIA [id number] [address] [place] [address] [place] KAPPA/OLIVARES,FREE,SERon 2024 Immunoglobulin light chains.kappa.free (S) [Mass/Vol] 17.6 mg/L Normal 3.3-19.4 [facility] Comment on above: Order Comment: [facility] Type: BLOOD SPECIMEN [facility] Address: [address] [place] [address] Result Comment: Rare ly, increased serum free light chains levels may not be detected or accurately quantified due to prozone phenomenon or in high viscosity samples using this immunoturbidimetric assay. Correlation with other laboratory results and clinical findings is recommended. The [place] Free Light Chain was performed using the Binding Site Optil[employer] immunoturbidimetric method. Result obtained with different assay methods or kits cannot be used interchangeably. Performed By: #### A NAIFR, ANCA #### [facility] CLIA [id number] [address] [place] [address] [place] Immunoglobulin light chains.kappa/Immunogl obulin light chains.lambda (S) [Mass ratio] 1.25 Normal 0.26-1.65 [facility] Comment on above: Order Comment: Speci men Type: BLOOD SPECIMEN [facility] Address: [address] [place] [address] Performed By: #### A NAIFR, ANCA #### [facility] CLIA [id number] [address] [place] [address] [place] Immunoglobulin light chains.lambda.free [Mass/Vol] 14.1 mg/L Normal 5.7-26.3 [facility] Comment on above: Order Comment: Speci men Type: BLOOD SPECIMEN [facility] Address: [address] [place] [address] Result Comment: Rare ly, increased serum free [...] Performed By: #### A NAIFR, ANCA #### [facility] CLIA [id number] [address] [place] [address] [place] No Panel Informationon 02-22 Interpretation and review of laboratory results Normal [facility] RHEUMATOID FACTORon 02-23-20 25 Rheumatoid factor Qn 11 [IU]/mL NINF [place] [facility] Renal function 2000 panelon 02-22-2025 Albumin [Mass/Vol] 4.5 g/dL 3.9 - 4.9 g/dL [facility] Anion gap [Moles/Vol] 10 mmol/L 8 - 15 mmol/L [facility] Calcium [Mass/Vol] 10.1 mg/dL 8.5 - 10. 2 mg/dL [facility] Chloride [Moles/Vol] 100 mmol/L 98 - 10 7 mmol/L [facility] CO2 [Moles/Vol] 28 mmol/L 22 - 30 mmol/L [facility] Creatinine [Mass/Vol] 0.75 mg/dL 0.58 - 0.96 mg/dL [facility] GFR/1.73 sq M.predicted among non-blacks MDRD (S/P/Bld) [Vol rate/Area] 94 mL/min/{1.73_m2} - PINF [facility] Comment on above: Estimated Glomerular Filtration [...] [Mass/Vol] 95 mg/dL 74 - 99 mg/dL [facility] Comment on above: The [place] Diabete s Association (ADA) provides guidance for [...] Standards of Medical Care in Diabetes 2016, [place] Diabetes Association. Diabetes Care. 2016.39(Suppl 1). Interpretation and review of laboratory results Normal [facility] Phosphate [Mass/Vol] 4.0 mg/dL 2.7 - 4 .8 mg/dL [facility] Potassium [Moles/Vol] 4.0 mmol/L 3.7 - 5.1 mmol/L [facility] Sodium [Moles/Vol] 138 mmol/L 136 - 144 mmol/L [facility] Urea nitrogen [Mass/Vol] 15 mg/dL 7 - 21 mg/dL [facility] Albumin [Mass/Vol] 4.5 g/dL Normal 3.9-4.9 [facility] Comment on above: Order Comment: Speci men Type: BLOOD SPECIMEN [facility] Address: [address] [place] [address] Performed By: #### A NAIFR, ANCA #### [facility] CLIA [id number] [address] [place] [address] [place] Anion gap [Moles/Vol] 10 mmol/L Normal 8-15 [facility] Comment on above: Order Comment: Speci men Type: BLOOD SPECIMEN [facility] Address: [address] [place] [address] Performed By: #### A NAIFR, ANCA #### [facility] CLIA [id number] [address] [place] [address] [place] Calcium [Mass/Vol] 10.1 mg/dL Normal 8.5-10.2 [facility] Comment on above: Order Comment: Speci men Type: BLOOD SPECIMEN [facility] Address: [address] [place] [address] Performed By: #### A NAIFR, ANCA #### [facility] CLIA [id number] [address] [place] [address] [place] Chloride [Moles/Vol] 100 mmol/L Normal 98-107 [facility] Comment on above: Order Comment: Speci men Type: BLOOD SPECIMEN [facility] Address: [address] [place] [address] Performed By: #### A NAIFR, ANCA #### [facility] CLIA [id number] [address] [place] [address] [place] CO2 [Moles/Vol] 28 mmol/L Normal 22-30 [facility] Comment on above: Order Comment: Speci men Type: BLOOD SPECIMEN [facility] Address: [address] [place] [address] Performed By: #### A NAIFR, ANCA #### [facility] CLIA [id number] [facility] [place] [address] [place] Creatinine [Mass/Vol] 0.75 mg/dL Normal 0.58-0.96 [facility] Comment on above: Order Comment: Trav stafford Type: BLOOD SPECIMEN [facility] Address: [address] [place] [address] Performed By: #### A SGR, ANCA #### [facility] CLIA [id number] [address] [place] [address] [place] eGFRcr SerPlBld CKD-EPI 2020 94 mL/min/1.73m??? Normal >=60 [facility] Comment on above: Order Comment: Trav stafford Type: BLOOD SPECIMEN [facility] Address: [address] [place] [address] Result Comment: Susie mated Glomerular Filtration Rate [...] Performed By: #### A SGR, ANCA #### [facility] CLIA [id number] [address] [place] [address] [place] Glucose [Mass/Vol] 95 mg/dL Normal 74-99 [facility] Comment on above: Order Comment: Trav stafford Type: BLOOD SPECIMEN [facility] Address: [address] [place] [address] Result Comment: The [place] Diabetes Association (ADA) provides guidance for cutoff [...] Standards of Medical Care in Diabetes 2016, [place] Diabetes Association. Diabetes Care. 2016.39(Suppl 1). Performed By: #### A NAIFR, ANCA #### [facility] CLIA [id number] [address] [place] [address] [place] Phosphate [Mass/Vol] 4.0 mg/dL Normal 2.7-4.8 [facility] Comment on above: Order Comment: Speci men Type: BLOOD SPECIMEN [facility] Address: [address] [place] [address] Performed By: #### A NAIFR, ANCA #### [facility] CLIA [id number] [address] [place] [address] [place] Potassium [Moles/Vol] 4.0 mmol/L Normal 3.7-5.1 [facility] Comment on above: Order Comment: Speci men Type: BLOOD SPECIMEN [facility] Address: [address] [place] [address] Performed By: #### A NAIFR, ANCA #### [facility] CLIA [id number] [address] [place] [address] [place] Sodium [Moles/Vol] 138 mmol/L Normal 136-144 [facility] Comment on above: Order Comment: Speci men Type: BLOOD SPECIMEN [facility] Address: [address] [place] [address] Performed By: #### A NAIFR, ANCA #### [facility] CLIA [id number] [address] [place] [address] [place] Urea nitrogen [Mass/Vol] 15 mg/dL Normal 7-21 [facility] Comment on above: Order Comment: Speci men Type: BLOOD SPECIMEN [facility] Address: [address] [place] [address] Performed By: #### A NAIFR, ANCA #### [facility] CLIA [id number] [address] [place] [address] [place] Rheumatoid fact SerPl-aCncon 02-22-2025 Rheumatoid factor Qn 11 [IU]/mL Normal <16 [facility] Comment on above: Order Comment: Speci men Type: BLOOD SPECIMEN [facility] Address: [address] [place] [address] Performed By: #### 1 1572-5, 4498-2, 4485-9 #### [facility] CLIA [id number] [address] [place] [address] [place] Ribonucleoprotein extractabl e nuclear Ab Qn (S)on 02-22-2025 ANTI-KIER DRIER QUAL Negative Normal Negative [facility] Comment on above: Order Comment: Speci [facility] Type: BLOOD SPECIMEN [facility] Address: [address] [place] [address] Performed By: #### A NAIFR, ANCA #### [facility] CLIA [id number] [address] [place] [address] [place] RIBOSOMAL KIER DRIER QUAL Negative Normal Negative [facility] Comment on above: Order Comment: [facility] Type: BLOOD SPECIMEN [facility] Address: [address] [place] [address] Result Comment: Anti -Ribosomal RNA (Ribosomal P) antibody is used as an aid in diagnosis of systemic autoimmune diseases especially systemic lupus erythematosus and mixed connective tissue disease. Cross-reactivity with Anti-benavides antibody is not uncommon. Clinical correlation is required. Test Methodology: Multiplex flow immunoassay. Performed By: #### A NAIFR, ANCA #### [facility] CLIA [id number] [address] [place] [address] [place] SCL-70 extractable nuclear I gG IA Qn (S)on 02-22-2025 SCLERODERMA AB QUAL Negative Normal Negative [facility] Comment on above: Order Comment: Speci men Type: BLOOD SPECIMEN [facility] Address: [address] [place] [address] Performed By: #### A NAIFR, ANCA #### [facility] CLIA [id number] [address] [place] [address] [place] SCLERODERMA IGG AB <0.2 Normal <1.0 [facility] Comment on above: Order Comment: Speci men Type: BLOOD SPECIMEN [facility] Address: [address] [place] [address] Result Comment: Scl- 70/Scleroderma antibody test is used as an aid in diagnosis of systemic sclerosis especially the diffuse cutaneous form. A negative result cannot rule out systemic sclerosis. The final interpretation should consider clinical picture and other test results such as anti-centromere antibody. Test Methodology: Multiplex flow immunoassay. Performed By: #### A NAIFR, ANCA #### [facility] CLIA [id number] [address] [place] [address] [place] Sjogrens syndrome-A extracta ble nuclear Ab Qn (S)on 02-22-2025 SSA ANTIBODY QUAL Negative Normal Negative [facility] Comment on above: Order Comment: Speci men Type: BLOOD SPECIMEN [facility] Address: [address] [place] [address] Performed By: #### A NAIFR, ANCA #### [facility] CLIA [id number] [address] [place] [address] [place] Sjogrens syndrome-B extracta ble nuclear Ab Qn (S)on 02-22-2025 SSB ANTIBODY QUAL Negative Normal Negative [facility] Comment on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 negative result does not preclude C. trachomatis infection because results depend on adequate specimen collection, absence of inhibitors, and sufficient DNA to be detected. See CT Interp N Performed By: #### L IPID, A1C, CBC, ADIFF, ANEU, B12, CMP, VIDH, GFR #### [address] [address] C.trachomatis PCR Negative Normal Negative [facility] Comment on above: Result Comment: Mole cular (PCR) assay performed on the [employer] 4800 system. Performed By: #### L IPID, A1C, CBC, ADIFF, ANEU, B12, CMP, VIDH, GFR #### [address] [address] Chlam Source Urine Normal [facility] Comment on above: Performed By: #### L IPID, A1C, CBC, ADIFF, ANEU, B12, CMP, VIDH, GFR #### [address] [address] [id number] 09-22-2024 GC PCR Source Urine Normal [facility] Comment on above: Performed By: #### L IPID, A1C, CBC, ADIFF, ANEU, B12, CMP, VIDH, GFR #### [address] [address] N. gonorrhoeae (PCR) Negative Normal Negative [facility] Comment on above: Result Comment: Mole cular (PCR) assay performed on the Jake Willie 4800 System. Performed By: #### L IPID, A1C, CBC, ADIFF, ANEU, B12, CMP, VIDH, GFR #### [address] [address] N. gonorrhoeae Interp Normal See NG Interp N [facility] Comment on above: Result Comment: N. g onorrhoeae DNA not detected. Specimen is presumptive negative for N. gonorrhoeae. A negative result does not preclude Neisseria gonorrhoeae infection because results depend on adequate specimen collection, absence of inhibitors, and sufficient DNA to be detected. See NG Interp N Performed By: #### L IPID, A1C, CBC, ADIFF, ANEU, B12, CMP, VIDH, GFR #### [place] [address] RPRon 09-21-2024 Reagin Ab RPR Ql (S) Non-Reactive Normal Non-Reactive [facility] Comment on above: Result Comment: [...] ADIFF, ANEU, B12, CMP, VIDH, GFR #### [place] [address] HBSAGon 09-20-2024 Hep B Surf Ag Non-Reactive Normal Non-Reactive [facility] Comment on above: Performed By: #### L IPID, A1C, CBC, ADIFF, ANEU, B12, CMP, VIDH, GFR #### [place] [address] HCVon 09-20-2024 Hep C Ab Non-Reactive Normal Non-Reactive [facility] Comment on above: Performed By: #### L IPID, A1C, CBC, ADIFF, ANEU, B12, CMP, VIDH, GFR #### [place] [address] Hep C Ab Int Normal [facility] Comment on above: Result Comment: [...] ADIFF, ANEU, B12, CMP, VIDH, GFR #### [place] [id number] [place] [address] HIVon 09-20-2024 HIV 1/2 Ab Non-Reactive Normal Non-Reactive [facility] Comment on above: Result Comment: Spec jaelyn is negative for anti-HIV-1 and anti-HIV-2. Performed By: #### L IPID, A1C, CBC, ADIFF, ANEU, B12, CMP, VIDH, GFR #### [place] [address] TRVAMPon 09-20-2024 Trich Vag Source Urine Normal [facility] Comment on above: Performed By: #### L IPID, A1C, CBC, ADIFF, ANEU, B12, CMP, VIDH, GFR #### [place] [address] HMETBon 09-12-2024 Blood Lead Purpose Initial Normal [facility] Comment on above: Performed By: #### U RAMO, UA #### [address] [address] Blood Lead Type Venous Normal [facility] Comment on above: Performed By: #### U AMICAO, UA #### [place] [address] [facility] 09-11-2024 Arsenic Bld Lvl 14 UG/L High 0-9 [facility] Comment on above: Result Comment: This test was developed and its performance characteristics determined by [employer]. It has not been cleared or approved [...] Performed By: #### U AMICAO, UA #### [address] [address] Cadmium Bld Lvl 0.6 UG/L Normal 0.0-1.2 [facility] Comment on above: Result Comment: This test was developed and its performance characteristics determined by [employer]. It has not been cleared or approved by the Food and Drug Administration. Environmental Exposure: Nonsmokers 0.3 - 1.2 Smokers 0.6 - 3.9 Occupational Exposure: OSHA Cadmium Std 5.0 YELITZA 5.0 Detection Limit = 0.5 Performed At: [facility] [address] [id number] Tomás Bailey MD Ph:[phone] Performed By: #### Lis RALPH, UA #### [place] [address] [place], [place] [address] Lead Bld Lvl <1.0 Normal 0.0-3.4 [facility] Comment on above: Result Comment: Test ing performed by Inductively coupled plasma/Mass Spectrometry. This test was developed and its performance characteristics determined by [employer]. It has not been cleared or approved by the Food and Drug Administration. Environmental Exposure: WHO Recommendation <5.0 Occupational Exposure: OSHA Lead Std 40.0 YELITZA 30.0 Detection Limit = 1.0 Performed By: #### Lis RALPH, UA #### [address] [address] Mercury Bld Lvl 1.9 UG/L Normal 0.0-14.9 [facility] Comment on above: Result Comment: This test was developed and its performance characteristics determined by [employer]. It has not been cleared or approved by the Food and Drug Administration. Detection Limit = 1.0 Performed By: #### Lis RALPH UA #### [address] [address] [place] PELVIS NON-OB W/TRANSVAGI NALon 09-08-2024 US [...] 09/08/2024 11:01:14 AM Ordering Provider: [facility] .Auto Diffon 09-06-2024 Basophil, Absolute 0.0 10 3/mcL Normal 0.0-0.2 [facility] Comment on above: Performed By: #### A DIFF, GFR, ANEU, MDW, CMP, CBC, [id number] #### [place] [address] [place], [place] [address] Basophils/100 WBC (Bld) 0.4 % Normal 0.0-2.5 [facility] Comment on above: Performed By: #### A DIFF, GFR, ANEU, MDW, CMP, CBC, 562772 #### [facility] [address] [place], [place] [address] Eosinophil, Absolute 0.0 10 3/mcL Normal 0.0-0.7 [facility] Comment on above: Performed By: #### A DIFF, GFR, ANEU, MDW, CMP, CBC, [id number] #### [place] [address] [place], [place] [address] Eosinophils/100 WBC (Bld) 0.4 % Normal 0.0-7.0 [facility] Comment on above: Performed By: #### A DIFF, GFR, ANEU, MDW, CMP, CBC, 283331 #### [address] [address] Lymphocyte, Absolute 2.3 10 3/mcL Normal 0.9-4.3 [facility] Comment on above: Performed By: #### A DIFF, GFR, ANEU, MDW, CMP, CBC, 544037 #### [address] [address] Lymphocytes/100 WBC (Bld) 27.7 % Normal 20.0-40.0 [facility] Comment on above: Performed By: #### A DIFF, GFR, ANEU, MDW, CMP, CBC, 927364 #### [address] [address] Monocyte, Absolute 0.5 10 3/mcL Normal 0.1-1.4 [facility] Comment on above: Performed By: #### A DIFF, GFR, ANEU, MDW, CMP, CBC, 650047 #### [address] [address] Monocytes/100 WBC (Bld) 6.4 % Normal 2.0-13.0 [facility] Comment on above: Performed By: #### A DIFF, GFR, ANEU, MDW, CMP, CBC, 918365 #### [address] [address] Neutrophils/100 WBC (Bld) 65.1 % Normal 50.0-75.0 [facility] Comment on above: Performed By: #### A DIFF, GFR, ANEU, MDW, CMP, CBC, 004929 #### [address] [address] .GFRon 09-06-2024 Estimated Glomerular Filtration Rate 67 ml/min/1.73sqm Normal [facility] Comment on above: Result Comment: Stages [...] Performed By: #### U AMICAO UA #### [place] [address] .MDWon 09-06-2024 Monocyte Distribution Width 14.45 Normal 0.00-20.00 [facility] Comment on above: Result Comment: For ED adult patients suspected of sepsis, MDW<=20.0 does not rule out sepsis or risk of sepsis Performed By: #### U AMITHOMAS UA #### [place] [address] .NEUABSon 09-06-2024 Neutrophil, Absolute 5.5 10 3/mcL Normal 2.3-8.1 [facility] Comment on above: Performed By: #### A DIFF, GFR, ANEU, MDW, CMP, CBC, [id number] #### [place] [address] .Urinalysis Microscopic (AO) on 09-06-2024 UA RBC 0-5 Abnormal None Seen [facility] Comment on above: Performed By: #### U AMICAO UA #### [place] [address] UA Squam Epithelial 0-5 Abnormal None Seen [facility] Comment on above: Performed By: #### U AMICAO UA #### [place] [address] UA WBC 5-10 Abnormal None Seen [facility] Comment on above: Performed By: #### U AMICAO UA #### [place] [id number] CBCon 09-06-2024 Erythrocyte distribution width (RBC) [Ratio] 15.7 % High 11.5-15.5 [facility] Comment on above: Performed By: #### A DIFF, GFR, ANEU, MDW, CMP, CBC, 765608 #### [address] [address] Hematocrit (Bld) [Volume fraction] 47.1 % High 34.0-46.0 [facility] Comment on above: Performed By: #### A DIFF, GFR, ANEU, MDW, CMP, CBC, 008311 #### [address] [address] Hgb 15.6 G/dL Normal 12.0-16.0 [facility] Comment on above: Performed By: #### A DIFF, GFR, ANEU, MDW, CMP, CBC, 113549 #### [address] [address] MCH (RBC) [Entitic mass] 29.4 pg Normal 27.0-33.0 [facility] Comment on above: Performed By: #### A DIFF, GFR, ANEU, MDW, CMP, CBC, 103695 #### [address] [address] MCHC 33.1 G/dL Normal 32.0-36.0 [facility] Comment on above: Performed By: #### A DIFF, GFR, ANEU, MDW, CMP, CBC, 846730 #### [address] [address] MCV (RBC) [Entitic vol] 88.7 fL Normal 80.0-99.0 [facility] Comment on above: Performed By: #### A DIFF, GFR, ANEU, MDW, CMP, CBC, 519806 #### [address] [address] Platelet 328 10 3/mcL Normal 150-450 [facility] Comment on above: Performed By: #### A DIFF, GFR, ANEU, MDW, CMP, CBC, 041104 #### [address] [address] Platelet mean volume (Bld) [Entitic vol] 7.1 fL Normal 6.6-10.5 [facility] Comment on above: Performed By: #### A DIFF, GFR, ANEU, MDW, CMP, CBC, 029860 #### [place] [address] [place], [place] [address] RBC 5.31 10 6/mcL High 4.10-5.30 [facility] Comment on above: Performed By: #### A DIFF, GFR, ANEU, MDW, CMP, CBC, 591791 #### [address] [address] WBC 8.4 10 3/mcL Normal 4.5-10.8 [facility] Comment on above: Performed By: #### A DIFF, GFR, ANEU, MDW, CMP, CBC, 186286 #### [address] [address] CMPon 09-06-2024 Albumin Level 3.9 G/dL Normal 3.5-5.0 [facility] Comment on above: Performed By: #### U AMICAFredy UA #### [address] [address] Albumin/Globulin [Mass ratio] 0.9 {ratio} Low 1.1-2.5 [facility] Comment on above: Performed By: #### U AMICAO UA #### [address] [address] ALP [Catalytic activity/Vol] 109 U/L Normal 40-135 [facility] Comment on above: Performed By: #### U AMICAO UA #### [address] [address] ALT [Catalytic activity/Vol] 29 U/L Normal 14-59 [facility] Comment on above: Performed By: #### U AMICAO UA #### [address] [address] AST [Catalytic activity/Vol] 24 U/L Normal 10-40 [facility] Comment on above: Performed By: #### U AMICAO, UA #### [address] [address] Bili Total 0.3 mg/dL Normal 0.2-1.0 [facility] Comment on above: Result Comment: Use of this assay is not recommended for patients undergoing treatment with eltrombopag due to the potential for falsely elevated results. Performed By: #### Lis RALPH UA #### [place] [address] BUN/Creatinine Ratio 15 ratio Normal 7-27 [facility] Comment on above: Performed By: #### Lis RALPH UA #### [place] [address] Calcium [Mass/Vol] 10.1 mg/dL Normal 8.4-10.2 [facility] Comment on above: Performed By: #### Lis RALPH UA #### [place] [address] Chloride [Moles/Vol] 103 mmol/L Normal 98-107 [facility] Comment on above: Performed By: #### Lis RALPH UA #### [place] [address] CO2 [Moles/Vol] 22 mmol/L Normal 22-29 [facility] Comment on above: Performed By: #### Lis RALPH UA #### [place] [address] Creatinine [Mass/Vol] 0.99 mg/dL Normal 0.55-1.02 [facility] Comment on above: Result Comment: Test ing performed on Siemens Dimension EXL analyzer using a modified kinetic Meme technique. Performed By: #### Lis RALPH UA #### [place] [address] Electrolyte Balance 13.0 mEq/L Normal 4.0-15.0 [facility] Comment on above: Performed By: #### Lis RALPH UA #### [place] [address] Globulin 4.3 G/dL High 1.5-3.8 [facility] Comment on above: Performed By: #### U AMICAFredy UA #### [address] [address] Glucose [Mass/Vol] 102 mg/dL Normal 70-105 [facility] Comment on above: Performed By: #### U AMICAFredy UA #### [address] [address] Potassium [Moles/Vol] 3.5 mmol/L Normal 3.5-5.1 [facility] Comment on above: Performed By: #### U RAMO UA #### [address] [address] Sodium [Moles/Vol] 138 mmol/L Normal 136-145 [facility] Comment on above: Performed By: #### Lis AMICAFredy UA #### [address] [address] Total Protein 8.2 G/dL Normal 6.4-8.2 [facility] Comment on above: Performed By: #### Lis RALPH UA #### [address] [address] Urea nitrogen [Mass/Vol] 15 mg/dL Normal 7-18 [facility] Comment on above: Performed By: #### U AMICAFredy UA #### [address] [address] UAon 09-06-2024 Color (U) Yellow Normal [facility] Comment on above: Performed By: #### U AMICAO, UA #### [address] [address] Glucose (U) [Mass/Vol] 500 mg/dL Abnormal Negative [facility] Comment on above: Performed By: #### U AMICAO, UA #### [address] [address] Ketones Ql (U) Negative Normal Negative [facility] Comment on above: Performed By: #### U AMICAO, UA #### [address] [address] UA Appear Clear Normal Clear [facility] Comment on above: Performed By: #### U AMICAO, UA #### [address] [address] UA Blood Moderate Abnormal Negative [facility] Comment on above: Performed By: #### U AMICAO, UA #### [address] [address] UA Leuk Est Negative Normal Negative [facility] Comment on above: Performed By: #### U AMICAO, UA #### [place] [address] UA Nitrite Negative Normal Negative [facility] Comment on above: Performed By: #### U AMICAO, UA #### [place] [address] UA pH 5.5 Normal 5.0 - 8.0 [facility] Comment on above: Performed By: #### U AMICAO, UA #### [place] [address] UA Protein 100 mg/dL Abnormal Negative [facility] Comment on above: Performed By: #### U AMICAO, UA #### [address] [address] UA Spec Grav 1.015 Normal 1.015-1.025 [facility] Comment on above: Performed By: #### U AMICAO, UA #### [address] [address] UA Specimen Type Clean Catch Normal [facility] Comment on above: Performed By: #### U AMICAO, UA #### [place] [address] UA Urobilinogen 0.2 E.U./dL Normal 0.2-1.0 [facility] Comment on above: Performed By: #### U AMICAO, UA #### [address] [address] Urobilinogen (U) [Mass/Vol] Negative Normal Negative [facility] Comment on above: Performed By: #### U AMICAO, UA #### [address] [address] UDRUGon 09-06-2024 Amphetamine (u) Negative Normal Negative [facility] Comment on above: Performed By: #### U DRUG #### [address] [address] Barbiturate (u) Negative Normal Negative [facility] Comment on above: Performed By: #### U DRUG #### [address] [address] Benzodiazepine (u) Negative Normal Negative [facility] Comment on above: Performed By: #### U DRUG #### [address] [address] Cannabinoid (u) Negative Normal Negative [facility] Comment on above: Performed By: #### U DRUG #### [address] [address] Cocaine Ql (U) Negative Normal Negative [facility] Comment on above: Performed By: #### U DRUG #### [address] [address] Methadone Ql (U) Negative Normal Negative [facility] Comment on above: Performed By: #### U DRUG #### [address] [address] Opiate (u) Negative Normal Negative [facility] Comment on above: Performed By: #### U DRUG #### [address] [address] PCP (u) Negative Normal Negative [facility] Comment on above: Performed By: #### U DRUG #### [address] [address] Urine Drugs screened: See Below Normal [facility] Comment on above: Result Comment: This drug [...] Performed By: #### U DRUG #### [place] [address] [place], [place] [address] XR CHEST 2 VIEWSon XR CHEST 2 [...] VASQUEZ XR HUMERUS MINIMUM 2 VIEWS L [facility] 08-18-2024 XR HUMERUS MINIMUM 2 VIEWS [...] Ordering Provider: TOYA HODGES Normal MOLLY MASSILLON [id number] 06-28-2024 HLA-B27 Negative Normal MOLLY MASSILLON Comment [...] not necessary. [facility] CLIA ID Number [id number] This test was performed using Polymerase Chain Reaction (PCR) and Sequence Specific Oligonucleotide Probes (SSOP) technique. Sequence Based Typing (SBT) may be used as a supplemental method when necessary. If you have questions, please call [facility] customer service at or email at [email or web address]. Performed At: [facility] [address] [place], [place] [id number] Abhi Limon PhD Ph:[phone] Performed By: #### 0 [address] #### [address] [address] .Auto Diffon 05-10-2024 Basophil, Absolute 0.0 10 3/mcL Normal 0.0-0.3 [facility] Comment on above: Performed By: #### L IPID, A1C, CBC, ADIFF, ANEU, B12, CMP, VIDH, GFR #### [address] [address] Basophils/100 WBC (Bld) 0.4 % Normal 0.0-2.5 [facility] Comment on above: Performed By: #### L IPID, A1C, CBC, ADIFF, ANEU, B12, CMP, VIDH, GFR #### [address] [address] Eosinophil, Absolute 0.2 10 3/mcL Normal 0.0-0.7 [facility] Comment on above: Performed By: #### L IPID, A1C, CBC, ADIFF, ANEU, B12, CMP, VIDH, GFR #### [address] [address] Eosinophils/100 WBC (Bld) 2.4 % Normal 0.0-6.0 [facility] Comment on above: Performed By: #### L IPID, A1C, CBC, ADIFF, ANEU, B12, CMP, VIDH, GFR #### [address] [address] Lymphocyte, Absolute 1.8 10 3/mcL Normal 0.9-4.3 [facility] Comment on above: Performed By: #### L IPID, A1C, CBC, ADIFF, ANEU, B12, CMP, VIDH, GFR #### [address] [address] Lymphocytes/100 WBC (Bld) 27.6 % Normal 20.0-40.0 [facility] Comment on above: Performed By: #### L IPID, A1C, CBC, ADIFF, ANEU, B12, CMP, VIDH, GFR #### [facility] [address] [place] [address] Monocyte, Absolute 0.6 10 3/mcL Normal 0.1-1.4 [facility] Comment on above: Performed By: #### L IPID, A1C, CBC, ADIFF, ANEU, B12, CMP, VIDH, GFR #### [address] [address] Monocytes/100 WBC (Bld) 8.9 % Normal 2.0-13.0 [facility] Comment on above: Performed By: #### L IPID, A1C, CBC, ADIFF, ANEU, B12, CMP, VIDH, GFR #### [address] [address] Neutrophils/100 WBC (Bld) 60.7 % Normal 50.0-75.0 [facility] Comment on above: Performed By: #### L IPID, A1C, CBC, ADIFF, ANEU, B12, CMP, VIDH, GFR #### [address] [address] .GFRon 05-10-2024 GFR Non- >60 Normal [facility] Comment on above: Result Comment: [...] ADIFF, ANEU, B12, CMP, VIDH, GFR #### [address] [address] GFR >60 Normal [facility] Comment on above: Result Comment: [...] ADIFF, ANEU, B12, CMP, VIDH, GFR #### [address] [address] .NEUABSon 05-10-2024 Neutrophil, Absolute 3.9 10 3/mcL Normal 2.3-8.1 [facility] Comment on above: Performed By: #### L IPID, A1C, CBC, ADIFF, ANEU, B12, CMP, VIDH, GFR #### [address] [address] A1Con 05-10-2024 Glucose [Mass/Vol] 117 mg/dL Normal [facility] Comment on above: Order Comment: - 6 m onth Result Comment: Susie mated Average Glucose calculated by equation ((28.7xA1C)-46.7) Estimated average glucose (eAG) is a calculated value from Hemoglobin A1C and is field representative/health education of the average blood glucose level in the last 2-3 month period. Normal range: less than 114 mg/dL Performed By: #### L IPID, A1C, CBC, ADIFF, ANEU, B12, CMP, VIDH, GFR #### [address] [address] HbA1c (Bld) [Mass fraction] 5.7 % Normal 4.0-6.0 [facility] Comment on above: Order Comment: - 6 m onth Performed By: #### L IPID, A1C, CBC, ADIFF, ANEU, B12, CMP, VIDH, GFR #### [address] [address] B12on 05-10-2024 Cobalamin (Vitamin B12) [Mass/Vol] 513 pg/mL Normal 211-911 [facility] Comment on above: Order Comment: - 6 m onth Performed By: #### L IPID, A1C, CBC, ADIFF, ANEU, B12, CMP, VIDH, GFR #### [address] [address] CBCon 05-10-2024 Erythrocyte distribution width (RBC) [Ratio] 16.5 % High 11.5-15.5 [facility] Comment on above: Order Comment: - 6 m onth Performed By: #### L IPID, A1C, CBC, ADIFF, ANEU, B12, CMP, VIDH, GFR #### [place] [address] Hematocrit (Bld) [Volume fraction] 36.5 % Normal 34.0-46.0 [facility] Comment on above: Order Comment: - 6 m onth Performed By: #### L IPID, A1C, CBC, ADIFF, ANEU, B12, CMP, VIDH, GFR #### [address] [address] Hgb 12.0 G/dL Normal 12.0-16.0 [facility] Comment on above: Order Comment: - 6 m onth Performed By: #### L IPID, A1C, CBC, ADIFF, ANEU, B12, CMP, VIDH, GFR #### [address] [address] MCH (RBC) [Entitic mass] 27.2 pg Normal 27.0-33.0 [facility] Comment on above: Order Comment: - 6 m onth Performed By: #### L IPID, A1C, CBC, ADIFF, ANEU, B12, CMP, VIDH, GFR #### [place] [id number] MCHC 32.9 G/dL Normal 32.0-36.0 [facility] Comment on above: Order Comment: - 6 m onth Performed By: #### L IPID, A1C, CBC, ADIFF, ANEU, B12, CMP, VIDH, GFR #### [place] [id number] MCV (RBC) [Entitic vol] 82.7 fL Normal 80.0-99.0 [facility] Comment on above: Order Comment: - 6 m onth Performed By: #### L IPID, A1C, CBC, ADIFF, ANEU, B12, CMP, VIDH, GFR #### [place] [id number] Platelet 289 10 3/mcL Normal 150-450 [facility] Comment on above: Order Comment: - 6 m onth Performed By: #### L IPID, A1C, CBC, ADIFF, ANEU, B12, CMP, VIDH, GFR #### [place] [id number] Platelet mean volume (Bld) [Entitic vol] 8.0 fL Normal 6.6-10.5 [facility] Comment on above: Order Comment: - 6 m onth Performed By: #### L IPID, A1C, CBC, ADIFF, ANEU, B12, CMP, VIDH, GFR #### [address] [address] RBC 4.42 10 6/mcL Normal 4.10-5.30 [facility] Comment on above: Order Comment: - 6 m onth Performed By: #### L IPID, A1C, CBC, ADIFF, ANEU, B12, CMP, VIDH, GFR #### [address] [address] WBC 6.4 10 3/mcL Normal 4.5-10.8 [facility] Comment on above: Order Comment: - 6 m onth Performed By: #### L IPID, A1C, CBC, ADIFF, ANEU, B12, CMP, VIDH, GFR #### [address] [address] CMPon 05-10-2024 Albumin Level 3.6 G/dL Normal 3.2-4.8 [facility] Comment on above: Order Comment: - 6 m onth Performed By: #### L IPID, A1C, CBC, ADIFF, ANEU, B12, CMP, VIDH, GFR #### [address] [address] Albumin/Globulin [Mass ratio] 1.1 {ratio} Normal 0.9-1.6 [facility] Comment on above: Order Comment: - 6 m onth Performed By: #### L IPID, A1C, CBC, ADIFF, ANEU, B12, CMP, VIDH, GFR #### [address] [address] ALP [Catalytic activity/Vol] 96 U/L Normal 38-126 [facility] Comment on above: Order Comment: - 6 m onth Performed By: #### L IPID, A1C, CBC, ADIFF, ANEU, B12, CMP, VIDH, GFR #### [address] [address] ALT [Catalytic activity/Vol] 31 U/L Normal 10-49 [facility] Comment on above: Order Comment: - 6 m onth Performed By: #### L IPID, A1C, CBC, ADIFF, ANEU, B12, CMP, VIDH, GFR #### [address] [address] AST [Catalytic activity/Vol] 26 U/L Normal 8-34 [facility] Comment on above: Order Comment: - 6 m onth Performed By: #### L IPID, A1C, CBC, ADIFF, ANEU, B12, CMP, VIDH, GFR #### [address] [address] Bili Total 0.30 mg/dL Normal 0.20-1.20 [facility] Comment on above: Order Comment: - 6 m onth Result Comment: Use of this assay is not recommended for patients undergoing treatment with eltrombopag due to the potential for falsely elevated results. Performed By: #### L IPID, A1C, CBC, ADIFF, ANEU, B12, CMP, VIDH, GFR #### [address] [address] BUN/Creatinine Ratio 24.7 ratio High 10.0-22.0 [facility] Comment on above: Order Comment: - 6 m onth Performed By: #### L IPID, A1C, CBC, ADIFF, ANEU, B12, CMP, VIDH, GFR #### [address] [address] Calcium [Mass/Vol] 9.8 mg/dL Normal 8.7-10.4 [facility] Comment on above: Order Comment: - 6 m onth Performed By: #### L IPID, A1C, CBC, ADIFF, ANEU, B12, CMP, VIDH, GFR #### [address] [address] Chloride [Moles/Vol] 106 mmol/L Normal 98-110 [facility] Comment on above: Order Comment: - 6 m onth Performed By: #### L IPID, A1C, CBC, ADIFF, ANEU, B12, CMP, VIDH, GFR #### [address] [address] CO2 [Moles/Vol] 31 mmol/L Normal 22-32 [facility] Comment on above: Order Comment: - 6 m onth Performed By: #### L IPID, A1C, CBC, ADIFF, ANEU, B12, CMP, VIDH, GFR #### [place] [address] Creatinine [Mass/Vol] 0.77 mg/dL Normal 0.50-1.20 [facility] Comment on above: Order Comment: - 6 m onth Result Comment: Test ing performed on Ongo analyzer using enzymatic creatinine methodology. Performed By: #### L IPID, A1C, CBC, ADIFF, ANEU, B12, CMP, VIDH, GFR #### [place] [id number] Electrolyte Balance 6.0 mEq/L Normal 4.0-15.0 [facility] Comment on above: Order Comment: - 6 m onth Performed By: #### L IPID, A1C, CBC, ADIFF, ANEU, B12, CMP, VIDH, GFR #### [address] [address] Globulin 3.4 G/dL Normal 1.5-3.8 [facility] Comment on above: Order Comment: - 6 m onth Performed By: #### L IPID, A1C, CBC, ADIFF, ANEU, B12, CMP, VIDH, GFR #### [address] [address] Glucose [Mass/Vol] 102 mg/dL Normal 70-110 [facility] Comment on above: Order Comment: - 6 m onth Performed By: #### L IPID, A1C, CBC, ADIFF, ANEU, B12, CMP, VIDH, GFR #### [address] [address] Potassium [Moles/Vol] 4.4 mmol/L Normal 3.5-5.0 [facility] Comment on above: Order Comment: - 6 m onth Performed By: #### L IPID, A1C, CBC, ADIFF, ANEU, B12, CMP, VIDH, GFR #### [address] [address] Sodium [Moles/Vol] 143 mmol/L Normal 136-145 [facility] Comment on above: Order Comment: - 6 m onth Performed By: #### L IPID, A1C, CBC, ADIFF, ANEU, B12, CMP, VIDH, GFR #### [address] [address] Total Protein 7.0 G/dL Normal 5.7-8.2 [facility] Comment on above: Order Comment: - 6 m onth Performed By: #### L IPID, A1C, CBC, ADIFF, ANEU, B12, CMP, VIDH, GFR #### [address] [address] Urea nitrogen [Mass/Vol] 19.0 mg/dL Normal 8.0-22.0 [facility] Comment on above: Order Comment: - 6 m onth Performed By: #### L IPID, A1C, CBC, ADIFF, ANEU, B12, CMP, VIDH, GFR #### [address] [address] LIPIDon 05-10-2024 Cholesterol [Mass/Vol] 203 mg/dL High 50-199 [facility] Comment on above: Order Comment: - 6 m onth Result Comment: Chol esterol Reference Interval: Less than 200 Desirable 200-239 Borderline high risk 240 and above High risk Performed By: #### L IPID, A1C, CBC, ADIFF, ANEU, B12, CMP, VIDH, GFR #### [address] [address] Cholesterol in HDL [Mass/Vol] 55 mg/dL Normal 40-59 [facility] Comment on above: Order Comment: - 6 m onth Performed By: #### L IPID, A1C, CBC, ADIFF, ANEU, B12, CMP, VIDH, GFR #### [address] [address] Cholesterol in LDL [Mass/Vol] 116 mg/dL Normal 0-129 [facility] Comment on above: Order Comment: - 6 m onth Performed By: #### L IPID, A1C, CBC, ADIFF, ANEU, B12, CMP, VIDH, GFR #### [address] [address] Triglyceride [Mass/Vol] 162 mg/dL High 3-149 [facility] Comment on above: Order Comment: - 6 m onth Performed By: #### L IPID, A1C, CBC, ADIFF, ANEU, B12, CMP, VIDH, GFR #### [address] [address] VIDHon 05-10-2024 Vit. D 25-Hydroxy 31.6 ng/mL Normal [facility] Comment on above: Order Comment: - 6 m onth Result Comment: Inte rpretive Values Based on Total 25(OH)D: Severe Deficiency <20 ng/mL Mild to Moderate Deficiency 20-30 ng/mL Optimum Levels 30-100 ng/mL Toxicity Possible >100 ng/mL Performed By: #### L IPID, A1C, CBC, ADIFF, ANEU, B12, CMP, VIDH, GFR #### [address] [address] XR CHEST 2 VIEWSon 4 XR CHEST [...] 12:18:07 PM Ordering Provider: NOLA WILSON Normal [facility] ([place]) .GFRon 11-03-2023 GFR >60 Normal [facility] ([place]) Comment on above: Result Comment: GFR Population [...] ADIFF, FT4, CBC, CMP, HCV1, A1C #### [address] [address] GFR Non- >60 Normal [facility] ([place]) Comment on above: Result Comment: GFR Population [...] ADIFF, FT4, CBC, CMP, HCV1, A1C #### [place] [id number] [facility] 11-03-2023 HbA1c (Bld) [Mass fraction] 5.8 % Normal 4.0-6.0 [facility] ([place]) Comment on above: Order Comment: 4 mon ths Performed By: #### V IDH, LIPID, GFR, TSH, ANEU, ADIFF, FT4, CBC, CMP, HCV1, A1C #### [address] [address] BMPon 11-03-2023 BUN/Creatinine Ratio 23.5 ratio High 10.0-22.0 [facility] ([place]) Comment on above: Order Comment: 4 mon ths Performed By: #### V IDH, LIPID, GFR, TSH, ANEU, ADIFF, FT4, CBC, CMP, HCV1, A1C #### [address] [address] Calcium [Mass/Vol] 9.7 mg/dL Normal 8.7-10.4 [facility] ([place]) Comment on above: Order Comment: 4 mon ths Performed By: #### V IDH, LIPID, GFR, TSH, ANEU, ADIFF, FT4, CBC, CMP, HCV1, A1C #### [address] [address] Chloride [Moles/Vol] 106 mmol/L Normal 98-110 [facility] ([place] Comment on above: Order Comment: 4 mon ths Performed By: #### V IDH, LIPID, GFR, TSH, ANEU, ADIFF, FT4, CBC, CMP, HCV1, A1C #### [address] [address] CO2 [Moles/Vol] 30 mmol/L Normal 22-32 [facility] ([place] Comment on above: Order Comment: 4 mon ths Performed By: #### V IDH, LIPID, GFR, TSH, ANEU, ADIFF, FT4, CBC, CMP, HCV1, A1C #### [address] [address] Creatinine [Mass/Vol] 0.85 mg/dL Normal 0.50-1.20 [facility] [place] Comment on above: Order Comment: 4 mon ths Performed By: #### V IDH, LIPID, GFR, TSH, ANEU, ADIFF, FT4, CBC, CMP, HCV1, A1C #### [address] [address] Electrolyte Balance 7.0 mEq/L Normal 4.0-15.0 [facility] ([place]) Comment on above: Order Comment: 4 mon ths Performed By: #### V IDH, LIPID, GFR, TSH, ANEU, ADIFF, FT4, CBC, CMP, HCV1, A1C #### [address] [address] Glucose [Mass/Vol] 95 mg/dL Normal 70-110 [facility] ([place]) Comment on above: Order Comment: 4 mon ths Performed By: #### V IDH, LIPID, GFR, TSH, ANEU, ADIFF, FT4, CBC, CMP, HCV1, A1C #### [address] [address] Potassium [Moles/Vol] 4.2 mmol/L Normal 3.5-5.0 [facility] [place] Comment on above: Order Comment: 4 mon ths Performed By: #### V IDH, LIPID, GFR, TSH, ANEU, ADIFF, FT4, CBC, CMP, HCV1, A1C #### [address] [address] Sodium [Moles/Vol] 143 mmol/L Normal 136-145 [facility] ([place]) Comment on above: Order Comment: 4 mon ths Performed By: #### V IDH, LIPID, GFR, TSH, ANEU, ADIFF, FT4, CBC, CMP, HCV1, A1C #### [address] [address] Urea nitrogen [Mass/Vol] 20.0 mg/dL Normal 8.0-22.0 [facility] ([place]) Comment on above: Order Comment: 4 mon ths Performed By: #### V IDH, LIPID, GFR, TSH, ANEU, ADIFF, FT4, CBC, CMP, HCV1, A1C #### [address] [address] LIPIDon 11-03-2023 Cholesterol [Mass/Vol] 230 mg/dL High 50-199 [facility] ([place]) Comment on above: Order Comment: 4 mon ths Result Comment: Chol esterol Reference Interval: Less than 200 Desirable 200-239 Borderline high risk 240 and above High risk Performed By: #### V IDH, LIPID, GFR, TSH, ANEU, ADIFF, FT4, CBC, CMP, HCV1, A1C #### [address] [address] Cholesterol in HDL [Mass/Vol] 73 mg/dL High 40-59 [facility] ([place] Comment on above: Order Comment: 4 mon ths Performed By: #### V IDH, LIPID, GFR, TSH, ANEU, ADIFF, FT4, CBC, CMP, HCV1, A1C #### [address] [address] Cholesterol in LDL [Mass/Vol] 134 mg/dL High 0-129 [facility] ([place] Comment on above: Order Comment: 4 mon ths Performed By: #### V IDH, LIPID, GFR, TSH, ANEU, ADIFF, FT4, CBC, CMP, HCV1, A1C #### [address] [address] Triglyceride [Mass/Vol] 117 mg/dL Normal 3-149 [facility] ([place]) Comment on above: Order Comment: 4 mon ths Performed By: #### V IDH, LIPID, GFR, TSH, ANEU, ADIFF, FT4, CBC, CMP, HCV1, A1C #### [address] [address] TSHon 11-03-2023 TSH 0.666 mIU/mL Normal 0.550-4.780 [facility] ([place]) Comment on above: Order Comment: 4 mon ths Result Comment: No te - New Reference Range in effect 20 Performed By: #### V IDH, LIPID, GFR, TSH, ANEU, ADIFF, FT4, CBC, CMP, HCV1, A1C #### [address] [address] [place] MAMMOGRAM DIAGNOSTIC RIGH T W/TOMOon 10-09-2023 [place] MAMMOGRAM DIAGNOSTIC RIGHT W/TREE ORIGINAL FROM: [address] [address] PROCEDURE FOR: GARY MELCHOR [address] [place] [address] Home: PID#: [id number] Exam#: [id number] : 1970 Age: 53 TO: NOLA RINALDI [address] EXAMINATION: DIAGNOSTIC DIGITAL RIGHT BREAST MAMMOGRAM [...] bilateral mammogram is recommended to demonstrate stability. [facility] risk calculations, generated with the history provided, [...] addition to annual mammographic screening per the [employer]. BIRADS: MAMMOGRAM BI-RADS: 3: Probably [...] WITH CALCIFICATIONS 9 OCLOCK/ 6 MONTHS FOLLOW-UP. Veterinary Livestock Inspector: MISTI CHAPIN RT(R)(M) letter sent: Probably Benign BI-RADS 3 Mammogram BI-RADS: 3 Probably benign Normal [facility] ([place]) [place] MYOCARDIAL SPECT STRESS/R ESTon 07-13-2023 NM [...] Date: 07/13/2023 3:21:24 PM Ordering Provider:Nola Christianson [facility] ([place]) .Auto Diffon 06-24-2023 Basophil, Absolute 0.0 10 3/mcL Normal 0.0-0.3 [facility] ([place]) Comment on above: Performed By: #### V IDH, LIPID, GFR, TSH, ANEU, ADIFF, FT4, CBC, CMP, HCV1, A1C #### [address] [id number] Basophils/100 WBC (Bld) 0.5 % Normal 0.0-2.5 [facility] ([place]) Comment on above: Performed By: #### V IDH, LIPID, GFR, TSH, ANEU, ADIFF, FT4, CBC, CMP, HCV1, A1C #### [address] [id number] Eosinophil, Absolute 0.2 10 3/mcL Normal 0.0-0.7 [facility] ([place]) Comment on above: Performed By: #### V IDH, LIPID, GFR, TSH, ANEU, ADIFF, FT4, CBC, CMP, HCV1, A1C #### [address] [id number] Eosinophils/100 WBC (Bld) 3.2 % Normal 0.0-6.0 [facility] ([place]) Comment on above: Performed By: #### V IDH, LIPID, GFR, TSH, ANEU, ADIFF, FT4, CBC, CMP, HCV1, A1C #### [address] [address] Lymphocyte, Absolute 1.8 10 3/mcL Normal 0.9-4.3 [facility] ([place]) Comment on above: Performed By: #### V IDH, LIPID, GFR, TSH, ANEU, ADIFF, FT4, CBC, CMP, HCV1, A1C #### [address] [id number] Lymphocytes/100 WBC (Bld) 37.6 % Normal 20.0-40.0 [facility] ([place]) Comment on above: Performed By: #### V IDH, LIPID, GFR, TSH, ANEU, ADIFF, FT4, CBC, CMP, HCV1, A1C #### [address] [address] Monocyte, Absolute 0.4 10 3/mcL Normal 0.1-1.4 [facility] ([place]) Comment on above: Performed By: #### V IDH, LIPID, GFR, TSH, ANEU, ADIFF, FT4, CBC, CMP, HCV1, A1C #### [address] [address] Monocytes/100 WBC (Bld) 8.0 % Normal 2.0-13.0 [facility] ([place]) Comment on above: Performed By: #### V IDH, LIPID, GFR, TSH, ANEU, ADIFF, FT4, CBC, CMP, HCV1, A1C #### [address] [address] Neutrophils/100 WBC (Bld) 50.7 % Normal 50.0-75.0 [facility] ([place]) Comment on above: Performed By: #### V IDH, LIPID, GFR, TSH, ANEU, ADIFF, FT4, CBC, CMP, HCV1, A1C #### [address] [address] .GFRon 06-24-2023 GFR >60 Normal [facility] ([place]) Comment on above: Result Comment: GFR Population [...] ADIFF, FT4, CBC, CMP, HCV1, A1C #### [address] [address] GFR Non- >60 Normal [facility] ([place]) Comment on above: Result Comment: GFR Population [...] ADIFF, FT4, CBC, CMP, HCV1, A1C #### [address] [address] .NEUABSon 06-24-2023 Neutrophil, Absolute 2.4 10 3/mcL Normal 2.3-8.1 [facility] ([place]) Comment on above: Performed By: #### V IDH, LIPID, GFR, TSH, ANEU, ADIFF, FT4, CBC, CMP, HCV1, A1C #### [address] [address] A1Con 06-24-2023 HbA1c (Bld) [Mass fraction] 5.5 % Normal 4.0-6.0 [facility] ([place]) Comment on above: Performed By: #### V IDH, LIPID, GFR, TSH, ANEU, ADIFF, FT4, CBC, CMP, HCV1, A1C #### [address] [address] CBCon 06-24-2023 Erythrocyte distribution width (RBC) [Ratio] 12.6 % Normal 11.5-15.5 [facility] ([place] Comment on above: Performed By: #### V IDH, LIPID, GFR, TSH, ANEU, ADIFF, FT4, CBC, CMP, HCV1, A1C #### [place] [address] Hematocrit (Bld) [Volume fraction] 37.3 % Normal 34.0-46.0 [facility] ([place] Comment on above: Performed By: #### V IDH, LIPID, GFR, TSH, ANEU, ADIFF, FT4, CBC, CMP, HCV1, A1C #### [place] [address] Hgb 12.6 G/dL Normal 12.0-16.0 [facility] ([place] Comment on above: Performed By: #### V IDH, LIPID, GFR, TSH, ANEU, ADIFF, FT4, CBC, CMP, HCV1, A1C #### [place] [address] MCH (RBC) [Entitic mass] 30.2 pg Normal 27.0-33.0 [facility] ([place] Comment on above: Performed By: #### V IDH, LIPID, GFR, TSH, ANEU, ADIFF, FT4, CBC, CMP, HCV1, A1C #### [place] [id number] MCHC 33.9 G/dL Normal 32.0-36.0 [facility] ([place] Comment on above: Performed By: #### V IDH, LIPID, GFR, TSH, ANEU, ADIFF, FT4, CBC, CMP, HCV1, A1C #### [place] [id number] MCV (RBC) [Entitic vol] 89.0 fL Normal 80.0-99.0 [facility] ([place] Comment on above: Performed By: #### V IDH, LIPID, GFR, TSH, ANEU, ADIFF, FT4, CBC, CMP, HCV1, A1C #### [place] [id number] Platelet 300 10 3/mcL Normal 150-450 [facility] ([place] Comment on above: Performed By: #### V IDH, LIPID, GFR, TSH, ANEU, ADIFF, FT4, CBC, CMP, HCV1, A1C #### [place] [address] Platelet mean volume (Bld) [Entitic vol] 8.2 fL Normal 6.6-10.5 [facility] ([place] Comment on above: Performed By: #### V IDH, LIPID, GFR, TSH, ANEU, ADIFF, FT4, CBC, CMP, HCV1, A1C #### [place] [address] RBC 4.19 10 6/mcL Normal 4.10-5.30 [facility] ([place]) Comment on above: Performed By: #### V IDH, LIPID, GFR, TSH, ANEU, ADIFF, FT4, CBC, CMP, HCV1, A1C #### [place] [id number] WBC 4.8 10 3/mcL Normal 4.5-10.8 [facility] ([place]) Comment on above: Performed By: #### V IDH, LIPID, GFR, TSH, ANEU, ADIFF, FT4, CBC, CMP, HCV1, A1C #### [place] [id number] CMPon 06-24-2023 Albumin Level 3.8 G/dL Normal 3.2-4.8 [facility] ([place] Comment on above: Performed By: #### V IDH, LIPID, GFR, TSH, ANEU, ADIFF, FT4, CBC, CMP, HCV1, A1C #### [address] [address] Albumin/Globulin [Mass ratio] 1.1 {ratio} Normal 0.9-1.6 [facility] ([place]) Comment on above: Performed By: #### V IDH, LIPID, GFR, TSH, ANEU, ADIFF, FT4, CBC, CMP, HCV1, A1C #### [address] [address] ALP [Catalytic activity/Vol] 95 U/L Normal 38-126 [facility] ([place]) Comment on above: Performed By: #### V IDH, LIPID, GFR, TSH, ANEU, ADIFF, FT4, CBC, CMP, HCV1, A1C #### [address] [address] ALT [Catalytic activity/Vol] 34 U/L Normal 10-49 [facility] ([place] Comment on above: Performed By: #### V IDH, LIPID, GFR, TSH, ANEU, ADIFF, FT4, CBC, CMP, HCV1, A1C #### [address] [address] AST [Catalytic activity/Vol] 29 U/L Normal 8-34 [facility] ([place]) Comment on above: Performed By: #### V IDH, LIPID, GFR, TSH, ANEU, ADIFF, FT4, CBC, CMP, HCV1, A1C #### [address] [address] Bili Total 0.50 mg/dL Normal 0.20-1.20 [facility] ([place]) Comment on above: Result Comment: Use of this assay is not recommended for patients undergoing treatment with eltrombopag due to the potential for falsely elevated results. Performed By: #### V IDH, LIPID, GFR, TSH, ANEU, ADIFF, FT4, CBC, CMP, HCV1, A1C #### [address] [address] BUN/Creatinine Ratio 21.8 ratio Normal 10.0-22.0 [facility] ([place]) Comment on above: Performed By: #### V IDH, LIPID, GFR, TSH, ANEU, ADIFF, FT4, CBC, CMP, HCV1, A1C #### [address] [address] Calcium [Mass/Vol] 9.7 mg/dL Normal 8.7-10.4 [facility] ([place]) Comment on above: Performed By: #### V IDH, LIPID, GFR, TSH, ANEU, ADIFF, FT4, CBC, CMP, HCV1, A1C #### [address] [address] Chloride [Moles/Vol] 108 mmol/L Normal 98-110 [facility] ([place]) Comment on above: Performed By: #### V IDH, LIPID, GFR, TSH, ANEU, ADIFF, FT4, CBC, CMP, HCV1, A1C #### [place] [phone] CO2 [Moles/Vol] 30 mmol/L Normal 22-32 [facility] ([place] Comment on above: Performed By: #### V IDH, LIPID, GFR, TSH, ANEU, ADIFF, FT4, CBC, CMP, HCV1, A1C #### [place] [phone] Creatinine [Mass/Vol] 0.78 mg/dL Normal 0.50-1.20 [facility] [place] Comment on above: Performed By: #### V IDH, LIPID, GFR, TSH, ANEU, ADIFF, FT4, CBC, CMP, HCV1, A1C #### [place] [address] Electrolyte Balance 4.0 mEq/L Normal 4.0-15.0 [facility] ([place]) Comment on above: Performed By: #### V IDH, LIPID, GFR, TSH, ANEU, ADIFF, FT4, CBC, CMP, HCV1, A1C #### [address] [address] Globulin 3.4 G/dL Normal 1.5-3.8 [facility] ([place]) Comment on above: Performed By: #### V IDH, LIPID, GFR, TSH, ANEU, ADIFF, FT4, CBC, CMP, HCV1, A1C #### [address] [address] Glucose [Mass/Vol] 100 mg/dL Normal 70-110 [facility] ([place]) Comment on above: Performed By: #### V IDH, LIPID, GFR, TSH, ANEU, ADIFF, FT4, CBC, CMP, HCV1, A1C #### [address] [address] Potassium [Moles/Vol] 4.0 mmol/L Normal 3.5-5.0 [facility] [place] Comment on above: Performed By: #### V IDH, LIPID, GFR, TSH, ANEU, ADIFF, FT4, CBC, CMP, HCV1, A1C #### [address] [address] Sodium [Moles/Vol] 142 mmol/L Normal 136-145 [facility] ([place]) Comment on above: Performed By: #### V IDH, LIPID, GFR, TSH, ANEU, ADIFF, FT4, CBC, CMP, HCV1, A1C #### [address] [address] Total Protein 7.2 G/dL Normal 5.7-8.2 [facility] ([place]) Comment on above: Result Comment: No te - New Reference Range in effect 20 Performed By: #### V IDH, LIPID, GFR, TSH, ANEU, ADIFF, FT4, CBC, CMP, HCV1, A1C #### [address] [address] Urea nitrogen [Mass/Vol] 17.0 mg/dL Normal 8.0-22.0 [facility] ([place]) Comment on above: Performed By: #### V IDH, LIPID, GFR, TSH, ANEU, ADIFF, FT4, CBC, CMP, HCV1, A1C #### [address] [address] FT4on 06-24-2023 Free T4 [Mass/Vol] 0.95 ng/dL Normal 0.89-1.76 [facility] ([place]) Comment on above: Result Comment: No te - New Reference Range in effect 20 Performed By: #### V IDH, LIPID, GFR, TSH, ANEU, ADIFF, FT4, CBC, CMP, HCV1, A1C #### [address] [address] HCVon 06-24-2023 Hep C Ab Non-Reactive Normal Non-Reactive [facility] ([place]) Comment on above: Performed By: #### V IDH, LIPID, GFR, TSH, ANEU, ADIFF, FT4, CBC, CMP, HCV1, A1C #### [address] [address] Hep C Ab Int Normal [facility] ([place]) Comment on above: Result Comment: Nonr eactive: [...] ADIFF, FT4, CBC, CMP, HCV1, A1C #### [address] [address] LIPIDon 06-24-2023 Cholesterol [Mass/Vol] 250 mg/dL High 50-199 [facility] ([place]) Comment on above: Result Comment: Chol esterol Reference Interval: Less than 200 Desirable 200-239 Borderline high risk 240 and above High risk Performed By: #### V IDH, LIPID, GFR, TSH, ANEU, ADIFF, FT4, CBC, CMP, HCV1, A1C #### [address] [address] Cholesterol in HDL [Mass/Vol] 51 mg/dL Normal 40-59 [facility] ([place]) Comment on above: Performed By: #### V IDH, LIPID, GFR, TSH, ANEU, ADIFF, FT4, CBC, CMP, HCV1, A1C #### [address] [address] Cholesterol in LDL [Mass/Vol] 156 mg/dL High 0-129 [facility] ([place]) Comment on above: Performed By: #### V IDH, LIPID, GFR, TSH, ANEU, ADIFF, FT4, CBC, CMP, HCV1, A1C #### [address] [address] Triglyceride [Mass/Vol] 215 mg/dL High 3-149 [facility] ([place]) Comment on above: Performed By: #### V IDH, LIPID, GFR, TSH, ANEU, ADIFF, FT4, CBC, CMP, HCV1, A1C #### [place] [id number] MALBRon 06-24-2023 U Creatinine 139.3 mg/dL Normal [facility] ([place]) Comment on above: Performed By: #### V IDH, LIPID, GFR, TSH, ANEU, ADIFF, FT4, CBC, CMP, HCV1, A1C #### [place] [address] U Microalb 5097 mcg/dL Normal [facility] ([place]) Comment on above: Performed By: #### V IDH, LIPID, GFR, TSH, ANEU, ADIFF, FT4, CBC, CMP, HCV1, A1C #### [place] [address] U Ratio Alb/Cre 36.6 mcg/mg High 0.0-24.9 [facility] ([place]) Comment on above: Performed By: #### V IDH, LIPID, GFR, TSH, ANEU, ADIFF, FT4, CBC, CMP, HCV1, A1C #### [place] [address] TSHon 06-24-2023 TSH 0.525 mIU/mL Low 0.550-4.780 [facility] ([place]) Comment on above: Result Comment: No te - New Reference Range in effect 20 Performed By: #### V IDH, LIPID, GFR, TSH, ANEU, ADIFF, FT4, CBC, CMP, HCV1, A1C #### [place] [address] VIDHon 06-24-2023 Vit. D 25-Hydroxy 32.9 ng/mL Normal [facility] ([place]) Comment on above: Result Comment: Inte rpretive Values Based on Total 25(OH)D: Severe Deficiency <20 ng/mL Mild to Moderate Deficiency 20-30 ng/mL Optimum Levels 30-100 ng/mL Toxicity Possible >100 ng/mL Performed By: #### V IDH, LIPID, GFR, TSH, ANEU, ADIFF, FT4, CBC, CMP, HCV1, A1C #### [address] [address] [place] MAMMOGRAM PROLONGED RIGHT on 04-07-2023 [place] MAMMOGRAM PROLONGED RIGHT ORIGINAL FROM: [address] [address] PROCEDURE FOR: GARY MELCHOR [address] [place] [address] Home: PID#: [id number] Exam#: [id number] : 1970 Age: 52 TO: BEV POSADAS DO [address] [place] [address] EXAMINATION: DIAGNOSTIC DIGITAL RIGHT BREAST MAMMOGRAM, 04/07/2023 [...] Provider: BEV POSADAS CLINICAL: CALCIFICATIONS RIGHT BREAST. Veterinary Livestock Inspector: CAM CAMPBELL RT(R)(M) letter sent: Abnormal-Needs additional work up BI-RADS 0 Mammogram BI-RADS: 0 Indeterminate Normal [facility] ([place]) US BREAST RIGHT LIMITEDon US BREAST RIGHT LIMITED ORIGINAL FROM: [facility] [address] [place] [address] PROCEDURE FOR: GARY MELCHOR [address] [place] [address] Home: PID#: [id number] Exam#: [id number] : 1970 Age: 52 TO: BEV POSADAS DO [address] [place], [place] [address] EXAMINATION: ULTRASOUND OF THE RIGHT BREAST 04/07/2023 [...] ASYMMETRIC DENSITY RIGHT BREAST LATERAL 9 O'CLOCK. Veterinary Livestock Inspector: PIYUSH ONEILL RT(R)(M), RDMS letter sent: Probably Benign BI-RADS 3 Ultrasound BI-RADS: 3 Probably benign Normal [facility] ([place]) LABORATORYOrdered By: Odessa Wall on 10-02-2021 FLUAV RNA TOM+probe Ql (Upper resp) Positive *ABN* (10/02/21 6:18 AM) Invalid Interpretation Code Negative AO Auto Urine SS FLUBV RNA TOM+probe Ql (Upper resp) Negative (10/02/21 6:18 AM) Invalid Interpretation Code Negative AO Auto Urine SS RSV RNA TMO+probe Ql (Upper resp) Negative (10/02/21 6:18 AM) [...] LUND M.D. Signed By: LENNY LUND M.D. [facility] CT Chest w/o Contraston - CT Chest w/o Contrast Patient Name: GARY MELCHOR Computed Tomography ACCESSION EXAM DATE/TIME PROCEDURE ORDERING PROVIDER [id number] 07/27/2020 11:[address] Thorax w/o Contrast LUZ ARAUJO CPT code 74398 Reason For Exam (CT Thorax w/o Contrast) [...] Computed Tomography Report Report Dictated on Workstation: [employer] Final Dictating Physician: MD OLIVO VLADIMIR Signed Date and Time: 07/27/2020 11:52 am Signed by: MD OLIVO VLADIMIR Transcribed Date and Time: 07/27/2020 11:53 Normal [facility] NM Myocardial Perf Imaging formerly [facility] Specton 07-27-2020 NM Myocardial Perf Imaging Multi Spect Patient Name: GARY MELCHOR Nuclear Medicine ACCESSION EXAM DATE/TIME PROCEDURE ORDERING PROVIDER [id number] 07/27/2020 09:15 EST NM Myocardial Perf DO POSADAS LISA Imaging Multi Spect CPT code 30343 10779 A9500 Reason For Exam (NM Myocardial Perf [...] study was interpreted and reported by the touch up edger and the perfusion imaging portion of the [...] Exercise for 4 minutes completed by hand bladder changer. The infusion was terminated due to end [...] +------ + + +Injected by +Reanna CABRALES CRAP SHOOTER +Reanna CABRALES CRAP SHOOTER + + +------ + + Nuclear Medicine [...] 07/27/2020 10:44 am Signed by: YANNICK MARCELO [facility] NM Rad Signatureon NM Rad Signature Patient Name: GARY MELCHOR Nuclear Medicine ACCESSION EXAM DATE/TIME PROCEDURE ORDERING PROVIDER [id number] 07/27/2020 09:48 EST NM Rad Signature SIGNATURE, RAD NM Reason For Exam (NM Rad Signature) rad signature Report _ Indications: Chest pain. ----- Summary: 1. No evidence of ischemia. 2. Normal LVEF of 59%. Radiologist Confirmation: This is a combined report. The ECG portion of the study was interpreted and reported by the touch up edger and the perfusion imaging portion of the [...] Exercise for 4 minutes completed by hand bladder changer. The infusion was terminated due to end [...] and Time: 08/08/2020 12:38 Transcribed By:LOLITA Normal [facility] COVID-19on 06-01-2020 SARS-CoV-2 Not Detected Not Detected Tatiana Person - [place], [place] Comment on above: Not Detected Expected Result: Not Detected _ Real-time, RT-PCR performed on the Qiagen QIAquant System by the [facility] [employer] Negative results do not preclude SARS-CoV-2 infection and should not be used as the sole basis for treatment or other patient management decisions. This assay was developed and its performance characteristics determined by the [facility]. This test has been developed under an Emergency Use Authorization (EUA) granted by the FDA for the qualitative detection of SARS-CoV-2 nucleic acid (validation review pending). Test Performed by [facility] [employer] [address] [id number] 06-01-2020 SARS-CoV-2 SARS-CoV-2 --> Statu s: F Not Detected Expected Result: Not Detected _ Real-time, RT-PCR performed on the Qiagen QIAquant System by the [facility] [employer] Negative results do not preclude SARS-CoV-2 infection and should not be used as the sole basis for treatment or other patient management decisions. This assay was developed and its performance characteristics determined by the [facility]. This test has been developed under an Emergency Use Authorization (EUA) granted by the FDA for the qualitative detection of SARS-CoV-2 nucleic acid (validation review pending). Expected Result: Not Detected _ Real-time, RT-PCR performed on the Qiagen QIAquant System by the [facility] [employer] [facility] Negative results do not preclude SARS-CoV-2 infection and should not be used as the sole basis for treatment or other patient management decisions. This assay was developed and its performance characteristics determined by the [facility] [employer] Immunology Service. This test has been developed under an Emergency Use Authorization (EUA) granted by the FDA for the qualitative detection of SARS-CoV-2 nucleic acid (validation review pending). Normal [facility] Comment on above: Performed By: #### C OVID #### [facility] System [address] [place] [id number] [address] Chest w/o Contraston 02-27 CT Chest w/o Contrast Patient Name: GARY MELCHOR CT Exam Date/Time 03/14/2020 10:52:[address] Chest w/o Contrast Ordering Physician LUZ ARAUJO Accession Number [id number] CPT4 Codes 79613 (CT Chest w/o Contrast) Reason For Exam [...] Transcribed Date and Time: 03/15/2020 10:34 Normal [facility] Full PFT Study With Bronchod ilatoron 12-12-2019 Name: GARY MELCHOR PatientID: [id number] Gender: Female Birthdate: 1970 Study Date: 12/12/2019 7:32:40 A Age: 49 Race: White or Height: 66.0 in, 167.6 cm Weight: 270.0 lbs, 122.7 kg Smoke Status: Quit Pack Years: 10 Tbco Prod: Cigarettes Ordering Physician: [id number] Interpreting Physician: [id number] 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 3.57 94. 5. FEV1 L,btps 3.00 2.60 87. 2.71 90. 4. FEV1/FVC (%) % 80. 76. 95. 76. 95. -1. YBM17-70% L/s 2.88 2.21 77. 2.29 80. 4. 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 HOME MEDS: ALBUTEROL--PRN. RETESTED AFTER 4PUFFS ALBUTEROL; SPACER AND INSTRUCTIONS GIVEN. DRY COUGH NOTED. 50[address]- PRE/[place] [address]- DLCO 63196- FRC GAS PHYSICIAN INTERPRETATION No apparent airway [...] suggesting early airway closure and gas trapping. 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 Polysomnogram POLYSOMNOGRAM (PSG) Procedures Routine KRISTIN (obstructive sleep apnea) 1 Occurrences starting 10/10/2024 until 10/10/2025 [facility] Comment on above: 1 Occurrences starti ng 10/10/2024 until 10/10/2025 SPIROMETRY - BASELIN E AND POST DILATOR SPIROMETRY - BASELINE AND POST DILATOR PFT Routine Interstitial pulmonary disease (HCC) 10/10/2024 2:13 PM EDT [facility] Immunizations Immunization Date Immunization Notes Care Provider Inna bush 04-03-2021 influenza, seasonal, injectable Jaimie Cook MD Work Phone: [facility] 04-03-2021 influenza virus vacc ine, unspecified formulation Jaimie Cook MD Work Phone: [facility] 11-24-2018 pneumococcal conjuga te vaccine, 13 valent Jaimie Cook MD Work Phone: [facility] Payers Date Payer Category Payer Self-pay 2024 Unknown 2019 Private Health Insurance [id number] 2019 Unknown [id number] 2017 Unknown xxxxxxxxxxx [id number] 2017 Unknown [employer] E [id number] 2017-Present [phone] [address] [place] [address] [id number] 2016 Unknown [id number] 2016 Unknown [id number] 2015 Unknown [employer] M [employer] [address] xxxxxxxx 2015-Present [phone] [address] [place] [address] xxxxxxxx [id number] 1969 Unknown [id number] 2.16.840.1.519466.3.579.2. 732 1969 Unknown [id number] 2.16.840.1.136998.3.579.2. 732 1969 Unknown [id number] 2.16.840.1.367194.3.579.2. 732 1969 Unknown [id number] 2.16.840.1.229654.3.579.2. 732 1969 Unknown [id number] 2.16.840.1.203037.3.579.2. 732 1969 Unknown [id number] 2.16.840.1.975313.3.579.2. 732 1969 Unknown [id number] 2.16.840.1.590798.3.579.2. 732 1969 Unknown [id number] 2.16.840.1.708837.3.579.2. 732 1969 Unknown [id number] 2.16.840.1.644809.3.579.2. 732 1969 Unknown [id number] 2.16.840.1.001492.3.579.2. 1969 Unknown [id number] 2.16.840.1.521418.3.579.2. 62 1969 Unknown [id number] 2.16840.1.273467.3.579.2. 1969 Unknown [id number] 2.16.840.1.041692.3.579.2. 62 1969 Unknown [id number] 2.16.840.1.575187.3.579.2. 1969 Unknown [id number] 2.16.840.1.498118.3.579.2. 62 1969 Unknown [id number] 2.16.840.1.542622.3.579.2. 62 1969 Unknown [id number] 2.16.840.1.449048.3.579.2. 62 1969 Unknown [id number] 2.16.840.1.016827.3.579.2. 1969 Unknown [id number] 2.16.840.1.385026.3.579.2. 627 1969 Unknown [id number] 2.16.840.1.355067.3.579.2. 1969 Unknown [id number] 2.16.840.1.656047.3.579.2. 1969 Unknown [id number] 2.16.840.1.466446.3.579.2. 1969 Unknown [id number] 2.16.840.1.494898.3.579.2. 1969 Unknown [id number] 2.16.840.1.158739.3.579.2. 1969 Unknown [id number] 2.16.840.1.688206.3.579.2. 1969 Unknown [id number] 2.16.840.1.960515.3.579.2 1969 Unknown [id number] 2.16.840.1.238120.3.579.2. 1969 Unknown [id number] 2.16840.1.003409.3.579.2 1969 Unknown [id number] 2.16.840.1.015850.3.579.2 1969 Unknown [id number] 2.16.840.1.225455.3.579.2 1969 Unknown [id number] 2.16.840.1.042720.3.579.2. 1969 Unknown [id number] 2.16.840.1.082276.3.579.2 1969 Unknown [id number] 2.16.840.1.809973.3.579.2. 1969 Unknown [id number] 2.16.840.1.538055.3.579.2 1969 Unknown [id number] 2.16.840.1.274538.3.579.2. 1969 Unknown [id number] 1970 Unknown [id number] 627 1970 Unknown [id number]. 627 1970 Unknown [id number]. 627 Unknown [id number]. 462 Unknown [id number]. 462 Unknown [id number] [id number]. 462 Unknown [id number] [id number]. 462 Unknown [id number] [id number]. 462 Unknown [id number]. 462 Social History Date Type Detail Facility Start: 11-24-2019 End: 02-22-2025 Tobacco smoking status NHIS Former [place] Start: 11-24-2019 End: 03-26-2020 Alcohol intake Current non-drinker of alcohol (finding) [place] Start: 1970 Sex Assigned At Not on file [place] Exposure to SARS-CoV -2 (event) Unable to assess [place] End: 06-29-1994 History of tobacco use [place] End: 06-29-1994 History of tobacco use Cigarette [place] Start: 12-12-2019 End: 10-10-2024 Cigarettes smoked current (pack per day) - Reported [place] Start: 01-18-2020 End: 02-22-2025 Tobacco use and exposure Never used [place] Exposure to SARS-CoV -2 (event) Not sure [place] Start: 09-02-2019 End: 12-18-2024 Tobacco smoking status Never smoked tobacco (finding) [facility] Start: 1970 Sex Assigned At Female [facility] Sexual Orientation [facility] Start: 09-02-2019 Sex Female (finding) [facility] Start: 05-01-2022 End: 02-22-2025 Alcoholic beverage intake Current drinker of alcohol (finding) [facility] Start: 03-08-2020 End: 10-10-2024 Alcohol Use Disorder Identification Test - Consumption [AUDIT-C] [facility] How often to you hav e a drink containing alcohol? Monthly or less [facility] How many standard dr inks containing alcohol do you have on a typical day? 1 or 2 [facility] Start: 01-13-2015 Frequency of Binge Drinking Not on file [facility] Functional Status Date Assessment Result Facility 10-28-2024 Functional Status Independent [facility] 10-28-2024 Functional Status Maintained [facility] 07-27-2024 Functional Status Maintained [facility] 10-02-2021 [facility] Functional Status Molly [facility] Mental Status Date Assessment Result Facility 10-28-2024 Mental Status Orientation Oriented x 4 [facility] 07-27-2024 Mental Status Orientation Oriented x 4 [facility] 10-02-2021 Mental Status [facility] 10-02-2021 Mental Status [facility] Clinical Notes 10-02-2021 to 04-13-2025 Telephone Encounter - Abbey Jimenez MD - 02/28/2025 2:04 PM EDTTelephone Encounter - Abbey Jimenez MD - 02/28/2025 2:04 PM EDTAbbey Jimenez MD - 02/22/2025 9:20 AM EDT Note Date & Type Note Facility 04-13-2025 Note HNO ID: [id number] Author: ABBEY JIMENEZ MD Service: ? Author Type: Physician Type: Progress Notes Filed: 04/13/2025 09:14 Note Text: [facility] SERVICE DATE [...] 2022. 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 - Discovered 4 gallons of [employer] Torch fuel in shed, suspects hydrocarbon poisoning. [...] left sided pain Back at working at [employer] facility - Nurse Lisinopril 40mg PAST MEDICAL [...] VITD25 33.0 02/22/2025 (more content not included)... [facility] 03-17-2025 Hospital Discharg e instructions Patient Education 03/17/2025 13:47:06 LUCY CHE (Custom)(CUSTOM) [place] Prescription for: Zofran Other Name: Ondansetron Used for: nausea or vomiting Common Side Effects: constipation, headache, or tiredness Please let your doctor or nurse know if you experience these side effects or have other concerns about this medication. For more medication information, please visit [email or web address]. Follow Up Care 03/17/2025 12:57:03 With:KEYANA ESPOSITO MD Address: [address] [place] [id number] [phone] When:2-4 days [facility] 03-17-2025 Note Discharge Instructions Thank you for allowing [facility] to assist you with your healthcare needs. The following is important discharge information regarding your hospital visit. Diagnosis from Today's Visit Known medical problems What to Do Next Instructions from Your Care Team No qualifying data available. Post Acute Orders No qualifying data available. You Need to Schedule the Following Appointments Follow Up with KEYANA ESPOSITO MD When:Within 2-4 days Where:[address] [place] [address] [phone] Allergies codeine Medications Please ask your primary [...] medication providers or retail pharmacies. [employer] [place] Prescription for: Zofran Other Name: Ondansetron Used for: nausea or vomiting Common Side Effects: constipation, headache, or tiredness Please let your doctor or nurse know if you experience these side effects or have other concerns about this medication. For more medication information, please visit [email or web address]. Additional Information VACCINATE! IT SAVES LIVES! Members of the community who have not yet received the COVID-19 vaccine and would like to receive it can visit one of [facility] vaccine clinics. There are many vaccine clinic locations within the [facility]. For locations and available times, please visit www.[email or web address] gov/. It is important to note that some COVID mobile vaccine clinics are held outdoors and may be canceled in rainy or stormy conditions. To learn more about pediatric vaccinations (ages 5-11), we invite you to visit the [employer] [facility] [facility] webpage. [email or web address]://www.[email or web address]/p [email or web address]-Hulfp-Sinpnzlwdbj-Freq xvxbzn-Tnsgp-Tbxnboeuh.html To learn more about the COVID-19 vaccine, we invite you to visit the CDC website for a list of frequently asked questions. https://www.cdc.gov/coronavirus/ 2019-ncov/vaccines/faq.html [employer] Patient Portal Access Instructions: Stay connected with your healthcare team and access your personal medical information anytime with the [employer] Patient Portal. If you would like a full copy of your medical records please contact the [facility] Medical Records Department Thursday through Thursday between 8a.m. and 4:30p.m. Please follow the directions below to access the portal: 1.Access the email account you provided upon registration to the hospital.2.Look for an invitation email from [facility].3.Open the email and access the invitation link: Accept Invitation to [employer] [facility]4.Fill in the required maki to create your account. To access your account, visit Heart [email or web address] or scan the QR code above. Click [...] you will allow to register on the [employer] Patient Portal for access to your information. You can also access the [employer] Patient Portal on the [employer] saqib. Simply click on Health Records under Health Data and then click on the Tok3n logo. HOW TO SAFELY DISPOSE OF PRESCRIPTION [...] Call your local pharmacy or go to [email or web address] to find one close to you.3.Make use of household items: Use cat litter or old coffee grounds to dispose medications if other options are not available. Mix your drugs with these household products, seal them in an airtight container and throw it into the garbage. Call [facility]: [phone] to be sure your drugs can be [...] aware that I should contact my doctor. 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 Signature: Date/Time: Relationship to Patient: Witness Name/Signature: Date/Time: [facility] 02-28-2025 Telephone encounter Note UA without blood or protein Negative Anca, C3C4, JOSE L, GBM, Hep, HIV, RF, [facility] Work Phone: 02-28-2025 Miscellaneous Notes UA without blood or protein Negative Anca, C3C4, JOSE L, GBM, Hep, HIV, RF, documented in this encounter [facility] 02-22-2025 History of Presen t illness Narrative [facility] SERVICE DATE [...] 2022. GFR readings: 76 on 09/06 at [facility] ER, Cr 0.8, 80ml/min, December 2023 [...] February 22, 2025 2:21 PM OFFICE NUMBER: [phone] CC: REFERRING PROVIDER: No ref. provider found PRIMARY CARE PHYSICIAN: Bev Posadas MD I spent a total of 62 minutes on the date of the service which included preparing to see the patient, jkwy-vw-jypk patient care, completing clinical documentation, performing a medically appropriate examination, and ordering medications, tests, or procedures. documented in this encounter [facility] 02-22-2025 Note HNO ID: [id number] Author: ABBEY JIMENEZ MD Service: ? Author Type: Physician Type: Progress Notes Filed: 02/22/2025 14:21 Note Text: [facility] SERVICE DATE [...] 2022. 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 - Discovered 4 gallons of [employer] Torch fuel in shed, suspects hydrocarbon poisoning. [...] Genitourinary: Blood in (more content not included)... [facility] 02-21-2025 Telephone encounter Note Called to ask if she had any recent labs. Last labs in October 2024 show normal kidney function. Asked her to fax results to my office if any other results available more recently [facility] Work Phone: 02-21-2025 Miscellaneous Notes Called to ask if she had any recent labs. Last labs in October 2024 show normal kidney function. Asked her to fax results to my office if any other results available more recently documented in this encounter [facility] 12-18-2024 Discharge summary [facility] 12-18-2024 Radiology Diagnostic study note [facility] Services [address] [place], [place] [id number] Chest without Contrast MR#: [id number] Acct: [id number] Name: GARY MELCHOR Rep #: [id number] : 1970 F 54 From: Abb harvey Valdovinos MD PCP: Dr. Keyana Esposito MD Status: REG ER Study:Chest without Contrast Date of Exam: 12/18/24 Exam# [id number] Ordering Dr: Ezequiel Manuel MD PROCEDURE: CHEST [...] atelectasis, chronic. Mild diffuse spondylosis. Reading Location: [place] [address] CC: Dr. Ezequiel Manuel MD; Dr. Keyana Esposito MD ~ [employer] Internship: Signed [facility] 11-18-2024 Evaluation + Plan note Future Scheduled TestsCT Thorax w/o Contrast 11/18/24 [facility] 11-01-2024 Telephone encounter Note Images from the original note were not included. CD images uploaded via Mobile Experience . Please allow time in [employer] to import. [facility] 11-01-2024 Miscellaneous Notes Images from the original note were not included. CD images uploaded via Mobile Experience . Please allow time in [employer] to import. documented in this encounter [facility] 10-28-2024 Summary of episode note What [...] any questions, please call our office at [phone]. Moderate Conscious Sedation, Adult, Care After These [...] until you are awake and alert. Take bmfb-tjg-sinzmre and prescription medicines only as told by [...] 04/05/2014 Document Revised: 05/28/2018 Document Reviewed: 10/04/2016 [employer] Patient Education 2020 HouseTab. Additional Information VACCINATE! IT SAVES LIVES! Members of the community who have not yet received the COVID-19 vaccine and would like to receive it can visit one of [facility] vaccine clinics. There are many vaccine clinic locations within the [facility]. For locations and available times, please visit [email or web address].gov/. It is important to note that some COVID mobile vaccine clinics are held outdoors and may be canceled in rainy or stormy conditions. To learn more about pediatric vaccinations (ages 5-11), we invite you to visit the [employer] [facility] webpage. https://www.akronOcutronicss.org/pa ges/1874-Sllxy-Wcaaqxywenc-Freque plxc-Zldbp-Ggrmarhbl.html To learn more about the COVID-19 vaccine, we invite you to visit the CDC website for a list of frequently asked questions.https://www.cdc.gov/cor onavirus/2019-ncov/vaccines/faq.h tml [employer] [facility] Patient Portal Access Instructions: Stay connected with your healthcare team and access your personal medical information anytime with the [employer] Patient Portal. Please follow the directions below to create your [employer] account: 1.Access the email account you provided upon registration to the hospital/physician office.2.Look for an invitation email from [facility].3.Open the email and access the invitation link: Accept Invitation to [employer] [facility].4.Fill in the required maki to create your account. To access your account, visit [email or web address]. Click the blue button labeled Access Patient [...] you will allow to register on the [facility] [employer] Patient Portal for access to your information. You can also access the [facility] [employer] Patient Portal on the [employer] saqib. Simply click on Patient Portal and then log into your account. If you would like to receive a full copy of your medical records, please contact the [facility] Medical Records Department by calling [phone], Thursday through Thursday between 8 a.m. and [...] Call your local pharmacy or go to [email or web address] to find one close to you.3.Make use of household items: Use cat litter or old coffee grounds to dispose medications if other options are not available. Mix your drugs with these household products, seal them in an airtight container and throw it into the garbage. Call [facility]: [phone] to be sure your drugs can be [...] aware that I should contact my doctor. 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 Signature: Date/Time: Relationship to Patient: ____ Witness Name/Signature: Date/Time: [facility] 10-28-2024 History and physical note Date of Service 10/28/2024 History and Physical Update I have examined the patient; reviewed the History and Physical and there are no changes to the History and Physical unless noted below. Digitally Signed by TOYA HODGES MD on 10/28/2024 10:43 AM [facility] 10-28-2024 Hospital Discharge instructions Patient Education 10/28/2024 07:25:[address] Trinidad Pre-Procedure Instructions (05/24/24)(CUSTOM) [facility] Dr. HODGES RFA, Sedation After [...] any questions, please call our office at [phone]. 10/28/2024 07:25:09 Moderate Conscious Sedation, Adult, Care [...] until you are awake and alert. Take datn-ene-xiejhnr and prescription medicines only as told by [...] 04/05/2014 Document Revised: 05/28/2018 Document Reviewed: 10/04/2016 [employer] Patient Education [employer] Follow Up Care 10/17/2024 09:28:42 With:TOYA HODGES MD Address:Unknown When: Unknown [facility] 10-27-2024 Note HNO ID: [id number] Author: GREGG XAVIER LPN Service: ? Author Type: LICENSED NURSE Type: Progress Notes Filed: 10/27/2024 13:00 Note Text: Out PT EKG preformed without problem, per order. Patient tolerated well. Patient voices no other concerns at this time. Gregg Xavier LPN [facility] 10-27-2024 History of Present illness Narrative Out PT EKG preformed without problem, per order. Patient tolerated well. Patient voices no other concerns at this time. Gregg Xavier LPN documented in this encounter [facility] 10-25-2024 Miscellaneous Notes pt called-relayed the [...] normal? jaimie Ibrahim documented in this encounter [facility] 10-25-2024 Telephone encounter Note pt called-relayed the message from the provider requested to cancel the CT scan & sleep study. will have these done at [facility] CD will be send via mail- please return the CD back to the patient and all the paperwork . [facility] 10-25-2024 Telephone encounter Note Called and spoke to patient. States she had imaging on 08/05/21 that showed a nodule. Having CT scan on 10/28/24. Jose Perry MA October 25, 2024 10:17 AM [facility] 10-19-2024 Telephone encounter Note Images from [...] Perry MA October 19, 2024 11:58 AM [facility] 10-19-2024 Telephone encounter Note Called patient and notified of results. She has CT Scan on 10/28/2024 and Sleep Study 12/13/2024. Wants to get a biopsy scheduled before her sleep study. Advised I would route to provider to for review and then this would get routed to correct department to schedule for procedure. Jose Perry MA October 19, 2024 11:23 AM [facility] 10-19-2024 Telephone encounter Note ----- Message from Jaimie Cook MD sent at 10/19/2024 10:51 AM EDT ----- Can you pls call her and let her know her breathing tests are all normal? Thanks, jaimie [facility] 10-11-2024 Telephone encounter Note Called pt to update her that her PFT's and FENO were normal.No answer. No option to leave voicemail. Thank you, Jaimie Cook MD Staff, Pulmonary & Critical Care Medicine [facility] Cell phone and Pager : [phone] [facility] 10-11-2024 Miscellaneous Notes Called pt to update her that her PFT's and FENO were normal.No answer. No option to leave voicemail. Thank you, Jaimie Cook MD Staff, Pulmonary & Critical Care Medicine [facility] Cell phone and Pager : [phone] documented in this encounter [facility] 10-10-2024 Note HNO ID: [id number] Author: MEDINA PICKENS RRT Service: ? Author [...] NAME: Medina Pickens RRT PATIENT NAME: Gary Melchro DATE: October 10, 2024 TIME: 3:20 PM [facility] 10-10-2024 Procedure note Associated Ord er(s): [...] DATE: October 10, 2024 TIME: 3:20 PM [facility] 10-10-2024 Procedure note Associated Ord er(s): [...] TIME: 3:20 PM documented in this encounter [facility] 10-10-2024 Telephone encounter Note Imported outside medical records There may be a delay before report appears in epic [facility] 10-10-2024 Miscellaneous Notes Imported outside medical records There may be a delay before report appears in epic documented in this encounter [facility] 10-10-2024 Instructions Jaimie Cook MD - 10/10/2024 1:33 PM EDT -pls schedule breathing tests -pls schedule ct chest -pls schedule sleep study -will call you with the results documented in this encounter [facility] 10-10-2024 Note HNO ID: [id number] Author: JAIMIE COOK MD Service: ? Author Type: Physician Type: Progress Notes Filed: 10/10/2024 13:42 Note Text: . [facility] Note Ms. Melchor is a 54 year old female who presents to the [facility]. Consultation requested by Dr. Posadas for an opinion regarding lung nodule. My final recommendations/evaluation will be communicated back to the requesting physician by way of shared medical record or letter via US mail. The patient consented to the use of Educents software for draft documentation of the visit consistent with [facility]?s Notice of Privacy Practices. HPI: Gary is a 54-year-old female, with a history of a pulmonary nodule and sleep apnea, presenting for evaluation of a pulmonary nodule. Gary reports a pulmonary nodule first identified in 2021, with a recent chest X-ray indicating an increase in size to 2.8 cm. She has been under the care of a orthopedic nurse at [facility], who has recommended a biopsy. A PET [...] a new primary care physician and an community living specialist, Dr. Santana. She denies having a touch up edger. Review of Systems: GEN: No fevers/chills, night [...] No significant exposure. Silica: No significant exposure. [place]: No significant exposure. Organic HP antigen: No [...] personally reviewed by me Data Reviewed from [facility] (in addition to that noted in HPI, and Past h (more content not included)... [facility] 10-10-2024 History of Present illness Narrative Images from the original note were not included. . Res[facility] Note Ms. Melchor is a 54 year old female who presents to the [facility]. Consultation requested by Dr. Posadas for an opinion regarding lung nodule. My final recommendations/evaluation will be communicated back to the requesting physician by way of shared medical record or letter via US mail. The patient consented to the use of Educents software for draft documentation of the visit consistent with [facility] s Notice of Privacy Practices. HPI: Gary is a 54-year-old female, with a history of a pulmonary nodule and sleep apnea, presenting for evaluation of a pulmonary nodule. Gary reports a pulmonary nodule first identified in 2021, with a recent chest X-ray indicating an increase in size to 2.8 cm. She has been under the care of a orthopedic nurse at [facility], who has recommended a biopsy. A PET [...] a new primary care physician and an community living specialist, Dr. Santana. She denies having a touch up edger. Review of Systems: GEN: No fevers/chills, night [...] No significant exposure. Silica: No significant exposure. [place]: No significant exposure. Organic HP antigen: No [...] personally reviewed by me Data Reviewed from [facility] (in addition to that noted in HPI, and Past histories above): CMP, CBC, etc Assessment: Ms. Melchor is a 54 year old female who presents to the [facility] KRISTIN Lung nodule Provide history of?? Heavy [...] will be an overnight study at a [facility] facility. Please call the number provided [...] Moderate This note was partially created using [employer] Voice recognition software and is inherently subject to errors including those of syntax and sound-alike substitutions which may escape proofreading. In such instances, original meaning may be extrapolated by contextual derivation. Jaimie Cook MD Staff, Pulmonary & Critical Care Medicine [facility] Cell phone and Pager : [phone] documented in this encounter [facility] 07-27-2024 Hospital Discharge instructions Patient Education [...] your appointment time. You must have a recycling collections driver. If you are receiving an epidural [...] any questions, please call our office at [phone]. Follow Up Care 07/20/2024 09:12:03 With:TOYA HODGES MD Address:Unknown When: Unknown

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
[2025-06-09 03:21] LABS: Hematocrit 39.2 % (37-47); Hemoglobin 12.8 g/dL (12.0-15.0); Immature Granulocytes Count 0.040 X10^3/uL (0.0-0.0); Mean Corp Hgb Conc 32.7 g/dL (32-36); Mean Corpuscular Volume 90.5 fL (81-99); Mean Platelet Vol. 9.3 fl (6.2-12.0); NRBC Flagged by Analyzer 0 % (0-5); POSITIVE DIFFERENTIAL YES; POSITIVE MORPHOLOGY YES; Platelet Count 292 K/mm3 (150-450); RBC Distribution Width CV 12.5 % (11.6-14.6); RBC Distribution Width SD 41.5 fl (35.1-43.9); Red Blood Count 4.33 M/mm3 (4.2-5.4); White Blood Count 19.3 K/mm3 (4.4-11.0)
[2025-06-09 03:22] LABS: AST(SGOT) 39 U/L (<=31); Alanine Aminotransfer ALT/SGPT 33 U/L (<=34); Albumin, Serum 4.1 g/dL (3.5-5.0); Alkaline Phosphatase 79 U/L (35-104); Anion Gap 14 (5-15); BUN 14 mg/dL (4-19); BUN/Creat Ratio 14.4 RATIO (10-20); Calcium,Total 9.7 mg/dL (7.6-11.0); Carbon Dioxide 24.7 mmol/L (21.0-32.0); Chloride 99 mmol/L (98-108); Estimated Creatinine Clearance 81.52 ml/min (50-250); Globulin 3.1 g/dL (2.2-4.2); Glucose 188 mg/dL (70-99); Potassium 4.0 mmol/L (3.3-5.1)
[2025-06-09 03:26] LABS: Differential Indicated SCAN CRITERIA MET; Pro- Brain NATRIURETIC PEPTIDE 3007 pg/mL (<=900); Troponin T High Sensitivity 347 ng/L (<=14)
--- NOTE | 2025-06-09 03:40 | RAD_ITS ---
PROCEDURE: CHEST 1 VIEW (PORTABLE) 06/09/2025 REASON FOR EXAM: SHORTNESS OF BREATH TECHNIQUE: Frontal view of the chest. COMPARISON: CT scan on 06/09/2025. FINDINGS: Minimal bilateral pleural effusions. Passive atelectatic airspace disease of the lower lobes. 1.6 cm calcified nodule of the left upper lobe. Interstitial pulmonary congestion/edema. Normal heart and pericardium. Normal mediastinum and tatyana. Normal visualized pulmonary arteries. Normal visualized aortic arch and descending thoracic aorta. Normal visualized thoracic spine. Normal visualized ribs, clavicles, and shoulders. There is no demonstrated abnormality of the visualized soft tissue structures of the upper abdomen. RAD/Chest 1 View (Portable) IMPRESSION: Minimal bilateral pleural effusions. Passive atelectatic airspace disease of the lower lobes. 1.6 cm calcified nodule of the left upper lobe. Interstitial pulmonary congestion/edema. Normal heart and pericardium. Reading Location: [facility]
[2025-06-09 03:45] LABS: Prothrombin Time (Protime)PT. 13.4 SECONDS (11.7-14.9)
[2025-06-09 03:46] LABS: Partial Thromboplast Time 26.5 Seconds (24.1-36.2)
[2025-06-09 04:00] LABS: Differential Comment SCANNED; Toxic Granulation 2+
--- NOTE | 2025-06-09 04:33 | HP.PCM.HOS_ITS ---
HPI - General General Date of Admission: 06/09/25 Date of Service: 06/09/25 Chief Complaint: Chest pain, dyspnea. HPI Narrative The patient is a 54-year-old female w/ PMHx: Anxiety and Depression, KRISTIN, HTN, Diabetes mellitus type II, Hx hematuria with recent urological intervention 06/08/2025 with left ureteral stent placement who presents to the [facility] ED on 06/09/2025 with onset of dyspnea as well as chest discomfort reporting herself 86% oxygenation status at home prompting ED evaluation to be cautious with no fever or chills nor any nausea or emesis and no onset of any urinary type symptoms.she notes the chest pain is midsternal and does cross across her chest some and notes that the discomfort is more aching and worse when she takes a deep inspiratory effort with onset of nausea and emesis x 2 with no diaphoresis but significant dyspnea associated rating her discomfort 4-10 in severity. Of note following discharge after OR intervention patient was placed on antibiotic therapy and is taken thus far 3 doses. Workup in the ED included T97.8, heart 101, BP 180/111, respiratory rate 20, 97% room air with most recent repeat vitals T97.8, heart rate 100, BP 150/92, respiratory rate 18, 98% on room air, CBC with WC 19.3, hemoglobin 12.8, platelet 292 without marked shift, unremarkable coags, CMP with glucose 188, lactic acid 2.1, hepatic profile with AST 39 otherwise not marked appearing, initial troponin 347, NT proBNPII 3007, chest CTA with no evidence of pulmonary arterial thromboembolism, bilateral pulmonary atelectatic changes with the smooth interlobar septal thickening, possibly postinfectious versus mild pulmonary edema, stable left upper lung lobe large calcified nodule with surrounded atelectatic changes, newly developed mild bilateral pleural effusion right more evident than left with underlying basal atelectatic changes, EKG with sinus tachycardia with no acute evidence of ischemia. In the ED patient administered 1 L normal saline as well as heparin bolus and drip. FS ASA administered in the ED. [facility] Medical History Arthritis Bladder disease Dietary restriction Non-smoker Sleep apnea Anxiety Ganglion cyst of hand tendon excised Deviated septum Diabetes Home Medications ?Medication ?Instructions ?Recorded ?Last Taken ?Type ezetimibe 10 mg tablet (Zetia) 10 mg PO QDAY 04/24/25 Unknown History garlic 500 mg capsule 500 mg PO .3X A WEEK 5 Unknown History lisinopril 40 mg tablet 40 mg PO QDAY 04/24/25 Unkno wn History metformin 500 mg tablet,extended 500 mg PO QDAY Unknown History release 24 hr multivitamin 1 tab PO QAM 04/24/25 Unknow n History oxycodone-acetaminophen 7.5 mg-325 1 tab PO Q8H PRN pa in 04/24/25 Unknown History mg tablet (Percocet) cephalexin 500 mg capsule 500 mg PO Q12 post-operative 3 06/08/25 Unknown Rx days #6 CAPSULES ondansetron 8 mg disintegrating 8 mg PO Q8H PRN nausea and 06/08/25 Unknown Rx tablet vomiting #10 tabs phenazopyridine 200 mg tablet 200 mg PO TID PRN pain # 30 tabs 06/08/25 Unknown Rx Allergy/AdvReac Type Severity Reaction Status Date / Time acetaminophen (From AdvReac Mild vomits Verified 06/09/25 02:42 Tylenol-Codeine #3) codeine (From AdvReac Mild vomits Verified 06/09/25 02:42 Tylenol-Codeine #3) Family History (Updated 06/09/25 @ 05:[address] Kelli Chaidez MD) Mother Lung cancer COPD (chronic obstructive pulmonary disease) Father CAD (coronary artery disease) Heart disease Hypertension Myocardial infarction Surgical History Hx of colonoscopy H/O toe surgery H/O foot surgery History of ankle surgery History of carpal tunnel release History of shoulder surgery Social History household members: none Smoking Status: Never smoker alcohol intake: never substance use type: does not use what type of physical activity do you participate in: none do you feel safe at home: Yes ROS ROS Narrative Admission Review of Systems: CONSTITUTIONAL: No weight loss, fever, chills, + weakness or fatigue. HEENT: Eyes: No visual loss, blurred vision, double vision or yellow sclerae. Ears, Nose, Throat: No hearing loss, sneezing, congestion, runny nose or sore throat. SKIN: No rash or itching, lesions, wounds. CARDIOVASCULAR: + Chest pain. No marked palpitations, edema, orthopnea, syncopal events. RESPIRATORY: + Dyspnea. No marked cough or sputum, wheezing, hemoptysis. GASTROINTESTINAL: No anorexia, nausea, vomiting or diarrhea, abdominal pain, melena, BRBPR. GENITOURINARY: + Recent history of hematuria with recent cystoscopy the day prior with ureteral stent placed. No marked onset frequency, urgency or retention. NEUROLOGICAL: No headache, dizziness, syncope, paralysis, ataxia, numbness or tingling in the extremities, focal weakness, change in bowel or bladder control, seizure. MUSCULOSKELETAL: + muscle, back pain, joint pain or stiffness. HEMATOLOGIC: No anemia, bleeding or bruising. LYMPHATICS: No enlarged nodes. No history of splenectomy. PSYCHIATRIC: + History of anxiety and depression. ENDOCRINOLOGIC: No reports of sweating, cold or heat intolerance. No polyuria or polydipsia. ALLERGIES: No history of asthma, hives, eczema or rhinitis. Vital Signs Vital Signs Vital Signs: 06/09/25 02:37 06/09/25 02:38 06/09/25 02:42 Temperature 97.8 F 97.8 F Temperature Source Oral Oral Pulse Rate 101 H 102 H 104 H Respiratory Rate 20 H 16 Respiratory Effort Blood Pressure 180/111 H 167/109 H Blood Pressure Mean 134 128 Pulse Ox 97 97 Oxygen Delivery Method Room Air Room Air 06/09/25 02:44 06/09/25 03:22 06/09/25 03:37 Temperature Temperature Source Pulse Rate 97 Respiratory Rate 22 H Respiratory Effort Short of Breath Labored Blood Pressure 157/93 H Blood Pressure Mean 114 Pulse Ox 97 Oxygen Delivery Method Room Air Room Air Room Air 06/09/25 03:42 06/09/25 04:00 06/09/25 04:00 Temperature 98.2 F 97.8 F Temperature Source Temporal Temporal Pulse Rate 100 100 Respiratory Rate 19 H 19 H Respiratory Effort Blood Pressure 157/98 H 150/92 H 150/92 H Blood Pressure Mean 117 111 111 Pulse Ox 98 98 Oxygen Delivery Method Room Air Room Air Weight Weight: 259 lb 4.218 oz Body Mass Index (BMI) 43.1 Physical Exam Narrative Physical Examination: General: Awake, alert, oriented x 3 and cooperative, seated upright in the ED bed, fatigued, notes primarily only having chest pain when she takes deep breath with great effort, rating her discomfort 4-10 in severity. Skin: Normal color, normal turgor, no icterus, no cyanosis. HEENT: AT/NC, EOMI, PERRLA, mildly dry MM, no carotid bruits, difficult to discern JVD given thick neck. Lungs: Mildly diminished, greater bases, mildly decreased effort given pain elicited with deep inspiratory increased effort, no appreciated rales, ronchi or wheezing. Heart: Regular rate and rhythm; no gallop, rub audible. Abdomen: Soft, morbidly obese, NTTP, distant normal BS BS, no markedly appreciated distention or HSM however habitus makes evaluation difficult. Extremities: No cyanosis, no clubbing, no significant distal pitting edema noted. Neurological: Patient awake, alert, oriented as noted, cognitive function intact; pupils equally reactive to light and accommodation, cranial nerves grossly normal, moving all 4 extremities, no focal deficits, strength moderately globally decreased secondary to acute presentation complaints. Psychiatric: Affect appears fatigued otherwise normal, no acute evidence of depressive or anxiety feelings but does have underlying history. Results Lab / Micro Data 06/09/25 02:40 06/09/25 02:40 Labs: Laboratory Results - last 24 hr 06/09/25 02:40: WBC 19.3 H, RBC 4.33, Hgb 12.8, Hct 39.2, MCV 90.5, MCH 29.6, MCHC 32.7, RDW Std Deviation 41.5, RDW Coeff of [place] 12.5, Plt Count 292, MPV 9.3, Immature Gran % (Auto) 0.200, Neut % (Auto) 38.2 L, Lymph % (Auto) 5.0 L, [place] % (Auto) 6.8, Eos % (Auto) 49.5 H, Baso % (Auto) 0.3, Absolute Neuts (auto) 7.4, Absolute Lymphs (auto) 0.97, Nucleated RBC % 0, Differential Comment SCANNED, Toxic Granulation 2+, PT 13.4, INR 1.0, APTT 26.5, Sodium 138, Potassium 4.0, Chloride 99, Carbon Dioxide 24.7, Anion Gap 14, BUN 14, Creatinine 1.00, Estim Creat Clear Calc 81.52, Est GFR (MDRD) Non-Af 67, BUN/Creatinine Ratio 14.4, Glucose 188 H, Lactic Acid 2.1 H*, Calcium 9.7, Total Bilirubin 0.40, AST 39 H, ALT 33, Alkaline Phosphatase 79, Troponin T High Sens 347 H*, NT pro BNP II 3007 H, Total Protein 7.2, Albumin 4.1, Globulin 3.1, Albumin/Globulin Ratio 1.3 Micro: Microbiology 06/09/25 02:50 Mucosa - Nose SARS-CoV-2, Influenza & RSV (PCR) - Final Imaging Radiology Impression Chest CTA 06/09/25 02:44 IMPRESSION: No evidence of pulmonary arterial thromboembolism. Bilateral pulmonary atelectatic changes and with smooth interlobular septae thickening, possibly post infectious versus mild pulmonary edema. Advise clinical correlation. Stable left upper lung lobe large calcified nodule with surrounding atelectatic changes. Newly developed mild bilateral pleural effusion, right more evident than left with underlying basal atelectatic changes. Reading Location: [facility] [id number] Assessment & Plan Assessment/Plan (1) NSTEMI, initial episode of care: PLAN: Plan The patient is a 54-year-old female w/ PMHx: Anxiety and Depression, KRISTIN, HTN, HLD, Diabetes mellitus type II, Hx hematuria with recent urological intervention 06/08/2025 with left ureteral stent placement who presents to the [facility] ED on 06/09/2025 with onset of dyspnea as well as chest discomfort reporting herself 86% oxygenation status at home prompting ED evaluation to be cautious with no fever or chills nor any nausea or emesis and no onset of any urinary type symptoms. #1. Chest Pain w/ Acute NSTEMI with concern for possible HF unclear EF status mild exacerbation/overload: EKG in ED w/ with sinus tachycardia with no acute evidence of ischemia, CTPA with no evidence of pulmonary arterial embolism, bilateral pulmonary atelectatic changes with a smooth interlobular septal thickening, stable left upper lobe large calcified nodule with surrounding atelectatic changes, newly developed mild bilateral pleural effusions right greater than left with underlying basilar atelectatic changes Trop elevated, 347. Will admit to PCU, maintain on a monitored bed, continue serial cardiac enzymes and EKGs. Obtain magnesium level upon admission. Start Heparin drip/therapeutic lovenox. Continue medical management w/ asa, BB, statin w/ AM FLP. ECHO requested. Cardiology consulted, plan for cardiac catheterization. Maintain NPO after midnight. Will pulse dose lasix 40 mg IV x 1. ASA, NG, morphine. #2. Leukocytosis of unclear etiology: Admission CBC with WC 19.3, no specific left shift, afebrile, mild lactic acidosis 2.1, given presentation some concern for usage of IV fluids aggressively, will obtain procalcitonin, very judiciously hydrate and repeat CBC in AM. UA requested given recent urological procedure. Clarifying recent discharge antibiotic however if UA is marked we will transition initiate IV Rocephin. #3. History of hematuria: Recent 06/08/2025 cystoscopy with bilateral ureteroscopy with a left ureteral stent insertion per Dr. Moscoso, will notify of admission as courtesy, encourage follow-up outpatient as previously arranged. #4. Diabetes mellitus type II: Hold oral home regimen, n.p.o. status pending cardiology assessment, accu checks w/ ISS. #5. Hypertension: Continue home regimen including lisinopril, PRN hydralazine. #6. Morbid Obesity: Weight loss and lifestyle changes encouraged. #7. Anxiety and depression: Noted in chart history, not on regimen, encourage follow-up outpatient as previously arranged. #8. Hyperlipidemia: Will continue patient on statin BB regimen, add statin, FLP in AM. #9. KRISTIN: CPAP nightly. #10. DVT prophylaxis: Continue heparin drip. Charges/Coding Visit Charges Inpatient E&M: 08287 Init Hosp L3
[2025-06-09] MEDS: Heparin Injection (Vial) 5,000 UNIT/ML VIAL 4000 UNIT IV (04:44)
[2025-06-09] MEDS: HEPARIN/D5w 25,000 UNITS 25,000 UNITS/250 ML IV.SOLN. 10 UNITS CONT INF (04:49)
--- OUTSIDE RECORDS SUMMARY | 2025-06-09 05:03 | XMS RPT_ITS | CCD ---
Author Organization [facility] [employer] [facility] Care Team Providers Care Deputy Director Of Nursing Name Role Phone eBv Posadas Unavailable Unavailable Zacour, Fernando Unavailable Unavailable [...] Unavailable Unavailable Bev Posadas Primary Care Provider [phone] DR BEV POSADAS DO Primary Care Physician [phone] KATIE GRAYN-NOLA BHATIA Primary Care Physici an KATIE GRAYN-NOLA BHATIA Primary Care Unaeduarda GODFREY MD, JODY Consulting Unavailable KATIE BOY'S ADVISER-FITTER PLACER, NOLA Gallardo Attending Unav ailable KATIE BOY'S ADVISER-SRIRAM, NOLA Gallardo Primary Care Unav ailable KATIE BOY'S ADVISER-FITTER PLACERNOLA Attending Unav ailable KATIE BOY'S ADVISER-FITTER PLACER, NOLA Gallardo Primary Care Unav ailable WILSON BOY'S ADVISER-FITTER PLACER, NOLA D Attending Unav ailable WILSON BOY'S ADVISER-FITTER PLACER, NOLA D Primary Care Unav ailable WILSON BOY'S ADVISER-FITTER PLACER, NOLA D Attending Unav ailable WILSON BOY'S ADVISER-FITTER PLACER, NOLA D Attending Unav ailable WILSON BOY'S ADVISER-FITTER PLACER, NOLA D Primary Care Unav ailable ESTERLE DO, DR BEV Poole Primary Care Unavailabl e ESTERLE DO, DR BEV Poole Attending Unavailabl e WILSON BOY'S ADVISER-FITTER PLACER, NOLA D Attending Unav ailable WILSON BOY'S ADVISER-FITTER PLACER, NOLA D Primary Care Unav ailable WILSON BOY'S ADVISER-FITTER PLACER, NOLA D Primary Care Unav ailable WILSON BOY'S ADVISER-FITTER PLACER, NOLA D Attending Unav ailable CATE JHAVERI, KEYANA Wilkinson Primary Care Physician TRACIE JHAVERI, TOYA Baker Attending Unavailable WILSON BOY'S ADVISER-FITTER PLACER, NOLA Paulina Primary Care Unav TOYA Bradford MD Attending Unavailable KEYANA ESPOSITO MD Primary Care Unavailable CATE JHAVERI, KEYANA Wilkinson Primary Care Unavailable CATE JHAVERI, KEYANA Wilkinson Attending Unavailable CATE JHAVERI, KEYANA Wilkinson Primary Care Unavailable KEYANA ESPOSITO MD Attending Unavailable CATE JHAVERI, KEYANA Wilkinson Primary Care Unavailable DAVIDSON FITTER PLACER, ALISON L Attending Unavailable Katharina JHAVERI, Bev Poole Primary Care Provider YANNICK URIOSTEGUI JR Referring Unav ailable ESTERLE, BEV M Primary Care Unavailable YANNICK URIOSTEGUI JR Referring Unav ailable ESTERLE, BEV M Primary Care Unavailable Dr. Keyana Esposito MD Primary Care Provider Ezequiel Manuel MD Emergency Provider ESTERLE, BEV [...] Unavailable ESTERLE, BEV M Primary Care Unavailable [facility] CENT[facility], ABBEY Attending Unavailabl e ESTERLE, BEV M Primary Care Unavailable DHAYANANDHAN, ABBEY Attending Unavailabl e ESTERLE, BEV M Primary Care Unavailable SEN, JAIMIE Referring Unavailable ROSI BOY'S ADVISER-FITTER PLACER, BRANDON Attending Unavailab ned ESPOSITO MD, LASHONA K Primary Care Unavailable WILSON BOY'S ADVISER-FITTER PLACER, NOLA Gallardo Primary Care Unav ailable ARTURO JHAVERI, SANDOVAL Daniel Attending Unavailable CATE JHAVERI, KEYANA Wilkinson Primary Care Unavailable TOYA HODGES MD Attending Unavailable TOYA HODGES MD Attending Unavailable CATE JHAVERI, KEYANA Wilkinson Primary Care Unavailable ROSI BOY'S ADVISER-FITTER PLACER, BRANDON Attending Unavailab ned ESPOSITO MD, KEYANA Wilkinson Primary Care Unavailable CATE JHAVERI, KEYANA Wilkinson Primary Care Unavailable TOYA HODGES MD Attending Unavailable TOYA HODGES MD Attending Unavailable CATE JHAVERI, KEYANA Wilkinson Primary Care Unavailable CATE JHAVERI, KEYANA Wilkinson Primary Care Unavailable TOYA HODGES MD Attending Unavailable ROSI BOY'S ADVISER-FITTER PLACER, BRANDON Attending Unavailab ned ESPOSITO MD, KEYANA Wilkinson Primary Care Unavailable CATE JHAVERI, LASHONA K Primary Care Unavailable YANNICK URIOSTEGUI JR, MD Attending Unavailab ned ESPOSITO MD, KEYANA Wilkinson Primary Care Unavailable ALLEY PACK MD Attending Unavailable [facility] COORDINATOR, MARGARET HILLS Attending Unavail able CATE JHAVERI, KEYANA [...] Nausea And Vomiting, GI Upset, Vomiting [facility] (1 source) Acetaminophen Drug Allergy 5 vomits [facility] (1 source) Acetaminophen Drug Allergy 5 [facility] Repository Medications Current Medications Medication Drug Class(es) [...] (PERCOCET) 7.5-325 mg tablet as needed. Active [id number] 200 actuat albuterol 0.09 mg/actuat metered dose inhaler (20 sources) beta2-Adrenergic Agonist Start: 02-02-2024 take 1 puff(s) by inhalation every six hours as needed for wheezing ProAir HFA MDI (90 mcg/inh) inhalation aerosol 1 puff(s), Inhalation, q6hr, PRN Shortness of breath or wheezing, # 8.5 gram(s), 0 Refill(s), Pharmacy: [place] [id number], Bronchitis, 167, cm, 02/02/24 10:52:00 EDT, Height, [...] qDay, # 90 tab(s), 1 Refill(s), [facility] , Hyperlipidemia, 167.7, cm, 11/10/23 7:48:00 EDT, [...] cuff., # 1 EA, 0 Refill(s), [facility], Hypertension, 167, cm, 05/17/24 9:35:00 EST, Height, 122.5, kg, 05/17/24 9:35:00 EST, Dosing Weight Start Date: 05/17/24 Status: Ordered Medication Dispense Status: Completed Quantity: 1.0 Unit: EA Total Allowed Fills: 1 Fills Dispensed: 0 Indications: Essential (primary) hypertension; Start: 05-17-2024 DME MISCellane ous See Instructions, automatic BP cuff., # 1 EA, 0 Refill(s), [facility], Hypertension, 167, cm, 05/17/24 9:35:00 EST, [...] qDay, # 90 tab(s), 3 Refill(s), [facility] , Hyperlipidemia, 167.7, cm, 11/10/23 7:48:00 EDT, [...] Start: 06-15-2024 take 1 capsule by mo [facility] once daily garlic oral [...] 0 Start: 11-10-2023 take 1 tablet by [facility] once daily lisinopril 20 mg oral tablet Dose : 20 mg =, Oral, qDay, # 90 tab(s), 3 Refill(s), Pharmacy: [facility], 167.7, cm, 11/10/23 7:48:00 EDT, Height, kg, 11/10/23 7:48:00 EDT, Dosing Weight Start Date: 11/10/23 Status: Ordered Start: 11-16-2019 lisinopril (ZE STRIL, PRINIVIL) 10 mg tablet 40 mg. 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 [place], [place], [address] EGFR WB > 60.0000 Normal >60 [facility] Comment on above: Performed By: #### L 9100.0200 #### [facility] Laboratory [address] [place], [place], [address] /Veena 05-10-2025 MR/DINORA [facility] [address], [address] [place], [place] [address] OFFICE VISIT Date of Service: 05/10/25 MR#: [id number] Acct: [id number] Name: GARY MELCHOR Rep #: [id number] : 1970 Provider: Dr. Amy Velasquez i, MD Age/Sex: 54/F [place] [facility] Status: Signed Intake Vital Signs 04/24/25 10:27 05/10/25 09:58 Height 5 ft 5 in 5 ft 5 in Weight: 247 lb BMI 41.1 BP 130/78 H Pulse 68 Temp 98.1 F Intake Visit Reasons: CYSTO PEVLIC EXAM Chief Complaint: cystoscopy Program Therapist Required: No Is patient in pain?: Yes [...] healthy appearing, comfortable and no acute distress [facility] Head: normocephalic and atraumatic Ears: hearing [...] no mass (more content not included)... Normal [facility] Cytology, Body Fluid / CSFon 04-24-2025 CYTOLOGY,BF/CSF SEE PATHOLOGY REPORT Normal [facility] Comment on above: Order Comment: URINE Result Comment: Spec imen submitted to Anatomical Pathology Department for testing. Performed By: #### L 350.1000 #### [facility] Laboratory [facility] [place], [address] /Veena 04-24-2025 /DINORA [facility] [address], [address] [place] [address] OFFICE VISIT Date of Service: 04/24/25 MR#: [id number] Acct: [id number] Name: GARY MELCHOR Rep #: [id number] : 1970 Provider: Dr. Amy Velasquez i, MD Age/Sex: 54/F [place] [facility] Status: Signed Intake Vital Signs 12/18/24 00:52 04/24/25 10:27 Height 5 ft 5 in 5 ft 5 in Weight: 247 lb BMI 41.1 BP 115/87 H Pulse 72 Intake Visit Reasons: blood in urine Chief Complaint: new patient- hematuria Program Therapist Required: No Accompanied by: self Is patient [...] surgery Social History Smoking Status: Never smoker [facility] Chief Complaint: new patient- hematuria Details: [...] issues as well. 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 She has had chills, nausea, [...] movement Car (more content not included)... Normal [facility] Pap Stain (control)on 2024 Pap Stain (control) -- ---- Patient Age/Sex Location Account Attending Physician ---- GARY MELCHOR 54/F LABSPEC [id number] Dr. Amy Moscoso MD ---- Specimen: [id number] Received: 04/24/25 Status: KATHLEEN Guadarrama Num: [id number] Spec Type: CYSMO Mendoza Dr: Dr. Amy Moscoso MD HEADER OPERATION: Not noted PRE-OP DIAGNOSIS: Gross hematuria TISSUE SUBMITTED: A- Urine for cytology - voided ---- DIAGNOSIS CYTOLOGY A. Urine, voided (cytospin): - No malignant cells identified. - Predominantly squamous cells present. CYTOLOGY STUDY Slides are reviewed. CYTOLOGY GROSS A. Received is 50 ml of bvtzcv-bltjco-vjaiuz fluid labeled with the patient's name and and designated per the requisition as urine. Submitted for cytology preparation. 04/25/2025 CPT: 71715 Signed (signature on file) Dr. Bekah Ashton MD 04/26/25 1616 ---- Normal [facility] Comment on above: Performed By: #### P SOFY #### [facility] Laboratory [facility] [address] [place], [place], [id number] CNOVon 04-13-2025 CNOV Office Visit (KIDMLK ) GARY MELCHOR ([id number]) 1970 F Date Time Provider Department 04/13/25 8:00 AM ABBEY JIMENEZ During your visit today, we recorded the following information about you: Pulse Blood pressure Weight 69/minute 133/78 117.8 kg Abbey Jimenez MD 04/13/2025 9:14 AM Signed [facility] NEPHROLOGY AND HYPERTENSION [facility] SERVICE DATE AND [...] 2022. 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 Normal [facility] Prot/Creat Uron 04-13-2025 Protein/Creatinine (U) [Mass ratio] 0.16 mg/mg High <0.15 [facility] Comment on above: Order Comment: Speci men Type: URINE SPECIMENOrdering Facility: [facility] Address: [address] [place] [address] Result Comment: Adul t Proteinuria Categories: <0.15 mg/mg is considered normal to mildly increased 0.15 - 0.50 mg/mg is considered moderately increased >0.50 mg/mg is considered severely increased KDIGO. (2013). KDIGO 2012 Clinical Practice Guideline for the Evaluation and Management of Chronic Kidney Disease. Official Journal of the International Society of Nephrology, 3(1), 1-150. Performed By: #### 2 890-2 ####[facility] LABCLIA [id number] [place] [address] [place] Protein/Creatinine (U) [Mass ratio]on 04-13-2025 Creatinine (U) [Mass/Vol] 37.9 mg/dL Normal 20.0-300.0 [facility] Comment on above: Order Comment: Speci men Type: URINE SPECIMENOrdering Facility: [facility] Address: [address] [place] [id number] Performed By: #### 2 890-2 ####[facility] LABCLIA [id number] [place] [id number] [place] Protein (U) [Mass/Vol] 6 mg/dL Normal 0-20 [facility] Comment on above: Order Comment: Speci men Type: URINE SPECIMENOrdering Facility: [facility] Address: [address] [place] [address] Performed By: #### 2 890-2 ####[facility] LABCLIA [id number] [place] [id number] [place] US KIDNEY/BLADDERon 04-13-20 [...] sonographic appearance of the kidneys and bladder. Door Closer: PSCB Transcribe Date/Time: Apr 13 2025 2:39P Dictated by : TRIXIE RO MD This examination was interpreted and the report reviewed and electronically signed by: TRIXIE RO MD on Apr 13 2025 2:41PM EST [id number] Normal [facility] Urinalysis complete panel (U )on 04-13-2025 Bilirubin Ql (U) Negative Normal Negative [facility] Comment on above: Order Comment: Speci men Type: URINE SPECIMENOrdering Facility: [facility] Address: [address] [place] [address] Performed By: #### 2 4356-8 ####[facility] LWCLIA [id number] [address] [place] Clarity (Unsp spec) Clear Normal Clear [facility] Comment on above: Order Comment: Speci men Type: URINE SPECIMENOrdering Facility: [facility] Address: [address] [place] [address] Performed By: #### 2 4356-8 ####[facility] LWIA [id number] [address] Color (U) Light Yellow Normal yellow [facility] Comment on above: Order Comment: Speci men Type: URINE SPECIMENOrdering Facility: [facility] Address: [address] [place] [address] Performed By: #### 2 4356-8 ####[facility] LWCLIA [id number] [address] Epithelial cells LM.HPF (Urine sed) [#/Area] Few Normal [facility] Comment on above: Order Comment: Speci men Type: URINE SPECIMENOrdering Facility: [facility] Address: [address] [place] [address] Result Comment: Few Performed By: #### 2 4356-8 ####[facility] LWCLIA [id number] [address] [place] Glucose Test strip (U) [Mass/Vol] Negative Normal Trace, Negative [facility] Comment on above: Order Comment: Speci men Type: URINE SPECIMENOrdering Facility: [facility] Address: [address] [place] [address] Performed By: #### 2 4356-8 ####[facility] LWCLIA [id number] [address] [place] Hemoglobin Ql (U) 1+ Abnormal Negative, Trace [facility] Comment on above: Order Comment: Speci men Type: URINE SPECIMENOrdering Facility: [facility] Address: [address] [place] [address] Performed By: #### 2 4356-8 ####[facility] LWCLIA [id number] [place] [address] [place] Ketones Ql (U) Negative Normal Negative, Trace [facility] Comment on above: Order Comment: Speci men Type: URINE SPECIMENOrdering Facility: [facility] Address: [address] [place] [address] Performed By: #### 2 4356-8 ####[facility] LWCLIA [id number] [place] [address] [place] Leukocyte esterase Test strip Ql (U) 250 Vincent/uL Abnormal Negative, 25 Vincent/uL [facility] Comment on above: Order Comment: Speci men Type: URINE SPECIMENOrdering Facility: [facility] Address: [address] [place] [address] Performed By: #### 2 4356-8 ####[facility] LWCLIA [id number] [place] [address] [place] Nitrite Ql (U) Negative Normal Negative [facility] Comment on above: Order Comment: Speci men Type: URINE SPECIMENOrdering Facility: [facility] Address: [address] [place] [address] Performed By: #### 2 4356-8 ####[facility] LWCLIA [id number] [place] [address] [place] pH (U) 6.5 [pH] Normal 5.0-8.0 [facility] Comment on above: Order Comment: Speci men Type: URINE SPECIMENOrdering Facility: [facility] Address: [address] [place] [address] Performed By: #### 2 4356-8 ####[facility] LWCLIA [id number] [place] [address] [place] Protein (U) [Mass/Vol] Negative Normal Trace, Negative [facility] Comment on above: Order Comment: Speci men Type: URINE SPECIMENOrdering Facility: [facility] Address: [address] [place] [address] Performed By: #### 2 4356-8 ####[facility] LWCLIA [id number] [place] [id number] [place] RBC LM.HPF (Urine sed) [#/Area] 0-3 /HPF Normal 0-3 /HPF [facility] Comment on above: Order Comment: Speci men Type: URINE SPECIMENOrdering Facility: [facility] Address: [address] [place] [address] Performed By: #### 2 4356-8 ####[facility] LWCLIA [id number] [address] Specific gravity (U) [Rel density] 1.011 Normal 1.005-1.030 [facility] Comment on above: Order Comment: Speci men Type: URINE SPECIMENOrdering Facility: [facility] Address: [address] [place] [address] Performed By: #### 2 4356-8 ####[facility] LWCLIA [id number] [address] Urobilinogen Ql (U) Normal Normal Normal [facility] Comment on above: Order Comment: Speci men Type: URINE SPECIMENOrdering Facility: [facility] Address: [address] [place] [address] Performed By: #### 2 4356-8 ####[facility] LWCLIA [id number] [place] [id number] [facility] WBC LM.HPF (Urine sed) [#/Area] 6-10 /HPF Abnormal 0-5 /HPF [facility] Comment on above: Order Comment: Speci men Type: URINE SPECIMENOrdering Facility: [facility] Address: [address] [place] [address] Performed By: #### 2 4356-8 ####[facility] LWCLIA [id number] [address] [place] PMDSon 03-24-2025 [employer]ox[employer] 13 Summary FINAL Normal [facility] Comment on above: Result Comment: [...] consultation, please call . ==== Performed At: [email or web address] [address] [place] [id number] Robbie Forte [facility] Ph:[phone] Performed By: #### 7 [address] #### [place] [address] .GFRon 03-17-2025 Estimated Glomerular Filtration Rate 92 ml/min/1.73sqm Normal [facility] Comment on above: Result Comment: Stages [...] Performed By: #### B MP, GFR #### [address] [address] BMPon 03-17-2025 BUN/Creatinine Ratio 26 ratio Normal 7-27 [facility] Comment on above: Performed By: #### B MP, GFR #### [address] [address] Calcium [Mass/Vol] 9.1 mg/dL Normal 8.4-10.2 [facility] Comment on above: Performed By: #### B MP, GFR #### [address] [address] Chloride [Moles/Vol] 105 mmol/L Normal 98-107 [facility] Comment on above: Performed By: #### B MP, GFR #### [address] [address] CO2 [Moles/Vol] 31 mmol/L High 22-29 [facility] Comment on above: Performed By: #### B MP, GFR #### [address] [address] Creatinine [Mass/Vol] 0.76 mg/dL Normal 0.51-0.95 [facility] Comment on above: Performed By: #### B MP, GFR #### [address] [address] Electrolyte Balance 6.0 mEq/L Normal 4.0-15.0 [facility] Comment on above: Performed By: #### B MP, GFR #### [address] [address] Glucose [Mass/Vol] 125 mg/dL High 70-105 [facility] Comment on above: Performed By: #### B MP, GFR #### [address] [address] Potassium [Moles/Vol] 3.9 mmol/L Normal 3.5-5.1 [facility] Comment on above: Performed By: #### B MP, GFR #### [address] [address] Sodium [Moles/Vol] 142 mmol/L Normal 136-145 [facility] Comment on above: Performed By: #### B MP, GFR #### [facility] [address] [place], [place] [address] Urea nitrogen [Mass/Vol] 20 mg/dL High 7-18 [facility] Comment on above: Performed By: #### B MP, GFR #### [facility] [address] [place], [place] [address] LABORATORYOrdered By: Jose Guadalupe goldman on 03-17-2025 [...] UAon 03-17-2025 Color (U) Yellow Normal Yellow [facility] Comment on above: Performed By: #### U A, UAMIC #### [address] [address] Glucose (U) [Mass/Vol] Negative Normal Negative [facility] Comment on above: Performed By: #### U A, UAMIC #### [place] [address] [place], [place] [address] Ketones Ql (U) Negative Normal Negative [facility] Comment on above: Performed By: #### U A, UAMIC #### [place] [address] UA Appear Clear Normal Clear [facility] Comment on above: Performed By: #### U A, UAMIC #### [place] [address] UA Blood Moderate Abnormal Negative [facility] Comment on above: Performed By: #### U A, UAMIC #### [place] [address] UA Leuk Est Negative Normal Negative [facility] Comment on above: Performed By: #### U A, UAMIC #### [place] [address] UA Nitrite Negative Normal Negative [facility] Comment on above: Performed By: #### U A, UAMIC #### [place] [address] UA pH 6.0 Normal 5.0 - 8.0 [facility] Comment on above: Performed By: #### U A, UAMIC #### [place] [address] UA Protein 30 mg/dL Normal Negative [facility] Comment on above: Performed By: #### U A, UAMIC #### [place] [address] UA Spec Grav >=1.030 Abnormal 1.015-1.025 [facility] Comment on above: Performed By: #### U A, UAMIC #### [place] [address] UA Specimen Type Clean Catch Normal [facility] Comment on above: Performed By: #### U A, UAMIC #### [place] [address] UA Urobilinogen 0.2 E.U./dL Normal 0.2-1.0 [facility] Comment on above: Performed By: #### U A, UAMIC #### [place] [address] Urobilinogen (U) [Mass/Vol] Negative Normal Negative [facility] Comment on above: Performed By: #### U A, UAMIC #### [place] [address] [place], [place] [address] UAMICon 03-17-2025 UA RBC 5-10 Abnormal 0-2 [facility] Comment on above: Performed By: #### U A, UAMIC #### [place] [address] [place], [place] [address] UA Squam Epithelial 3-5 Normal 0-20 [facility] Comment on above: Performed By: #### U A, UAMIC #### [place] [address] [place], [place] [address] UA WBC 0-2 Normal 0-5 [facility] Comment on above: Performed By: #### U A, UAMIC #### [address] [address] CNPNon 02-28-2025 CNPN Telephone (MIDTXV) GARY MELCHOR ([id number]) 1970 F Date Time Provider Department 02/28/25 [...] 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 Protein in urine on and off States [...] she can have those results faxed to [phone] Allergies As of Date: 02/28/2025 Noted Allergy [...] Status:Closed by ABBEY JIMENEZ on 02/28/25 Normal [facility] 25(OH)D3 [facility] UPMCjuanito 2024 25-hydroxyvitamin D3 [Mass/Vol] 33.0 ng/mL Normal 31.0-80.0 [facility] Comment on above: Order Comment: Speci men Type: BLOOD SPECIMEN [facility] Address: [address] [place] [address] Result Comment: Clas sification of 25 [place] Vitamin D status: Deficiency/Insufficiency: < or = 30 ng/ml. Sufficiency/Optimal Levels: 31-80 ng/mL Toxicity: > 100 ng/mL. Test performed by chemiluminescent immunoassay. Performed By: #### A NAIFR, ANCA #### [facility] CLIA [id number] [place] [address] [place] 25-hydroxyvitamin D3 [Mass/V ol]on 02-22-2025 Interpretation and review of laboratory results Normal [facility] The reference range interval was based on an analysis of samples from healthy adults and may not pertain to children from 0-18 years old. [facility] FAYE BY IFA WITH REFLEXon Nuclear Ab Ql (S) Negative Normal Negative [facility] Comment on above: Order Comment: Speci nydia Type: BLOOD SPECIMEN Ordering Facility: [facility] Address: [address] [place] [address] Result Comment: Anti -nuclear antibody test is used as an aid in diagnosis of systemic autoimmune diseases. Where positive and clinically warranted, follow-up using disease-specific testing is recommended. Low positive titers are not uncommon with advanced age, certain chronic infections, and malignancies among others. Test methodology: Indirect fluorescence immunoassay (IFA) using HEp-2 cells. Performed By: #### A NAIFR, ANCA #### [facility] CLIA [id number] [address] [place] [address] [place] ANTI NEUTRO CYTO ABon 2024 INTERPRETATION (ANCA) Negative for C-ANC A and P-ANCA by indirect immunofluorescence. A negative result cannot reliably rule out ANCA-associated vaculitides especially when in remission. Clinical correlation is required. Normal [facility] Comment on above: Order Comment: Dannii nydia Type: BLOOD SPECIMEN Ordering Facility: [facility] Address: [address] [place] [address] Performed By: #### A NAIFR, ANCA #### [facility] CLIA [id number] [address] [place] [address] [place] Neutrophil cytoplasmic Ab.classic IF Ql (S) Negative Normal Negative [facility] Comment on above: Order Comment: Trav [facility] Type: BLOOD SPECIMEN Ordering Facility: [facility] Address: [address], [place] [address] Performed By: #### A NAIFR, ANCA #### [facility] CLIA [id number] [address] [place] [address] [place] Neutrophil cytoplasmic Ab.perinuclear IF Ql (S) Negative Normal Negative [facility] Comment on above: Order Comment: Speci men Type: BLOOD SPECIMEN Ordering Facility: [facility] Address: [address] [place] [address] Performed By: #### A NAIFR, ANCA #### [facility] CLIA [id number] [address] [place] [address] [place] STAFF REVIEW (ANCA) No review performed. Normal [facility] Comment on above: Order Comment: Speci men Type: BLOOD SPECIMEN Ordering Facility: [facility] Address: [address] [place] [address] Performed By: #### A NAIFR, ANCA #### [facility] CLIA [id number] [address] [place] [address] [place] C3 COMPLEMENTon 02-22-2025 Complement C3 [Mass/Vol] 174 mg/dL High 86 - 166 mg/dL [facility] C3 SerPl-mCncon 02-22-2025 Complement C3 [Mass/Vol] 174 mg/dL High 86-166 [facility] Comment on above: Order Comment: Speci men Type: BLOOD SPECIMEN Ordering Facility: [facility] Address: [address] [place] [address] Performed By: #### 1 1572-5, 4498-2, 4485-9 #### [facility] CLIA [id number] [address] [place] [address] [place] C4 COMPLEMENTon 02-22-2025 Complement C4 [Mass/Vol] 20 mg/dL 13 - 46 mg/dL [facility] C4 SerPl-mCncon 02-22-2025 Complement C4 [Mass/Vol] 20 mg/dL Normal 13-46 [facility] Comment on above: Order Comment: Speci men Type: BLOOD SPECIMEN Ordering Facility: [facility] Address: [address] [place] [address] Performed By: #### 1 1572-5, 4498-2, 4485-9 #### [facility] CLIA [id number] [address] [place] [address] [place] CBC panel Auto (Bld)on 02-22 Erythrocyte distribution width (RBC) [Ratio] 11.9 % 11.5 - 15.0 % [facility] Hematocrit (Bld) [Volume fraction] 39.1 % 36.0 - 46.0 % [facility] Hemoglobin (Bld) [Mass/Vol] 13.0 g/dL 11.5 - 15.5 g/dL [facility] Interpretation and review of laboratory results Normal [facility] MCH (RBC) [Entitic mass] 30.2 pg 26.0 - 34.0 pg [facility] MCHC (RBC) [Mass/Vol] 33.2 g/dL 30.5 - 36.0 g/dL [facility] MCV (RBC) [Entitic vol] 90.7 fL 80.0 - 100.0 fL [facility] Nucleated RBC (Bld) [#/Vol] NINF [facility] Platelet mean volume (Bld) [Entitic vol] 9.0 fL 9.0 - 12.7 fL [facility] Platelets (Bld) [#/Vol] 263 10*3/uL [facility] RBC (Bld) [#/Vol] 4.31 10*6/uL 3.90 - 5.2 0 m/uL [facility] WBC (Bld) [#/Vol] 6.44 10*3/uL [facility] Erythrocyte distribution width (RBC) [Ratio] 11.9 % Normal 11.5-15.0 [facility] Comment on above: Order Comment: Speci men Type: BLOOD SPECIMEN Ordering Facility: [facility] Address: [address] [place] [address] Performed By: #### A SHELBIE NICHOLAS #### [facility] CLIA [id number] [address] [place] [address] Hematocrit (Bld) [Volume fraction] 39.1 % Normal 36.0-46.0 [facility] Comment on above: Order Comment: Speci men Type: BLOOD SPECIMEN Ordering Facility: [facility] Address: [address] [place] [address] Performed By: #### A NAIFR, ANCA #### [facility] CLIA [id number] [address] [place] [address] [place] Hemoglobin (Bld) [Mass/Vol] 13.0 g/dL Normal 11.5-15.5 [facility] Comment on above: Order Comment: Speci men Type: BLOOD SPECIMEN Ordering Facility: [facility] Address: [address] [place] [address] Performed By: #### A NAIFR, ANCA #### [facility] CLIA [id number] [address] [place] [address] [place] MCH (RBC) [Entitic mass] 30.2 pg Normal 26.0-34.0 [facility] Comment on above: Order Comment: Speci men Type: BLOOD SPECIMEN Ordering Facility: [facility] Address: [address] [place] [address] Performed By: #### A NAIFR, ANCA #### [facility] CLIA [id number] [address] [place] [address] [place] MCHC (RBC) [Mass/Vol] 33.2 g/dL Normal 30.5-36.0 [facility] Comment on above: Order Comment: Speci men Type: BLOOD SPECIMEN Ordering Facility: [facility] Address: [address] [place] [address] Performed By: #### A NAIFR, ANCA #### [facility] CLIA [id number] [address] [place] [address] [place] MCV (RBC) [Entitic vol] 90.7 fL Normal 80.0-100.0 [facility] Comment on above: Order Comment: Speci men Type: BLOOD SPECIMEN Ordering Facility: [facility] Address: [address] [place] [address] Performed By: #### A NAIFR, ANCA #### [facility] CLIA [id number] [address] [place] [address] [place] Nucleated RBC (Bld) [#/Vol] 10*3/uL Normal <0.01 [facility] Comment on above: Order Comment: Speci men Type: BLOOD SPECIMEN Ordering Facility: [facility] Address: [address] [place] [address] Performed By: #### A NAIFR, ANCA #### [facility] CLIA [id number] [address] [place] [address] [place] Platelet mean volume (Bld) [Entitic vol] 9.0 fL Normal 9.0-12.7 [facility] Comment on above: Order Comment: Speci men Type: BLOOD SPECIMEN Ordering Facility: [facility] Address: [address] [place] [address] Performed By: #### A NAIFR, ANCA #### [facility] CLIA [id number] [address] [place] [address] [place] Platelets (Bld) [#/Vol] 263 10*3/uL Normal 150-400 [facility] Comment on above: Order Comment: Speci men Type: BLOOD SPECIMEN Ordering Facility: [facility] Address: [address] [place] [address] Performed By: #### A NAIFR, ANCA #### [facility] CLIA [id number] [address] [place] [address] [place] RBC (Bld) [#/Vol] 4.31 10*6/uL Normal 3.90-5.20 [facility] Comment on above: Order Comment: Speci men Type: BLOOD SPECIMEN Ordering Facility: [facility] Address: [address] [place] [address] Performed By: #### A NAIFR, ANCA #### [facility] CLIA [id number] [address] [place] [address] [place] WBC (Bld) [#/Vol] 6.44 10*3/uL Normal 3.70-11.00 [facility] Comment on above: Order Comment: Speci men Type: BLOOD SPECIMEN Ordering Facility: [facility] Address: [address] [place] [address] Performed By: #### A SHELBIE NICHOLAS #### [facility] CLIA [id number] [address] [place] [address] [facility] CNOVon 02-22-2025 CNOV Office Visit (MIDMAV ) RUIZGARY ([id number]) 1970 F Date Time Provider Department 02/22/25 9:20 AM ABBEY JIMENEZ [facility] During your visit today, we recorded the following information about you: Pulse Blood pressure Weight Height 77/minute 137/79 115.2 kg 1.676 m Abbey Jimenez MD 02/22/2025 2:21 PM Signed [facility] NEPHROLOGY AND HYPERTENSION [facility] SERVICE DATE AND [...] 2022. 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 - Discovered 4 gallons of [employer]ichhold Torch fuel in shed, suspects hydrocarbon poisoning. [...] BMI 40.99 (more content not included)... Normal [facility] Centromere Ab IF Ql (S)on Centromere Ab Qn (S) <0.2 Normal <1.0 [facility] Comment on above: Order Comment: Speci men Type: BLOOD SPECIMEN Ordering Facility: [facility] Address: [address] [place] [address] Result Comment: Anti -centromere antibody is used as in aid in diagnosis of systemic sclerosis. Clinical correlation is required. Test Methodology: Multiplex flow immunoassay. Performed By: #### 5 1775-5, 23698-6, 66270-2, 27057-9, 92703-0, 16572-3, 74498-6, 33917-2 #### [facility] CLIA [id number] [address] [place] [address] [place] CENTROMERE AB QUAL Negative Normal Negative [facility] Comment on above: Order Comment: Speci men Type: BLOOD SPECIMEN Ordering Facility: [facility] Address: [address] [place] [address] Performed By: #### 5 1775-5, 94934-1, 71143-3, 11060-2, 31190-8, 50124-1, 11463-1, 09469-6 #### [facility] CLIA [id number] [address] [place] [address] [place] Chromatin Ab Qnon 02-22-2025 CHROMATIN AB QUAL Negative Normal Negative [facility] Comment on above: Order Comment: Speci men Type: BLOOD SPECIMEN Ordering Facility: [facility] Address: [address] [place] [address] Performed By: #### 5 1775-5, 23927-8, 24878-6, 16326-0, 43323-7, 31570-6, 35239-6, 79057-2 #### [facility] CLIA [id number] [address] [place] [address] [place] Chromatin Ab SerPl-aCncon Chromatin Ab Qn <0.2 Normal <1.0 [facility] Comment on above: Order Comment: Speci men Type: BLOOD SPECIMEN Ordering Facility: [facility] Address: [address] [place] [address] Result Comment: Test Methodology: Multiplex flow immunoassay. Performed By: #### 5 1775-5, 33786-1, 74974-8, 38144-4, 96820-1, 47472-8, 98928-9, 50484-2 #### [facility] CLIA [id number] [address] [place] [address] [place] Complement C3 [Mass/Vol]on 0 02-22-2025 Interpretation and review of laboratory results Abnormal [facility] JOSE L Jo1 Ab Ser-aCncon 2024 Gill-1 extractable nuclear Ab Qn (S) <0.2 Normal <1.0 [facility] Comment on above: Order Comment: Speci men Type: BLOOD SPECIMEN Ordering Facility: [facility] Address: [address] [place] [address] Performed By: #### A NAIFR, ANCA #### [facility] IA [id number] [address] [place] [address] [place] JOSE L PROGRAM AIDE Ab Ser-aCncon 2024 Ribonucleoprotein extractable nuclear Ab Qn (S) <0.2 Normal <1.0 [facility] Comment on above: Order Comment: Speci men Type: BLOOD SPECIMEN Ordering Facility: [facility] Address: [address] [place] [address] Performed By: #### A NAIFR, ANCA #### [facility] IA [id number] [address] [place] [address] [place] Ribonucleoprotein extractable nuclear Ab Qn (S) 0.2 AI Normal <1.0 [facility] Comment on above: Order Comment: Speci men Type: BLOOD SPECIMEN Ordering Facility: [facility] Address: [address] [place] [address] Performed By: #### A NAIFR, ANCA #### [facility] IA [id number] [address] [place] [address] [place] JOSE L SM IgG Ser-aCncon 2024 Benavides extractable nuclear IgG Qn (S) <0.2 Normal <1.0 [facility] Comment on above: Order Comment: Speci men Type: BLOOD SPECIMEN Ordering Facility: [facility] Address: [address] [place] [address] Performed By: #### A NAIFR, ANCA #### [facility] CLIA [id number] [address] [place] [address] [place] JOSE L SS-A Ab Ser-aCncon 02-22 Sjogrens syndrome-A extractable nuclear Ab Qn (S) <0.2 Normal <1.0 [facility] Comment on above: Order Comment: Speci men Type: BLOOD SPECIMEN Ordering Facility: [facility] Address: [address] [place] [address] Result Comment: Test Methodology: Multiplex flow immunoassay. Performed By: #### A NAIFR, ANCA #### [facility] CLIA [id number] [address] [place] [address] JOSE L SS-B Ab Ser-aCncon 02-22 Sjogrens syndrome-B extractable nuclear Ab Qn (S) <0.2 Normal <1.0 [facility] Comment on above: Order Comment: Speci [facility] Type: BLOOD SPECIMEN Ordering Facility: [facility] Address: [address] [place] [address] Result Comment: Anti -SSB (anti-La) antibody is used as an aid in diagnosis of a variety of systemic autoimmune diseases, especially for Sjogren's syndrome and systemic lupus erythematosus. Clinical correlation is required. Test Methodology: Multiplex flow immunoassay. Performed By: #### 5 1775-5, 12970-4, 67019-9, 02116-3, 58975-8, 22432-8, 37362-5, 26729-2 #### [facility] CLIA [id number] [address] [place] [address] [place] GBM IGG AUTOANTIBODYon 02-22 GBM IGG AB, (BEAD) 0 AU/mL Normal 0-19 [facility] Comment on above: Order Comment: Speci men Type: BLOOD SPECIMEN Ordering Facility: [facility] Address: [address] [place] [address] Result Comment: INTE RPRETIVE INFORMATION: GBM Ab, [...] and assessment of renal prognosis. Performed By: [address] [address] [place] [address] Shot Tube Machine Tender: Ankur Figueredo MD, PhD CLIA Number: [id number] Performed By: #### G [facility] #### [facility] CLIA [id number] [address] [place] [address] HBV core Ab Ser Qlon 025 HBV core Ab Ql (S) Negative Normal Negative [facility] Comment on above: Order Comment: Trav [facility] Type: BLOOD SPECIMEN Ordering Facility: [facility] Address: [address] [place] [address] Result Comment: No e vidence of current or past infection with Hepatitis B virus. Should recent infection be suspected, repeat testing may be considered 3-4 weeks after this draw. Performed By: #### A NAIFR, ANCA #### [facility] CLIA [id number] [address] [place] [address] [place] HBV surface Ab Ql (S)on 01-28 HBV surface Ab Qn (S) <8.00 Normal [facility] Comment on above: Order Comment: Speci [facility] Type: BLOOD SPECIMEN Ordering Facility: [facility] Address: [address] [place] [address] Result Comment: <8 m IU/mL: No serological evidence of immunity to Hepatitis B Virus. >/= 8 to <12 mIU/mL: No serological evidence of immunity to Hepatitis B Virus. >/= 12 mIU/mL: Consistent with serological evidence of immunity to Hepatitis B Virus. Performed By: #### A NAIFR, ANCA #### [facility] CLIA [id number] [address] [place] [address] [place] HBV surface Ab Ser Qlon 01-28 HBV surface Ab Ql (S) Negative Normal [facility] Comment on above: Order Comment: Speci men Type: BLOOD SPECIMEN Ordering Facility: [facility] Address: [address] [place] [address] Result Comment: No s erological evidence of immunity to Hepatitis B Virus. Performed By: #### A NAIFR, ANCA #### [facility] CLIA [id number] [address] [place] [address] [place] HBV surface Ag Ser Qlon 01-28 HBV surface Ag Ql (S) Negative Normal Negative [facility] Comment on above: Order Comment: Speci men Type: BLOOD SPECIMEN Ordering Facility: [facility] Address: [address] [place] [address] Performed By: #### A NAIFR, ANCA #### [facility] CLIA [id number] [address] [place] [address] [place] HCV Ab Ser Ql02-22-2025 HCV Ab Ql (S) Negative Normal Negative [facility] Comment on above: Order Comment: Speci men Type: BLOOD SPECIMEN Ordering Facility: [facility] Address: [address] [place] [address] Result Comment: The result suggests no evidence of infection with Hepatitis C virus. Should recent infection be suspected, repeat testing may be considered 4-6 weeks after this draw. Performed By: #### A NAIFR, ANCA #### [facility] CLIA [id number] [address] [place] [address] [place] HIV 1+2 Ab IA Qlon HIV 1 and 2 Ab IA.rapid Nom (S/P/Bld) [facility] Comment on above: Test not indicated. HIV 1+2 Ab+HIV1 p24 Ag IA Ql Non-Reactive Nonreactive [facility] HIV immunoassay testing algorithm interpretation (S/P/Bld) [Interp] [facility] Comment on above: No evidence of HIV-1 or HIV-2 infection. Should recent infection be suspected, repeat testing may be considered 2-3 weeks after this draw. [place] Rev. Code 3701.243(E): This information has been [...] release of HIV test results or diagnoses. [facility] HIV 1 and 2 Ab IA.rapid Nom (S/P/Bld) [facility] Comment on above: Order Comment: Speci men Type: BLOOD SPECIMEN Ordering Facility: [facility] Address: [address] [place] [address] Result Comment: Test not indicated. Performed By: #### A NAIFR, ANCA #### [facility] CLIA [id number] [address] [place] [address] [place] HIV 1+2 Ab+HIV1 p24 Ag IA Ql Non-Reactive Normal Nonreactive [facility] Comment on above: Order Comment: Speci men Type: BLOOD SPECIMEN Ordering Facility: [facility] Address: [address] [place] [address] Performed By: #### A NAIFR, ANCA #### [facility] CLIA [id number] [address] [place] [address] [place] HIV immunoassay testing algorithm interpretation (S/P/Bld) [Interp] [facility] Comment on above: Order Comment: Speci men Type: BLOOD SPECIMEN Ordering Facility: [facility] Address: [address] [place] [address] Result Comment: No e vidence of HIV-1 or HIV-2 infection. Should recent infection be suspected, repeat testing may be considered 2-3 weeks after this draw. [place] Rev. Code 3701.243(E): This information has been [...] Performed By: #### A NAIFR, ANCA #### [facility] CLIA [id number] [address] [place] [address] IMMUNOFIXATION SCREEN, SERUM on 02-22-2025 MPA RESULT No M protein is identified. Normal No M protein is identified. [facility] Comment on above: Order Comment: Speci men Type: BLOOD SPECIMEN Ordering Facility: [facility] Address: [address] [place] [address] Performed By: #### I FESC #### [facility] CLIA [id number] [address] [place] [address] STAFF REVIEW (MPA) Reviewed by Bev Cheema MD [facility] Comment on above: Order Comment: Speci men Type: BLOOD SPECIMEN Ordering Facility: [facility] Address: [address] [place] [address] Performed By: #### I FESC #### [facility] CLIA [id number] [address] [place] [address] [place] IMMUNOGLOBULINS,IGG,IGA,IGMo n 02-22-2025 IgA [Mass/Vol] 245 mg/dL Normal 70-400 [facility] Comment on above: Order Comment: Speci men Type: BLOOD SPECIMEN Ordering Facility: [facility] Address: [address] [place] [address] Performed By: #### A NAIFR, ANCA #### [facility] CLIA [id number] [address] [place] [address] [place] IgG [Mass/Vol] 1051 mg/dL Normal 700-1600 [facility] Comment on above: Order Comment: Speci men Type: BLOOD SPECIMEN Ordering Facility: [facility] Address: [address] [place] [address] Performed By: #### A NAIFR, ANCA #### [facility] CLIA [id number] [address] [place] [address] [place] IgM [Mass/Vol] 173 mg/dL Normal 40-230 [facility] Comment on above: Order Comment: Dannii [facility] Type: BLOOD SPECIMEN Ordering Facility: [facility] Address: [address] [place] [address] Performed By: #### A NAIFR, ANCA #### [facility] CLIA [id number] [address] [place] [address] [place] Gill-1 extractable nuclear Ab Qn (S)on 02-22-2025 GILL 1 ANTIBODY QUAL Negative Normal Negative [facility] Comment on above: Order Comment: Trav [facility] Type: BLOOD SPECIMEN Ordering Facility: [facility] Address: [address] [place] [address] Result Comment: Anti -GILL-1 antibody is used as an aid in diagnosis of polymyositis and dermatomyositis especially with pulmonary involvement. A negative result cannot rule out polymyositis or dermatomyositis. Clinical correlation is required. Test Methodology: Multiplex flow immunoassay. Performed By: #### A NAIFR, ANCA #### [facility] CLIA [id number] [address] [place] [address] [place] KAPPA/OLIVARES,FREE,SERon 2024 Immunoglobulin light chains.kappa.free (S) [Mass/Vol] 17.6 mg/L Normal 3.3-19.4 [facility] Comment on above: Order Comment: Trav [facility] Type: BLOOD SPECIMEN Ordering Facility: [facility] Address: [address] [place] [address] Result Comment: Rare ly, increased serum free light chains levels may not be detected or accurately quantified due to prozone phenomenon or in high viscosity samples using this immunoturbidimetric assay. Correlation with other laboratory results and clinical findings is recommended. The [place] Free Light Chain was performed using the Binding Site Optilite immunoturbidimetric method. Result obtained with different assay methods or kits cannot be used interchangeably. Performed By: #### A NAIFR, ANCA #### [facility] CLIA [id number] [address] [place] [address] [place] Immunoglobulin light chains.kappa/Immunogl obulin light chains.lambda (S) [Mass ratio] 1.25 Normal 0.26-1.65 [facility] Comment on above: Order Comment: Speci men Type: BLOOD SPECIMEN Ordering Facility: [facility] Address: [address] [place] [address] Performed By: #### A NAIFR, ANCA #### [facility] CLIA [id number] [address] [place] [address] [place] Immunoglobulin light chains.lambda.free [Mass/Vol] 14.1 mg/L Normal 5.7-26.3 [facility] Comment on above: Order Comment: Speci men Type: BLOOD SPECIMEN Ordering Facility: [facility] Address: [address] [place] [address] Result Comment: Rare ly, increased serum free [...] Performed By: #### A NAIFR, ANCA #### [facility] CLIA [id number] [address] [place] [address] [place] No Panel Informationon 02-22 Interpretation and review of laboratory results Normal [facility] RHEUMATOID FACTORon 02-23-20 25 Rheumatoid factor Qn 11 [IU]/mL NINF [facility] Renal function 2000 panelon 02-22-2025 Albumin [Mass/Vol] 4.5 g/dL 3.9 - 4.9 g/dL [facility] Anion gap [Moles/Vol] 10 mmol/L 8 - 15 mmol/L [facility] Calcium [Mass/Vol] 10.1 mg/dL 8.5 - 10. 2 mg/dL [facility] Chloride [Moles/Vol] 100 mmol/L 98 - 10 7 mmol/L [facility] CO2 [Moles/Vol] 28 mmol/L 22 - 30 mmol/L [facility] Creatinine [Mass/Vol] 0.75 mg/dL 0.58 - 0.96 mg/dL [facility] GFR/1.73 sq M.predicted among non-blacks MDRD (S/P/Bld) [Vol rate/Area] 94 mL/min/{1.73_m2} - PINF [facility] Comment on above: Estimated Glomerular Filtration [...] 95 mg/dL 74 - 99 mg/dL [facility] Comment on above: The [place] Diabete s Association (ADA) provides guidance for [...] Standards of Medical Care in Diabetes 2016, [place] Diabetes Association. Diabetes Care. 2016.39(Suppl 1). Interpretation and review of laboratory results Normal [facility] Phosphate [Mass/Vol] 4.0 mg/dL 2.7 - 4 .8 mg/dL [facility] Potassium [Moles/Vol] 4.0 mmol/L 3.7 - 5.1 mmol/L [facility] Sodium [Moles/Vol] 138 mmol/L 136 - 144 mmol/L [facility] Urea nitrogen [Mass/Vol] 15 mg/dL 7 - 21 mg/dL [facility] Albumin [Mass/Vol] 4.5 g/dL Normal 3.9-4.9 [facility] Comment on above: Order Comment: Speci men Type: BLOOD SPECIMEN Ordering Facility: [facility] Address: [address] [place] [address] Performed By: #### A NAIFR, ANCA #### [facility] CLIA [id number] [address] [place] [address] [place] Anion gap [Moles/Vol] 10 mmol/L Normal 8-15 [facility] Comment on above: Order Comment: Speci men Type: BLOOD SPECIMEN Ordering Facility: [facility] Address: [address] [place] [address] Performed By: #### A NAIFR, ANCA #### [facility] CLIA [id number] [address] [place] [address] [place] Calcium [Mass/Vol] 10.1 mg/dL Normal 8.5-10.2 [facility] Comment on above: Order Comment: Speci men Type: BLOOD SPECIMEN Ordering Facility: [facility] Address: [address] [place] [address] Performed By: #### A NAIFR, ANCA #### [facility] CLIA [id number] [address] [place] [address] [place] Chloride [Moles/Vol] 100 mmol/L Normal 98-107 [facility] Comment on above: Order Comment: Speci men Type: BLOOD SPECIMEN Ordering Facility: [facility] Address: [address] [place] [address] Performed By: #### A NAIFR, ANCA #### [facility] CLIA [id number] [address] [place] [address] [place] CO2 [Moles/Vol] 28 mmol/L Normal 22-30 [facility] Comment on above: Order Comment: Speci men Type: BLOOD SPECIMEN Ordering Facility: [facility] Address: [address] [place] [address] Performed By: #### A NAIFR, ANCA #### [facility] CLIA [id number] [facility] [place] [address] [place] Creatinine [Mass/Vol] 0.75 mg/dL Normal 0.58-0.96 [facility] Comment on above: Order Comment: Trav stafford Type: BLOOD SPECIMEN Ordering Facility: [facility] Address: [address] [place] [address] Performed By: #### A SGR, ANCA #### [facility] CLIA [id number] [address] [place] [address] [place] eGFRcr SerPlBld CKD-EPI 2020 94 mL/min/1.73m??? Normal >=60 [facility] Comment on above: Order Comment: Trav stafford Type: BLOOD SPECIMEN Ordering Facility: [facility] Address: [address] [place] [address] Result Comment: Susie mated Glomerular Filtration Rate [...] Performed By: #### A SGR, ANCA #### [facility] CLIA [id number] [address] [place] [address] [place] Glucose [Mass/Vol] 95 mg/dL Normal 74-99 [facility] Comment on above: Order Comment: Trav stafford Type: BLOOD SPECIMEN Ordering Facility: [facility] Address: [address] [place] [address] Result Comment: The [place] Diabetes Association (ADA) provides guidance for cutoff [...] Standards of Medical Care in Diabetes 2016, [place] Diabetes Association. Diabetes Care. 2016.39(Suppl 1). Performed By: #### A NAIFR, ANCA #### [facility] CLIA [id number] [address] [place] [address] [place] Phosphate [Mass/Vol] 4.0 mg/dL Normal 2.7-4.8 [facility] Comment on above: Order Comment: Speci men Type: BLOOD SPECIMEN Ordering Facility: [facility] Address: [address] [place] [address] Performed By: #### A NAIFR, ANCA #### [facility] CLIA [id number] [address] [place] [address] [place] Potassium [Moles/Vol] 4.0 mmol/L Normal 3.7-5.1 [facility] Comment on above: Order Comment: Speci men Type: BLOOD SPECIMEN Ordering Facility: [facility] Address: [address] [place] [address] Performed By: #### A NAIFR, ANCA #### [facility] CLIA [id number] [address] [place] [address] [place] Sodium [Moles/Vol] 138 mmol/L Normal 136-144 [facility] Comment on above: Order Comment: Speci men Type: BLOOD SPECIMEN Ordering Facility: [facility] Address: [address] [place] [address] Performed By: #### A NAIFR, ANCA #### [facility] CLIA [id number] [address] [place] [address] [place] Urea nitrogen [Mass/Vol] 15 mg/dL Normal 7-21 [facility] Comment on above: Order Comment: Speci men Type: BLOOD SPECIMEN Ordering Facility: [facility] Address: [address] [place] [address] Performed By: #### A NAIFR, ANCA #### [facility] CLIA [id number] [address] [place] [address] [place] Rheumatoid fact SerPl-aCncon 02-22-2025 Rheumatoid factor Qn 11 [IU]/mL Normal <16 [facility] Comment on above: Order Comment: Speci men Type: BLOOD SPECIMEN Ordering Facility: [facility] Address: [address] [place] [address] Performed By: #### 1 1572-5, 4498-2, 4485-9 #### [facility] CLIA [id number] [address] [place] [address] [place] Ribonucleoprotein extractabl e nuclear Ab Qn (S)on 02-22-2025 ANTI-PROGRAM AIDE QUAL Negative Normal Negative [facility] Comment on above: Order Comment: Speci [facility] Type: BLOOD SPECIMEN Ordering Facility: [facility] Address: [address] [place] [address] Performed By: #### A NAIFR, ANCA #### [facility] CLIA [id number] [address] [place] [address] [place] RIBOSOMAL PROGRAM AIDE QUAL Negative Normal Negative [facility] Comment on above: Order Comment: Dannii [facility] Type: BLOOD SPECIMEN Ordering Facility: [facility] Address: [address] [place] [address] Result Comment: Anti -Ribosomal RNA (Ribosomal P) antibody is used as an aid in diagnosis of systemic autoimmune diseases especially systemic lupus erythematosus and mixed connective tissue disease. Cross-reactivity with Anti-benavides antibody is not uncommon. Clinical correlation is required. Test Methodology: Multiplex flow immunoassay. Performed By: #### A NAIFR, ANCA #### [facility] CLIA [id number] [address] [place] [address] [place] SCL-70 extractable nuclear I gG IA Qn (S)on 02-22-2025 SCLERODERMA AB QUAL Negative Normal Negative [facility] Comment on above: Order Comment: Speci men Type: BLOOD SPECIMEN Ordering Facility: [facility] Address: [address] [place] [address] Performed By: #### A NAIFR, ANCA #### [facility] CLIA [id number] [address] [place] [address] [place] SCLERODERMA IGG AB <0.2 Normal <1.0 [facility] Comment on above: Order Comment: Speci men Type: BLOOD SPECIMEN Ordering Facility: [facility] Address: [address] [place] [address] Result Comment: Scl- 70/Scleroderma antibody test is used as an aid in diagnosis of systemic sclerosis especially the diffuse cutaneous form. A negative result cannot rule out systemic sclerosis. The final interpretation should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 : 0.90 L/S LKN09_XOXK (L/S) : 0.79 L/S XTY03_NIS (L/S) : 0.33 L/S ILJ60_FPO (L/S) : 1.74 L/S OEZ08-36%_PRE (L/S) : 1.98 L/S CSO84-99%_POST (L/S) : 2.20 L/S XZS89-06%_PRED (L/S) : 2.53 L/S WIA45-93%_LLN (L/S) : 1.36 L/S PEF_PRE (L/S) : [...] ml/min/mmHg DLCO/VACOR (ML/MIN/MMHG/L) : 0.05 ml/min/mmHg/L Normal [facility] TRVAMPon 09-26-2024 Trich vag TOM Negative Normal Negative [facility] Comment on above: Result Comment: Perf ormed At: [facility] [address] [place] [id number] Segundo Vegas MD Ph:[phone] Performed By: #### L IPID, A1C, CBC, ADIFF, ANEU, B12, CMP, VIDH, GFR #### [place] [address] CTPCRon 09-22-2024 C. trachomatis Interp Normal See CT Interp N [facility] Comment on above: Result Comment: C. t rachomatis DNA not detected. Specimen is presumptive negative for C. trachomatis. A negative result does not preclude C. trachomatis infection because results depend on adequate specimen collection, absence of inhibitors, and sufficient DNA to be detected. See CT Interp N Performed By: #### L IPID, A1C, CBC, ADIFF, ANEU, B12, CMP, VIDH, GFR #### [address] [address] C.trachomatis PCR Negative Normal Negative [facility] Comment on above: Result Comment: Mole cular (PCR) assay performed on the Jake Willie 4800 system. Performed By: #### L IPID, A1C, CBC, ADIFF, ANEU, B12, CMP, VIDH, GFR #### [address] [address] Chlam Source Urine Normal [facility] Comment on above: Performed By: #### L IPID, A1C, CBC, ADIFF, ANEU, B12, CMP, VIDH, GFR #### [address] [address] HMSLV6fk 09-22-2024 GC PCR Source Urine Normal [facility] Comment on above: Performed By: #### L IPID, A1C, CBC, ADIFF, ANEU, B12, CMP, VIDH, GFR #### [address] [address] N. gonorrhoeae (PCR) Negative Normal Negative [facility] Comment on above: Result Comment: Mole cular (PCR) assay performed on the Jake Willie 4800 System. Performed By: #### L IPID, A1C, CBC, ADIFF, ANEU, B12, CMP, VIDH, GFR #### [address] [address] N. gonorrhoeae Interp Normal See NG Interp N [facility] Comment on above: Result Comment: N. g onorrhoeae DNA not detected. Specimen is presumptive negative for N. gonorrhoeae. A negative result does not preclude Neisseria gonorrhoeae infection because results depend on adequate specimen collection, absence of inhibitors, and sufficient DNA to be detected. See NG Interp N Performed By: #### L IPID, A1C, CBC, ADIFF, ANEU, B12, CMP, VIDH, GFR #### [place] [address] RPRon 09-21-2024 Reagin Ab RPR Ql (S) Non-Reactive Normal Non-Reactive [facility] Comment on above: Result Comment: The [...] ADIFF, ANEU, B12, CMP, VIDH, GFR #### [place] [address] HBSAGon 09-20-2024 Hep B Surf Ag Non-Reactive Normal Non-Reactive [facility] Comment on above: Performed By: #### L IPID, A1C, CBC, ADIFF, ANEU, B12, CMP, VIDH, GFR #### [place] [address] HCVon 09-20-2024 Hep C Ab Non-Reactive Normal Non-Reactive [facility] Comment on above: Performed By: #### L IPID, A1C, CBC, ADIFF, ANEU, B12, CMP, VIDH, GFR #### [place] [address] Hep C Ab Int Normal [facility] Comment on above: Result Comment: Nonr [...] ADIFF, ANEU, B12, CMP, VIDH, GFR #### [place] [id number] [place] [address] HIVon 09-20-2024 HIV 1/2 Ab Non-Reactive Normal Non-Reactive [facility] Comment on above: Result Comment: Spec jaelyn is negative for anti-HIV-1 and anti-HIV-2. Performed By: #### L IPID, A1C, CBC, ADIFF, ANEU, B12, CMP, VIDH, GFR #### [place] [address] TRVAMPon 09-20-2024 Trich Vag Source Urine Normal [facility] Comment on above: Performed By: #### L IPID, A1C, CBC, ADIFF, ANEU, B12, CMP, VIDH, GFR #### [place] [address] HMETBon 09-12-2024 Blood Lead Purpose Initial Normal [facility] Comment on above: Performed By: #### U RAMO, UA #### [address] [address] Blood Lead Type Venous Normal [facility] Comment on above: Performed By: #### U AMICAO, UA #### [place] [address] [facility] 09-11-2024 Arsenic Bld Lvl 14 UG/L High 0-9 [facility] Comment on above: Result Comment: This test was developed and its performance characteristics determined by [employer]. It has not been cleared or approved [...] Performed By: #### U AMICAO, UA #### [address] [address] Cadmium Bld Lvl 0.6 UG/L Normal 0.0-1.2 [facility] Comment on above: Result Comment: This test was developed and its performance characteristics determined by [employer]. It has not been cleared or approved by the Food and Drug Administration. Environmental Exposure: Nonsmokers 0.3 - 1.2 Smokers 0.6 - 3.9 Occupational Exposure: OSHA Cadmium Std 5.0 YELITZA 5.0 Detection Limit = 0.5 Performed At: [facility] [address] [id number] Tomás Bailey MD Ph:[phone] Performed By: #### Lis RALPH, UA #### [place] [address] [place], [place] [address] Lead Bld Lvl <1.0 Normal 0.0-3.4 [facility] Comment on above: Result Comment: Test ing performed by Inductively coupled plasma/Mass Spectrometry. This test was developed and its performance characteristics determined by [employer]. It has not been cleared or approved by the Food and Drug Administration. Environmental Exposure: WHO Recommendation <5.0 Occupational Exposure: OSHA Lead Std 40.0 YELITZA 30.0 Detection Limit = 1.0 Performed By: #### Lis RALPH, UA #### [address] [address] Mercury Bld Lvl 1.9 UG/L Normal 0.0-14.9 [facility] Comment on above: Result Comment: This test was developed and its performance characteristics determined by [employer]. It has not been cleared or approved by the Food and Drug Administration. Detection Limit = 1.0 Performed By: #### Lis RALPH UA #### [address] [address] [place] PELVIS NON-OB W/TRANSVAGI NALon 09-08-2024 US [...] 09/08/2024 11:01:14 AM Ordering Provider: KEY[facility]Auto Diffon 09-06-2024 Basophil, Absolute 0.0 10 3/mcL Normal 0.0-0.2 [facility] Comment on above: Performed By: #### A DIFF, GFR, ANEU, MDW, CMP, CBC, [id number] #### [place] [address] [place], [place] [address] Basophils/100 WBC (Bld) 0.4 % Normal 0.0-2.5 [facility] Comment on above: Performed By: #### A DIFF, GFR, ANEU, MDW, CMP, CBC, 709133 #### [facility] [address] [place], [place] [address] Eosinophil, Absolute 0.0 10 3/mcL Normal 0.0-0.7 [facility] Comment on above: Performed By: #### A DIFF, GFR, ANEU, MDW, CMP, CBC, [id number] #### [place] [address] [place], [place] [address] Eosinophils/100 WBC (Bld) 0.4 % Normal 0.0-7.0 [facility] Comment on above: Performed By: #### A DIFF, GFR, ANEU, MDW, CMP, CBC, 532759 #### [address] [address] Lymphocyte, Absolute 2.3 10 3/mcL Normal 0.9-4.3 [facility] Comment on above: Performed By: #### A DIFF, GFR, ANEU, MDW, CMP, CBC, 727164 #### [address] [address] Lymphocytes/100 WBC (Bld) 27.7 % Normal 20.0-40.0 [facility] Comment on above: Performed By: #### A DIFF, GFR, ANEU, MDW, CMP, CBC, 381040 #### [address] [address] Monocyte, Absolute 0.5 10 3/mcL Normal 0.1-1.4 [facility] Comment on above: Performed By: #### A DIFF, GFR, ANEU, MDW, CMP, CBC, 145522 #### [address] [address] Monocytes/100 WBC (Bld) 6.4 % Normal 2.0-13.0 [facility] Comment on above: Performed By: #### A DIFF, GFR, ANEU, MDW, CMP, CBC, 009093 #### [address] [address] Neutrophils/100 WBC (Bld) 65.1 % Normal 50.0-75.0 [facility] Comment on above: Performed By: #### A DIFF, GFR, ANEU, MDW, CMP, CBC, 473722 #### [address] [address] .GFRon 09-06-2024 Estimated Glomerular Filtration Rate 67 ml/min/1.73sqm Normal [facility] Comment on above: Result Comment: Stages [...] Performed By: #### U AMICAO UA #### [place] [address] .MDWon 09-06-2024 Monocyte Distribution Width 14.45 Normal 0.00-20.00 [facility] Comment on above: Result Comment: For ED adult patients suspected of sepsis, MDW<=20.0 does not rule out sepsis or risk of sepsis Performed By: #### U AMITHOMAS UA #### [place] [address] .NEUABSon 09-06-2024 Neutrophil, Absolute 5.5 10 3/mcL Normal 2.3-8.1 [facility] Comment on above: Performed By: #### A DIFF, GFR, ANEU, MDW, CMP, CBC, 738987 #### [place] [address] .Urinalysis Microscopic (AO) on 09-06-2024 UA RBC 0-5 Abnormal None Seen [facility] Comment on above: Performed By: #### U AMICAO UA #### [place] [address] UA Squam Epithelial 0-5 Abnormal None Seen [facility] Comment on above: Performed By: #### U AMICAO UA #### [place] [address] UA WBC 5-10 Abnormal None Seen [facility] Comment on above: Performed By: #### U AMICAO UA #### [place] [id number] CBCon 09-06-2024 Erythrocyte distribution width (RBC) [Ratio] 15.7 % High 11.5-15.5 [facility] Comment on above: Performed By: #### A DIFF, GFR, ANEU, MDW, CMP, CBC, 081979 #### [address] [address] Hematocrit (Bld) [Volume fraction] 47.1 % High 34.0-46.0 [facility] Comment on above: Performed By: #### A DIFF, GFR, ANEU, MDW, CMP, CBC, 609444 #### [address] [address] Hgb 15.6 G/dL Normal 12.0-16.0 [facility] Comment on above: Performed By: #### A DIFF, GFR, ANEU, MDW, CMP, CBC, 386175 #### [address] [address] MCH (RBC) [Entitic mass] 29.4 pg Normal 27.0-33.0 [facility] Comment on above: Performed By: #### A DIFF, GFR, ANEU, MDW, CMP, CBC, 455564 #### [address] [address] MCHC 33.1 G/dL Normal 32.0-36.0 [facility] Comment on above: Performed By: #### A DIFF, GFR, ANEU, MDW, CMP, CBC, 419224 #### [address] [address] MCV (RBC) [Entitic vol] 88.7 fL Normal 80.0-99.0 [facility] Comment on above: Performed By: #### A DIFF, GFR, ANEU, MDW, CMP, CBC, 416078 #### [address] [address] Platelet 328 10 3/mcL Normal 150-450 [facility] Comment on above: Performed By: #### A DIFF, GFR, ANEU, MDW, CMP, CBC, 878474 #### [address] [address] Platelet mean volume (Bld) [Entitic vol] 7.1 fL Normal 6.6-10.5 [facility] Comment on above: Performed By: #### A DIFF, GFR, ANEU, MDW, CMP, CBC, 658187 #### [place] [address] [place], [place] [address] RBC 5.31 10 6/mcL High 4.10-5.30 [facility] Comment on above: Performed By: #### A DIFF, GFR, ANEU, MDW, CMP, CBC, 060944 #### [address] [address] WBC 8.4 10 3/mcL Normal 4.5-10.8 [facility] Comment on above: Performed By: #### A DIFF, GFR, ANEU, MDW, CMP, CBC, 848398 #### [address] [address] [address] CMPon 09-06-2024 Albumin Level 3.9 G/dL Normal 3.5-5.0 [facility] Comment on above: Performed By: #### U AMICAFredy UA #### [address] [address] Albumin/Globulin [Mass ratio] 0.9 {ratio} Low 1.1-2.5 [facility] Comment on above: Performed By: #### U AMICAO UA #### [address] [address] ALP [Catalytic activity/Vol] 109 U/L Normal 40-135 [facility] Comment on above: Performed By: #### U AMICAO UA #### [address] [address] ALT [Catalytic activity/Vol] 29 U/L Normal 14-59 [facility] Comment on above: Performed By: #### U AMICAO UA #### [address] [address] AST [Catalytic activity/Vol] 24 U/L Normal 10-40 [facility] Comment on above: Performed By: #### U AMICAO, UA #### [address] [address] Bili Total 0.3 mg/dL Normal 0.2-1.0 [facility] Comment on above: Result Comment: Use of this assay is not recommended for patients undergoing treatment with eltrombopag due to the potential for falsely elevated results. Performed By: #### Lis RALPH UA #### [place] [address] BUN/Creatinine Ratio 15 ratio Normal 7-27 [facility] Comment on above: Performed By: #### Lis RALPH UA #### [place] [address] Calcium [Mass/Vol] 10.1 mg/dL Normal 8.4-10.2 [facility] Comment on above: Performed By: #### Lis RALPH UA #### [place] [address] Chloride [Moles/Vol] 103 mmol/L Normal 98-107 [facility] Comment on above: Performed By: #### Lis RALPH UA #### [place] [address] CO2 [Moles/Vol] 22 mmol/L Normal 22-29 [facility] Comment on above: Performed By: #### Lis RALPH UA #### [place] [address] Creatinine [Mass/Vol] 0.99 mg/dL Normal 0.55-1.02 [facility] Comment on above: Result Comment: Test ing performed on Siemens Dimension EXL analyzer using a modified kinetic Meme technique. Performed By: #### Lis RALPH UA #### [place] [address] Electrolyte Balance 13.0 mEq/L Normal 4.0-15.0 [facility] Comment on above: Performed By: #### Lis RALPH UA #### [place] [address] Globulin 4.3 G/dL High 1.5-3.8 [facility] Comment on above: Performed By: #### U AMICAFredy UA #### [address] [address] Glucose [Mass/Vol] 102 mg/dL Normal 70-105 [facility] Comment on above: Performed By: #### U AMICAFredy UA #### [address] [address] Potassium [Moles/Vol] 3.5 mmol/L Normal 3.5-5.1 [facility] Comment on above: Performed By: #### U RAMO UA #### [address] [address] Sodium [Moles/Vol] 138 mmol/L Normal 136-145 [facility] Comment on above: Performed By: #### Lis AMICAFredy UA #### [address] [address] Total Protein 8.2 G/dL Normal 6.4-8.2 [facility] Comment on above: Performed By: #### Lis RALPH UA #### [address] [address] Urea nitrogen [Mass/Vol] 15 mg/dL Normal 7-18 [facility] Comment on above: Performed By: #### U AMICAFredy UA #### [address] [address] UAon 09-06-2024 Color (U) Yellow Normal [facility] Comment on above: Performed By: #### U AMICAO, UA #### [address] [address] Glucose (U) [Mass/Vol] 500 mg/dL Abnormal Negative [facility] Comment on above: Performed By: #### U AMICAO, UA #### [address] [address] Ketones Ql (U) Negative Normal Negative [facility] Comment on above: Performed By: #### U AMICAO, UA #### [address] [address] UA Appear Clear Normal Clear [facility] Comment on above: Performed By: #### U AMICAO, UA #### [address] [address] UA Blood Moderate Abnormal Negative [facility] Comment on above: Performed By: #### U AMICAO, UA #### [address] [address] UA Leuk Est Negative Normal Negative [facility] Comment on above: Performed By: #### U AMICAO, UA #### [place] [address] UA Nitrite Negative Normal Negative [facility] Comment on above: Performed By: #### U AMICAO, UA #### [place] [address] UA pH 5.5 Normal 5.0 - 8.0 [facility] Comment on above: Performed By: #### U AMICAO, UA #### [place] [address] UA Protein 100 mg/dL Abnormal Negative [facility] Comment on above: Performed By: #### U AMICAO, UA #### [address] [address] UA Spec Grav 1.015 Normal 1.015-1.025 [facility] Comment on above: Performed By: #### U AMICAO, UA #### [address] [address] UA Specimen Type Clean Catch Normal [facility] Comment on above: Performed By: #### U AMICAO, UA #### [place] [address] UA Urobilinogen 0.2 E.U./dL Normal 0.2-1.0 [facility] Comment on above: Performed By: #### U AMICAO, UA #### [address] [address] Urobilinogen (U) [Mass/Vol] Negative Normal Negative [facility] Comment on above: Performed By: #### U AMICAO, UA #### [address] [address] UDRUGon 09-06-2024 Amphetamine (u) Negative Normal Negative [facility] Comment on above: Performed By: #### U DRUG #### [address] [address] Barbiturate (u) Negative Normal Negative [facility] Comment on above: Performed By: #### U DRUG #### [address] [address] Benzodiazepine (u) Negative Normal Negative [facility] Comment on above: Performed By: #### U DRUG #### [address] [address] Cannabinoid (u) Negative Normal Negative [facility] Comment on above: Performed By: #### U DRUG #### [address] [address] Cocaine Ql (U) Negative Normal Negative [facility] Comment on above: Performed By: #### U DRUG #### [address] [address] Methadone Ql (U) Negative Normal Negative [facility] Comment on above: Performed By: #### U DRUG #### [address] [address] Opiate (u) Negative Normal Negative [facility] Comment on above: Performed By: #### U DRUG #### [address] [address] PCP (u) Negative Normal Negative [facility] Comment on above: Performed By: #### U DRUG #### [address] [address] Urine Drugs screened: See Below Normal L [facility] Comment on above: Result Comment: [...] Performed By: #### U DRUG #### [place] [id number] [place], [place] [address] XR CHEST 2 VIEWSon XR CHEST 2 [...] VASQUEZ XR HUMERUS MINIMUM 2 VIEWS L [facility] 08-18-2024 XR HUMERUS MINIMUM 2 VIEWS LEFT [...] Ordering Provider: TOYA HODGES Normal MOLLY MASSILLON [id number] 06-28-2024 HLA-B27 Negative Normal MOLLY MASSILLON Comment [...] not necessary. [facility] CLIA ID Number [id number] This test was performed using Polymerase Chain Reaction (PCR) and Sequence Specific Oligonucleotide Probes (SSOP) technique. Sequence Based Typing (SBT) may be used as a supplemental method when necessary. If you have questions, please call [facility] customer service at or email at [email or web address]. Performed At: [facility] [address] [place], [place] [id number] Abhi Limon PhD Ph:[phone] Performed By: #### 0 [id number] #### [address] [address] .Auto Diffon 05-10-2024 Basophil, Absolute 0.0 10 3/mcL Normal 0.0-0.3 [facility] Comment on above: Performed By: #### L IPID, A1C, CBC, ADIFF, ANEU, B12, CMP, VIDH, GFR #### [address] [address] Basophils/100 WBC (Bld) 0.4 % Normal 0.0-2.5 [facility] Comment on above: Performed By: #### L IPID, A1C, CBC, ADIFF, ANEU, B12, CMP, VIDH, GFR #### [address] [address] Eosinophil, Absolute 0.2 10 3/mcL Normal 0.0-0.7 [facility] Comment on above: Performed By: #### L IPID, A1C, CBC, ADIFF, ANEU, B12, CMP, VIDH, GFR #### [address] [address] Eosinophils/100 WBC (Bld) 2.4 % Normal 0.0-6.0 [facility] Comment on above: Performed By: #### L IPID, A1C, CBC, ADIFF, ANEU, B12, CMP, VIDH, GFR #### [address] [address] Lymphocyte, Absolute 1.8 10 3/mcL Normal 0.9-4.3 [facility] Comment on above: Performed By: #### L IPID, A1C, CBC, ADIFF, ANEU, B12, CMP, VIDH, GFR #### [address] [address] Lymphocytes/100 WBC (Bld) 27.6 % Normal 20.0-40.0 [facility] Comment on above: Performed By: #### L IPID, A1C, CBC, ADIFF, ANEU, B12, CMP, VIDH, GFR #### [facility] [address] [place] [address] Monocyte, Absolute 0.6 10 3/mcL Normal 0.1-1.4 [facility] Comment on above: Performed By: #### L IPID, A1C, CBC, ADIFF, ANEU, B12, CMP, VIDH, GFR #### [address] [address] Monocytes/100 WBC (Bld) 8.9 % Normal 2.0-13.0 [facility] Comment on above: Performed By: #### L IPID, A1C, CBC, ADIFF, ANEU, B12, CMP, VIDH, GFR #### [address] [address] Neutrophils/100 WBC (Bld) 60.7 % Normal 50.0-75.0 [facility] Comment on above: Performed By: #### L IPID, A1C, CBC, ADIFF, ANEU, B12, CMP, VIDH, GFR #### [address] [address] .GFRon 05-10-2024 GFR Non- >60 Normal [facility] Comment on above: Result Comment: GFR [...] ADIFF, ANEU, B12, CMP, VIDH, GFR #### [address] [address] GFR >60 Normal [facility] Comment on above: Result Comment: [...] ADIFF, ANEU, B12, CMP, VIDH, GFR #### [address] [address] .NEUABSon 05-10-2024 Neutrophil, Absolute 3.9 10 3/mcL Normal 2.3-8.1 [facility] Comment on above: Performed By: #### L IPID, A1C, CBC, ADIFF, ANEU, B12, CMP, VIDH, GFR #### [address] [address] A1Con 05-10-2024 Glucose [Mass/Vol] 117 mg/dL Normal [facility] Comment on above: Order Comment: - 6 m onth Result Comment: Susie mated Average Glucose calculated by equation ((28.7xA1C)-46.7) Estimated average glucose (eAG) is a calculated value from Hemoglobin A1C and is physician representative of the average blood glucose level in the last 2-3 month period. Normal range: less than 114 mg/dL Performed By: #### L IPID, A1C, CBC, ADIFF, ANEU, B12, CMP, VIDH, GFR #### [address] [address] HbA1c (Bld) [Mass fraction] 5.7 % Normal 4.0-6.0 [facility] Comment on above: Order Comment: - 6 m onth Performed By: #### L IPID, A1C, CBC, ADIFF, ANEU, B12, CMP, VIDH, GFR #### [address] [address] B12on 05-10-2024 Cobalamin (Vitamin B12) [Mass/Vol] 513 pg/mL Normal 211-911 [facility] Comment on above: Order Comment: - 6 m onth Performed By: #### L IPID, A1C, CBC, ADIFF, ANEU, B12, CMP, VIDH, GFR #### [address] [address] CBCon 05-10-2024 Erythrocyte distribution width (RBC) [Ratio] 16.5 % High 11.5-15.5 [facility] Comment on above: Order Comment: - 6 m onth Performed By: #### L IPID, A1C, CBC, ADIFF, ANEU, B12, CMP, VIDH, GFR #### [place] [address] Hematocrit (Bld) [Volume fraction] 36.5 % Normal 34.0-46.0 [facility] Comment on above: Order Comment: - 6 m onth Performed By: #### L IPID, A1C, CBC, ADIFF, ANEU, B12, CMP, VIDH, GFR #### [address] [address] Hgb 12.0 G/dL Normal 12.0-16.0 [facility] Comment on above: Order Comment: - 6 m onth Performed By: #### L IPID, A1C, CBC, ADIFF, ANEU, B12, CMP, VIDH, GFR #### [address] [address] MCH (RBC) [Entitic mass] 27.2 pg Normal 27.0-33.0 [facility] Comment on above: Order Comment: - 6 m onth Performed By: #### L IPID, A1C, CBC, ADIFF, ANEU, B12, CMP, VIDH, GFR #### [place] [id number] MCHC 32.9 G/dL Normal 32.0-36.0 [facility] Comment on above: Order Comment: - 6 m onth Performed By: #### L IPID, A1C, CBC, ADIFF, ANEU, B12, CMP, VIDH, GFR #### [place] [phone] MCV (RBC) [Entitic vol] 82.7 fL Normal 80.0-99.0 [facility] Comment on above: Order Comment: - 6 m onth Performed By: #### L IPID, A1C, CBC, ADIFF, ANEU, B12, CMP, VIDH, GFR #### [place] [id number] Platelet 289 10 3/mcL Normal 150-450 [facility] Comment on above: Order Comment: - 6 m onth Performed By: #### L IPID, A1C, CBC, ADIFF, ANEU, B12, CMP, VIDH, GFR #### [place] [phone] Platelet mean volume (Bld) [Entitic vol] 8.0 fL Normal 6.6-10.5 [facility] Comment on above: Order Comment: - 6 m onth Performed By: #### L IPID, A1C, CBC, ADIFF, ANEU, B12, CMP, VIDH, GFR #### [address] [address] RBC 4.42 10 6/mcL Normal 4.10-5.30 [facility] Comment on above: Order Comment: - 6 m onth Performed By: #### L IPID, A1C, CBC, ADIFF, ANEU, B12, CMP, VIDH, GFR #### [address] [address] WBC 6.4 10 3/mcL Normal 4.5-10.8 [facility] Comment on above: Order Comment: - 6 m onth Performed By: #### L IPID, A1C, CBC, ADIFF, ANEU, B12, CMP, VIDH, GFR #### [address] [address] CMPon 05-10-2024 Albumin Level 3.6 G/dL Normal 3.2-4.8 [facility] Comment on above: Order Comment: - 6 m onth Performed By: #### L IPID, A1C, CBC, ADIFF, ANEU, B12, CMP, VIDH, GFR #### [address] [address] Albumin/Globulin [Mass ratio] 1.1 {ratio} Normal 0.9-1.6 [facility] Comment on above: Order Comment: - 6 m onth Performed By: #### L IPID, A1C, CBC, ADIFF, ANEU, B12, CMP, VIDH, GFR #### [address] [address] ALP [Catalytic activity/Vol] 96 U/L Normal 38-126 [facility] Comment on above: Order Comment: - 6 m onth Performed By: #### L IPID, A1C, CBC, ADIFF, ANEU, B12, CMP, VIDH, GFR #### [address] [address] ALT [Catalytic activity/Vol] 31 U/L Normal 10-49 [facility] Comment on above: Order Comment: - 6 m onth Performed By: #### L IPID, A1C, CBC, ADIFF, ANEU, B12, CMP, VIDH, GFR #### [address] [address] AST [Catalytic activity/Vol] 26 U/L Normal 8-34 [facility] Comment on above: Order Comment: - 6 m onth Performed By: #### L IPID, A1C, CBC, ADIFF, ANEU, B12, CMP, VIDH, GFR #### [address] [address] Bili Total 0.30 mg/dL Normal 0.20-1.20 [facility] Comment on above: Order Comment: - 6 m onth Result Comment: Use of this assay is not recommended for patients undergoing treatment with eltrombopag due to the potential for falsely elevated results. Performed By: #### L IPID, A1C, CBC, ADIFF, ANEU, B12, CMP, VIDH, GFR #### [address] [address] BUN/Creatinine Ratio 24.7 ratio High 10.0-22.0 [facility] Comment on above: Order Comment: - 6 m onth Performed By: #### L IPID, A1C, CBC, ADIFF, ANEU, B12, CMP, VIDH, GFR #### [address] [address] Calcium [Mass/Vol] 9.8 mg/dL Normal 8.7-10.4 [facility] Comment on above: Order Comment: - 6 m onth Performed By: #### L IPID, A1C, CBC, ADIFF, ANEU, B12, CMP, VIDH, GFR #### [address] [address] Chloride [Moles/Vol] 106 mmol/L Normal 98-110 [facility] Comment on above: Order Comment: - 6 m onth Performed By: #### L IPID, A1C, CBC, ADIFF, ANEU, B12, CMP, VIDH, GFR #### [address] [address] CO2 [Moles/Vol] 31 mmol/L Normal 22-32 [facility] Comment on above: Order Comment: - 6 m onth Performed By: #### L IPID, A1C, CBC, ADIFF, ANEU, B12, CMP, VIDH, GFR #### [place] [address] Creatinine [Mass/Vol] 0.77 mg/dL Normal 0.50-1.20 [facility] Comment on above: Order Comment: - 6 m onth Result Comment: Test ing performed on Emme E2MS analyzer using enzymatic creatinine methodology. Performed By: #### L IPID, A1C, CBC, ADIFF, ANEU, B12, CMP, VIDH, GFR #### [place] [phone] Electrolyte Balance 6.0 mEq/L Normal 4.0-15.0 [facility] Comment on above: Order Comment: - 6 m onth Performed By: #### L IPID, A1C, CBC, ADIFF, ANEU, B12, CMP, VIDH, GFR #### [address] [address] Globulin 3.4 G/dL Normal 1.5-3.8 [facility] Comment on above: Order Comment: - 6 m onth Performed By: #### L IPID, A1C, CBC, ADIFF, ANEU, B12, CMP, VIDH, GFR #### [address] [address] Glucose [Mass/Vol] 102 mg/dL Normal 70-110 [facility] Comment on above: Order Comment: - 6 m onth Performed By: #### L IPID, A1C, CBC, ADIFF, ANEU, B12, CMP, VIDH, GFR #### [address] [address] Potassium [Moles/Vol] 4.4 mmol/L Normal 3.5-5.0 [facility] Comment on above: Order Comment: - 6 m onth Performed By: #### L IPID, A1C, CBC, ADIFF, ANEU, B12, CMP, VIDH, GFR #### [address] [address] Sodium [Moles/Vol] 143 mmol/L Normal 136-145 [facility] Comment on above: Order Comment: - 6 m onth Performed By: #### L IPID, A1C, CBC, ADIFF, ANEU, B12, CMP, VIDH, GFR #### [address] [address] Total Protein 7.0 G/dL Normal 5.7-8.2 [facility] Comment on above: Order Comment: - 6 m onth Performed By: #### L IPID, A1C, CBC, ADIFF, ANEU, B12, CMP, VIDH, GFR #### [address] [address] Urea nitrogen [Mass/Vol] 19.0 mg/dL Normal 8.0-22.0 [facility] Comment on above: Order Comment: - 6 m onth Performed By: #### L IPID, A1C, CBC, ADIFF, ANEU, B12, CMP, VIDH, GFR #### [address] [address] LIPIDon 05-10-2024 Cholesterol [Mass/Vol] 203 mg/dL High 50-199 [facility] Comment on above: Order Comment: - 6 m onth Result Comment: Chol esterol Reference Interval: Less than 200 Desirable 200-239 Borderline high risk 240 and above High risk Performed By: #### L IPID, A1C, CBC, ADIFF, ANEU, B12, CMP, VIDH, GFR #### [address] [address] Cholesterol in HDL [Mass/Vol] 55 mg/dL Normal 40-59 [facility] Comment on above: Order Comment: - 6 m onth Performed By: #### L IPID, A1C, CBC, ADIFF, ANEU, B12, CMP, VIDH, GFR #### [address] [address] Cholesterol in LDL [Mass/Vol] 116 mg/dL Normal 0-129 [facility] Comment on above: Order Comment: - 6 m onth Performed By: #### L IPID, A1C, CBC, ADIFF, ANEU, B12, CMP, VIDH, GFR #### [address] [address] Triglyceride [Mass/Vol] 162 mg/dL High 3-149 [facility] Comment on above: Order Comment: - 6 m onth Performed By: #### L IPID, A1C, CBC, ADIFF, ANEU, B12, CMP, VIDH, GFR #### [address] [address] VIDHon 05-10-2024 Vit. D 25-Hydroxy 31.6 ng/mL Normal [facility] Comment on above: Order Comment: - 6 m onth Result Comment: Inte rpretive Values Based on Total 25(OH)D: Severe Deficiency <20 ng/mL Mild to Moderate Deficiency 20-30 ng/mL Optimum Levels 30-100 ng/mL Toxicity Possible >100 ng/mL Performed By: #### L IPID, A1C, CBC, ADIFF, ANEU, B12, CMP, VIDH, GFR #### [address] [address] XR CHEST 2 VIEWSon 4 XR CHEST [...] 12:18:07 PM Ordering Provider: NOLA WILSON Normal [facility] ([place]) .GFRon 11-03-2023 GFR >60 Normal [facility] ([place]) Comment on above: Result Comment: GFR Population [...] ADIFF, FT4, CBC, CMP, HCV1, A1C #### [address] [address] GFR Non- >60 Normal [facility] ([place]) Comment on above: Result Comment: GFR Population [...] ADIFF, FT4, CBC, CMP, HCV1, A1C #### [place] [id number] [facility] 11-03-2023 HbA1c (Bld) [Mass fraction] 5.8 % Normal 4.0-6.0 [facility] ([place]) Comment on above: Order Comment: 4 mon ths Performed By: #### V IDH, LIPID, GFR, TSH, ANEU, ADIFF, FT4, CBC, CMP, HCV1, A1C #### [address] [address] BMPon 11-03-2023 BUN/Creatinine Ratio 23.5 ratio High 10.0-22.0 [facility] ([place]) Comment on above: Order Comment: 4 mon ths Performed By: #### V IDH, LIPID, GFR, TSH, ANEU, ADIFF, FT4, CBC, CMP, HCV1, A1C #### [address] [address] Calcium [Mass/Vol] 9.7 mg/dL Normal 8.7-10.4 [facility] ([place]) Comment on above: Order Comment: 4 mon ths Performed By: #### V IDH, LIPID, GFR, TSH, ANEU, ADIFF, FT4, CBC, CMP, HCV1, A1C #### [address] [address] Chloride [Moles/Vol] 106 mmol/L Normal 98-110 [facility] ([place]) Comment on above: Order Comment: 4 mon ths Performed By: #### V IDH, LIPID, GFR, TSH, ANEU, ADIFF, FT4, CBC, CMP, HCV1, A1C #### [address] [address] CO2 [Moles/Vol] 30 mmol/L Normal 22-32 [facility] ([place] Comment on above: Order Comment: 4 mon ths Performed By: #### V IDH, LIPID, GFR, TSH, ANEU, ADIFF, FT4, CBC, CMP, HCV1, A1C #### [address] [address] Creatinine [Mass/Vol] 0.85 mg/dL Normal 0.50-1.20 [facility] ([place]) Comment on above: Order Comment: 4 mon ths Performed By: #### V IDH, LIPID, GFR, TSH, ANEU, ADIFF, FT4, CBC, CMP, HCV1, A1C #### [address] [address] Electrolyte Balance 7.0 mEq/L Normal 4.0-15.0 [facility] [place] Comment on above: Order Comment: 4 mon ths Performed By: #### V IDH, LIPID, GFR, TSH, ANEU, ADIFF, FT4, CBC, CMP, HCV1, A1C #### [address] [address] Glucose [Mass/Vol] 95 mg/dL Normal 70-110 [facility] ([place]) Comment on above: Order Comment: 4 mon ths Performed By: #### V IDH, LIPID, GFR, TSH, ANEU, ADIFF, FT4, CBC, CMP, HCV1, A1C #### [address] [address] Potassium [Moles/Vol] 4.2 mmol/L Normal 3.5-5.0 [facility] ([place]) Comment on above: Order Comment: 4 mon ths Performed By: #### V IDH, LIPID, GFR, TSH, ANEU, ADIFF, FT4, CBC, CMP, HCV1, A1C #### [address] [address] Sodium [Moles/Vol] 143 mmol/L Normal 136-145 [facility] ([place]) Comment on above: Order Comment: 4 mon ths Performed By: #### V IDH, LIPID, GFR, TSH, ANEU, ADIFF, FT4, CBC, CMP, HCV1, A1C #### [address] [address] Urea nitrogen [Mass/Vol] 20.0 mg/dL Normal 8.0-22.0 [facility] ([place]) Comment on above: Order Comment: 4 mon ths Performed By: #### V IDH, LIPID, GFR, TSH, ANEU, ADIFF, FT4, CBC, CMP, HCV1, A1C #### [address] [address] LIPIDon 11-03-2023 Cholesterol [Mass/Vol] 230 mg/dL High 50-199 [facility] ([place]) Comment on above: Order Comment: 4 mon ths Result Comment: Chol esterol Reference Interval: Less than 200 Desirable 200-239 Borderline high risk 240 and above High risk Performed By: #### V IDH, LIPID, GFR, TSH, ANEU, ADIFF, FT4, CBC, CMP, HCV1, A1C #### [address] [address] Cholesterol in HDL [Mass/Vol] 73 mg/dL High 40-59 [facility] ([place] Comment on above: Order Comment: 4 mon ths Performed By: #### V IDH, LIPID, GFR, TSH, ANEU, ADIFF, FT4, CBC, CMP, HCV1, A1C #### [address] [address] Cholesterol in LDL [Mass/Vol] 134 mg/dL High 0-129 [facility] ([place]) Comment on above: Order Comment: 4 mon ths Performed By: #### V IDH, LIPID, GFR, TSH, ANEU, ADIFF, FT4, CBC, CMP, HCV1, A1C #### [address] [address] Triglyceride [Mass/Vol] 117 mg/dL Normal 3-149 [facility] ([place] Comment on above: Order Comment: 4 mon ths Performed By: #### V IDH, LIPID, GFR, TSH, ANEU, ADIFF, FT4, CBC, CMP, HCV1, A1C #### [address] [address] TSHon 11-03-2023 TSH 0.666 mIU/mL Normal 0.550-4.780 [facility] [place] ([place] Comment on above: Order Comment: 4 mon ths Result Comment: No te - New Reference Range in effect 20 Performed By: #### V IDH, LIPID, GFR, TSH, ANEU, ADIFF, FT4, CBC, CMP, HCV1, A1C #### [address] [address] [place] MAMMOGRAM DIAGNOSTIC RIGH T W/TOMOon 10-09-2023 [place] MAMMOGRAM DIAGNOSTIC RIGHT W/TREE ORIGINAL FROM: [address] [address] PROCEDURE FOR: GARY MELCHOR [address] [place] [address] Home: PID#: [id number] Exam#: [id number] : 1970 Age: 53 TO: NOLA RINALDI [address] EXAMINATION: DIAGNOSTIC DIGITAL RIGHT BREAST MAMMOGRAM [...] bilateral mammogram is recommended to demonstrate stability. [facility] [employer]zick risk calculations, generated with the history provided, [...] addition to annual mammographic screening per the [employer]. BIRADS: MAMMOGRAM BI-RADS: 3: Probably [...] WITH CALCIFICATIONS 9 OCLOCK/ 6 MONTHS FOLLOW-UP. Legal Director: MISTI CHAPIN RT(R)(M) letter sent: Probably Benign BI-RADS 3 Mammogram BI-RADS: 3 Probably benign Normal [facility] ([place] MYOCARDIAL SPECT STRESS/R ESTon 07-13-2023 NM [...] Date: 07/13/2023 3:21:24 PM Ordering Provider:Nola Christianson [facility] ([place]) .Auto Diffon 06-24-2023 Basophil, Absolute 0.0 10 3/mcL Normal 0.0-0.3 [facility] ([place]) Comment on above: Performed By: #### V IDH, LIPID, GFR, TSH, ANEU, ADIFF, FT4, CBC, CMP, HCV1, A1C #### [address] [address] Basophils/100 WBC (Bld) 0.5 % Normal 0.0-2.5 [facility] ([place] Comment on above: Performed By: #### V IDH, LIPID, GFR, TSH, ANEU, ADIFF, FT4, CBC, CMP, HCV1, A1C #### [address] [address] Eosinophil, Absolute 0.2 10 3/mcL Normal 0.0-0.7 [facility] ([place]) Comment on above: Performed By: #### V IDH, LIPID, GFR, TSH, ANEU, ADIFF, FT4, CBC, CMP, HCV1, A1C #### [address] [address] Eosinophils/100 WBC (Bld) 3.2 % Normal 0.0-6.0 [facility] ([place] Comment on above: Performed By: #### V IDH, LIPID, GFR, TSH, ANEU, ADIFF, FT4, CBC, CMP, HCV1, A1C #### [address] [address] Lymphocyte, Absolute 1.8 10 3/mcL Normal 0.9-4.3 [facility] ([place] Comment on above: Performed By: #### V IDH, LIPID, GFR, TSH, ANEU, ADIFF, FT4, CBC, CMP, HCV1, A1C #### [address] [address] Lymphocytes/100 WBC (Bld) 37.6 % Normal 20.0-40.0 [facility] ([place] Comment on above: Performed By: #### V IDH, LIPID, GFR, TSH, ANEU, ADIFF, FT4, CBC, CMP, HCV1, A1C #### [address] [address] Monocyte, Absolute 0.4 10 3/mcL Normal 0.1-1.4 [facility] ([place]) Comment on above: Performed By: #### V IDH, LIPID, GFR, TSH, ANEU, ADIFF, FT4, CBC, CMP, HCV1, A1C #### [address] [address] Monocytes/100 WBC (Bld) 8.0 % Normal 2.0-13.0 [facility] ([place] Comment on above: Performed By: #### V IDH, LIPID, GFR, TSH, ANEU, ADIFF, FT4, CBC, CMP, HCV1, A1C #### [address] [address] Neutrophils/100 WBC (Bld) 50.7 % Normal 50.0-75.0 [facility] ([place] Comment on above: Performed By: #### V IDH, LIPID, GFR, TSH, ANEU, ADIFF, FT4, CBC, CMP, HCV1, A1C #### [address] [address] .GFRon 06-24-2023 GFR >60 Normal [facility] ([place]) Comment on above: Result Comment: GFR Population [...] ADIFF, FT4, CBC, CMP, HCV1, A1C #### [address] [address] GFR Non- >60 Normal [facility] ([place] Comment on above: Result Comment: GFR Population [...] ADIFF, FT4, CBC, CMP, HCV1, A1C #### [address] [address] .NEUABSon 06-24-2023 Neutrophil, Absolute 2.4 10 3/mcL Normal 2.3-8.1 [facility] ([place]) Comment on above: Performed By: #### V IDH, LIPID, GFR, TSH, ANEU, ADIFF, FT4, CBC, CMP, HCV1, A1C #### [address] [address] A1Con 06-24-2023 HbA1c (Bld) [Mass fraction] 5.5 % Normal 4.0-6.0 [facility] ([place] Comment on above: Performed By: #### V IDH, LIPID, GFR, TSH, ANEU, ADIFF, FT4, CBC, CMP, HCV1, A1C #### [address] [address] CBCon 06-24-2023 Erythrocyte distribution width (RBC) [Ratio] 12.6 % Normal 11.5-15.5 [facility] ([place] Comment on above: Performed By: #### V IDH, LIPID, GFR, TSH, ANEU, ADIFF, FT4, CBC, CMP, HCV1, A1C #### [place] [address] Hematocrit (Bld) [Volume fraction] 37.3 % Normal 34.0-46.0 [facility] ([place] Comment on above: Performed By: #### V IDH, LIPID, GFR, TSH, ANEU, ADIFF, FT4, CBC, CMP, HCV1, A1C #### [place] [address] Hgb 12.6 G/dL Normal 12.0-16.0 [facility] ([place] Comment on above: Performed By: #### V IDH, LIPID, GFR, TSH, ANEU, ADIFF, FT4, CBC, CMP, HCV1, A1C #### [place] [address] MCH (RBC) [Entitic mass] 30.2 pg Normal 27.0-33.0 [facility] ([place] Comment on above: Performed By: #### V IDH, LIPID, GFR, TSH, ANEU, ADIFF, FT4, CBC, CMP, HCV1, A1C #### [place] [id number] MCHC 33.9 G/dL Normal 32.0-36.0 [facility] ([place] Comment on above: Performed By: #### V IDH, LIPID, GFR, TSH, ANEU, ADIFF, FT4, CBC, CMP, HCV1, A1C #### [place] [id number] MCV (RBC) [Entitic vol] 89.0 fL Normal 80.0-99.0 [facility] ([place] Comment on above: Performed By: #### V IDH, LIPID, GFR, TSH, ANEU, ADIFF, FT4, CBC, CMP, HCV1, A1C #### [place] [id number] Platelet 300 10 3/mcL Normal 150-450 [facility] ([place] Comment on above: Performed By: #### V IDH, LIPID, GFR, TSH, ANEU, ADIFF, FT4, CBC, CMP, HCV1, A1C #### [place] [address] Platelet mean volume (Bld) [Entitic vol] 8.2 fL Normal 6.6-10.5 [facility] ([place] Comment on above: Performed By: #### V IDH, LIPID, GFR, TSH, ANEU, ADIFF, FT4, CBC, CMP, HCV1, A1C #### [place] [address] RBC 4.19 10 6/mcL Normal 4.10-5.30 [facility] ([place] Comment on above: Performed By: #### V IDH, LIPID, GFR, TSH, ANEU, ADIFF, FT4, CBC, CMP, HCV1, A1C #### [place] [id number] WBC 4.8 10 3/mcL Normal 4.5-10.8 [facility] ([place] Comment on above: Performed By: #### V IDH, LIPID, GFR, TSH, ANEU, ADIFF, FT4, CBC, CMP, HCV1, A1C #### [place] [id number] CMPon 06-24-2023 Albumin Level 3.8 G/dL Normal 3.2-4.8 [facility] ([place] Comment on above: Performed By: #### V IDH, LIPID, GFR, TSH, ANEU, ADIFF, FT4, CBC, CMP, HCV1, A1C #### [address] [address] Albumin/Globulin [Mass ratio] 1.1 {ratio} Normal 0.9-1.6 [facility] ([place] Comment on above: Performed By: #### V IDH, LIPID, GFR, TSH, ANEU, ADIFF, FT4, CBC, CMP, HCV1, A1C #### [address] [address] ALP [Catalytic activity/Vol] 95 U/L Normal 38-126 [facility] ([place] Comment on above: Performed By: #### V IDH, LIPID, GFR, TSH, ANEU, ADIFF, FT4, CBC, CMP, HCV1, A1C #### [address] [address] ALT [Catalytic activity/Vol] 34 U/L Normal 10-49 [facility] ([place] Comment on above: Performed By: #### V IDH, LIPID, GFR, TSH, ANEU, ADIFF, FT4, CBC, CMP, HCV1, A1C #### [address] [address] AST [Catalytic activity/Vol] 29 U/L Normal 8-34 [facility] ([place] Comment on above: Performed By: #### V IDH, LIPID, GFR, TSH, ANEU, ADIFF, FT4, CBC, CMP, HCV1, A1C #### [address] [address] Bili Total 0.50 mg/dL Normal 0.20-1.20 [facility] ([place] Comment on above: Result Comment: Use of this assay is not recommended for patients undergoing treatment with eltrombopag due to the potential for falsely elevated results. Performed By: #### V IDH, LIPID, GFR, TSH, ANEU, ADIFF, FT4, CBC, CMP, HCV1, A1C #### [address] [address] BUN/Creatinine Ratio 21.8 ratio Normal 10.0-22.0 [facility] ([place]) Comment on above: Performed By: #### V IDH, LIPID, GFR, TSH, ANEU, ADIFF, FT4, CBC, CMP, HCV1, A1C #### [address] [address] Calcium [Mass/Vol] 9.7 mg/dL Normal 8.7-10.4 [facility] ([place]) Comment on above: Performed By: #### V IDH, LIPID, GFR, TSH, ANEU, ADIFF, FT4, CBC, CMP, HCV1, A1C #### [address] [address] Chloride [Moles/Vol] 108 mmol/L Normal 98-110 [facility] ([place]) Comment on above: Performed By: #### V IDH, LIPID, GFR, TSH, ANEU, ADIFF, FT4, CBC, CMP, HCV1, A1C #### [place] [id number] CO2 [Moles/Vol] 30 mmol/L Normal 22-32 [facility] ([place] Comment on above: Performed By: #### V IDH, LIPID, GFR, TSH, ANEU, ADIFF, FT4, CBC, CMP, HCV1, A1C #### [place] [id number] Creatinine [Mass/Vol] 0.78 mg/dL Normal 0.50-1.20 [facility] ([place]) Comment on above: Performed By: #### V IDH, LIPID, GFR, TSH, ANEU, ADIFF, FT4, CBC, CMP, HCV1, A1C #### [place] [address] Electrolyte Balance 4.0 mEq/L Normal 4.0-15.0 [facility] ([place] Comment on above: Performed By: #### V IDH, LIPID, GFR, TSH, ANEU, ADIFF, FT4, CBC, CMP, HCV1, A1C #### [address] [address] Globulin 3.4 G/dL Normal 1.5-3.8 [facility] ([place] Comment on above: Performed By: #### V IDH, LIPID, GFR, TSH, ANEU, ADIFF, FT4, CBC, CMP, HCV1, A1C #### [address] [address] Glucose [Mass/Vol] 100 mg/dL Normal 70-110 [facility] ([place] Comment on above: Performed By: #### V IDH, LIPID, GFR, TSH, ANEU, ADIFF, FT4, CBC, CMP, HCV1, A1C #### [address] [address] Potassium [Moles/Vol] 4.0 mmol/L Normal 3.5-5.0 [facility] ([place]) Comment on above: Performed By: #### V IDH, LIPID, GFR, TSH, ANEU, ADIFF, FT4, CBC, CMP, HCV1, A1C #### [address] [address] Sodium [Moles/Vol] 142 mmol/L Normal 136-145 [facility] ([place] Comment on above: Performed By: #### V IDH, LIPID, GFR, TSH, ANEU, ADIFF, FT4, CBC, CMP, HCV1, A1C #### [address] [address] Total Protein 7.2 G/dL Normal 5.7-8.2 [facility] ([place] Comment on above: Result Comment: No te - New Reference Range in effect 20 Performed By: #### V IDH, LIPID, GFR, TSH, ANEU, ADIFF, FT4, CBC, CMP, HCV1, A1C #### [address] [address] Urea nitrogen [Mass/Vol] 17.0 mg/dL Normal 8.0-22.0 [facility] ([place] Comment on above: Performed By: #### V IDH, LIPID, GFR, TSH, ANEU, ADIFF, FT4, CBC, CMP, HCV1, A1C #### [address] [address] FT4on 06-24-2023 Free T4 [Mass/Vol] 0.95 ng/dL Normal 0.89-1.76 [facility] ([place] Comment on above: Result Comment: No te - New Reference Range in effect 20 Performed By: #### V IDH, LIPID, GFR, TSH, ANEU, ADIFF, FT4, CBC, CMP, HCV1, A1C #### [address] [address] HCVon 06-24-2023 Hep C Ab Non-Reactive Normal Non-Reactive [facility] ([place] Comment on above: Performed By: #### V IDH, LIPID, GFR, TSH, ANEU, ADIFF, FT4, CBC, CMP, HCV1, A1C #### [address] [address] Hep C Ab Int Normal [facility] ([place] Comment on above: Result Comment: Nonr eactive: [...] ADIFF, FT4, CBC, CMP, HCV1, A1C #### [address] [address] LIPIDon 06-24-2023 Cholesterol [Mass/Vol] 250 mg/dL High 50-199 [facility] ([place] Comment on above: Result Comment: Chol esterol Reference Interval: Less than 200 Desirable 200-239 Borderline high risk 240 and above High risk Performed By: #### V IDH, LIPID, GFR, TSH, ANEU, ADIFF, FT4, CBC, CMP, HCV1, A1C #### [address] [address] Cholesterol in HDL [Mass/Vol] 51 mg/dL Normal 40-59 [facility] ([place] Comment on above: Performed By: #### V IDH, LIPID, GFR, TSH, ANEU, ADIFF, FT4, CBC, CMP, HCV1, A1C #### [address] [address] Cholesterol in LDL [Mass/Vol] 156 mg/dL High 0-129 [facility] ([place] Comment on above: Performed By: #### V IDH, LIPID, GFR, TSH, ANEU, ADIFF, FT4, CBC, CMP, HCV1, A1C #### [address] [address] Triglyceride [Mass/Vol] 215 mg/dL High 3-149 [facility] ([place] Comment on above: Performed By: #### V IDH, LIPID, GFR, TSH, ANEU, ADIFF, FT4, CBC, CMP, HCV1, A1C #### [place] [id number] MALBRon 06-24-2023 U Creatinine 139.3 mg/dL Normal [facility] ([place] Comment on above: Performed By: #### V IDH, LIPID, GFR, TSH, ANEU, ADIFF, FT4, CBC, CMP, HCV1, A1C #### [place] [address] U Microalb 5097 mcg/dL Normal [facility] ([place] Comment on above: Performed By: #### V IDH, LIPID, GFR, TSH, ANEU, ADIFF, FT4, CBC, CMP, HCV1, A1C #### [place] [address] U Ratio Alb/Cre 36.6 mcg/mg High 0.0-24.9 [facility] ([place] Comment on above: Performed By: #### V IDH, LIPID, GFR, TSH, ANEU, ADIFF, FT4, CBC, CMP, HCV1, A1C #### [place] [address] TSHon 06-24-2023 TSH 0.525 mIU/mL Low 0.550-4.780 [facility] ([place] Comment on above: Result Comment: No te - New Reference Range in effect 20 Performed By: #### V IDH, LIPID, GFR, TSH, ANEU, ADIFF, FT4, CBC, CMP, HCV1, A1C #### [place] [address] VIDHon 06-24-2023 Vit. D 25-Hydroxy 32.9 ng/mL Normal [facility] ([place] Comment on above: Result Comment: Inte rpretive Values Based on Total 25(OH)D: Severe Deficiency <20 ng/mL Mild to Moderate Deficiency 20-30 ng/mL Optimum Levels 30-100 ng/mL Toxicity Possible >100 ng/mL Performed By: #### V IDH, LIPID, GFR, TSH, ANEU, ADIFF, FT4, CBC, CMP, HCV1, A1C #### [address] [address] [place] MAMMOGRAM PROLONGED RIGHT on 04-07-2023 [place] MAMMOGRAM PROLONGED RIGHT ORIGINAL FROM: [address] [address] PROCEDURE FOR: GARY MELCHOR [address] [place] [address] Home: PID#: [id number] Exam#: [id number] : 1970 Age: 52 TO: BEV POSADAS DO [address] [place] [address] EXAMINATION: DIAGNOSTIC DIGITAL RIGHT BREAST MAMMOGRAM, 04/07/2023 [...] Provider: BEV POSADAS CLINICAL: CALCIFICATIONS RIGHT BREAST. Legal Director: CAM CAMPBELL RT(R)(M) letter sent: Abnormal-Needs additional work up BI-RADS 0 Mammogram BI-RADS: 0 Indeterminate Normal [facility] ([place] US BREAST RIGHT LIMITEDon US BREAST RIGHT LIMITED ORIGINAL FROM: [facility] [address] [place] [address] PROCEDURE FOR: GARY MELCHOR [address] [place] [address] Home: PID#: [id number] Exam#: [id number] : 1970 Age: 52 TO: BEV POSADAS DO [address] [place], [place] [address] EXAMINATION: ULTRASOUND OF THE RIGHT BREAST 04/07/2023 [...] ASYMMETRIC DENSITY RIGHT BREAST LATERAL 9 O'CLOCK. Legal Director: PIYUSH ONEILL RT(R)(M), RDMS letter sent: Probably Benign BI-RADS 3 Ultrasound BI-RADS: 3 Probably benign Normal [facility] ([place] LABORATORYOrdered By: Odessa Wall on 10-02-2021 FLUAV [...] LUND M.D. Signed By: LENNY LUND M.D. [facility] CT Chest w/o Contraston - CT Chest w/o Contrast Patient Name: GARY MELCHOR Computed Tomography ACCESSION EXAM DATE/TIME PROCEDURE ORDERING PROVIDER [id number] 07/27/2020 11:[address] Thorax w/o Contrast LUZ ARAUJO CPT code 89346 Reason For Exam (CT Thorax w/o Contrast) [...] Computed Tomography Report Report Dictated on Workstation: [id number] Final Dictating Physician: MD OLIVO VLADIMIR Signed Date and Time: 07/27/2020 11:52 am Signed by: MD OLIVO VLADIMIR Transcribed Date and Time: 07/27/2020 11:53 Normal [facility] NM Myocardial Perf Imaging [facility] Specton 07-27-2020 NM Myocardial Perf Imaging Multi Spect Patient Name: GARY MELCHOR Nuclear Medicine ACCESSION EXAM DATE/TIME PROCEDURE ORDERING PROVIDER [id number] 07/27/2020 09:15 EST NM Myocardial Perf DO POSADAS LISA Imaging Multi Spect CPT code 37967 [address] A9500 Reason For Exam (NM Myocardial Perf [...] study was interpreted and reported by the fiber analyst and the perfusion imaging portion of the [...] Exercise for 4 minutes completed by hand parts clerk plant maintenance. The infusion was terminated due to end [...] +------ + + +Injected by +Reanna CABRALES PAPER GUILLOTINE OPERATOR +Reanna CABRALES PAPER GUILLOTINE OPERATOR + + +------ + + Nuclear Medicine [...] 07/27/2020 10:44 am Signed by: YANNICK MARCELO [facility] NM Rad Signatureon NM Rad Signature Patient Name: GARY MELCHOR Nuclear Medicine ACCESSION EXAM DATE/TIME PROCEDURE ORDERING PROVIDER [id number] 07/27/2020 09:48 EST NM Rad Signature SIGNATURE, RAD NM Reason For Exam (NM Rad Signature) rad signature Report _ Indications: Chest pain. ----- Summary: 1. No evidence of ischemia. 2. Normal LVEF of 59%. Radiologist Confirmation: This is a combined report. The ECG portion of the study was interpreted and reported by the fiber analyst and the perfusion imaging portion of the [...] Exercise for 4 minutes completed by hand parts clerk plant maintenance. The infusion was terminated due to end [...] and Time: 08/08/2020 12:38 Transcribed By:LOLITA Normal [facility] COVID-19on 06-01-2020 SARS-CoV-2 Not Detected Not Detected [facility] - [place], [place] Comment on above: Not Detected Expected Result: Not Detected _ Real-time, RT-PCR performed on the Qiagen QIAquant System by the [facility] [employer] Service Negative results do not preclude SARS-CoV-2 infection and should not be used as the sole basis for treatment or other patient management decisions. This assay was developed and its performance characteristics determined by the [facility] Immunology Service. This test has been developed under an Emergency Use Authorization (EUA) granted by the FDA for the qualitative detection of SARS-CoV-2 nucleic acid (validation review pending). Test [facility] [address] [id number] 06-01-2020 SARS-CoV-2 SARS-CoV-2 --> Statu s: F Not Detected Expected Result: Not Detected _ Real-time, RT-PCR performed on the Qiagen QIAquant System by the [facility] [employer] [facility] Service Negative results do not preclude SARS-CoV-2 infection and should not be used as the sole basis for treatment or other patient management decisions. This assay was developed and its performance characteristics determined by the [facility] Immunology Service. This test has been developed under an Emergency Use Authorization (EUA) granted by the FDA for the qualitative detection of SARS-CoV-2 nucleic acid (validation review pending). Expected Result: Not Detected _ Real-time, RT-PCR performed on the Qiagen QIAquant System by the [facility] [employer] Service Negative results do not preclude SARS-CoV-2 infection and should not be used as the sole basis for treatment or other patient management decisions. This assay was developed and its performance characteristics determined by the [facility] Immunology Service. This test has been developed under an Emergency Use Authorization (EUA) granted by the FDA for the qualitative detection of SARS-CoV-2 nucleic acid (validation review pending). Normal [facility] Comment on above: Performed By: #### C OVID #### [facility] System [address] [place] [id number] CT Chest w/o Contraston 02-27 CT Chest w/o Contrast Patient Name: GARY MELCHOR CT Exam Date/Time 03/14/2020 10:52:[address] Chest w/o Contrast Ordering Physician LUZ ARAUJO Accession Number [id number] CPT4 Codes 61491 (CT Chest w/o Contrast) Reason For Exam [...] Transcribed Date and Time: 03/15/2020 10:34 Normal [facility] Full PFT Study With Bronchod ilatoron 12-12-2019 Name: GARY MELCHOR PatientID: [id number] Gender: Female Birthdate: 1970 Study Date: 12/12/2019 7:32:40 A Age: 49 Race: White or Height: 66.0 in, 167.6 cm Weight: 270.0 lbs, 122.7 kg Smoke Status: Quit Pack Years: 10 Tbco Prod: Cigarettes Ordering Physician: [id number] Interpreting Physician: [id number] Sports Equipment Repairer: JESSICA [place] Location: [facility] Diagnosis: SOB Spirometry Units Pred PreDrug Pre%Pred Post Post%Pred %Change FVC L,btps 3.79 3.39 90. 3.57 94. 5. FEV1 L,btps 3.00 2.60 87. 2.71 90. 4. FEV1/FVC (%) % 80. 76. 95. 76. 95. -1. MQE30-22% L/s 2.88 2.21 77. 2.29 80. 4. [...] /MIP cmH2O -76.02 PEmax /MEP cmH2O 95.70 CIG[employer] P[employer]ER AND GRADER NOTES Tests to perform: [id number] - FULL PFT STUDY WITH BRONCHODILATOR. HOME MEDS: ALBUTEROL--PRN. RETESTED AFTER 4PUFFS ALBUTEROL; SPACER AND INSTRUCTIONS GIVEN. DRY COUGH NOTED. [address]- PRE/[place] [address]- DLCO 56756- FRC GAS PHYSICIAN INTERPRETATION No apparent airway [...] suggesting early airway closure and gas trapping. [facility], [place], [facility] Incoming Cardiology Results From [facility] - 12/12/2019 9:43 AM EDT Name: GARY MELCHOR PatientID: [id number] Gender: Female Birthdate: 1970 Study Date: 12/12/2019 7:32:40 A Age: 49 Race: White or Height: 66.0 in, 167.6 cm Weight: 270.0 lbs, 122.7 kg Smoke Status: Quit Pack Years: 10 Tbco Prod: Cigarettes Ordering Physician: [id number] Interpreting Physician: [id number] Sports Equipment Repairer: JESSICA Testing Location: [facility] Diagnosis: SOB Spirometry Units Pred PreDrug Pre%Pred Post Post%Pred %Change FVC L,btps 3.79 3.39 90. 3.57 94. 5. FEV1 L,btps 3.00 2.60 87. 2.71 90. 4. FEV1/FVC (%) % 80. 76. 95. 76. 95. -1. ZLW41-04% L/s 2.88 2.21 77. 2.29 80. 4. [...] /MIP cmH2O -76.02 PEmax /MEP cmH2O 95.70 C[employer]ER [employer] GRADER NOTES Tests to perform: [id number] - FULL PFT STUDY WITH BRONCHODILATOR. HOME MEDS: ALBUTEROL--PRN. RETESTED AFTER 4PUFFS ALBUTEROL; SPACER AND INSTRUCTIONS GIVEN. DRY COUGH NOTED. [address]- PRE/[place] [address]- DLCO 27815- FRC GAS PHYSICIAN INTERPRETATION No apparent airway [...] suggesting early airway closure and gas trapping. [facility], [place] PET CT SKULL BASE TO MID [facility] 12-01-2019 Patient Name: GARY MELCHOR ---PET--- Exam Date/Time 12/01/2019 09:35:00 EDT Exam PT w/ [facility] Ordering Physician LUZ ARAUJO Accession Number [id number] CPT4 Codes 00738 (), A9552 () Reason For Exam as [...] JOHN Transcribed Date and Time: 12/01/2019 2:19 [facility], [place], [facility] Incoming Radiology Results From [facility] - 12/01/2019 2:20 PM EDT Patient Name: GARY MELCHOR ---PET--- Exam Date/Time 12/01/2019 09:35:00 EDT Exam PT w/ CT Scan Skull Base to Midthigh Ordering Physician LUZ ARAUJO Accession Number [id number] CPT4 Codes 80734 (), A9552 () Reason For Exam as [...] JOHN Transcribed Date and Time: 12/01/2019 2:19 [facility], [place] PT w/ CT Scan Skull Base to Midthighon 12-01-2019 PT w/ CT Scan Skull Base to Midthigh Patient Name: GARY MELCHOR PET Exam Date/Time 12/01/2019 09:35:00 EDT Exam PT w/ CT Scan Skull Base to Midthigh Ordering Physician LUZ ARAUJO Accession Number [id number] CPT4 Codes 44490 (), A9552 () Reason For Exam as [...] Transcribed Date and Time: 12/01/2019 2:19 Normal [facility] COMPLETE BLOOD COUNTon 03-31 Erythrocyte distribution width Auto Ratio (RBC) 12.2 % Normal 11.5-14.[address] [facility] Comment on above: Performed By: #### C BC ####[facility] [id number] [place], [address] Hematocrit Auto Volume Fraction (Bld) 35.2 % Low 36.0-46.[address] [facility] Comment on above: Performed By: #### C BC ####[facility] [id number] [place], [place], Hemoglobin mass conc (Bld) 12.1 g/dL Normal 12.0-15.0 [facility] Comment on above: Performed By: #### C BC ####[facility] [id number] [place] [address], MCH Auto Entitic mass (RBC) 29.8 pg Normal 26.0-34.0 [facility] Comment on above: Performed By: #### C BC ####[facility] [id number] [place] [address], MCHC Auto mass conc (RBC) 34.4 g/dL Normal 32.0-35.9 [facility] Comment on above: Performed By: #### C BC ####[facility] [id number] [place] [address], MCV Auto Entitic volume (RBC) 87 fL Normal 80-100 [facility] Comment on above: Performed By: #### C BC ####[facility] [id number] [place] [address], Platelet mean volume Auto Entitic volume (Bld) 9.3 fL Normal 8.5-11.5 [facility] Comment on above: Performed By: #### C BC ####[facility] [id number] [place] [address], Platelets Auto #/vol (Bld) 237 10*3/uL Normal 150-400 [facility] Comment on above: Performed By: #### C BC ####[facility] [id number] [place] [address], RBC Auto #/vol (Bld) 4.06 10*6/uL Normal 4.00-5.20 Th e [facility] Comment on above: Performed By: #### C BC ####[facility] [id number] [place] [address], WBC Auto #/vol (Bld) 5.5 10*3/uL Normal 4.5-11.5 [facility] Comment on above: Performed By: #### C BC ####[facility] PATHOLOGY [id number] [place] [address], GLUCOSE, FINGERSTICK-IN OFFI CEon 03-31-2018 Glucose mass conc 114 mg/dL High 68-[address] [facility] Comment on above: Result Comment: No A ction Performed By: #### [id number] ####NURSING GLUCOSE [id number] [place], [place], PARTIAL THROMBOPLASTIN TIMEo n 03-31-2018 aPTT Coag time (Bld) 24 s Normal 24-[address] [facility] Comment on above: Performed By: #### P T, APTT ####[facility] [id number] [place], [place], PROTHROMBIN TIME AND INRon 1 INR Coag RelTime (PPP) 1.03 {INR} Normal 0.90-1.[address] [facility] Comment on above: Performed By: #### P T, APTT ####[facility] [id number] [place], [place], Prothrombin time (PT) Coag time (PPP) 11.7 s Normal 10.0-12.[address] [facility] Comment on above: Performed By: #### P T, APTT ####S PATHOLOGY [id number] [place], [place], CT ABDOMEN/PELVIS W/O CONTRA STon 10-23-2017 [...] 3. Small hiatal hernia. MACRONONE Normal [facility] Vital Signs Date Time Vital Sign Value Performing Clinician Cali wilson 02-22-2025 09:34-0400 Body height 167.6 cm Abbey Jimenez MD Work Phone: [facility] 02-22-2025 09:34-0400 Body mass index (BMI) [Ratio] 40.99 kg/m2 Abbey Jimenez MD Work Phone: [facility] 02-22-2025 09:34-0400 Body weight 115.2 kg Abbey Jimenez MD Work Phone: [facility] 02-22-2025 09:34-0400 Diastolic blood pressure 79 mm[Hg] Abbey Jimenez MD Work Phone: [facility] 02-22-2025 09:34-0400 Heart rate 77 /min Abbey Jimenez MD Work Phone: [facility] 02-22-2025 09:34-0400 Systolic blood pressure 137 mm[Hg] Abbey Jimenez MD Work Phone: [facility] 12-18-2024 02:13-0400 Body temperature 98.3 [degF] Dr. Keyana Esposito MD Work Phone: [facility] 12-18-2024 02:13-0400 Diastolic blood pressure 74 mm[Hg] Dr. Keyana Esposito MD Work Phone: [phone] [place] [address] 12-18-2024 02:13-0400 Heart rate 93 /min Dr. Keyana Esposito MD Work Phone: [facility] 12-18-2024 02:13-0400 Respiratory rate 20 /min Dr. Keyana Esposito MD Work Phone: [phone] [place] [address] 12-18-2024 02:13-0400 SaO2% (BldA) [Mass fraction] 98 % Dr. Keyana Esposito MD Work Phone: [phone] [place] [address] 12-18-2024 02:13-0400 Systolic blood pressure 142 mm[Hg] Dr. Keyana Esposito MD Work Phone: [facility] 12-18-2024 00:52-0400 Body height 165.[address] Keyana Esposito MD Work Phone: [facility] 12-18-2024 00:52-0400 Body mass index (BMI) [Ratio] 41.1 kg/m2 Dr. Keyana Esposito MD Work Phone: [facility] 12-18-2024 00:52-0400 Body weight 112.[address] Keyana Esposito MD Work Phone: [facility] 10-28-2024 11:34-0400 Diastolic Blood Pressure Non-Invasive 70 mm[Hg] TOYA HODGES MD [facility][1] Pain Management 10-28-2024 11:34-0400 Heart rate 73 /min TOYA HODGES MD [facility] 10-28-2024 11:34-0400 Respiratory rate 16 /min TOYA HODGES MD [facility] 10-28-2024 11:34-0400 Systolic Blood Pressure Non-Invasive 141 mm[Hg] TOYA HODGES MD [facility] 10-28-2024 11:18-0400 Diastolic Blood Pressure Non-Invasive 71 mm[Hg] TOYA HODGES MD [facility] 10-28-2024 11:18-0400 Heart rate 64 /min TOYA HODGES MD [facility] 10-28-2024 11:18-0400 Respiratory rate 15 /min TOYA HODGES MD [facility] 10-28-2024 11:18-0400 Systolic Blood Pressure Non-Invasive 156 mm[Hg] TOYA HODGES MD [facility][1] Pain Management 10-28-2024 11:10-0400 Diastolic Blood Pressure Non-Invasive 82 mm[Hg] TOYA HODGES MD [facility] 10-28-2024 11:10-0400 Respiratory rate 16 /min TOYA OHDGES MD [facility] 10-28-2024 11:10-0400 Systolic Blood Pressure Non-Invasive 159 mm[Hg] TOYA HODGES MD [facility] 10-28-2024 10:59-0400 Heart rate 67 /min TOYA HODGES MD [facility] 10-28-2024 10:52-0400 Heart rate 68 /min TOYA HODGES MD [facility] 10-28-2024 10:29-0400 Blood Pressure Cuff Size TOYA HODGES MD [facility] 10-28-2024 10:29-0400 Blood Pressure Location TOYA HODGES MD [facility] 10-28-2024 10:29-0400 Blood Pressure Method TOYA HODGES MD [facility] 10-28-2024 10:29-0400 Body height 162.6 cm TOYA HODGES MD [facility] 10-28-2024 10:29-0400 Body weight 113.2 kg TOYA HODGES MD [facility][1] Pain Management 10-28-2024 10:29-0400 Body weight 42.82 kg/m2 TOYA HODGES MD [facility] 10-28-2024 10:29-0400 Heart rate 63 /min TOYA HODGES MD [facility] 10-10-2024 12:49-0400 Body mass index (BMI) [Ratio] 39.27 kg/m2 Jaimie Cook MD Work Phone: [facility] 10-10-2024 12:49-0400 Body temperature 98.2 [degF] Jaimie Cook MD Work Phone: [facility] 10-10-2024 12:49-0400 Body weight 110.36 kg Jaimie Cook MD Work Phone: [facility] 10-10-2024 12:49-0400 Diastolic blood pressure 67 mm[Hg] Jaimie Cook MD Work Phone: [facility] 10-10-2024 12:49-0400 Heart rate 66 /min Jaimie Cook MD Work Phone: [facility] 10-10-2024 12:49-0400 Respiratory rate 18 /min Jaimie Cook MD Work Phone: [facility] 10-10-2024 12:49-0400 SaO2% (BldA) [Mass fraction] 98 % Jaimie Cook MD Work Phone: [facility] 10-10-2024 12:49-0400 Systolic blood pressure 143 mm[Hg] Jaimie Cook MD Work Phone: [facility] 07-27-2024 12:37-0500 Diastolic Blood Pressure Non-Invasive 87 mm[Hg] OTYA HODGES MD [facility][1] Pain Management 07-27-2024 12:37-0500 Heart rate 52 /min TOYA HODGES MD [facility][1] Pain Management 07-27-2024 12:37-0500 Respiratory rate 15 /min TOYA HODGES MD [facility] 07-27-2024 12:37-0500 Systolic Blood Pressure Non-Invasive 140 mm[Hg] TOYA HODGES MD [facility][1] Pain Management 07-27-2024 12:25-0500 Heart rate 66 /min OTYA HODGES MD [facility][1] Pain Management 07-27-2024 12:25-0500 Respiratory rate 18 /min TOYA HODGES MD [facility][1] Pain Management 07-27-2024 12:20-0500 Heart rate 64 /min TOYA HODGES MD [facility][1] Pain Management 07-27-2024 12:20-0500 Respiratory rate 20 /min TOYA HODGES MD [facility] 07-27-2024 11:48-0500 Blood Pressure Cuff Size TOYA HODGES MD [facility] 07-27-2024 11:48-0500 Blood Pressure Location TOYA HODGES MD [facility] 07-27-2024 11:48-0500 Blood Pressure Method TOYA HODGES MD [facility] 07-27-2024 11:48-0500 Body height 162.6 cm TYOA HODGES MD [facility][1] Pain Management 07-27-2024 11:48-0500 Body weight 120.6 kg TOYA HODGES MD [facility][1] Pain Management 07-27-2024 11:48-0500 Body weight 45.61 kg/m2 TOYA HODGES MD [facility][1] Pain Management 07-27-2024 11:48-0500 Diastolic Blood Pressure Non-Invasive 78 mm[Hg] TOYA HODGES MD [facility][1] Pain Management 07-27-2024 11:48-0500 Heart rate 73 /min TOYA HODGES MD [facility][1] Pain Management 07-27-2024 11:48-0500 Systolic Blood Pressure Non-Invasive 144 mm[Hg] TOYA HODGES MD [facility][1] Pain Management 10-02-2021 06:28-0400 Heart rate 102 /min RENETTA REICHFIELD DO [facility] 10-02-2021 06:28-0400 Respiratory rate 20 /min RENETTA REICHFIELD DO [facility] 10-02-2021 06:02-0400 Body temperature 99.32 [degF] RENETTA REICHFIELD DO [facility] 10-02-2021 06:02-0400 Body weight 128.3 kg RENETTA REICHFIELD DO [facility] 10-02-2021 06:02-0400 Diastolic blood pressure 82 mm[Hg] RENETTA REICHFIELD DO [facility] 10-02-2021 06:02-0400 Heart rate 108 /min RENETTA REICHFIELD DO [facility] 10-02-2021 06:02-0400 Respiratory rate 22 /min RENETTA REICHFIELD DO [facility] 10-02-2021 06:02-0400 Systolic blood pressure 151 mm[Hg] RENETTA REICHFIELD DO [facility] 12-12-2019 07:32-0400 BMI (Body Mass Index) 43.58 kg/m2 [place], [place] 12-12-2019 07:32-0400 Body weight 122.47 kg [place], [place] 12-12-2019 07:32-0400 Height 167.6 cm [place] Encounters Encounter Date Encounter Type Care Provider Facility Start: 05-11-2025 ambulatory Patricia Espinal Facility:[facility] Start: 05-10-2025 End: 05-10-2025 ambulatory Uneeza K Cate Facility:[facility] Start: 05-02-2025 End: 05-02-2025 ambulatory BRANDON ARANDA [employer] Facility:A Start: 05-02-2025 End: 05-02-2025 Patient encounter procedure BRANDON ROSI [employer] [facility][1] Pain Management Start: 04-24-2025 End: 04-24-2025 ambulatory Uneeza K Cate Facility:[facility] Start: 04-24-2025 End: 04-24-2025 ambulatory Uneeza K Cate Facility:[facility] Start: 04-13-2025 ambulatory ABBEY tabaresty:[facility] Start: 04-13-2025 End: 04-13-2025 ambulatory BEV POSADAS Facility:[facility] Start: 03-17-2025 End: 03-17-2025 Emergency department patient visit ESCOBAR TAVAREZ MD [facility] Start: 03-16-2025 End: 03-20-2025 ambulatory BRANDON ROSI [employer] Facility:A Start: 03-16-2025 End: 03-16-2025 ambulatory BRANDON ROSI [employer] Facility:A Start: 03-16-2025 End: 03-16-2025 Patient encounter procedure BRANDON ROSI [employer] [facility][1] Pain Management Start: 02-28-2025 End: 02-28-2025 Telephone encounter Abbey Jimenez MD Work Phone: [facility] Comment on above: Results Start: 02-28-2025 ambulatory BEV POSADAS Facility :[facility] Start: 02-22-2025 End: 02-22-2025 ambulatory ABBEY JIMENEZ Facility:[facility] Start: 02-22-2025 End: 02-22-2025 Patient encounter [...] 01-24-2025 Patient encounter procedure TOYA HODGES MD [facility][1] Pain Management Start: 12-27-2024 End: 04-20-2025 ambulatory KEYANA ESPOSITO MD Facility:A Start: 12-23-2024 ambulatory Keyana Esposito Facility :[facility] Start: 12-18-2024 End: 12-18-2024 Emergency department patient visit Dr. Keyana Esposito MD Work Phone: -Emergency Department Work Phone: Start: 11-13-2024 ambulatory KEYANA ESPOSITO MD Facil ity:A Start: 11-01-2024 End: 11-03-2024 Telephone encounter Jaimie Cook MD Work Phone: Pulmonary Medicine Comment on above: cd images Start: 10-28-2024 End: 10-28-2024 ambulatory KEYANA ESPOSITO MD Facility:A Start: 10-28-2024 End: 10-28-2024 Minor Procedure TOYA HODGES MD [facility][1] Pain Management Start: 10-27-2024 End: 10-27-2024 Patient encounter procedure Nurse [facility] Jed Vasquez Work Phone: [facility] Comment on above: 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, sequela (Primary Dx); Other specified diabetes mellitus with other specified complication, unspecified whether snf insulin use (HCC); Essential hypertension, malignant Start: 10-27-2024 End: 10-27-2024 ambulatory YANNICK URIOSTEGUI Facility:[id number] Start: 10-19-2024 End: 11-07-2024 Telephone encounter Jaimie [...] Start: 10-10-2024 End: 10-10-2024 ambulatory JAIMIE COOK Facility:[facility] Start: 09-27-2024 End: 09-27-2024 ambulatory KEYANA ESPOSITO MD Facility:A Start: 09-20-2024 ambulatory MARGARET PONCE NP Facility:A Start: 09-14-2024 End: 09-14-2024 ambulatory KEYANA ESPOSITO MD Facility:A Start: 09-08-2024 End: 12-22-2024 ambulatory KEYANA ESPOSITO MD Facility:A Start: 09-08-2024 End: 09-08-2024 ambulatory KEYANA ESPOSITO MD Facility:A Start: 09-06-2024 End: 09-06-2024 Emergency department patient visit KEYANA ESPOSITO MD Facility:[facility] Start: 09-05-2024 End: 09-05-2024 ambulatory KEYANA ESPOSITO MD Facility:A Start: 08-17-2024 End: 08-17-2024 ambulatory KEYANA ESPOSITO MD Facility:A Start: 08-09-2024 End: 08-09-2024 ambulatory TOYA HODGES MD Facility:A Start: 08-09-2024 End: 08-09-2024 Patient encounter procedure TOYA HODGES MD [facility][1] Pain Management Start: 07-27-2024 End: 07-27-2024 ambulatory TOYA HODGES MD Facility:A Start: 07-27-2024 End: 07-27-2024 Minor Procedure TOYA HODGES MD [facility][1] Pain Management Start: 07-18-2024 End: 07-18-2024 ambulatory TOYA HODGES MD Facility:A Start: 06-15-2024 End: 06-15-2024 ambulatory TOYA HODGES MD Facility:A Start: 06-15-2024 End: 06-15-2024 ambulatory TOYA HODGES MD Facility:A Start: 06-15-2024 End: 06-15-2024 Patient encounter procedure TOYA TRINIDAD MD [facility][1] Pain Management Start: 05-10-2024 End: 05-10-2024 ambulatory NOLA D WILSON [employer] Facility:A Start: 04-22-2024 End: 04-22-2024 Patient encounter procedure MAXIMUS JUAREZ DO [facility] Start: 03-10-2024 End: 03-10-2024 Patient encounter procedure NOLA D WILSON [employer] [facility] Start: 03-01-2024 ambulatory NOLA D SCHNEI ELENITA [employer] Facility:A Start: 02-10-2024 ambulatory NOLA D SCHNEI ELENITA [employer] Facility:A Start: 02-09-2024 End: 02-09-2024 ambulatory NOLA D WILSON [employer] Facility:A Start: 11-03-2023 End: 11-03-2023 ambulatory NOLA D WILSON [employer] Facility:A Start: 10-07-2023 End: 10-07-2023 ambulatory NOLA D WILSON [employer] Facility:A Start: 10-07-2023 End: 10-07-2023 Patient encounter procedure NOLA D WILSON [employer] [facility] Start: 07-13-2023 End: 07-13-2023 ambulatory NOLA D WILSON [employer] Facility:A Start: 07-13-2023 End: 07-13-2023 Patient encounter procedure NOLA D WILSON [employer] [facility] Start: 06-24-2023 End: 06-28-2023 ambulatory NOLA WILSON [employer] Facility:A Start: 04-07-2023 End: 04-07-[address] BEV POSADAS DO Facility:A Start: 10-02-2021 End: 10-02-2021 Emergency department [facility] Start: 06-05-2020 End: 06-06-2020 Subsequent hospital visit by physician Thalchemy Work Phone: [facility] Start: 06-01-2020 End: 06-01-2020 Subsequent hospital visit by physician Th[employer] Work Phone: [facility] Start: 04-02-2020 End: 04-02-2020 Subsequent hospital visit by physician Thal[employer] Work Phone: [facility] Start: 03-14-2020 End: 03-14-2020 Subsequent hospital visit by physician Thalchemy Work Phone: [facility] Scan Comment on above: Lung mass Start: 12-12-2019 End: 12-12-2019 Subsequent hospital visit by physician famPlusberyl Araujo Work Phone: [facility] Pulm Function Test Comment on above: Tobacco abuse; Shortness of breath Start: 12-01-2019 End: 12-01-2019 Subsequent hospital visit by physician famPlusberyl Araujo Work Phone: [facility] PET Comment on above: Lung nodule; Tobacco abuse Start: 05-06-2018 End: 05-06-2018 Patient encounter UNKNOWN PROVIDER Facility:[facility] Start: 04-22-2018 End: 04-22-2018 Patient encounter UNKNOWN PROVIDER Facility:[facility] Start: 04-13-2018 End: 04-13-2018 Patient encounter UNKNOWN PROVIDER Facility:[facility] Start: 04-08-2018 End: 04-08-2018 Patient encounter UNKNOWN PROVIDER Facility:[facility] Start: 03-31-2018 End: 04-02-2018 Evaluation and management of inpatient VIBHA MAURER Facility:[facility] Start: 11-19-2017 End: 11-19-2017 Patient encounter UNKNOWN PROVIDER Facility:[facility] Start: 11-17-2017 End: 11-17-2017 Patient encounter UNKNOWN PROVIDER Facility:[facility] Start: 10-23-2017 End: 10-24-2017 Patient encounter UNKNOWN PROVIDER Facility:[facility] Start: 10-16-2017 End: 10-16-2017 Patient encounter UNKNOWN PROVIDER Facility:[facility] Start: 10-09-2017 Patient encounter Bev Iukaned [facility] Start: 10-08-2017 End: 10-08-2017 Patient encounter UNKNOWN PROVIDER Facility:[facility] Procedures Date Procedure Procedure Detail Performing Clinician [...] Screening for malign ant neoplasm of colon [facility] Start: 10-28-2027 Diabetes Screening Diabetes Screenin g [facility] Start: 02-27-2025 Influenza vaccination [facility] Start: 02-22-2025 End: 02-22-2026 FAYE BY IFA WITH REFLEX [facility] Work Phone: Comment on above: Expected: 02/22/2025 , Expires: 02/22/2026 Start: 02-22-2025 End: 06-24-2025 ANTI NEUTRO CYTO AB [facility] Comment on above: Expected: 02/22/2025 , Expires: 06/24/2025 Start: 02-22-2025 End: 02-22-2026 Basement membrane IgG Ab [Units/volume] in Serum [facility] Comment on above: Expected: 02/22/2025 , Expires: 02/22/2026 Start: 02-22-2025 End: 02-22-2026 Extractable nuclear Ab panel - Serum [facility] Comment on above: Expected: 02/22/2025 , Expires: 02/22/2026 Start: 02-22-2025 End: 02-22-2026 MONOCLONAL PROTEIN, SERUM (BLOOD) [facility] Comment on above: Expected: 02/22/2025 , Expires: 02/22/2026 Start: 02-22-2025 End: 02-22-2025 Patient encounter procedure 02/22/2025 9:20 AM EDT Office Visit [facility] [address] [place] [address] [place] [address] [place] [address] poisoning, kidney damage, kidney function cut down by half [facility] Comment on above: poisoning, kidney da mage, kidney function cut down by half Start: 12-18-2024 [facility] Start: 12-13-2024 End: 12-13-2024 Patient encounter procedure 12/13/2024 8:00 PM EDT Office Visit [facility] [address] [place] [address] SPLIT NIGHT SLEEP STUDY [facility] [place] Comment on above: SPLIT NIGHT SLEEP ST [facility] Start: 10-28-2024 End: 10-28-2024 Patient encounter procedure 10/28/2024 7:00 AM EDT Appointment Radiology [address] [facility]iology Comment on above: [facility] ct Start: 10-27-2024 End: 10-27-2025 ECG COMPLETE ECG COMPLETE ECG Routine Traumatic complete tear of left rotator cuff, sequela Other specified diabetes mellitus with other specified complication, 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) Essential hypertension, malignant Expected: 10/27/2024, Expires: 10/27/2025 [facility] Work Phone: Comment on above: Expected: 10/27/2024 , Expires: 10/27/2025 Start: 02-28-2024 Covid-19 Vaccine () Covid-19 Vaccine () [facility] Start: 02-28-2024 Influenza vaccination Influenza Vacc ine (#1) [facility] Start: 09-24-2020 End: 09-24-2020 Office Visit 09/24/2020 Office Visit Pulmonology Luz Araujo MD [address] [place] [address] [phone] [facility] Start: 09-12-2020 End: 09-12-2020 Appointment 09/12/2020 Appointment Radiology Luz Araujo MD [address] [place] [address] [phone] [facility] [address] Scan Start: 03-26-2020 End: 03-26-2020 Office Visit 03/26/2020 Office Visit Pulmonology Luz Araujo MD [address], [place] [phone] [facility] Start: 02-28-2020 Influenza vaccination [facility] [place] Start: 01-20-2020 End: 01-20-2020 Office Visit 01/20/2020 Office Visit Pulmonology Luz Araujo MD [address], [place] [phone] [facility] Dawn Manny Sepulveda Start: 11-25-2019 Pneumococcal Vaccine : 50+ (2 of 2 - PCV20 or PCV21) Pneumococcal Vaccine: 50+ (2 of 2 - PCV20 or PCV21) [facility] Start: 11-25-2019 Pneumococcal Vaccine : 50+ (2 of 2 - PPSV23) Pneumococcal Vaccine: 50+ (2 of 2 - PPSV23) [facility] Start: 10-10-2019 Screening for malign ant neoplasm of breast Breast cancer screen [place], [place] Start: 2019 Screening for malign ant neoplasm of colon Colon cancer screen colonoscopy [place], [place] Start: 2019 Shingles Vaccine (1 of 2) Shingles Vaccine (1 of 2) [place] Start: 2019 Shingrix Vaccine (1 of 2) Shingrix Vaccine (1 of 2) [facility] Start: 03-16-2018 Creatinine measurement Creatinine mo nitoring [place], [place] Start: 03-16-2018 Potassium monitoring Potassium monit oring [place], [place] Start: 2014 Diabetes Screening Diabetes Screenin g [facility] Start: 2014 Lipid panel Lipid Screening [facility] Start: 2014 Screening for malign ant neoplasm of colon [facility] Start: 2009 Diabetes screen Diabetes screen [place], [place] Start: 2009 Lipid panel Lipid screen [place], [place] Start: 2009 Screening for malign ant neoplasm of breast Mammogram Screening [facility] Start: 1990 Screening for malign ant neoplasm of cervix [facility] Start: 1988 DTaP/Tdap/Td vaccine (1 - Tdap) DTaP/Tdap/Td vaccine (1 - Tdap) [place], [place] Start: 1988 Hepatitis B Vaccine (1 of 3 - 19+ 3-dose series) Hepatitis B Vaccine (1 of 3 - 19+ 3-dose series) [facility] Start: 1988 Urine microalbumin profile DTaP,Tdap,Td Vaccine (1 - Tdap) [facility] Start: 1987 Anxiety Screening Anxiety Screening [facility] Start: 1987 Depression Screening Depression Scre renan [facility] Start: 1987 Hepatitis C screening Hepatitis C Sc jagdish [facility] Start: 1987 HIV screening HIV Screening [facility] Start: 1984 HIV screening HIV screen Tatiana Thomas [place], [place] End: 03-14-2020 CT CHEST WO CONTRAST CT CHEST WO CONTRAST Imaging Routine Lung mass 1 Occurrences starting 03/14/2020 until 03/14/2020 [place], [place] Comment on above: 1 Occurrences starti ng 03/14/2020 until 03/14/2020 CT CHEST WO CONTRAST CT CHEST WO CONTRAST Imaging Routine Lung mass 03/14/2020 10:30 AM EDT [place], [place] End: 11-09-2025 CT Chest WO contrast CT CHEST WO IVCON Radiology Routine Interstitial pulmonary disease (HCC) 1 Occurrences starting 10/10/2024 until 11/09/2025 [facility] Work Phone: Comment on above: 1 Occurrences starti ng 10/10/2024 until 11/09/2025 LUNG DIFFUSION CAPAC ITY (DLCO) LUNG DIFFUSION CAPACITY (DLCO) PFT Routine Interstitial pulmonary disease (HCC) 10/10/2024 2:13 PM EDT [facility] LUNG VOLUMES LUNG VOLUMES PFT Routine Interstitial pulmonary disease (HCC) 10/10/2024 2:13 PM EDT [facility] Patient Education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
--- NOTE | 2025-06-09 05:18 | ECHOCS_ITS ---
Reason For Study Reason For Study: NSTEMI Procedure This was a 2D Doppler, Color Flow transthoracic echocardiogram. The study was technically difficult. PT refused to lie down due to SOB when laying down. Contrast injection was performed. Exam performed portable in patient room. Left Ventricle Mildly dilated left ventricle. The estimated ejection fraction is 15-20 %. Base of the LV is darwin well. Rest of the LV is akinetic. Right Ventricle Normal RV size. Normal systolic function. Atria The left and right atria are normal. No doppler evidence for ASD. Mitral Valve There is no mitral valve stenosis. No mitral valve insufficiency. Tricuspid Valve There is no tricuspid stenosis. Unable to estimate RV systolic pressure due to inadequate jet, pulmonary artery pressure probably normal. Aortic Valve There is no aortic stenosis. No aortic valve insufficiency. Pulmonic Valve There is no pulmonic valvular stenosis. No pulmonic valve insufficiency. Great Vessels Normal sized aortic root. Pericardium/Pleural No pericardial effusion. Medication Diluted definity 2.5ml given slow IV push to enhance endocardial definition. MMode/2D Measurements & Calculations LVIDd: 5.9 cm IVSd: 0.99 cm Ao root diam: 3.5 cm LVIDs: 4.8 cm LVPWd: 1.0 cm FS: 19.2 % LAV(MOD-bp): 47.0 ml LVAd ap4: 35.7 cm2 SV(MOD-sp4): 37.0 ml LAV(MOD-bp) Indexed: 21.3 ml/m2 LVLd ap4: 9.2 cm SI(MOD-sp4): 16.7 ml/m2 LAV(MOD-sp2): 50.3 ml EDV(MOD-sp4): 114.7 ml LAV(MOD-sp4): 42.1 ml EDV(sp4-el): 117.9 ml LVAs ap4: 27.9 cm2 LVLs ap4: 8.3 cm ESV(MOD-sp4): 77.8 ml ESV(sp4-el): 79.7 ml EF(MOD-sp4): 32.2 % EF(sp4-el): 32.4 % SV(sp4-el): 38.2 ml LA A4 area: 15.5 cm2 LA dimension(2D): 3.0 cm Time Measurements MV dec time: 0.12 sec Doppler Measurements & Calculations MV E max philippe: 48.1 cm/sec Lat Peak E' Philippe: 7.6 cm/sec Med Peak E' Philippe: 5.3 cm/sec MV A max philippe: 73.9 cm/sec E/E' lat: 6.3 E/E' med: 9.1 MV E/A: 0.65 Ao V2 max: 118.0 cm/sec LV V1 max: 96.2 cm/sec PA V2 max: 85.6 cm/sec Ao max P.6 mmHg LV V1 max P.7 mmHg Ao V2 mean: 78.7 cm/sec LV V1 mean P.9 mmHg Ao mean P.7 mmHg LV V1 mean: 64.5 cm/sec Ao V2 VTI: 16.4 cm LV V1 VTI: 13.4 cm AV (velocity ratio): 0.82 TR max philippe: 234.2 cm/sec TR max P.9 mmHg ECHO/Echo Complete W/ Contrast Interpretation Summary Mildly dilated left ventricle. The estimated ejection fraction is 15-20 %. Base of the LV is darwin well. Rest of the LV is akinetic. Ordering Physician: Kelli Chaidez Referring Physician: Keyana Esposito Performed By: Emily Kay RDCS, RVT
--- NOTE | 2025-06-09 05:18 | EKG12_ITS ---
Test Reason : NSTEMI ADMIT Blood Pressure : */* mmHG Vent. Rate : 101 BPM Atrial Rate : 101 BPM P-R Int : 144 ms QRS Dur : 78 ms QT Int : 324 ms P-R-T Axes : 52 46 61 degrees QTcB Int : 420 ms Sinus tachycardia Septal infarct , age undetermined Abnormal ECG When compared with ECG of 09-Jun-2025 02:37, MANUAL COMPARISON REQUIRED DATA IS UNCONFIRMED Confirmed by MIRELLA JHAVERI, TRACI ([id number]), features editor MAEVE GREEN ([id number]) on 06/12/2025 6:52:58 AM Referred By: Confirmed By: TRACI VU MD
--- NOTE | 2025-06-09 05:33 | PCM.HOSP.N ---
Hospitalist Note As a courtesy given patient recent procedure the day prior Dr. Moscoso, urologist was updated on patient presentation and plan for admission with acute NSTEMI. Did discuss her leukocytosis although no significant left shift and noted that plan was to obtain a urinalysis. She did recommend that if the white count to elevate further or concerns arise to obtain CT to assure that the stent was appropriate and there is no obstructive process.
[2025-06-09 05:34] LABS: Troponin T High Sens 2 HR 340 ng/L (<=14)
[2025-06-09 05:45] LABS: Magnesium 1.9 mg/dL (1.5-2.2)
[2025-06-09] MEDS: 0.9% Saline Lock 10 ML Syringe IV ×2 (05:57→11:49)
[2025-06-09 06:31] LABS: Mucous, Urine 0 SEEN /hpf (<or=2+); Squamous Epithelial Cells - UA 0 SEEN /hpf (5-10)
[2025-06-09] MEDS: Aspirin E.C. 81 MG Tablet PO (06:32)
[2025-06-09 06:51] LABS: Reflex Lactate? Y
[2025-06-09 07:17] LABS: Troponin T High Sens 4 HR 326 ng/L (<=14)
[2025-06-09 08:14] LABS: Hematocrit 36.2 % (37-47); Hemoglobin 12.1 g/dL (12.0-15.0); Immature Granulocytes Count 0.090 X10^3/uL (0.0-0.0); Mean Corp Hgb Conc 33.4 g/dL (32-36); Mean Corpuscular Volume 89.4 fL (81-99); Mean Platelet Vol. 9.2 fl (6.2-12.0); NRBC Flagged by Analyzer 0 % (0-5); POSITIVE DIFFERENTIAL YES; Platelet Count 245 K/mm3 (150-450); RBC Distribution Width CV 12.7 % (11.6-14.6); RBC Distribution Width SD 41.6 fl (35.1-43.9); Red Blood Count 4.05 M/mm3 (4.2-5.4); White Blood Count 15.5 K/mm3 (4.4-11.0)
[2025-06-09 08:17] LABS: Differential Indicated SCAN CRITERIA MET
[2025-06-09 08:36] LABS: AST(SGOT) 43 U/L (<=31); Alanine Aminotransfer ALT/SGPT 28 U/L (<=34); Albumin, Serum 3.8 g/dL (3.5-5.0); Alkaline Phosphatase 70 U/L (35-104); Anion Gap 12 (5-15); BUN 12 mg/dL (4-19); BUN/Creat Ratio 13.5 RATIO (10-20); Calcium,Total 9.4 mg/dL (7.6-11.0); Carbon Dioxide 27.4 mmol/L (21.0-32.0); Chloride 99 mmol/L (98-108); Estimated Creatinine Clearance 90.89 ml/min (50-250); Globulin 2.8 g/dL (2.2-4.2); Glucose 144 mg/dL (70-99); Potassium 3.7 mmol/L (3.3-5.1)
[2025-06-09 08:39] LABS: Color, Urine Red (Yellow); Glucose, Dipstick Normal (Normal); Ketone-Dipstick Negative (Negative); Leukocyte Esterase-Dipstick Negative /ul (Negative); Nitrite-Dipstick Positive (Negative); Occult Blood-Urine 250 /ul (Negative); Protein-Dipstick 500 mg/dl (Negative); Specific Gravity, Urine 1.015 (1.002-1.030)
[2025-06-09 08:42] LABS: Urine Bilirubin Dipstick 6 mg/dL (Negative)
[2025-06-09 08:47] LABS: Red Blood Cells-Urine 25-50 SEEN /hpf (0-5)
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
[2025-06-09 11:27] LABS: Partial Thromboplast Time 39.8 Seconds (24.1-36.2)
--- NOTE | 2025-06-09 11:44 | NURSING ---
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
--- NOTE | 2025-06-09 12:02 | PCM.CONS.C ---
Assessment & Plan Assessment/Plan (1) NSTEMI, initial episode of care: PLAN: Could be related to CHF, LV dysfunction, Takotsubo cardiomyopathy. However patient continues to have some degree of chest pain. We will proceed with coronary angiography to evaluate this further. Risks and benefits explained to the patient and she understands and wishes to proceed. (2) Dyspnea: QUALIFIERS: Dyspnea type: unspecified Qualified Code(s): R06.00 - Dyspnea, unspecified PLAN: Appears to be secondary to decompensated CHF. Recommend Lasix 40 mg IV twice daily till tomorrow. We may be able to switch her to p.o. Lasix tomorrow. Continue lisinopril. Add Toprol-XL 25 mg p.o. daily. (3) LV dysfunction: PLAN: Wall motion abnormalities suggest Takotsubo cardiomyopathy. Significant LAD lesion is a possibility and we will proceed with coronary angiography to evaluate this further. HPI Consult Data Date of Consult: 06/09/25 HPI Narrative Reason for Consultation: Chest pain, elevated troponin, shortness of breath HPI Narrative: GARY MELCHOR, is a 54 F who presents [with chest pain and shortness of breath. Patient had cystoscopy and left ureteral stent placement yesterday for hematuria. During this admission patient was found to have troponin elevation in the 300s. She does have orthopnea, elevated BNP. She was started on Lasix. 2D echo revealed an EF of 20% with wall motion abnormalities that could represent Takotsubo cardiomyopathy or significant LAD lesion. Patient states she still has mild chest pain. However this chest pain is worse when she lies down flat.] [facility] Medical History Arthritis Bladder disease Dietary restriction Non-smoker Sleep apnea Anxiety Ganglion cyst of hand tendon excised Deviated septum Diabetes Home Medications ?Medication ?Instructions ?Recorded ?Last Taken ?Type ezetimibe 10 mg tablet (Zetia) 10 mg PO QDAY 04/24/25 Unknown History garlic 500 mg capsule 500 mg PO .3X A WEEK 04/24/25 Unknown History lisinopril 40 mg tablet 40 mg PO QDAY 04/24/25 Unknown History metformin 500 mg tablet,extended 500 mg PO QDAY 04/24/25 Unknown History release 24 hr multivitamin 1 tab PO QAM 04/24/25 Unknown History oxycodone-acetaminophen 7.5 mg-325 1 tab PO Q8H PRN pain 04/24/25 Unknown History mg tablet (Percocet) cephalexin 500 mg capsule 500 mg PO Q12 post-operative 3 06/08/25 Unknown Rx days #6 CAPSULES ondansetron 8 mg disintegrating 8 mg PO Q8H PRN nausea and 06/08/25 Unknown Rx tablet vomiting #10 tabs phenazopyridine 200 mg tablet 200 mg PO TID PRN pain #30 tabs 06/08/25 Unknown Rx Allergy/AdvReac Type Severity Reaction Status Date / Time acetaminophen (From AdvReac Mild vomits Verified 06/09/25 02:42 Tylenol-Codeine #3) codeine (From AdvReac Mild vomits Verified 06/09/25 02:42 Tylenol-Codeine #3) Family History (Updated 06/09/25 @ 05:[address] Kelli Chaidez MD) Mother Lung cancer COPD (chronic obstructive pulmonary disease) Father CAD (coronary artery disease) Heart disease Hypertension Myocardial infarction Surgical History Hx of colonoscopy H/O toe surgery H/O foot surgery History of ankle surgery History of carpal tunnel release History of shoulder surgery Social History household members: none Smoking Status: Former smoker alcohol intake: never substance use type: does not use what type of physical activity do you participate in: none do you feel safe at home: Yes Physical Exam Const alert, oriented x3 and no apparent distress HEENT normocephalic Eyes no scleral icterus Resp normal respiratory effort Resp Narrative: Minimal bibasal crackles Cardio regular rate Extremity no pedal edema Charges/Coding Visit Charges Inpatient E&M: 18642 Init Hosp L2 Objective Data Vital Signs: Vital Signs Temp Pulse Resp BP Pulse Ox O2 Del Method 98.2 F 101 H 17 128/70 H 93 Room Air 06/09/25 11:40 06/09/25 11:40 06/09/25 11:40 06/09/25 11:40 06/09/25 11:40 06/09/25 11:40 Oxygen Delivery Method Room Air Weight: 260 lb 12.909 oz Body Mass Index (BMI) 43.4 Intake & Output: Intake and Output for Last 24 Hours 12/10/25 12/11/25 12/12/25 23:59 23:59 23:59 Intake Total 1070 / 1070 Balance 1070 / 1070 Lab / Micro Data 06/09/25 07:55 06/09/25 07:55 Labs: Laboratory Results - last 24 hr 06/09/25 02:40: WBC 19.3 H, RBC 4.33, Hgb 12.8, Hct 39.2, MCV 90.5, MCH 29.6, MCHC 32.7, RDW Std Deviation 41.5, RDW Coeff of [place] 12.5, Plt Count 292, MPV 9.3, Immature Gran % (Auto) 0.200, Neut % (Auto) 38.2 L, Lymph % (Auto) 5.0 L, Rich % (Auto) 6.8, Eos % (Auto) 49.5 H, Baso % (Auto) 0.3, Absolute Neuts (auto) 7.4, Absolute Lymphs (auto) 0.97, Nucleated RBC % 0, Differential Comment SCANNED, Toxic Granulation 2+, PT 13.4, INR 1.0, APTT 26.5, Sodium 138, Potassium 4.0, Chloride 99, Carbon Dioxide 24.7, Anion Gap 14, BUN 14, Creatinine 1.00, Estim Creat Clear Calc 81.52, Est GFR (MDRD) Non-Af 67, BUN/Creatinine Ratio 14.4, Glucose 188 H, Lactic Acid 2.1 H*, Calcium 9.7, Total Bilirubin 0.40, AST 39 H, ALT 33, Alkaline Phosphatase 79, Troponin T High Sens 347 H*, NT pro BNP II 3007 H, Total Protein 7.2, Albumin 4.1, Globulin 3.1, Albumin/Globulin Ratio 1.3 06/09/25 04:40: Magnesium 1.9, Troponin T Hi Sens 2 Hr 340 H* 06/09/25 05:56: POC Glucose 156 H 06/09/25 06:22: Urine Color Red, Urine Clarity Cloudy, Urine pH 5.0, Ur Specific [place] 1.015, Urine Protein 500 H, Urine Glucose (UA) Normal, Urine Ketones Negative, Urine Occult Blood 250 H, Urine Nitrite Positive H, Urine Bilirubin 6 H, Urine Urobilinogen 8 H, Ur Leukocyte Esterase Negative, Urine RBC 25-50 SEEN, Urine WBC 0 SEEN, Ur Squamous Epith Cells 0 SEEN, Urine Bacteria 1+, Urine Mucus 0 SEEN 06/09/25 06:35: Troponin T Hi Sens 4Hr 326 H* 06/09/25 07:55: WBC 15.5 H, RBC 4.05 L, Hgb 12.1, Hct 36.2 L, MCV 89.4, MCH 29.9, MCHC 33.4, RDW Std Deviation 41.6, RDW Coeff of [place] 12.7, Plt Count 245, MPV 9.2, Immature Gran % (Auto) 0.600, Neut % (Auto) 81.2 H, Lymph % (Auto) 8.2 L, Rich % (Auto) 9.8, Eos % (Auto) 0.0, Baso % (Auto) 0.2, Absolute Neuts (auto) 12.6 H, Absolute Lymphs (auto) 1.27, Nucleated RBC % 0, Sodium 138, Potassium 3.7, Chloride 99, Carbon Dioxide 27.4, Anion Gap 12, BUN 12, Creatinine 0.90, Estim Creat Clear Calc 90.89, Est GFR (MDRD) Non-Af 76, BUN/Creatinine Ratio 13.5, Glucose 144 H, Lactic Acid 1.5, Calcium 9.4, Total Bilirubin 0.59, AST 43 H, ALT 28, Alkaline Phosphatase 70, Total Protein 6.6, Albumin 3.8, Globulin 2.8, Albumin/Globulin Ratio 1.3 06/09/25 11:03: APTT 39.8 H Micro: Microbiology 06/09/25 02:50 Mucosa - Nose SARS-CoV-2, Influenza & RSV (PCR) - Final Cardiology Labs/Tests 06/09/25 02:40: WBC 19.3 H, RBC 4.33, Hgb 12.8, Hct 39.2, MCV 90.5, MCH 29.6, MCHC 32.7, Plt Count 292, MPV 9.3, Immature Gran % (Auto) 0.200, Neut % (Auto) 38.2 L, Lymph % (Auto) 5.0 L, Rich % (Auto) 6.8, Eos % (Auto) 49.5 H, Baso % (Auto) 0.3, Absolute Neuts (auto) 7.4, Nucleated RBC % 0, PT 13.4, INR 1.0, APTT 26.5, Sodium 138, Potassium 4.0, Chloride 99, Carbon Dioxide 24.7, Anion Gap 14, BUN 14, Creatinine 1.00, Est GFR (MDRD) Non-Af 67, BUN/Creatinine Ratio 14.4, Glucose 188 H, Lactic Acid 2.1 H*, Calcium 9.7, Total Bilirubin 0.40 06/09/25 04:40: Magnesium 1.9 06/09/25 06:22: Urine Color Red, Urine Clarity Cloudy, Urine pH 5.0, Ur Specific [place] 1.015, Urine Protein 500 H, Urine Glucose (UA) Normal, Urine Ketones Negative, Urine Occult Blood 250 H, Urine Nitrite Positive H, Urine Bilirubin 6 H, Urine Urobilinogen 8 H, Ur Leukocyte Esterase Negative, Urine RBC 25-50 SEEN, Urine WBC 0 SEEN 06/09/25 07:55: WBC 15.5 H, RBC 4.05 L, Hgb 12.1, Hct 36.2 L, MCV 89.4, MCH 29.9, MCHC 33.4, Plt Count 245, MPV 9.2, Immature Gran % (Auto) 0.600, Neut % (Auto) 81.2 H, Lymph % (Auto) 8.2 L, Rich % (Auto) 9.8, Eos % (Auto) 0.0, Baso % (Auto) 0.2, Absolute Neuts (auto) 12.6 H, Nucleated RBC % 0, Sodium 138, Potassium 3.7, Chloride 99, Carbon Dioxide 27.4, Anion Gap 12, BUN 12, Creatinine 0.90, Est GFR (MDRD) Non-Af 76, BUN/Creatinine Ratio 13.5, Glucose 144 H, Lactic Acid 1.5, Calcium 9.4, Total Bilirubin 0.59 06/09/25 11:03: APTT 39.8 H Rhythm: EKG: ECHO: Stress Test: Cardiac Cath: PCI: CT Surgery: Holter monitor: EPS: PPM: CXR: Chest CT Scan: Radiography Diagnostic Testing: Radiology Impression Chest CTA 06/09/25 02:44 IMPRESSION: No evidence of pulmonary arterial thromboembolism. Bilateral pulmonary atelectatic changes and with smooth interlobular septae thickening, possibly post infectious versus mild pulmonary edema. Advise clinical correlation. Stable left upper lung lobe large calcified nodule with surrounding atelectatic changes. Newly developed mild bilateral pleural effusion, right more evident than left with underlying basal atelectatic changes. [facility] Chest X-Ray 06/09/25 03:40 IMPRESSION: Minimal bilateral pleural effusions. Passive atelectatic airspace disease of the lower lobes. 1.6 cm calcified nodule of the left upper lobe. Interstitial pulmonary congestion/edema. Normal heart and pericardium. [facility] Echocardiogram 06/09/25 05:18 Interpretation Summary Mildly dilated left ventricle. The estimated ejection fraction is 15-20 %. Base of the LV is darwin well. Rest of the LV is akinetic. Ordering Physician: Kelli Chaidez Referring Physician: Keyana Esposito Performed By: Emily Kay, MEREDITH, RVT R Risk Score for UA/STEMI Assesmment (YES = 1) Risk Stratification Applicable: No
--- NOTE | 2025-06-09 12:54 | CL.D_ITS ---
Patient Name: GARY MELCHOR Study Date: 06/09/2025 Performing: Gabriella Lynn MD Ht: 65 inches 165.1 cm : 1970 Wt: 261.1 lbs 118.3 kg Age: 54 Gender: female BSA: 2.21 PROCEDURE(S) PERFORMED [id number])LHC/COR/LV CLINICAL PROFILE AND INDICATIONS Indications: ACS <= 24 hrs, NSTEMI, CHF, LV dysfunction Heart Failure: None CONCLUSIONS No angiographic evidence of significant coronary artery disease. RECOMMENDATIONS DESCRIPTION OF PROCEDURE The patient arrived to the procedure lab. The risks and benefits of the procedure as well as a full description of our services here and current unavailability of surgical backup were fully explained to the patient and/or their significant other prior to the catheterization. The Timeout was completed, verifying the correct patient and procedure. The patient's procedural site was prepped and draped in the usual fashion. Local anesthetic was given subcutaneously to right radial region with Lidocaine 2%. Using a modified Seldinger technique, arterial access was obtained via the right radial artery, a 6Fr sheath was inserted. Left Coronary Artery selective angiography was performed in multiple views using a 5 Fr. JL3.5 catheter. LV to AO pullback pressures were then recorded. Right Coronary Artery selective angiography was then performed in multiple views using a 5 Fr. JR 4 catheter.The arterial sheath was pulled and a TR Band was applied for hemostasis w/ 12ml air CORONARY ANGIOGRAPHY DOMINANCE: Right Dominant LEFT MAIN: No significant disease noted LEFT ANTERIOR DESCENDING ARTERY: No significant disease noted CIRCUMFLEX ARTERY: No significant disease noted RIGHT CORONARY ARTERY: No significant disease noted COMPLICATIONS No Complications PROCEDURE MEDICATIONS Versed 1 mg IV Fentanyl 50 mcg IV Oxygen: 2 L/min via nasal cannula Verapamil 2.5mg, Ntg 100mcgs given IA 06/09/2025 12:20:05 SUMMARY OF HEMODYNAMIC DATA Time AIR REST ECG 12:08:27 AO 109/84 (94) SA 12:22:00 LV 124/17, 24 12:25:30 LV 122/17, 24 12:25:37 LVp 83/21, 29 12:25:48 AOp 124/86 (103) 12:25:53 Signed By Gabriella Lynn MD On 06/09/2025 12:53:47 Gabriella Lynn MD
--- NOTE | 2025-06-09 15:09 | DCINST_ITS ---
Discharge Instructions DC O2, CPAP, BIPAP needs Home O2 Discharge instructions: No Dressing / Incision Discharge Activity: Return to Normal Activity Weight Bearing Status: Full weight bearing Follow Up Care Test Results: Test results from this visit will be discussed in further detail at your follow- up appointment, if applicable. Discharge Plan Admission Admit Date/Time: 06/09/25 04:35 Primary Reason for Your Visit: Non-STEMI Attending Provider: Jose Guadalupe Beckman Primary Care Provider: Keyana Esposito Consulting Providers: Nasir Lynn; Kelli Chaidez Discharge Orders/Prescriptions Prescriptions: No Action oxycodone-acetaminophen [Percocet] 7.5-325 mg tablet 1 tab PO Q8H PRN (Reason: pain) lisinopril 40 mg tablet 40 mg PO QDAY metformin 500 mg tablet extended release 24 hr 500 mg PO QDAY ezetimibe [Zetia] 10 mg tablet 10 mg PO QDAY multivitamin Tablet 1 tab PO QAM garlic 500 mg capsule 500 mg PO .3X A WEEK phenazopyridine 200 mg tablet 200 mg PO TID PRN (Reason: pain) Qty: 30 3RF ondansetron 8 mg tablet,disintegrating 8 mg PO Q8H PRN (Reason: nausea and vomiting) Qty: 10 0RF cephalexin 500 mg capsule 500 mg PO Q12 3 Days Qty: 6 0RF Referrals / Follow Up: Keyana Esposito MD [Primary Care Provider, Internal Medicine]
[2025-06-09] MEDS: Potassium Chloride Oral Tablet 20 MEQ PO (17:44)
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
[2025-06-10 02:42] VITALS: BMI 43.7
[2025-06-10 03:46] VITALS: BP 107/64; PULSE 81; RESP 16; TEMP 36.8; O2SAT 98
[2025-06-10 05:10] LABS: Hematocrit 37.5 % (37-47); Hemoglobin 12.5 g/dL (12.0-15.0); Immature Granulocytes Count 0.040 X10^3/uL (0.0-0.0); Mean Corp Hgb Conc 33.3 g/dL (32-36); Mean Corpuscular Volume 90.4 fL (81-99); Mean Platelet Vol. 9.4 fl (6.2-12.0); NRBC Flagged by Analyzer 0 % (0-5); Platelet Count 246 K/mm3 (150-450); RBC Distribution Width CV 12.7 % (11.6-14.6); RBC Distribution Width SD 42.0 fl (35.1-43.9); Red Blood Count 4.15 M/mm3 (4.2-5.4); White Blood Count 10.4 K/mm3 (4.4-11.0)
[2025-06-10 06:05] LABS: Cholesterol 179 mg/dL (<=200); Low Density Lipoprotein Calc. 89 mg/dL; Triglycerides 91 mg/dL; Very Low Density Lipoprotein 18 mg/dL (5-40); cholesterol:hdl ratio screen 2.42
[2025-06-10 06:43] VITALS: O2SAT 95
[2025-06-10 09:00] VITALS: BP 90/65; PULSE 92; RESP 18; TEMP 36.5; O2SAT 95
[2025-06-10] MEDS: Potassium Chloride Oral Tablet 20 MEQ PO (09:09)
[2025-06-10 11:56] VITALS: BP 93/82
--- NOTE | 2025-06-10 12:55 | PCM.DC ---
Discharge Instructions DC O2, CPAP, BIPAP needs Home O2 Discharge instructions: No Dressing / Incision Discharge Activity: Return to Normal Activity Weight Bearing Status: Full weight bearing Follow Up Care Test Results: Test results from this visit will be discussed in further detail at your follow-up appointment, if applicable. Discharge Plan Admission Admit Date/Time: 06/09/25 04:35 Primary Reason for Your Visit: Non-STEMI, nonischemic cardiomyopathy Attending Provider: Jose Guadalupe Beckman Primary Care Provider: Keyana Esposito Consulting Providers: Nasir Lynn; Kelli Chaidez Discharge Orders/Prescriptions Prescriptions: New atorvastatin 80 mg Tablet 80 mg PO QHS Qty: 30 0RF carvedilol 6.25 mg Tablet 6.25 mg PO BIDCM Qty: 60 0RF Jardiance 10 mg Tablet 10 mg PO DAILY Qty: 30 0RF furosemide [Lasix] 40 mg tablet 40 mg PO DAILY Qty: 30 0RF Continued oxycodone-acetaminophen [Percocet] 7.5-325 mg tablet 1 tab PO Q8H PRN (Reason: pain) lisinopril 40 mg tablet 40 mg PO QDAY metformin 500 mg tablet extended release 24 hr 500 mg PO QDAY ezetimibe [Zetia] 10 mg tablet 10 mg PO QDAY multivitamin Tablet 1 tab PO QAM garlic 500 mg capsule 500 mg PO .3X A WEEK phenazopyridine 200 mg tablet 200 mg PO TID PRN (Reason: pain) Qty: 30 3RF ondansetron 8 mg tablet,disintegrating 8 mg PO Q8H PRN (Reason: nausea and vomiting) Qty: 10 0RF cephalexin 500 mg capsule 500 mg PO Q12 3 Days Qty: 6 0RF Referrals / Follow Up: Keyana Esposito MD [Primary Care Provider, Internal Medicine] - Within 1 Month Bernardino Linton NP, [facility] [[facility] Staff - [facility], Cardiology] - See Referral Note Referral Note: In 2 to 3 weeks Disposition Disposition (needs filled in before D/C Order can be placed): Home, Self Care
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
== END 2025-06-10 13:25 | disposition home or self-care (01) | DRG 281 ==
LOC: ED 03:02 → PCU 04:59
PROVIDERS: Admitting Provider Family Medicine; Emergency Provider Specialist/Technologist Athletic Trainer; PCP Internal Medicine; Visit Provider Internal Medicine
DX: I21.4 Non-ST elevation (NSTEMI) myocardial infarction (principal); Z68.41 Body mass index [BMI] 40.0-44.9, adult; I42.8 Other cardiomyopathies; E11.9 Type 2 diabetes mellitus without complications; E66.01 Morbid (severe) obesity due to excess calories; D72.829 Elevated white blood cell count, unspecified; G47.33 Obstructive sleep apnea (adult) (pediatric); E78.5 Hyperlipidemia, unspecified; Z79.84 Long term (current) use of oral hypoglycemic drugs; Z82.49 Family history of ischemic heart disease and other diseases of the circulatory system; R91.1 Solitary pulmonary nodule; Z79.891 Long term (current) use of opiate analgesic; Z87.891 Personal history of nicotine dependence; Z99.89 Dependence on other enabling machines and devices
CPT/HCPCS: 36415; 71045; 71275; 80053; 80061; 81001; 82962; 83605; 83735; 83880; 84484; 85025; 85610; 85730; 87040; 87631; 93005; 93306; 93458; 94668; 99152; 99284; C1894; Q9957; Q9967; A4216; C1769; C8929; J1938